=== PATIENT | male | born 1960 | race Caucasian/White ===

== ENCOUNTER 2022-05-01 07:42 | Outpatient (CLI) | payer MEDICARE, BC, SELFPAY ==
[2022-05-01 13:27] LABS: Iron* 74 ug/dL (49-181)
[2022-05-01 13:35] LABS: Albumin* 3.9 g/dL (3.3-5.0); Chloride* 107 mmol/L (96-114); Sodium* 139 mmol/L (135-149)
[2022-05-01 13:37] LABS: Percent Iron Saturation 22 % (20-50); Total Iron Binding Capacity 333 ug/dL (261-462)
[2022-05-01 13:38] LABS: Blood Urea Nitrogen* 42 mg/dL (7-30); Carbon Dioxide* 23 mmol/L (20-32); Cholesterol* 180 mg/dL (90-199); Creatinine* 2.3 mg/dL (0.5-1.5); Estimated Glomerular Filt Rate 32 ml/min; Glucose* 225 mg/dL (60-115); Uric Acid* 8.4 mg/dL (2.2-8.4)
[2022-05-01 13:39] LABS: Calcium* 9.1 mg/dL (8.4-10.6); HDL Cholesterol* 40 mg/dL (>=40); LDL Cholesterol Calculated 95 mg/dL (<100); Potassium* 4.8 mmol/L (3.6-5.1); Triglycerides* 225 mg/dL (40-149)
[2022-05-01 13:52] LABS: Creatinine Urine 86.4 mg/dL
[2022-05-01 15:24] LABS: Microalbumin Creatinine Ratio 4720 mg/g (0-30); Microalbumin Urine 408 mg/dL
[2022-05-01 16:32] LABS: Ferritin* 82.2 ng/mL (17.9-464.0)
== END 2022-05-01 07:43 | disposition home or self-care (01) ==
PROVIDERS: PCP Family Medicine; Visit Provider Internal Medicine Nephrology
DX: N18.9 Chronic kidney disease, unspecified (principal); E11.610 Type 2 diabetes mellitus with diabetic neuropathic arthropathy; I10 Essential (primary) hypertension; D50.9 Iron deficiency anemia, unspecified; E55.9 Vitamin D deficiency, unspecified; R80.9 Proteinuria, unspecified
CPT/HCPCS: 80061; 80069; 82043; 82570; 82728; 83540; 83550; 84550; 87205

== ENCOUNTER 2022-07-31 09:50 | Outpatient (CLI) | payer MEDICARE, BC, SELFPAY ==
--- NOTE | 2022-07-31 10:00 | CRLHL7_ITS ---
For Patients: As a result of the Century Cures Act, medical imaging exams and procedure reports are released immediately into your electronic medical record. You may view this report before your referring provider. If you have questions, please contact your health care provider. Indication: HEMATURIA Technique: Routine noncontrast CT abdomen and pelvis Please note that all CT scans at this facility use dose modulation, iterative reconstruction, and/or weight-based dosing when appropriate to reduce radiation dose to as low as reasonably achievable. Comparison: None Findings: Mild areas of atelectasis noted in both lung bases. No pleural effusion. No free intraperitoneal air. Bilateral gynecomastia. Normal liver. Innumerable layering calcified stones in the gallbladder. No biliary obstruction. Pancreas normal. Incidental calcification adjacent to the pancreatic head. Spleen unremarkable. Tiny hiatal hernia. Adrenal glands normal. No renal stone. No hydronephrosis. Ureters normal. No ureteral stone. Vascular calcifications. No adenopathy. Small right inguinal hernia contains fat. Sigmoid diverticulosis. No diverticulitis. Appendix normal. No bladder stone. Mild bladder wall thickening may be present. Impression: No renal, ureteral or bladder stone. The bladder is distended. Mild bladder wall thickening may be present. Please note that all CT scans at this facility use dose modulation, iterative reconstruction, and/or weight-based dosing when appropriate to reduce radiation dose to as low as reasonably achievable. Dictated by Damien Wise MD @ 07/31/2022 1:03:20 PM (Electronically Signed)
--- OUTSIDE RECORDS SUMMARY | 2022-07-31 10:05 | XMS_ITS | Encounter Summary ---
:1960 Author Organization [facility] Address [address] [place] [address] Care Team Providers Name Role Phone Unavailable Primary Care Provider Unavailable Reason for Referral Specialty Diagnoses / Procedures Referred By Contact Refer red To Contact Ramya Moon M.D. 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 [address] [place] [address] [phone] (Wo rk) Social History Tobacco Use Types Packs/Day Years Used Date Smoking Tobacco: Never Assessed Sex Assigned at Date Recorded Not on file documented as of this encounter Plan of Treatment Scheduled Referrals Name Type Priority Associated Order Schedule Diagnoses Covid immunization Outpatient Referral Routine Ex pected: office visit Booster 021 (Approximate), Expires: 08/06/2022 documented as of this encounter Visit Diagnoses Not on filedocumented in this encounter
--- OUTSIDE RECORDS SUMMARY | 2022-07-31 10:05 | XMS_ITS | Encounter Summary ---
:1960 Author Organization [place] Address [address] [facility] [place] [address] Care Team Providers Name Role Phone Ihsan Dunn MD Primary Care Provider [phone] Reason for Visit (Routine) - Closed Specialty Diagnoses / Procedures Referred By Contact Refer red To Contact Cardiology Diagnoses Per Leyda Desai, f/u at 215PM Echo Rscc Procedures ECH COMPLETE [address] [place], [place] [address] Phone: Fax: Referral ID Status Reason Start Date Expiration Date Visits Requ ested Visits Authorized [id number] Closed 10/29/2017 10/29/2018 1 1 Encounter Details Date Type Department Care Team Description 10/29/2017 Hospital Encounter [facility] Ketroser, 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; [facility] Melanie Keen MD Thoracic aortic aneurysm without rupture (H) [facility] [address] [place] [address] [facility] [address] [place] [address] [phone] Social History Tobacco Use Types Packs/Day Years Used Date Smoking Tobacco: Never Smokeless Tobacco: Never Alcohol Use Standard Drinks/Week Comments No 0 (1 standard drink = 0.6 oz pure alcoho l) Sex Assigned at Date Recorded Not on file documented as of this encounter Medications at Time of Discharge Medication Sig Dispensed Refills Start Date End Date ascorbic acid (VITAMIN C) Take 500 mg by mouth 0 500 MG tablet daily aspirin 81 MG Take 2 tablets (162 60 tablet 0 06/12/2017 tabletIndications: S/P mg) by mouth daily BKA (below knee amputation), left (H) Cholecalciferol (VITAMIN Take 5,000 Units by 0 D3 PO) mouth daily GLIPIZIDE XL PO Take 5 mg by mouth 0 daily (with breakfast) lisinopril Take 30 mg by mouth 0 (PRINIVIL/ZESTRIL) 10 MG daily tablet order for DMEIndications: Equipment being ordered: [employer] Wheels (E0155) and Walker (E0135) 1 each 0 06/07/2017 S/P BKA (below knee Treatment Diagnosis: Impaired gait stability s/p BKA amputation), left (H) order for DMEIndications: [facility] Order Phone 30 days 0 05/20/2017 Charcot ankle, right, Charcot ankle, left, Primary Dressing Hydrofera B lue READY TRANSFER Qty 5 sheets NOT NEEDED Decubitus ulcer of right Secondary Dressing 4 Roll gauze Qty 60 NOT NEEDED ankle, stage 3 (H), Secondary Dressing 2 medipore tape Qty 3 Pressure ulcer of left Length of Need: 1 month ankle, stage 3 (H) Frequency of dressing change: daily order for DMEIndications: [facility] Order Phone 30 days 0 04/22/2017 Charcot ankle, left, Open wound of knee, leg, and Primary Dressing HydroferaBl ue Ready Transfer Qty 4 sheets ankle, left, initial Primary Dressing Endoform Qty 15 sheets encounter, Charcot's Secondary Dressing 4x4 Gauze Loaf Qty 2 joint of right ankle, Secondary Dressing 2 Medipore Tape Qty 2 Wound of right ankle, Length of Need: 1 month initial encounter Frequency of dressing change: daily Please send what his insurance will allow. Thank you polyvinyl Place 1-2 drops into 0 alcohol-povidone both eyes as needed (REFRESH) 1.4-0.6 % for irritation ophthalmic solution Sertraline HCl (ZOLOFT Take 50 mg by mouth 0 PO) daily SIMVASTATIN PO Take 20 mg by mouth 0 daily documented as of this encounter Plan of Treatment Not on filedocumented as of this encounter Procedures Procedure Name Priority Date/Time Associated Diagnosis Comme [facility] ECHO COMPLETE Routine 10/29/2017 11:24 AM Aneurysm of aortic R esults for this [employer] sinus of Valsalva procedure are in the without rupture results section. Thoracic aortic aneurysm without rupture (H) documented in this encounter Results Echocardiogram (10/29/2017 11:24 AM [employer]) Anatomical Region Laterality Modality Echocardiography Specimen (Source) Anatomical Collection Method Collection Time Re ceived Time Location / / Volume Laterality 10/29/2017 11:03 AM [employer] Narrative 10/29/2017 11:46 AM [facility] [id number] [facility] [id number]^LLOYD^MELANIE^[facility] Echocardiography Laboratory [address] [place] [address] Name: GEO DUBOIS : 1960 Study Date: 10/29/2017 11:03 AM Age: 57 yrs Gender: Male Patient Location: [facility] Reason For Study: , Aneurysm of aortic s inus of Valsalva without rupture, Thoracic Ordering Physician: MELANIE DESAI Referring Physician: Warren Dunn MD Performed By: Suzy Jorgensen RDCS BSA: 2.2 m2 Height: 70 in Weight: 224 lb HR: 72 BP: 170/89 mmHg __ Procedure Complete Echo Adult. __ Interpretation Summary The visual ejection fraction is estimate d at 55-60%. Probably normal left ventricular systoli c function. The ascending aorta is Mildly dilated. Compared to prior study, there is no sig nificant change. __ Left Ventricle The left ventricle is normal in size. Th ere is mild concentric left ventricular hypertrophy. The visual ejec tion fraction is estimated at 55-60%. Diastolic Doppler findings (E/E' ratio a nd/or other parameters) suggest left ventricular filling pressures are indete rminate. Grade I or early diastolic dysfunction. Probably normal left ventri cular systolic function. Septal motion is consistent with conduction abnormalit y. The left ventricular apex is not well visualized. Right Ventricle The right ventricle is normal in size an d function. Atria The left atrium is borderline dilated. R ight atrial size is normal. There is no color Doppler evidence of an atrial s nevarez. Mitral Valve There is trace mitral regurgitation. Tricuspid Valve There is trace tricuspid regurgitation. Right ventricular systolic pressure could not be approximated due to inadequ ate tricuspid regurgitation. Aortic Valve The aortic valve is trileaflet. There is trivial trileaflet aortic sclerosis. No aortic regurgitation is present. No h emodynamically significant valvular aortic stenosis. Pulmonic Valve There is trace pulmonic valvular regurgi tation. Vessels Mild aortic root dilatation. The ascendi ng aorta is Mildly dilated. The inferior vena cava is not dilated. Infer ior vena cava not well visualized for estimation of right atrial pressure. Pericardium There is no pericardial effusion. Rhythm Sinus rhythm was noted. __ MMode/2D Measurements & Calculations IVSd: 1.1 cm LVIDd: 5.0 cm LVIDs: 3.9 cm LVPWd: 1.3 cm FS: 21.5 % EDV(Teich): 115.8 ml ESV(Teich): 65.4 ml LV mass(C)d: 236.5 grams LV mass(C)dI: 108.0 grams/m2 Ao root diam: 3.9 cm LA dimension: 4.1 cm asc Aorta Diam: 3.7 cm LA/Ao: 1.1 LA Volume Index (BP): 34.4 ml/m2 RWT: 0.54 Doppler Measurements & Calculations MV E max watson: 64.9 cm/sec MV A max watson: 96.2 cm/sec MV E/A: 0.67 MV dec slope: 273.2 cm/sec2 MV dec time: 0.24 sec Peak E' Watson: 6.4 cm/sec __ Report approved by: Nory Ortiz 10/29/2017 11:46 AM Procedure Note Adalid Seymour MD - [id number]^LLOYD^MELANIE^[facility] Echocardiography Laboratory [address] [place] [address] Name: GEO DUBOIS : 1960 Study Date: 10/29/2017 11:03 AM Age: 57 yrs Gender: Male Patient Location: [facility] Reason For Study: , Aneurysm of aortic s inus of Valsalva without rupture, Thoracic Ordering Physician: MELANIE DESAI Referring Physician: Warren Dunn MD Performed By: Suzy Jorgensen RDCS BSA: 2.2 m2 Height: 70 in Weight: 224 lb HR: 72 BP: 170/89 mmHg __ Procedure Complete Echo Adult. __ Interpretation Summary The visual ejection fraction is estimate d at 55-60%. Probably normal left ventricular systoli c function. The ascending aorta is Mildly dilated. Compared to prior study, there is no sig nificant change. __ Left Ventricle The left ventricle is normal in size. Th ere is mild concentric left ventricular hypertrophy. The visual ejec tion fraction is estimated at 55-60%. Diastolic Doppler findings (E/E' ratio a nd/or other parameters) suggest left ventricular filling pressures are indete rminate. Grade I or early diastolic dysfunction. Probably normal left ventri cular systolic function. Septal motion is consistent with conduction abnormalit y. The left ventricular apex is not well visualized. Right Ventricle The right ventricle is normal in size an d function. Atria The left atrium is borderline dilated. R ight atrial size is normal. There is no color Doppler evidence of an atrial s nevarez. Mitral Valve There is trace mitral regurgitation. Tricuspid Valve There is trace tricuspid regurgitation. Right ventricular systolic pressure could not be approximated due to inadequ ate tricuspid regurgitation. Aortic Valve The aortic valve is trileaflet. There is trivial trileaflet aortic sclerosis. No aortic regurgitation is present. No h emodynamically significant valvular aortic stenosis. Pulmonic Valve There is trace pulmonic valvular regurgi tation. Vessels Mild aortic root dilatation. The ascendi ng aorta is Mildly dilated. The inferior vena cava is not dilated. Infer ior vena cava not well visualized for estimation of right atrial pressure. Pericardium There is no pericardial effusion. Rhythm Sinus rhythm was noted. __ MMode/2D Measurements & Calculations IVSd: 1.1 cm LVIDd: 5.0 cm LVIDs: 3.9 cm LVPWd: 1.3 cm FS: 21.5 % EDV(Teich): 115.8 ml ESV(Teich): 65.4 ml LV mass(C)d: 236.5 grams LV mass(C)dI: 108.0 grams/m2 Ao root diam: 3.9 cm LA dimension: 4.1 cm asc Aorta Diam: 3.7 cm LA/Ao: 1.1 LA Volume Index (BP): 34.4 ml/m2 RWT: 0.54 Doppler Measurements & Calculations MV E max watson: 64.9 cm/sec MV A max watson: 96.2 cm/sec MV E/A: 0.67 MV dec slope: 273.2 cm/sec2 MV dec time: 0.24 sec Peak E' Watson: 6.4 cm/sec __ Report approved by: Nory Ortiz 10/29/2017 11:46 AM Melanie Desai MD CV ECHO ORDERABLES documented in this encounter Visit Diagnoses Diagnosis Aneurysm of aortic sinus of Valsalva wit hout rupture Thoracic aortic aneurysm without rupture Thoracic aneurysm without mention of rup ture documented in this encounter Care Teams Front Desk Team Member Relationship Specialty Start Date End Date Ihsan Dunn MD PCP - General 06/07/17 documented as of this encounter
--- OUTSIDE RECORDS SUMMARY | 2022-07-31 10:05 | XMS_ITS | Encounter Summary ---
:1960 Author Organization [facility] Address [address] [place] [address] Care Team Providers Name Role Phone Unavailable Primary Care Provider Unavailable Reason for Referral Outpatient (Routine) - Closed Specialty Diagnoses / Procedures Referred By Contact Refer red To Contact Prasanna Tavera D.O. [facility] [address] [place] [phone] Referral ID Status Reason Start Date Expiration Date Visits Requ ested Visits Authorized [id number] Closed 03/05/2022 03/05/2023 1 1 Scheduling Instructions Ok on admin time early PM Reason for Visit Outpatient (Routine) - Closed Specialty Diagnoses / Procedures Referred By Contact Yvette aden To Contact Prasanna Tavera D.O. [address] [phone] Referral ID Status Reason Start Date Expiration Date Visits Requ ested Visits Authorized [id number] Closed 01/28/2022 01/28/2023 1 1 Encounter Details Date Type Department Care Team Description 03/05/2022 Virtual Visit Division of Britt[facility]averaonic Kidney Disease (CKD) Stage 3b Glomerular Filtration Rate (GFR) 30 To 44 (Primary Dx); Nephrology and Prasanna Pratt Jr., Chronic Kidn ey Disease (CKD), Stage 3b Glomerular Filtration Rate (GFR) 30 To 44 (HCC); Hypertension in D.O. 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 (HCC); [place], [place] [address] [facility] Hyperparathyroidism Renal Secondary (HCC ) [address] [place] [phone] Social History Tobacco Use Types Packs/Day Years Used Date Smoking Tobacco: Never Assessed Sex Assigned at Date Recorded Not on file documented as of this encounter Progress Notes Prasanna Tavera Jr., D.O. - 03/05/2022 1:30 PM CDT Subjective Nephrology HTN Phone Visit This visit took place over the phone to the patient by Dr. Prasanna Tavera in [place], [place]. Chief Complaint/Reason for Visit Follow-up regards severe resistant hypertension History of Present Illness: Geo Dubois is a 61 y.o. male who presents for evaluation of the following concerns: Follow-up regards his hypertension. At our last visit in [place] we had increased his hydrochlorothiazide to 50 mg per day, his losartan to 100 mg per day, and his carvedilol was at 6.25 mg twice daily. His pulse has been running in the upper 60s by enlarge. Unfortunately his blood pressure remainsabove goal at 170/88, and as high as 190s over 90s. He has had no shortness of breath no chest pain. There has been a bit of confusion he might have only been using 25 mg of the hydrochlorothiazide recently. His legs are not swollen, he has no changes in his vision he has had no hypoglycemic events. Shared the overall frustration with him regards his difficult to manage blood pressure. We discussedthe addition of minoxidil. And close follow-up will be necessary. Current Outpatient Medications: ??? carvediloL (COREG) 3.125 mg tablet, Take 2 tablets (6.25 mg total) by mouth 2 (two) times a day with meals., Disp: 360 tablet, Rfl: 3 ??? losartan (COZAAR) 100 mg tablet, Take 0.5 tablets (50 mg total) by mouth daily., Disp: 45 tablet, Rfl: 3 ??? atorvastatin (LIPITOR) 20 mg tablet, Take 1 tablet (20 mg total) by mouth daily., Disp: 90 tablet, Rfl: 3 ??? hydroCHLOROthiazide (HYDRODIURIL) 50 mg tablet, Take 1 tablet (50 mg total) by mouth daily., Disp: 90 tablet, Rfl: 3 ??? minoxidiL (LONITEN) 2.5 mg tablet, Take 1 tablet (2.5 mg total) by mouth daily., Disp: 90 tablet, Rfl: 3 ??? sertraline (ZOLOFT) 50 mg tablet, Take 1 tablet (50 mg total) by mouth daily., Disp: 90 tablet, Rfl: 3 Review of Systems REVIEW OF SYSTEMS OBJECTIVE There were no vitals filed for this visit. Assessment/Plan: #1 Hypertensive Chronic Kidney Disease (CKD) Stage 3b Glomerular Filtration Rate (GFR) 30 To 44 Frustrating lack of progress on 3 agents for his blood pressure at usual doses. I am going to add minoxidil at a low-dose 2.5 mg orally daily to his regimen. He has previously had side effects to amlodipine, and I cautioned him that the minoxidil could also cause lower extremity swelling, headaches, or lightheadedness. Going to her also recommend he continue to be careful with the sodium, stay well hydrated, and that we will touch base in a month with respect to his blood pressure, and other mattersby phone. #2 Chronic Kidney Disease (CKD), Stage 3b Glomerular Filtration Rate (GFR) 30 To 44 (HCC) His renal functions remain relatively stable we have [id number] visit with labs scheduled in April. #3 Diabetes Mellitus Type 2 With Diabetic Nephropathy (HCC) No hypoglycemic events #4 Hyperparathyroidism Renal Secondary (HCC) No bone pain Total Time: 35 minute Counseling Time: 20 minutes documented in this encounter Plan of Treatment Scheduled Referrals Name Type Priority Associated Diagnoses [facility] NonF2F phone Outpatient Referral Routine Expected : visit 04/04/2022 (Approximate), Expires: 2022 documented as of this encounter Visit Diagnoses Diagnosis Hypertensive Chronic Kidney Disease (CKD ) Stage 3b Glomerular Filtration Rate (GFR) 30 To 44 (HCC) - Primary Chronic Kidney Disease (CKD), Stage 3b G lomerular Filtration Rate (GFR) 30 To 44 (HCC) 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
--- OUTSIDE RECORDS SUMMARY | 2022-07-31 10:05 | XMS_ITS | Clinical Summary ---
:1960 Author Organization [facility] Address [address] [place] [address] Care Team Providers Name Role Phone Ihsan Dunn MD Primary Care Provider [phone] Allergies Active Allergy Reactions Severity Noted Date Comments Amoxicillin Hives 01/31/2016 Medications Medication Sig Dispensed Refills Start Date End Date Status GLIPIZIDE XL PO Take 5 mg by mouth 0 Active daily (with breakfast) Sertraline HCl Take 50 mg by mouth 0 Active (ZOLOFT PO) daily Cholecalciferol Take 5,000 Units by 0 Active (VITAMIN D3 PO) mouth daily SIMVASTATIN PO Take 20 mg by mouth 0 Active daily lisinopril Take 30 mg by mouth 0 Active (PRINIVIL/ZESTRIL) 10 daily MG tablet order for [facility] Order Fax 30 days 0 04/22/2017 Active DMEIndications: Charcot ankle, left, Primary Dressing HydroferaBlue Ready Tr ansfer Qty 4 sheets Open wound of knee, Primary Dressing Endoform Qty 15 sheets leg, and ankle, left, Secondary Dressing 4x4 Gauze Loaf Qty 2 initial encounter, Secondary Dressing 2 Medipore Tape Qty 2 Charcot's joint of Length of Need: 1 month right ankle, Wound of Frequency of dressing change: daily right ankle, initial Please send what his insurance will allow. encounter Thank you order for [facility] Order Fax 30 days 0 05/20/2017 Active DMEIndications: Charcot ankle, right, Primary Dressing Hydrofera B lue READY TRANSFER Qty 5 sheets NOT NEEDED Charcot ankle, left, Secondary Dressing 4 Roll gauze Qty 60 NOT NEED ED Decubitus ulcer of Secondary Dressing 2 medipore tape Qty 3 right ankle, stage 3 Length of Need: 1 month (H), Pressure ulcer Frequency of dressing change: daily of left ankle, stage 3 (H) polyvinyl Place 1-2 drops 0 Acti ve alcohol-povidone into both eyes as (REFRESH) 1.4-0.6 % needed for ophthalmic solution irritation order for Equipment being ordered: Walker Wheels ( [id number]) and Walker ([id number]) 1 each 0 06/07/2017 Active DMEIndications: S/P Treatment Diagnosis: Impaired gait stability s/p B KA BKA (below knee amputation), left (H) aspirin 81 MG Take 2 tablets (162 60 tablet 0 06/12/2017 Active tabletIndications: mg) by mouth daily S/P BKA (below knee amputation), left (H) ascorbic acid Take 500 mg by 0 A ctive (VITAMIN C) 500 MG mouth daily tablet Active Problems Problem Noted Date Below knee amputation status 06/08/2017 Diabetes 06/05/2017 VILLA (obstructive sleep apnea) 04/02/2017 Benign essential hypertension 04/02/2017 Ischemic cardiomyopathy 09/15/2016 Thoracic aortic aneurysm without rupture 09/15/2016 Type 2 diabetes mellitus with diabetic neuropathy 02/27 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 0 01/31/2016 Family history of ischemic heart disease 01/29/2016 Diabetes mellitus Anemia of chronic disorder Family History Medical History Relation Comments Diabetes Brother Hyperlipidemia Father Diabetes Mother Hypertension Mother Relation Status Comments Brother Father Mother Social History Tobacco Use Types Packs/Day Years Used Date Smoking Tobacco: Never Smokeless Tobacco: Never Tobacco Cessation: Counseling Given: No Alcohol Use Standard Drinks/Week Comments No 0 (1 standard drink = 0.6 oz pure alcoho l) Sex Assigned at Date Recorded Not on file Last Filed Vital Signs Vital Sign Reading Time Taken Comments Blood Pressure 118/72 11/05/2018 10:49 AM SPD MANAGER Pulse 78 10/29/2017 2:07 PM SPD MANAGER regular Temperature 37.1 ??C (98.8 ??F) 07/10/2017 5:09 PM CDT Respiratory Rate 12 07/10/2017 6:30 PM CDT Oxygen Saturation 98% 07/10/2017 6:30 PM CDT Inhaled Oxygen Concentration - - Weight 118.4 kg (261 lb) 11/05/2018 10:49 AM SPD MANAGER Height 177.8 cm (5' 10) 11/05/2018 10:49 AM SPD MANAGER Body Mass Index 37.45 11/05/2018 10:49 AM SPD MANAGER Plan of Treatment Health Maintenance Due Date Last Done Comments ADVANCE CARE PLANNING 1960 ANNUAL REVIEW OF HM ORDERS 1960 CT COLONOGRAPHY 1960 DIABETIC FOOT EXAM 1960 EYE EXAM 1960 FIT-DNA (Cologuard) 1960 FIT 1960 FLEX SIG 1960 LIPID 1960 MICROALBUMIN 1960 COVID-19 Vaccine (#1) 1960 Pneumococcal Vaccine: 1968 Pediatrics (0 to 5 Years) and At-Risk Patients (6 to 64 Years) (1 - PCV) COLONOSCOPY 1972 COLORECTAL CANCER SCREENING 1972 HIV SCREENING 1977 HEPATITIS C SCREENING 1980 MEDICARE ANNUAL WELLNESS 1980 VISIT DTAP/TDAP/TD IMMUNIZATION 1987 (1 - Tdap) ZOSTER IMMUNIZATION (1 of 2012 2) A1C 12/07/2017 06/09/2017 BMP 07/10/2018 07/10/2017, 06/09/2017, 06/06/2017, Additional history exists PHQ-2 (once per calendar 09/28/2021 year) INFLUENZA VACCINE (#1) 2022 IPV IMMUNIZATION Aged Out No longer eligi ble based on patient 's age to complete this topic MENINGITIS IMMUNIZATION Aged Out No longe r eligible based on patient 's age to complete this topic Insurance Payer Benefit Plan / Subscriber ID Effective Phone Address T ype Group Dates MEDICARE MEDICARE [id number] 2018-Prese [phone] ATTN JAMARCUS [place] Medicare nt 40 [address] [place] [address] BCBS BCBS OF [place] [id number] 2018-Prese [phone] [address] [address] Indemnity nt [address] [place] [address] Guarantor Name Account Type Relation to Date of Phone Billing Patient Address Geo Dubois Personal/Family Self 1960 [id number] (Home) [place] [phone] (Work) [place] Directives For more information, please contact: [phone] Latest Code Status on File Code Status Date Activated Date Inactivated Comments Full Code 06/12/2017 5:57 PM Code Status History Code Status Date Activated Date Inactivated Comments Full Code 06/08/2017 2:51 PM 06/12/2017 5:57 PM Full Code 06/05/2017 2:18 PM 06/08/2017 2:51 PM Care Teams Ob Gyn Relationship Specialty Start Date End Date Ihsan Dunn MD PCP - General 06/07/17
--- OUTSIDE RECORDS SUMMARY | 2022-07-31 10:05 | XMS_ITS | Encounter Summary ---
:1960 Author Organization [facility] Address [address] [place] [address] Care Team Providers Name Role Phone Unavailable Primary Care Provider Unavailable Reason for Visit Appointment Request (Routine) - Closed Specialty Diagnoses / Procedures Referred By Contact Refer red To Contact Nephrology and Hypertension Referral ID Status Reason Start Date Expiration Date Visits Requ ested Visits Authorized [id number] Closed 05/16/2021 05/16/2022 1 1 Encounter Details Date Type Department Care Team Description 07/24/2021 External Outreach Division of Yolanda, Hypertens ion And Chronic Kidney Disease Stage 1 To 4 (Primary Dx); Nephrology and Gricel Oliveira APRN, Anemia Of C hronic Renal Disease; Hypertension in C.N.P., D.N.P. Diabetes M ellitus Type 2 ([facility]); [place], [place] Chronic Kidney Disease (CKD) , Stage 3b Glomerular Filtration Rate (GFR) 30 To 44 ([facility]); [address] [facility] Diabetes Mellitus Type 2 Wit h Diabetic Nephropathy (HCC) [place] [address] Social History Tobacco Use Types Packs/Day Years Used Date Smoking Tobacco: Never Assessed Sex Assigned at Date Recorded Not on file documented as of this encounter Progress Notes Gricel Guerrero APRN, C.N.P., D.N.P. - 07/24/2021 8:30 AM CDT Subjective: This visit was conducted at out reach [facility] History of Present Illness: Mr. Dubois is a 61 y.o. male who presents for ongoing evaluation of chronic kidney disease. He waslast seen in Nephrology by Dr. Tavera on 03/13/2021. He has chronic kidney disease secondary to diabetes and hypertension. Active medications: Hydrochlorothiazide 50 mg 1 tablet daily Losartan 100 mg daily Atorvastatin 20 mg daily Glipizide 5 mg daily Past medical history includes Charcot foot, aortic dilatation/ascending aortic dilatation mild, irondeficiency anemia EGD and colonoscopy August 2015, diabetic retinopathy with macular edema, obstructive sleep apnea, depression, hyperlipidemia. He has not managed his diabetes or his hypertension well in the past. When he last saw nephrology was reporting frequent hypoglycemic events. It was also noted he was not taking his glipizide nor his antihypertensives regularly. No changes were made at his last appointment just encouraging appropriate medication management for hypertension and diabetes. He returns today reporting he feels well. He denies any s/s of uremia or volume overload and endorses a good appetite. He states he has not taken any of his listed medications in over a month and states before that he was not really consistently taking them as well. His reasoning is that he just forgets. He has been living in his shop to protect his partner who has health problems from potentially elham COVID. They are both immunized. He states he will actually be moving back in soon. Review of Systems The following systems were negative: Constitutional, CV, Respiratory, GI, , Neuro Objective: Constitutional Appearance: He is obese. Cardiovascular Rate and Rhythm: Normal rate and regular rhythm. Heart sounds: Normal heart sounds. Comments: Left leg amputation below the knee, no edema of stump. Right leg no edema. Pulmonary Effort: Pulmonary effort is normal. Breath sounds: Normal breath sounds. Skin General: Skin is warm and dry. Neurological Mental Status: He is alert and oriented to person, place, and time. Psychiatric Mood and Affect: Mood normal. Behavior: Behavior normal. Thought Content: Thought content normal. Judgment: Judgment normal. BP: 230/110 P: 77 Weight 114 Kg Assessment/Plan: #1 Chronic kidney Disease (CKD) stage 3 secondary to diabetes and hypertension GFR is 40 mL/min. BUN is27 mg/dL. He Does not display signs of uremia today. Signs and symptoms of uremia reviewed today. #2 CKD treatment options We did not discuss treatment options. We did have a kalpana discussion about my concerns of his not taking any of his medications and his current risks of sudden from heart attack/CVA and with his proteinuria doubling his potential for kidney failure in the near future. #3 Hypertension Significantly hypertensive with worsening proteinuria. Restart Losartan at 25 mg. Recheck lab in 1 week at [facility]. Follow up in clinic in one month. Likely will need increased dose and more agents for management of blood pressure. #4 Anemia of CKD Hgb although slightly low at 12.2 is satisfactory at this time without ANYA therapy. #5 Secondary hyperparathyroidism Calcium, Phosphorus and PTH are satisfactory for stage 3 CKD. He is not on any vitamin D therapy. #6 Metabolic acidosis screening Bicarbonate:satisfactory at this time without treatment. #7 DM 2 He reports hypoglycemia with glipizide and does not want to restart this. We discussed the CREDENCE trial and the use of SGLT 2 inhibitors and GLP 1 RA. He is currently not a candidate for a SGLT 2 inhibitor given his hx of amputation and charcot foot. He does qualify and would benefit from the addition of a GLP 1 RA. I will check with his PCP and see if they are opposed to getting him started on a GLP 1 RA. GLP-1 receptor agonists (like Victoza, Ozempic, Trulicity, Exenatide-LAR) are injections that increase endogenous insulin secretion and cause significant weight loss by decreasing appetite and increasing satiety. Some of these agents (Victoza, Ozempic, Trulicity) can be used in stage 5 kidney disease also. The use of these agents has been associated with nausea, vomiting and diarrhea, especially if doses are escalated quickly. These agents have been shown to be associated with decrease in progression of kidney disease, especially decrease in urinary albumin excretion. Patient who have had pancreatitis or pancreatic cancer, or have had a medullary thyroid cancer, or have a family history of medullary thyroid cancer or MEN-2 should not use these agents. Follow-up: CKD clinic in one month 09/04/21 documented in this encounter Plan of Treatment Not on filedocumented as of this encounter Visit Diagnoses Diagnosis Hypertension And Chronic Kidney Disease Stage 1 To 4 - Primary Anemia Of Chronic Renal Disease Diabetes Mellitus Type 2 (HCC) Chronic Kidney Disease (CKD), Stage 3b G lomerular Filtration Rate (GFR) 30 To 44 (HCC) 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 (HCC) documented in this encounter
--- OUTSIDE RECORDS SUMMARY | 2022-07-31 10:05 | XMS_ITS | Encounter Summary ---
:1960 Author Organization [facility] Address [address] [place] [address] Care Team Providers Name Role Phone Unavailable Primary Care Provider Unavailable Reason for Visit Appointment Request (Routine) - Closed Specialty Diagnoses / Procedures Referred By Contact Refer red To Contact Nephrology and Hypertension Referral ID Status Reason Start Date Expiration Date Visits Requ ested Visits Authorized [id number] Closed 08/21/2021 08/21/2022 1 1 Encounter Details Date Type Department Care Team Description 09/04/2021 External Outreach Division of Melecio Guerrero ion And Chronic Kidney Disease Stage 1 To 4 (Primary Dx); Nephrology and Gricel Oliveira APRN, Hypertensio n Essential Primary; Hypertension in C.N.P., D.N.P. Diabetes M ellitus Type 2 ([facility]); [place], [place] Chronic Kidney Disease (CKD) , Stage 3b Glomerular Filtration Rate (GFR) 30 To 44 ([facility]) [address] [place] [address] Social History Tobacco Use Types Packs/Day Years Used Date Smoking Tobacco: Never Assessed Sex Assigned at Date Recorded Not on file documented as of this encounter Last Filed Vital Signs Vital Sign Reading Time Taken Comments Blood Pressure 150/84 09/04/2021 8:59 AM WEB ENGINEER Pulse 72 09/04/2021 8:59 AM WEB ENGINEER Temperature - - Respiratory Rate - - Oxygen Saturation - - Inhaled Oxygen Concentration - - Weight - - Height - - Body Mass Index - - documented in this encounter Progress Notes Gricel Guerrero APRN, C.N.P., D.N.P. - 09/04/2021 8:30 AM CST Subjective: History of Present Illness: Mr. Dubois is a 61 y.o. male who presents for ongoing evaluation of chronic kidney disease. He is being seen in the CKD clinic in [place]. He was last seen on July 24, 2021. He has chronic kidney disease secondary to diabetes and hypertension. At his last appointment his kidney function was noted as stable. He was significantly hypertensive in the clinic with a blood pressure of 230/110 with worsening proteinuria and was advised to restart losartan 25 mg 1 tablet daily. We also discussed his diabetes management. At that appointment he told me he stopped taking his glipizide due to hypoglycemic events. We did discuss the possibility of starting on a GLP 1 receptor agonist, and I said his primary care physician message home regarding this. He returns today reporting he has been taking his medications as prescribed. He saw his PCP last month and was restarted on his HCTZ at mg daily and was given a RX for Victoza. The Victoza was too expensive and then was given Ozempic. He states he decided not to fruit or nut picker the medicine as he is living between two homes (his daughters andfriends) and is not sure when or where he will be on any given day and leaves his items in his truck. He states traveling with injections would be too cumbersome and is not willing to pay 200$ and travel with the medicine. Review of Systems Cardiovascular: Positive for swelling in the legs or feet. Negative for chest pain, pressure or tightness. The following systems were negative: Constitutional, Respiratory, GI, , Neuro Objective: Constitutional Appearance: He is well-developed. Cardiovascular Rate and Rhythm: Normal rate and regular rhythm. Heart sounds: Normal heart sounds. No murmur heard. Comments: Left lower leg prosthesis and Right lower leg with boot for charcot foot, some trace edema above boot just below knee. Pulmonary Effort: Pulmonary effort is normal. No respiratory distress. Breath sounds: Normal breath sounds. No wheezing. Skin General: Skin is warm and dry. Neurological Mental Status: He is alert and oriented to person, place, and time. Psychiatric Behavior: Behavior normal. Thought Content: Thought content normal. Judgment: Judgment normal. Vitals: 09/04/21 0859 BP: 150/84 Pulse: 72 Assessment/Plan: Hemoglobin 13.6, potassium 4.5, sodium 136, bicarbonate 27, calcium 9.7, phosphorus 3.7, albumin 3.9, creatinine 2.1, BUN 39, Albumin/creat ratio 6982, #1 Chronic kidney Disease (CKD) stage 3 secondary to diabetes and hypertension GFR is 38 mL/min. BUN is 39 mg/dL. He does not display signs of uremia today. Signs and symptoms ofuremia reviewed today. #2 CKD treatment options Not discussed. Focused on HTN and DM management. #3 Hypertension Blood pressure much improved but still above goal. Increase Losartan to 50 mg daily. Recheck labs inone week in [place]. Proteinuria 6982 #4 Anemia Screening Hemoglobin satisfactory without ANYA therapy. #5 Secondary Hyperparathyroidism Screening Calcium and Phosphorus satisfactory. #6 Metabolic Acidosis Screening Bicarbonate satisfactory, not on sodium bicarbonate at this time. #7 Diabetes Mellitus 2 He is not willing to start a GLP 1 RA. He would like to restart his Glipizide. He will follow up with his PCP for this. Encouraged him to consider a GLP 1 RA in the future. Discussed the benefits of GLP1 RA use with CKD and DM2. Follow-up:Recheck creatinine and potassium in one week and return to clinic in 3 months. Continue tofollow up with PCP. ENGINEER documented in this encounter Plan of Treatment Not on filedocumented as of this encounter Visit Diagnoses Diagnosis Hypertension And Chronic Kidney Disease Stage 1 To 4 - Primary Hypertension Essential Primary Diabetes Mellitus Type 2 (HCC) Chronic Kidney Disease (CKD), Stage 3b G lomerular Filtration Rate (GFR) 30 To 44 (HCC) documented in this encounter
--- OUTSIDE RECORDS SUMMARY | 2022-07-31 10:05 | XMS_ITS | Encounter Summary ---
:1960 Author Organization [facility] Address [address] [place] [address] Care Team Providers Name Role Phone Ihsan Dunn MD Primary Care Provider [phone] Encounter Details Date Type Department Care Team Description 01/26/2018 Hospital Encounter [facility] [place], Sharonda cot's joint of ankle (Primary Dx); [facility] Kristal De León Ankle wound [address] Garrett Sloan PA-C [facility] [address] ORTHOPEDICS [phone] [place] [address] Social History Tobacco Use Types Packs/Day Years [...] encounter Procedures Procedure Name Priority Date/Time Associated Comments Diagnosis CBC WITH PLATELETS & Routine 01/26/2018 12:53 Charcot's joint of Results for this DIFFERENTIAL PM CDT ankle procedure are in Ankle wound the results section. ERYTHROCYTE Routine 01/26/2018 12:53 Charcot's joint of Resul ts for this SEDIMENTATION RATE PM CDT ankle procedure are in AUTO Ankle wound the results section. CRP INFLAMMATION Routine 01/26/2018 12:53 Charcot's joint of R esults for this PM CDT ankle procedure are in Ankle wound the results section. documented in this encounter Results (ABNORMAL) Erythrocyte sedimentation rate auto (01/26/2018 12:53 PM CDT) P athologist Signature Sed Rate 109 (H) 0 - 20 mm/h 01/26/2018 [facility] 1:47 PM CDT [facility] Specimen Anatomical Collection Method Collection Time Receive d Time (Source) Location / / Volume Laterality Blood specimen 01/26/2018 12:53 8 (specimen) PM CDT 12:54 PM CDT Kristal Lozada PA-C LAB - BLOOD ORDERA BLES Performing Organization Address [facility] Phon e Number [facility] [address], [place] [address] [facility] [address] [place], [place] [address], [facility] [phone] (ABNORMAL) CRP inflammation (01/26/2018 12:53 PM CDT) [facility] Method Time Signature CRP Inflammation 56.0 (H) 0.0 - 8.0 01/26/2018 [facility] mg/L 1:11 PM T [facility] Specimen Anatomical Collection Method Collection Time Receive d Time (Source) Location / / Volume Laterality Blood specimen 01/26/2018 12:53 8 (specimen) PM CDT 12:54 PM CDT Kristal Lozada PA-C LAB - BLOOD ORDERA BLES Performing Organization Address City/[facility] Phon e Number [facility] [address] [place], [place] [address] [facility] [address] [place] [address], [facility] [phone] (ABNORMAL) CBC with platelets differential (01/26/2018 12:53 PM CDT) [facility] Method Time Signature WBC 6.8 4.0 - 01/26/2018 [facility] 11.0 12:57 PM [facility] 10e9/L CDT [facility] RBC Count 3.63 (L) 4.4 - 5.9 01/26/2018 [facility] 10e12/L 12:57 PM [facility] Hemoglobin 10.7 (L) 13.3 - 01/26/2018 [facility] 17.7 g/dL 12:57 PM [facility] Hematocrit 31.9 (L) 40.0 - 01/26/2018 [facility] 53.0 % 12:57 PM [facility] MCV 88 78 - 100 01/26/2018 [facility] fl 12:57 PM [facility] MCH 29.5 26.5 - 01/26/2018 [facility] 33.0 pg 12:57 PM [facility] MCHC 33.5 31.5 - 01/26/2018 [facility] 36.5 g/dL 12:57 PM [facility] RDW 13.3 10.0 - 01/26/2018 [facility] 15.0 % 12:57 PM [facility] Platelet Count 185 150 - 450 01/26/2018 [facility] 10e9/L 12:57 PM [facility] Diff Method Automated 01/26/2018 [facility] Method 12:57 PM [facility] % Neutrophils 60.7 % 01/26/2018 [facility] 12:57 PM [facility] % Lymphocytes 25.5 % 01/26/2018 [facility] 12:57 PM [facility] % Monocytes 10.9 % 01/26/2018 [facility] 12:57 PM [facility] % Eosinophils 2.2 % 01/26/2018 [facility] 12:57 [facility] % Basophils 0.4 % 01/26/2018 [facility] 12:57 [facility] % Immature 0.3 % 01/26/2018 [facility] Granulocytes 12:57 [facility] Nucleated RBCs 0 0 /100 01/26/2018 [facility] 12:57 PM [facility] Absolute 4.1 1.6 - 8.3 01/26/2018 [facility] Neutrophil 10e9/L 12:57 PM [facility] Absolute 1.7 0.8 - 5.3 01/26/2018 [facility] Lymphocytes 10e9/L 12:57 [facility] Absolute 0.7 0.0 - 1.3 01/26/2018 [facility] Monocytes 10e9/L 12:57 PM [facility] Absolute 0.2 0.0 - 0.7 01/26/2018 [facility] Eosinophils 10e9/L 12:57 PM [facility] Absolute 0.0 0.0 - 0.2 01/26/2018 [facility] Basophils 10e9/L 12:57 PM [facility] Abs Immature 0.0 0 - 0.4 01/26/2018 [facility] Granulocytes 10e9/L 12:57 PM [facility] Absolute 0.0 01/26/2018 [place] Nucleated RBC 12:57 PM [facility] Specimen Anatomical Collection Method Collection Time Receive d Time (Source) Location / / Volume Laterality Blood specimen 01/26/2018 12:53 8 (specimen) PM CDT 12:54 PM CDT Kristal Lozada PA-C LAB - BLOOD ORDERA BLES Performing Organization Address City/State/ZIP Code Phon e Number [place] [address] [address] [place] [address] [phone] documented in this encounter Visit Diagnoses Diagnosis Charcot's joint of ankle - Primary Tabes dorsalis Ankle wound Open wound of knee, leg (except thigh), and ankle, without mention of complication documented in this encounter Care Teams Bark Press Operator Relationship Specialty Start Date End Date Ihsan Dunn MD PCP - General 06/07/17 documented as of this encounter
--- OUTSIDE RECORDS SUMMARY | 2022-07-31 10:05 | XMS_ITS | Encounter Summary ---
:1960 Author Organization [facility] Address [address] [place] [address] Care Team Providers Name Role Phone Ihsan Dunn MD Primary Care Provider [phone] Reason for Visit Reason Comments Toenail Encounter Details Date Type Department Care Team Description 11/05/2018 Office Visit [facility] Adarsh Paronychia of fifth toe of left foot (Primary Dx); [facility] DEVORAH Diaz DM type 2 with diabetic peripheral neuro nate (H) [id number] [place], [place] [address] [address] [place], [place] [phone] (Wo rk) Social History Tobacco Use Types [...] Comments Blood Pressure 118/72 11/05/2018 10:49 AM INSPECTOR SCREEN PRINTING Pulse - - Temperature - - Respiratory Rate - - Oxygen Saturation - - Inhaled Oxygen Concentration - - Weight 118.4 kg (261 lb) 11/05/2018 10:49 AM INSPECTOR SCREEN PRINTING Height 177.8 cm (5' 10) 11/05/2018 10:49 AM INSPECTOR SCREEN PRINTING Body Mass Index 37.45 11/05/2018 10:49 AM INSPECTOR SCREEN PRINTING documented in this encounter Progress Notes Joe Altamirano DPM - 11/05/2018 11:00 AM CST Foot & Ankle Surgery November 05, 2018 CC: loose toenail that is now off I was asked to see Geo Dubois regarding the chief complaint by: Dr. Minal Dunn HPI: Pt is a 58 year old male who presents with above complaint. Infection/paronychia R great toe, thinks this started after banging his toe in the shower. He was seen by Dr Dunn 10/19/18 and put on a PO abx course. He states a few days ago, he ripped off the remaining portion of the nail. He has been doing antibiotic ointment and a bandaid. DMII, most recent A1c in our chart system from about 2years ago was 5.1, Charcot right lower extremity with HOPLAND walker, previous BK amp left lower extremity ROS: Pos for CC. The patient denies current nausea, vomiting, chills, fevers, belly pain, calf pain,chest pain or SOB. Complete remainder of ROS is otherwise neg. VITALS: Vitals: 11/05/18 1049 BP: 118/72 Weight: 118.4 kg (261 lb) Height: 1.778 m (5' 10) PMH: Past Medical History: Diagnosis Date ??? Anemia of chronic disorder ??? 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 01/31/2016 ??? Below knee amputation status (H) 06/08/2017 left ??? Benign essential hypertension 04/02/2017 ??? Charcot's joint 2015 bilateral feet/ankles ??? Charcot's joint disease due to secondary diabetes (H) ??? Family history of ischemic heart disease 01/29/2016 ??? History of blood transfusion 02/2016 ??? Irregular heart beat 2016 pt states he has a high heart rate ??? Ischemic cardiomyopathy 09/15/2016 ??? Numbness and tingling Numbness in feet ??? VILLA (obstructive sleep apnea) 04/02/2017 ??? S/P biopsy 2016 for lymphoma ??? Sleep apnea CPAP ??? Thoracic aortic aneurysm without rupture (H) 09/15/2016 ??? Type 2 diabetes mellitus with diabetic neuropathy (H) 03/17/2016 SXHX: Past Surgical History: Procedure Laterality Date ??? AMPUTATE LEG BELOW KNEE Left 06/05/2017 Procedure: AMPUTATE LEG BELOW KNEE; Below-knee amputation, left. ; Surgeon: Felix Zapien MD; Location: [facility] OR ??? BONE MARROW BIOPSY, BONE SPECIMEN, NEEDLE/TROCAR Right 04/15/2016 Procedure: BIOPSY BONE MARROW; Surgeon: Rudy Goins MD; Location: [facility] OR ??? DISSECT LYMPH NODE INGUINAL Right 03/14/2016 Procedure: DISSECT LYMPH NODE INGUINAL; Surgeon: Damien Lancaster MD; Location: [facility] OR ??? ORTHOPEDIC SURGERY Right bone shaving MEDS: Current Outpatient Medications Medication ??? ascorbic acid (VITAMIN C) 500 MG tablet ??? aspirin 81 MG tablet ??? Cholecalciferol (VITAMIN D3 PO) ??? lisinopril (PRINIVIL/ZESTRIL) 10 MG tablet ??? order for DME ??? order for DME ??? order for DME ??? polyvinyl alcohol-povidone (REFRESH) 1.4-0.6 % ophthalmic solution ??? Sertraline HCl (ZOLOFT PO) ??? SIMVASTATIN PO ??? GLIPIZIDE XL PO No current facility-administered medications for this visit. ALL: Allergies Allergen Reactions ??? Amoxicillin Hives FMH: Family History Problem Relation Age of Onset ??? Hyperlipidemia Father ??? Hypertension Mother ??? Diabetes Mother ??? Diabetes Brother SocHx: Social History Socioeconomic History ??? Marital status: Spouse name: Not on file ??? Number of children: Not on file ??? Years of education: Not on file ??? Highest education level: Not on file Social Needs ??? Financial resource strain: Not on file ??? Food insecurity - worry: Not on file ??? Food insecurity - inability: Not on file ??? Transportation needs - medical: Not on file ??? Transportation needs - non-medical: Not on file Occupational History ??? Not on file Tobacco Use ??? Smoking status: Never Smoker ??? Smokeless tobacco: Never Used Substance and Sexual Activity ??? Alcohol use: No Alcohol/week: 0.0 oz ??? Drug use: No ??? Sexual activity: Not on file Other Topics Concern ??? Service Not Asked ??? Blood Transfusions Not Asked ??? Caffeine Concern No ??? Occupational Exposure Not Asked ??? Hobby Hazards Not Asked ??? Sleep Concern Not Asked ??? Stress Concern Not Asked ??? Weight Concern Not Asked ??? Special Diet Yes Comment: diabetic diet ??? Back Care Not Asked ??? Exercise No ??? Bike Helmet Not Asked ??? Seat Belt Not Asked ??? Self-Exams Not Asked ??? Parent/sibling w/ CABG, [place] or angioplasty before 65F 55M? Not Asked Social History Narrative ??? Not on file EXAMINATION: Gen: No apparent distress Neuro: A&Ox3, no deficits Psych: Answering questions appropriately for age and situation with normal affect Head: NCAT Eye: Visual scanning without deficit Ear: Response to auditory stimuli wnl Lung: Non-labored breathing on RA noted Abd: NTND per patient report Lymph: Neg for pitting/non-pitting edema BLE Vasc: Pulses weakly palpable, CFT minimally delayed Neuro: Light touch sensation essentially absent distally Derm: R hallux - nail plate is gone, nail bed is epithelialized without paronychia/SOI MSK: right lower extremity- chronic stable deformity of right ankle/foot. BK amp left lower extremity Calf: Neg for redness, swelling or tenderness Assessment: 58 year old male with healed paronychia/infection R hallux in setting of DMII Plan: Discussed etiologies, anatomy and options 1. Healed paronychia/infection R hallux in setting of DMII -nail bed is epithelialized without paronychia or SOI. No further wound care is necessary. -no further antibiotics are necessary -advised close monitoring of his right lower extremity. Follow up: prn or sooner with acute issues Patient's medical history was reviewed today Body mass index is 37.45 kg/m??. Weight management plan: Patient was referred to their PCP to discuss a diet and exercise plan. Joe Altamirano DPM [facility] Podiatric Foot & Ankle Surgeon [facility] [phone] ECTOR SCREEN PRINTING documented in this encounter Plan of Treatment Not on filedocumented as of this encounter Visit Diagnoses Diagnosis Paronychia of fifth toe of left foot - P rimary Onychia and paronychia of toe DM type 2 with diabetic peripheral neuro nate (H) Type II or unspecified type diabetes gilberto litus with neurological manifestations, not stated as uncontrolled documented in this encounter Care Teams Duplicating Machine Mechanic Relationship Specialty Start Date End Date Ihsan Dunn MD PCP - General 06/07/17 documented as of this encounter
--- OUTSIDE RECORDS SUMMARY | 2022-07-31 10:05 | XMS_ITS | Encounter Summary ---
:1960 Author Organization [facility] Address [address] [place] [address] Care Team Providers Name Role Phone Unavailable Primary Care Provider Unavailable Reason for Visit Appointment Request (Routine) - Closed Specialty Diagnoses / Procedures Referred By Contact Refer red To Contact Nephrology and Hypertension Referral ID Status Reason Start Date Expiration Date Visits Requ ested Visits Authorized [id number] Closed 06/14/2020 06/14/2021 1 1 Encounter Details Date Type Department Care Team Description 06/27/2020 External Outreach Division of Benjamín Tavera Disease Stage 3 Glomerular Filtration Rate 30 To 59 (HCC) (Primary Dx); Nephrology and Prasanna Pratt Jr., Hypertension And Chronic Kidney Disease Stage 3 (HCC); Hypertension in D.O. 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 - 06/27/2020 9:30 AM CDT Please see scanned in note under document viewer tab for the [facility] [place] outreach visit from this date. 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
--- OUTSIDE RECORDS SUMMARY | 2022-07-31 10:05 | XMS_ITS | Encounter Summary ---
:1960 Author Organization [facility] Address [address] [place] [address] Care Team Providers Name Role Phone Unavailable Primary Care Provider Unavailable Reason for Visit Appointment Request (Routine) - Closed Specialty Diagnoses / Procedures Referred By Contact Refer red To Contact Nephrology and Hypertension Referral ID Status Reason Start Date Expiration Date Visits Requ ested Visits Authorized [id number] Closed 11/14/2020 11/14/2021 1 1 Encounter Details Date Type Department Care Team Description 11/19/2020 External Outreach Division of Michael Tavera ve Chronic Kidney Disease (CKD) Stage 3b Glomerular Filtration Rate (GFR) 30 To 44 (HCC) (Primary Dx); Nephrology and Prasanna Pratt Jr., Diabetes Stacia litus Type 2 With Diabetic Nephropathy (HCC); Hypertension in D.O. Osteodystrophy Renal; [place], [place] [address] [facility] Hyperlipidemia Mixed [address] [place] [address] [phone] Social History Tobacco Use Types Packs/Day Years Used Date Smoking Tobacco: Never Assessed Sex Assigned at Date Recorded Not on file documented as of this encounter Progress Notes Prasanna Tavera Jr., D.O. 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
--- OUTSIDE RECORDS SUMMARY | 2022-07-31 10:05 | XMS_ITS | Encounter Summary ---
:1960 Author Organization [facility] Address [address] [place] [address] Care Team Providers Name Role Phone Unavailable Primary Care Provider Unavailable Reason for Visit Reason Comments Med Change Request Encounter Details Date Type Department Care Team Description 05/06/2022 Refill Division of Nephrology and Jose Tavera Med Change Request Hypertension in [facility] D[place]O. [address] [facility] [address] [place] [phone] [phone] (Wo rk) Social History Tobacco Use Types Packs/Day Years Used Date Smoking Tobacco: Never Assessed Sex Assigned at Date Recorded Not on file documented as of this encounter Plan of Treatment Not on filedocumented as of this encounter Visit Diagnoses Not on filedocumented in this encounter
--- OUTSIDE RECORDS SUMMARY | 2022-07-31 10:05 | XMS_ITS | Encounter Summary ---
:1960 Author Organization [facility] Address [address] [place] [address] Care Team Providers Name Role Phone Unavailable Primary Care Provider Unavailable Reason for Visit Appointment Request (Routine) - Closed Specialty Diagnoses / Procedures Referred By Contact Refer red To Contact Nephrology and Hypertension Referral ID Status Reason Start Date Expiration Date Visits Requ ested Visits Authorized [id number] Closed 01/11/2021 01/11/2022 1 1 Encounter Details Date Type Department Care Team Description 03/13/2021 External Outreach Division of Liang, Chronic Ki dney Disease (CKD), Stage 3b Glomerular Filtration Rate (GFR) 30 To 44 (HCC) (Primary Dx); Nephrology and Prasanna Pratt Jr., Hypertensive Chronic Kidney Disease (CKD) Stage 3b Glomerular Filtration Rate (GFR) 30 To 44 (HCC); Hypertension in D.O. 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 - 03/13/2021 8:30 AM CDT Please see scanned in note under document viewer tab for the [facility] [place] outreach visit from this date. 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
--- OUTSIDE RECORDS SUMMARY | 2022-07-31 10:05 | XMS_ITS | Encounter Summary ---
:1960 Author Organization [facility] Address [address] [place] [address] Care Team Providers Name Role Phone Unavailable Primary Care Provider Unavailable Encounter Details Date Type Department Care Team Description 08/06/2021 Orders Only RST PCP TH Ramya Mondragon M.D. [address] [place], [place] [phone] (Wo rk) Social History Tobacco Use Types Packs/Day Years Used Date Smoking Tobacco: Never Assessed Sex Assigned at Date Recorded Not on file documented as of this encounter Plan of Treatment Not on filedocumented as of this encounter Visit Diagnoses Not on filedocumented in this encounter
--- OUTSIDE RECORDS SUMMARY | 2022-07-31 10:05 | XMS_ITS | Encounter Summary ---
:1960 Author Organization [facility] Address [address] [place] [address] Care Team Providers Name Role Phone Unavailable Primary Care Provider Unavailable Reason for Visit Appointment Request (Routine) - Closed Specialty Diagnoses / Procedures Referred By Contact Refer red To Contact Nephrology and Hypertension Referral ID Status Reason Start Date Expiration Date Visits Requ ested Visits Authorized [id number] Closed 12/19/2021 12/19/2022 1 Encounter Details Date Type Department Care Team Description 12/31/2021 External Division of Liang, Brittney Lira ronic Kidney Disease (CKD) Stage 3b Glomerular Filtration Rate (GFR) 30 To 44 (HCC) (Primary Dx); Outreach Nephrology and Prasanna Pratt Jr., Diabetes Stacia litus Type 2 With Diabetic Nephropathy (HCC); Hypertension in D.O. Chronic Kidney Disease (CKD), Stage 3b G lomerular Filtration Rate (GFR) 30 To 44 (HCC); [address] Hyperlipidemia Mixed; [place], [place] Diabetes Mellitus Type 2 Maral rcot Joint (HCC); [address] [place] [phone] Hyperparathyroidism Renal Secondary (HCC ) [place], [place] [phone] (Work) [phone] Social History Tobacco Use Types Packs/Day Years Used Date Smoking Tobacco: Never Assessed Sex Assigned at Date Recorded Not on file documented as of this encounter Progress Notes Prasanna Tavera Jr., D.O. - 12/31/2021 8:00 AM CDT Please see scanned in note under document viewer tab for the [facility] [place] outreach visit from this date. Medical Problems Diagnosis List Chronic Kidney Disease (CKD), Stage 3b Glomerular Filtration Rate (GFR) 30 To 44 (HCC) Hypertensive Chronic Kidney Disease (CKD) Stage 3b Glomerular Filtration Rate (GFR) 30 To 44 (HCC) Diabetes Mellitus Type 2 With Diabetic Nephropathy (HCC) Hyperlipidemia Mixed Osteodystrophy Renal Diabetes Mellitus Type 2 Charcot Joint (HCC) Hyperparathyroidism Renal Secondary (HCC) documented in this encounter Plan of Treatment Not on filedocumented as of this encounter Visit Diagnoses Diagnosis Hypertensive Chronic Kidney Disease (CKD ) Stage 3b Glomerular Filtration Rate (GFR) 30 To 44 (HCC) - Primary 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
--- OUTSIDE RECORDS SUMMARY | 2022-07-31 10:05 | XMS_ITS | Encounter Summary ---
:1960 Author Organization [facility] Address [address] [place] [address] Care Team Providers Name Role Phone Unavailable Primary Care Provider Unavailable Encounter Details Date Type Department Care Team Description 01/28/2022 Orders Only Division of Nephrology and Jose Tavera Hypertension in [place], ., D.O. [place] [address] [facility] [address] [place] [phone] (Wo rk) Social History Tobacco Use Types Packs/Day Years Used Date Smoking Tobacco: Never Assessed Sex Assigned at Date Recorded Not on file documented as of this encounter Plan of Treatment Not on filedocumented as of this encounter Visit Diagnoses Not on filedocumented in this encounter
--- OUTSIDE RECORDS SUMMARY | 2022-07-31 10:05 | XMS_ITS | Encounter Summary ---
:1960 Author Organization [facility] Address [address] [place] [address] Care Team Providers Name Role Phone Ihsan Dunn MD Primary Care Provider [phone] Encounter Details Date Type Department Care Team Description 11/05/2018 Travel Social History Tobacco Use Types Packs/Day Years Used Date Smoking Tobacco: Never Smokeless Tobacco: Never Alcohol Use Standard Drinks/Week Comments No 0 (1 standard drink = 0.6 oz pure alcoho l) Sex Assigned at Date Recorded Not on file documented as of this encounter Plan of Treatment Not on filedocumented as of this encounter Visit Diagnoses Not on filedocumented in this encounter 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
--- OUTSIDE RECORDS SUMMARY | 2022-07-31 10:05 | XMS_ITS | Clinical Summary ---
:[address] [facility] Address [address] [place] [address] Care Team Providers Name Role Phone Unavailable Primary Care Provider Unavailable Source Comments Patient records contain information from all sites at [facility]. For routine questions regarding patient records, call [phone] during business hours, M-F 8:00 AM - 5:00 PM Central Time. Record requests for emergency care only can be directed to [phone] at any time.[facility] Allergies Active Allergy Reactions Severity Noted Date Comments Amlodipine Other (see comments), Cough 07/23/2021 Cough and passed out Amoxicillin Rash 07/23/2021 Medications Medication Sig Dispensed Refills Start Date End Date Status hydroCHLOROthiazide Take 1 tablet 90 tablet 3 03/28/2020 Active (HYDRODIURIL) 50 mg (50 mg total) tablet by mouth daily. sertraline (ZOLOFT) 50 mg Take 1 tablet 90 tablet 3 03/28/2020 Active tablet (50 mg total) by mouth daily. atorvastatin (LIPITOR) 20 Take 1 tablet 90 tablet 3 11/19/2020 Active mg tablet (20 mg total) by mouth daily. losartan (COZAAR) 100 mg Take 0.5 45 tablet 3 03/05/2022 06/0 04/2023 Active tablet tablets (50 mg total) by mouth daily. carvediloL (COREG) 25 mg Take 1 tablet 180 tablet 3 05/06/2022 05/06/2023 Active tablet (25 mg total) by mouth 2 (two) times a day with meals. glipiZIDE (GLUCOTROL XL) Take 1 tablet 90 tablet 3 05/06/2022 Active 10 mg 24 hr tablet (10 mg total) by mouth daily with breakfast. hydrALAZINE (APRESOLINE) TAKE 2.5 450 tablet 3 05/07/202206/2023 Active 10 mg tablet TABLETS (25 MG TOTAL) BY MOUTH 2 (TWO) TIMES A DAY. Active Problems Problem Noted Date Hematuria Gross 05/06/2022 Diabetes Mellitus Type 2 Charcot Joint 12/31/2021 Hyperparathyroidism Renal Secondary 12/31/2021 Chronic Kidney Disease (CKD), Stage 3b Glomerular Filt ration Rate (GFR) 30 03/28/2020 To 44 Hypertensive Chronic Kidney Disease (CKD) Stage 3b Clara merular Filtration 03/28/2020 Rate (GFR) 30 To 44 Diabetes Mellitus Type 2 With Diabetic Nephropathy 09/2019 Hyperlipidemia Mixed 03/28/2020 Osteodystrophy Renal 03/28/2020 Encounters Date Type Specialty Care Team Description 05/06/2022 Virtual Visit Nephrology and Liang, Hypertensive Chronic Kidney Disease (CKD) Stage 3b Glomerular Filtration Rate (GFR) 30 To 44 (HCC) (Primary Dx); Hypertension Prasanna Pratt Jr., Diabetes Melli [facility] Type 2 With Diabetic Nephropathy (HCC); D.O. Chronic Kidney Disease (CKD), Stage 3b Glomerular Filtration Rate (GFR) 30 To 44 (HCC); Osteodystrophy Renal; Diabetes Mellit us Type 2 Charcot Joint (HCC); Hyperparathyroi dism Renal Secondary (HCC); Hematuria Gross 05/06/2022 Refill Nephrology and Ever[place], Med Change Re quest Hypertension Prasanna Pratt Jr., D.O. 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 Oxygen Saturation - - Inhaled Oxygen - - Concentration Weight 95.7 kg (210 lb 15.7 09/11/2015 1:30 PM Vital sign result oz) ELECTROTYPER HELPER from Clinical No maegan. Height 178.4 cm (5' 10.24) 09/11/2015 1:30 PM Vital sign result ELECTROTYPER HELPER from Clinical No maegan. 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 HELPER Plan of Treatment Health Maintenance Due Date Last Done Comments CT Colonography 1960 Cologuard 1960 Colonoscopy 1962 Colorectal Cancer Screening 1960 Creatinine Level 1962 Diabetic Office Visit with Foot Exam 1962 Dilated Eye Exam 1962 FIT 1960 HIV Screening 1960 Hemoglobin A1C 1962 Hepatitis C Screening 1962 Lipid (Cholesterol) Screening 1962 Potassium Level 1962 Sodium Level 1962 Urine Albumin 1960 Pneumococcal vaccine (0-64 years) (1 1968 - PCV) Zoster Vaccines (1 of 2) 1981 Depression Screening (Annual PHQ-2) 09/28/2021 COVID-19 Vaccine (4 - Booster for 11/05/2021 09/10/2021, , Pfizer series) 12/15/2020 Office Visit for Blood Pressure Check 12/03/2021 09/04/2021 / Re-check Hepatitis B Vaccines (1 of 3 - Risk 2022 3-dose series) Influenza Vaccine (#1) 2022 08/13/2021 DTaP,Tdap,and Td Vaccines (2 - Td or 12/02/2025 12/03/2015 Tdap) Insurance Payer Benefit Plan Subscriber ID Effective Phone Address Typ e / Group Dates MEDICARE MEDICARE A [id number] 2018-Prese [address] [place] [address] [facility] [id number] 2018-Prese [phone] [address] [place] [address] [address] [place] [address]
--- OUTSIDE RECORDS SUMMARY | 2022-07-31 10:05 | XMS_ITS | Encounter Summary ---
:1960 Author Organization [facility] Address [address] [place] [address] Care Team Providers Name Role Phone Unavailable Primary Care Provider Unavailable Reason for Visit Outpatient (Routine) - Closed Specialty Diagnoses / Procedures Referred By Contact Refer red To Contact Prasanna Tavera D.O. [place] [address] [place] [address] Referral ID Status Reason Start Date Expiration Date Visits Requ ested Visits Authorized [id number] Closed 03/05/2022 03/05/2023 1 1 Encounter Details Date Type Department Care Team Description 05/06/2022 Virtual Visit Division of Brittney Taveraonic Kidney Disease (CKD) Stage 3b Glomerular Filtration Rate (GFR) 30 To 44 ([facility]) (Primary Dx); Nephrology and Prasanna Pratt Jr., Diabetes Stacia litus Type 2 With Diabetic Nephropathy (HCC); Hypertension in D.O. Chronic Kidney Disease (CKD), Stage 3b G lomerular Filtration Rate (GFR) 30 To 44 (HCC); [place], [place] [address] [facility] Osteodystrophy Renal; [address] [place], [place] Diabetes Mellitus Type 2 Maral rcot Joint (HCC); [place] [address] Hyperparathyroidism Renal Secondary (HCC ); [id number] Hematuria Gross Social History Tobacco Use Types Packs/Day Years Used Date Smoking Tobacco: Never Assessed Sex Assigned at Date Recorded Not on file documented as of this encounter Progress Notes Prasanna Tavera Jr., D.O. - 05/06/2022 10:00 AM CDT Subjective Nephrology HTN Phone Visit This visit took place over the phone to the patient by Dr. Prasanna Tavera in [place], [place]. Chief Complaint/Reason for Visit phone visit from out reach CKD [facility] Follow-up for blood pressure, other matters History of Present Illness: Geo Dubois is a 62 y.o. male who presents for evaluation of the following concerns: Newly developed gross hematuria. Approximately 2 weeks ago, he developed flank discomfort, dysuria, and passed blood for 24 hours then with some clots. This had never appeared previously, he has never had fevers nor chills, he has not lost weight, no night sweats. He is not a smoker. The visit today was actually on the auspices of his severe resistant hypertension. I had initiated minoxidil at his last visit, this unfortunately was poorly tolerated. He was lightheaded, nauseated, and this agent was stopped. His local team has started him on hydralazine 10 [address] twice daily in place of the 2.5 mg of minoxidil. His blood pressure continues to be above goals, running in the 160s to 180s systolic as an average. He will occasionally have evening readings in the 130s but this is atypical. He has not had lower extremity swelling, he has devoted himself to his diet. He is eating much moreway of fruits vegetables and salads. His hemoglobin A1c is above target at 8.4%, but improved over the past few months from his previous 11%. He was unable to afford any the SG LT 2 inhibitors with his insurance product. No chest pain no shortness of breath his appetite has been reasonable. We discussed a CT scan of the abdomen pelvis, cystoscopic evaluation, and follow-up in 2-3 months with respect to his other complex matters. Current Outpatient Medications: carvediloL (COREG) 25 mg tablet, Take 1 tablet (25 mg total) by mouth 2 (two) times a day with meals., Disp: 180 tablet, Rfl: 3 atorvastatin (LIPITOR) 20 mg tablet, Take 1 tablet (20 mg total) by mouth daily., Disp: 90 tablet, Rfl: 3 glipiZIDE (GLUCOTROL XL) 10 mg 24 hr tablet, Take 1 tablet (10 mg total) by mouth daily with breakfast., Disp: 90 tablet, Rfl: 3 hydrALAZINE (APRESOLINE) 10 mg tablet, Take 2.5 tablets (25 mg total) by mouth 2 (two) times a day., Disp: 450 tablet, Rfl: 3 hydroCHLOROthiazide (HYDRODIURIL) 50 mg tablet, Take 1 tablet (50 mg total) by mouth daily., Disp: 90 tablet, Rfl: 3 losartan (COZAAR) 100 mg tablet, Take 0.5 tablets (50 mg total) by mouth daily., Disp: 45 tablet, Rfl: 3 sertraline (ZOLOFT) 50 mg tablet, Take 1 tablet (50 mg total) by mouth daily., Disp: 90 tablet, Rfl: 3 Review of Systems REVIEW OF SYSTEMS OBJECTIVE There were no vitals filed for this visit. Assessment/Plan: #1 Hypertensive Chronic Kidney Disease (CKD) Stage 3b Glomerular Filtration Rate (GFR) 30 To 44 ([facility]) His blood pressure still above goal. We will increase his carvedilol to 25 mg twice daily. We will continue on hydralazine 10 mg twice daily, his losartan, his hydrochlorothiazide 25 mg daily, and I will see him back in 3 months. He will also avoid sodium, NSAIDs, stay well hydrated. #2 Diabetes Mellitus Type 2 With Diabetic Nephropathy (HCC) Hemoglobin A1c still above target, we will increase his glipizide to 10 mg per day. #3 Chronic Kidney Disease (CKD), Stage 3b Glomerular Filtration Rate (GFR) 30 To 44 (HCC) His renal functions deteriorated subtly, his creatinine ramsey from 2.1-2.3 mg/dL, this is likely on the background of blood pressure and effective circulating volume shifts. Will confirm his trajectory at her next visit. He does have proteinuria. #4 Osteodystrophy Renal Calcium and phosphorus are acceptable #5 Diabetes Mellitus Type 2 Charcot Joint (HCC) His previous wounds have improved #6 Hyperparathyroidism Renal Secondary (HCC) Satisfied with calcium phosphorus #7 Hematuria Gross Uncertain etiology, I am going to have him undergo CT scan without contrast given his CKD, as well as a cystoscopic evaluation. I am suspicious regards urolithiasis. 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
--- OUTSIDE RECORDS SUMMARY | 2022-07-31 10:05 | XMS_ITS | Encounter Summary ---
:1960 Author Organization [facility] Address [address] [place] [address] Care Team Providers Name Role Phone Unavailable Primary Care Provider Unavailable Reason for Visit Appointment Request (Routine) - Closed Specialty Diagnoses / Procedures Referred By Contact Refer red To Contact Nephrology and Hypertension Referral ID Status Reason Start Date Expiration Date Visits Requ ested Visits Authorized [id number] Closed 11/08/2021 11/08/2022 1 Encounter Details Date Type Department Care Team Description 11/26/2021 External Outreach Division of Liang, Benjamín Ki dney Disease (CKD), Stage 3b Glomerular Filtration Rate (GFR) 30 To 44 (HCC) (Primary Dx); Nephrology and Prasanna Pratt Jr., Diabetes Stacia litus Type 2 With Diabetic Nephropathy (HCC); Hypertension in D.O. Osteodystrophy Renal; [place], [place] [address] [facility] Hyperlipidemia Mixed [address] [place] [phone] [phone] Social History Tobacco Use Types Packs/Day Years Used Date Smoking Tobacco: Never Assessed Sex Assigned at Date Recorded Not on file documented as of this encounter Progress Notes Prasanna Tavera Jr., D.O. 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
--- OUTSIDE RECORDS SUMMARY | 2022-07-31 10:05 | XMS_ITS | Encounter Summary ---
:1960 Author Organization [facility] Address [address] [place] [address] Care Team Providers Name Role Phone Unavailable Primary Care Provider Unavailable Encounter Details Date Type Department Care Team Description 11/19/2020 Orders Only Division of Nephrology and Jose Tavera Hypertension in [place], ., D.O. [place] [address] [facility] [address] [place] [address] [phone] (Wo rk) Social History Tobacco Use Types Packs/Day Years Used Date Smoking Tobacco: Never Assessed Sex Assigned at Date Recorded Not on file documented as of this encounter Plan of Treatment Not on filedocumented as of this encounter Visit Diagnoses Not on filedocumented in this encounter
--- OUTSIDE RECORDS SUMMARY | 2022-07-31 10:05 | XMS_ITS | Encounter Summary ---
:1960 Author Organization [facility] Address [address] [place] [address] Care Team Providers Name Role Phone Unavailable Primary Care Provider Unavailable Encounter Details Date Type Department Care Team Description 08/09/2021 Orders Only RST PCP TH Ramya Mondragon M.D. [address] [place], [place] [phone] (Wo rk) Social History Tobacco Use Types Packs/Day Years Used Date Smoking Tobacco: Never Assessed Sex Assigned at Date Recorded Not on file documented as of this encounter Plan of Treatment Not on filedocumented as of this encounter Visit Diagnoses Not on filedocumented in this encounter
--- OUTSIDE RECORDS SUMMARY | 2022-07-31 10:05 | XMS_ITS | Encounter Summary ---
:1960 Author Organization [facility] Address [address] [place] [address] Care Team Providers Name Role Phone Unavailable Primary Care Provider Unavailable Reason for Visit Appointment Request (Routine) - Closed Specialty Diagnoses / Procedures Referred By Contact Refer red To Contact Nephrology and Hypertension Referral ID Status Reason Start Date Expiration Date Visits Requ ested Visits Authorized [id number] Closed 01/16/2022 01/16/2023 1 Encounter Details Date Type Department Care Team Description 01/28/2022 External Division of Brittney Tavera Ch Kidney Disease (CKD) Stage 3b Glomerular Filtration Rate (GFR) 30 To 44 (Primary Dx); Outreach Nephrology and Prasanna Pratt Jr., Osteodystrop hy Renal; Hypertension in D.O. 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 ([facility]); [address] Chronic Kidney Disease (CKD), Stage 3b G lomerular Filtration Rate (GFR) 30 To 44 ([facility]); [place], [place] Hyperparathyroidism Renal Se condary ([facility]); [address] [place] [phone] Diabetes Mellitus Type 2 Charcot Joint ( [facility]) [place], [place] [phone] (Work) [phone] Social History Tobacco Use Types Packs/Day Years Used Date Smoking Tobacco: Never Assessed Sex Assigned at Date Recorded Not on file documented as of this encounter Progress Notes Prasanna Tavera Jr., D.O. - 01/28/2022 8:00 AM CDT Please see scanned in note under document viewer tab for the [facility] [place] outreach visit from this date. Medical Problems Diagnosis List Chronic Kidney Disease (CKD), Stage 3b Glomerular Filtration Rate (GFR) 30 To 44 (HCC) Hypertensive Chronic Kidney Disease (CKD) Stage 3b Glomerular Filtration Rate (GFR) 30 To 44 Diabetes Mellitus Type 2 With Diabetic Nephropathy (HCC) Hyperlipidemia Mixed Osteodystrophy Renal Diabetes Mellitus Type 2 Charcot Joint (HCC) Hyperparathyroidism Renal Secondary (HCC) documented in this encounter Plan of Treatment Not on filedocumented as of this encounter Visit Diagnoses Diagnosis Hypertensive Chronic Kidney Disease (CKD ) Stage 3b Glomerular Filtration Rate (GFR) 30 To 44 (HCC) - 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
--- OUTSIDE RECORDS SUMMARY | 2022-07-31 10:05 | XMS_ITS | Clinical Summary ---
:1960 Author Organization [facility] [place] [address] Care Team Providers Name Role Phone Unavailable Primary Care Provider Unavailable Allergies Active Allergy Reactions Severity Noted Date Comments Amoxicillin Hives 01/31/2016 Medications Medication Sig Dispensed Refills Start Date End Date Status ascorbic acid, vitamin C, Take 500 mg by 0 Active (VITAMIN C) 500 mg tablet mouth. losartan (COZAAR) 25 mg 0 07/24/2021 Active tablet glipiZIDE 0 09/10/2021 Active extended-release (GLUCOTROL XL) 2.5 mg Extended-Release tablet hydroCHLOROthiazide 0 09/10/2021 Active (HCTZ) 25 mg tablet atorvastatin (LIPITOR) 20 0 08/17/2021 Active mg tablet ipratropium (ATROVENT Inhale 2 Sprays 15 mL 0 09/14/2021 Active NASAL) 42 mcg (0.06 %) to both nostrils nasal sprayIndications: 3 times daily. Viral URI As needed for congestion Active Problems Not on file Social History Tobacco Use Types Packs/Day Years Used Date Never Smoker Smokeless Tobacco: Never Used Sex Assigned at Date Recorded Not on file Obstetrics History Last Filed Vital Signs Vital Sign Reading Time Taken Comments Blood Pressure 185/115 09/14/2021 10:45 AM SUPERVISOR WHIPPED TOPPING Pulse 88 09/14/2021 10:45 AM SUPERVISOR [employer]IP[employer] TOPPING Temperature 36.8 ??C (98.2 ??F) 09/14/2021 10:45 AM SUPERVISOR WHIPPED TOPPING Respiratory Rate 18 09/14/2021 10:45 AM SUPERVISOR WHIPPED TOPPING Oxygen Saturation 98% 09/14/2021 10:45 AM SUPERVISOR WHIPPED TOPPING Inhaled Oxygen Concentration - - Weight 108.9 kg (240 lb) 09/14/2021 10:45 AM SUPERVISOR [employer] TOPPING Height 177.8 cm (5' 10) 09/14/2021 10:45 AM SUPERVISOR WHIPPED TOPPING Body Mass Index 34.44 09/14/2021 10:45 AM SUPERVISOR WHIPPED TOPPING Plan of Treatment Health Maintenance Due Date Last Done Comments Tdap 1973 Depression screening for age 12+ 1974 Hepatitis C screening for age 18-79 1980 Tetanus booster 1982 Colonoscopy through age 75 2007 Lipids for age 45-75 2007 Zoster (shingles) series for age 50+ 2012 (1 of 2) COVID-19 vaccine series (4 - Booster 11/05/2021 09/10/2021, 01/05/2021, for Pfizer series) 12/15/2020 Influenza for age 50-64 05/29/2022 BMI (ht and wt on same day) for age 1209/14/2022 09/14/2021 18+ Results Not on filefrom Last 3 Months Insurance Payer Benefit Plan / Subscriber ID Effective Dates Phone Addre ss Type Group MEDICARE - PB MEDICARE PB [id number] 2018-Presen ATTN : CLAIMS USE ONLY ONLY t [address] [place] [address] BLUE [employer]OSS BLUE CROSS OF [id number] 2018-Parker [address] [facility] [place] [address] [employer] Occ Other 09/28/2000 ANNABELLA [address] 4 EM[employer] (Home) [phone] [place] ([place]) [place] [address]
--- OUTSIDE RECORDS SUMMARY | 2022-07-31 10:05 | XMS_ITS | Encounter Summary ---
:1960 Author Organization [facility] Address [address] [place] [address] Care Team Providers Name Role Phone Unavailable Primary Care Provider Unavailable Reason for Visit Appointment Request (Routine) - Closed Specialty Diagnoses / Procedures Referred By Contact Refer red To Contact Nephrology and Ihsan Dunn M.D. [address] [place] [address] Referral ID Status Reason Start Date Expiration Date Visits Requ ested Visits Authorized [id number] Closed 03/16/2020 03/16/2021 1 1 Encounter Details Date Type Department Care Team Description 03/28/2020 External Outreach Division of Michael Tavera on And Chronic Kidney Disease Stage 3 (HCC) (Primary Dx); Nephrology and Prasanna Pratt Jr., Chronic Kidn ey Disease Stage 3 Glomerular Filtration Rate 30 To 59 (HCC); Hypertension in D.O. 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 - 03/28/2020 2:30 PM CDT Please see scanned in note under document viewer tab for the [facility] [place] outreach visit from this date. 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
--- OUTSIDE RECORDS SUMMARY | 2022-07-31 10:05 | XMS_ITS | Encounter Summary ---
:1960 Author Organization [facility] Address [address] [place] [address] Care Team Providers Name Role Phone Unavailable Primary Care Provider Unavailable Reason for Referral Outpatient (Routine) - Closed Specialty Diagnoses / Procedures Referred By Contact Refer red To Contact Prasanna Tavera D.O. [facility] [address] [place] [address] Referral ID Status Reason Start Date Expiration Date Visits Requ ested Visits Authorized [id number] Closed 01/28/2022 01/28/2023 1 1 Scheduling Instructions Ok at 1:30 pm on [facility] Encounter Details Date Type Department Care Team Description 01/28/2022 Orders Only Division of Nephrology Prasanna Tavera ypgurinderensive Chronic Kidney Disease (CKD) Stage 3b Glomerular Filtration Rate (GFR) 30 To 44 (Primary Dx); and Hypertension in [place] D.O. Diabetes Mellitus Type 2 Charcot Joint ( HCC); [place], [place] [address] [facility] Osteodystrophy Renal [address] [place] [address] [phone] Social History Tobacco Use Types Packs/Day Years Used Date Smoking Tobacco: Never Assessed Sex Assigned at Date Recorded Not on file documented as of this encounter Plan of Treatment Scheduled Referrals Name Type Priority Associated Diagnoses Order S chedule NonF2F phone Outpatient Referral Routine Expected : visit 03/05/2022, Expires: 2022 documented as of this encounter Visit Diagnoses Diagnosis Hypertensive Chronic Kidney Disease (CKD ) Stage 3b Glomerular Filtration Rate (GFR) 30 To 44 (HCC) - Primary Diabetes Mellitus Type 2 Charcot Joint ( HCC) Osteodystrophy Renal documented in this encounter
--- OUTSIDE RECORDS SUMMARY | 2022-07-31 10:05 | XMS_ITS | Encounter Summary ---
:1960 Author Organization [facility] Address [address] [place] [address]. [place] [address] Care Team Providers Name Role Phone Ihsan Dunn MD Primary Care Provider [phone] Encounter Details Date Type Department Care Team Description 10/19/2018 Medical Correspondence [facility] Hospital Scan, PODIATRY REFERRAL Health Info [facility] Non-Provider [facility] [address] [place] [phone] Social History Tobacco Use Types Packs/Day Years [...] on filedocumented in this encounter Care Teams Repair Specialist Relationship Specialty Start Date End Date Ihsan Dunn MD PCP - General 06/07/17 documented as of this encounter
--- OUTSIDE RECORDS SUMMARY | 2022-07-31 10:06 | XMS_ITS | Encounter Summary ---
:1960 Author Organization [place] Address [address] [place] [address] Care Team Providers Name Role Phone Ihsan Dunn MD Primary Care Provider [phone] Reason for Visit Reason Comments Abnormal Labs Encounter Details Date Type Department Care Team Description 07/10/2017 Emergency [facility] Aracelis, Tiffani Abnorm al laboratory [facility] Emergency Dep eveline Ding MD test result [address] [facility] [place], [place] [address] [address] [phone] [place], [place] [address] (Wo rk) Social History Tobacco Use Types Packs/Day Years Used Date Smoking Tobacco: Never Smokeless Tobacco: Never Alcohol Use Standard Drinks/Week Comments No 0 (1 standard drink = 0.6 oz pure alcoho l) Sex Assigned at Date Recorded Not on file documented as of this encounter Last Filed Vital Signs Vital Sign Reading Time Taken Comments Blood Pressure 161/98 07/10/2017 6:30 PM CDT Pulse 93 07/10/2017 5:09 PM CDT Temperature 37.1 ??C (98.8 ??F) 07/10/2017 5:09 PM CDT Respiratory Rate 12 07/10/2017 6:30 PM CDT Oxygen Saturation 98% 07/10/2017 6:30 PM CDT Inhaled Oxygen Concentration - - Weight - - Height - - Body Mass Index - - documented in this encounter Discharge Instructions AttachmentsThe following attachments cannot be sent through Care Everywhere. HYPERKALEMIA, DISCHARGE INSTRUCTIONS (FRISIAN)documented in this encounter Medications at Time of Discharge Medication Sig Dispensed Refills Start Date End Date aspirin 81 MG Take 2 tablets (162 60 tablet 0 06/12/2017 tabletIndications: S/P mg) by mouth daily BKA (below knee amputation), left (H) Cholecalciferol Take 5,000 Units by 0 (VITAMIN D3 PO) mouth daily GLIPIZIDE XL PO Take 5 mg by mouth 0 daily (with breakfast) lisinopril Take 30 mg by mouth 0 (PRINIVIL/ZESTRIL) 10 daily MG tablet order for Equipment being ordered: Walker Wheels ( [id number]) and Walker ([id number]) 1 each 0 06/07/2017 DMEIndications: S/P BKA Treatment Diagnosis: Impaired gait stability s/p BKA (below knee amputation), left (H) order for [employer] Order Fax 30 days 0 05/20/2017 DMEIndications: Charcot ankle, right, Charcot Primary Dressing Hydrofera B lue READY TRANSFER Qty 5 sheets NOT NEEDED ankle, left, Decubitus Secondary Dressing 4 Roll gauze Qty 60 NOT N EEDED ulcer of right ankle, Secondary Dressing 2 medipore tape Qty 3 stage 3 (H), Pressure Length of Need: 1 month ulcer of left ankle, Frequency of dressing change: daily stage 3 (H) order for [employer] Order Fax 30 days 0 04/22/2017 DMEIndications: Charcot ankle, left, Open wound Primary Dressing HydroferaBl ue Ready Transfer Qty 4 sheets of knee, leg, and Primary Dressing Endoform Qty 15 sheets ankle, left, initial Secondary Dressing 4x4 Gauze Loaf Qty 2 encounter, Charcot's Secondary Dressing 2 Medipore Tape Qty 2 joint of right ankle, Length of Need: 1 month Wound of right ankle, Frequency of dressing change: daily initial encounter Please send what his insurance will allow. Thank you polyvinyl Place 1-2 drops into 0 alcohol-povidone both eyes as needed (REFRESH) 1.4-0.6 % for irritation ophthalmic solution Sertraline HCl (ZOLOFT Take 50 mg by mouth 0 PO) daily SIMVASTATIN PO Take 20 mg by mouth 0 daily acetaminophen (TYLENOL) Take 2 tablets (650 40 tablet 1 07/201710/29/2017 325 MG mg) by mouth every 4 tabletIndications: S/P hours as needed for BKA (below knee other (surgical pain) amputation), left (H) gabapentin (NEURONTIN) Take 1 capsule (300 90 capsule 0 05/2910/29/2017 300 MG mg) by mouth 3 times capsuleIndications: S/P daily BKA (below knee amputation), left (H) oxyCODONE (ROXICODONE) Take 1-2 tablets 10 tablet 0 017 10/29/2017 5 MG IR (5-10 mg) by mouth tabletIndications: S/P every 6 hours as BKA (below knee needed for moderate amputation), left (H) to severe pain documented as of this encounter ED Notes Desi Brantley, LIBORIO - 07/10/2017 6:[address] Hsu at bedside. Armando Huston RN - 07/10/2017 5:10 PM CDT ABC's intact. Alert and oriented x4. Pt states routine blood check showed K 6.0. Denies symptoms. BKA 1 month. Tiffani Hsu MD - 07/10/2017 4:59 PM CDT History Chief Complaint: Abnormal Labs HPI Geo Dubois is a 57 year old male who presents to the ED today with abnormal labs. The patienthas a history of diabetes and DKA. He has been getting regular blood draws to follow kidneys and hemoglobin. He states that he got his blood drawn yesterday, but the results only came back today and showed a potassium of 6.0. His brought him in to the ED with concerns for the abnormal lab resultsas well as because the patient was shaking. The patient denies any muscle cramping, dizziness, chestpain, palpitations, or trouble urinating. No recent medication changes or vomiting or decreased urination. Allergies: Amoxicillin Medications: Roxicodone Neurontin lisinopril Simvastatin Zoloft glipzide Past Medical History: Anemia Aneurysm Charcot's joint Diabetes mellitus Hypertension Irregular heart beat DKA Past Surgical History: Amputation below the knee (left) 06/05/2017 Orthopedic surgery Family History: Hyperlipidemia - father Hypertension - mother Diabetes - mother, brother Social History: Marital Status: Presents to the ED with Tobacco Use: never smoker Alcohol Use: no PCP: Boyd Dunn Review of Systems Cardiovascular: Negative for chest pain and palpitations. Genitourinary: Negative for difficulty urinating. Neurological: Negative for dizziness. All other systems reviewed and are negative. Physical Exam First Vitals: BP: 151/115 mmHg Heart Rate: 93 Resp: 16 SpO2: 96% RA Temp: 98.8 ??F (oral) Physical Exam Eyes: Sclera white; Pupils are equal and round ENT: External ears and nares normal CV: Rate as above with regular rhythm Resp: Breath sounds clear and equal bilaterally Non-labored, no retractions or accessory muscle use GI: Abdomen is soft, non-tender, non-distended No rebound tenderness or peritoneal features MS: Moves all extremities. Boot on R. Amputation on L. Skin: Warm and dry Neuro: Speech is normal and fluent. No apparent deficit. Emergency Department Course ECG: @ 1716 Indication: Abnormal labs Vent. Rate 93 bpm. SC interval 154 ms. QRS duration 94 ms. QT/QTc 350/435 ms. P-R-T axis 22 -18 44. Sinus rhythm with occasional premature ventricular complexes, moderate voltage criteria for LVH, maybe normal variant. Borderline ECG. No significant change when compared to previous ECG from 05/28/17 Read @ [address] Hsu. Laboratory: CBC: WBC 7.1, HGB 14.6, PLT 105 (L) BMP: chloride 110 (H), glucose 111 (H), BUN 38 (H), otherwise WNL (Creatinine 1.19) Magnesium: 2.0 Phosphorous: 4.3 Interventions: (1810) Normal Saline, 1 liter, IV bolus Emergency Department Course: Nursing notes and vitals reviewed. (1708) I performed an exam of the patient as documented above. EKG was done, interpretation as above. A peripheral IV was established. Blood was drawn from the patient. This was sent for laboratory testing, findings above. Findings and plan explained to the patient. Patient discharged home with instructions regarding supportive care, medications, and reasons to return. The importance of close follow-up was reviewed. I personally reviewed the laboratory results with the patient and answered all related questions prior to discharge. Impression & Plan Medical Decision Making: Geo Dubois is a 57 year old male who presents for evaluation after being told that his potassium was high. Hyperkalemia has the potential to affect the heart, causing dysrhythmias, ischemias, and potentially fatal events and can be due to a multitude of conditions including renal failure. EKG was obtained with no dysrhythmia or changes noted. Labs were rechecked here and potassium is in the normal range as is his creatinine. BUN and creatinine ratio is elevated and therefore IV fluids were given in case he is experiencing some pre-renal pathologies. He is on lisinopril and now with the patient having a potassium in the normal range, I do not think any adjustments in his medication are indicated and I think very close follow up in clinic is warranted for a recheck of these labs and discussions of current medications and doses. The patient indicates understanding. Diagnosis: ICD-10-CM 1. Abnormal laboratory test result R89.9 Disposition: discharged to home IPaige, am serving as a scribe on 07/10/2017 at 5:08 PM to personally document servicesperformed by Dr. Hsu based on my observations and the provider's statements to me. 07/10/2017 [facility] EM[facility]Y [facility] Tiffani Hsu MD 07/11/17 0045 documented in this encounter Plan of Treatment Not on filedocumented as of this encounter Procedures Procedure Name Priority Date/Time Associated Comments Diagnosis CBC WITH PLATELETS & STAT 07/10/2017 5:34 PM R esults for this DIFFERENTIAL CDT procedure are i n the results section. PHOSPHORUS STAT 07/10/2017 5:34 PM Results f or this CDT procedure are i n the results section. MAGNESIUM STAT 07/10/2017 5:34 PM Results f or this CDT procedure are i n the results section. BASIC METABOLIC PANEL STAT 07/10/2017 5:34 PM Results for this CDT procedure are i n the results section. EKG 12-LEAD, TRACING STAT 07/10/2017 5:16 PM R esults for this ONLY CDT procedure are i n the results section. documented in this encounter Results Phosphorus (07/10/2017 5:34 PM CDT) athologist Signature Phosphorus 4.3 2.5 - 4.5 07/10/2017 [facility] mg/dL 6:08 PM CDT HOSPITAL Specimen Anatomical Collection Method Collection Time Receive d Time (Source) Location / / Volume Laterality Blood specimen 07/10/2017 5:34 PM 017 5:46 (specimen) CDT PM CDT Tiffani Hsu MD LAB - BLOOD ORDERABLES Performing Organization Address [facility] [address] [phone] [place] [address] [address], [facility] [phone] Magnesium (07/10/2017 5:34 PM CDT) athologist Signature Magnesium 2.0 1.6 - 2.3 07/10/2017 [facility] mg/dL 6:08 PM CDT HOSPITAL Specimen Anatomical Collection Method Collection Time Receive d Time (Source) Location / / Volume Laterality Blood specimen 07/10/2017 5:34 PM 017 5:46 (specimen) CDT PM CDT Tiffani Hsu MD LAB - BLOOD ORDERABLES Performing Organization Address City/[facility] [address] [place], [place] [address] [place] [address] [address] [address], [facility] [phone] (ABNORMAL) Basic metabolic panel (07/10/2017 5:34 PM CDT) athologist Signature Sodium 140 133 - 144 07/10/2017 [place] mmol/L 6:08 PM CDT [facility] Potassium 5.2 3.4 - 5.3 07/10/2017 [facility] mmol/L 6:08 PM [facility] Chloride 110 (H) 94 - 109 07/10/2017 [facility] mmol/L 6:08 PM [facility] Carbon Dioxide 24 20 - 32 07/10/2017 [facility] mmol/L 6:08 PM [facility] Anion Gap 6 3 - 14 07/10/2017 [facility] mmol/L 6:08 PM [facility] Glucose 111 (H) 70 - 99 07/10/2017 [facility] mg/dL 6:08 PM [facility] Urea Nitrogen 38 (H) 7 - 30 07/10/2017 [facility] mg/dL 6:08 PM [facility] Creatinine 1.19 0.66 - 07/10/2017 [facility] 1.25 mg/dL 6:08 PM [facility] GFR Estimate 63 >60 07/10/2017 [place] mL/min/1.7 6:[address] Comment: Non GFR Calc GFR Estimate If 77 >60 mL/min/1.7m2 07/10/2017 6:08 [facility] Comment: GFR Calc Calcium 9.5 8.5 - 10.1 mg/dL 07/10/2017 6:08 PM [facility] Specimen Anatomical Collection Method Collection Time Receive d Time (Source) Location / / Volume Laterality Blood specimen 07/10/2017 5:34 PM 017 5:46 (specimen) CDT PM CDT Tiffani Hsu MD LAB - BLOOD ORDERABLES Performing Organization Address City/State/ZIP Code Phon e Number M [facility] [address] [address] [facility] [address] [phone] (ABNORMAL) CBC with platelets differential (07/10/2017 5:34 PM CDT) [facility] Method Time Signature WBC 7.1 4.0 - 07/10/2017 [facility] 11.0 5:51 PM [facility] 10e9/L [facility] RBC Count 5.71 4.4 - 5.9 07/10/2017 [facility] 10e12/L 5:51 PM [facility] Hemoglobin 14.6 13.3 - 07/10/2017 [facility] 17.7 g/dL 5:51 PM [facility] Hematocrit 48.0 40.0 - 07/10/2017 [facility] 53.0 % 5:51 PM [facility] MCV 84 78 - 100 07/10/2017 [facility] fl 5:51 PM [facility] MCH 25.6 (L) 26.5 - 07/10/2017 [facility] 33.0 pg 5:51 PM [facility] MCHC 30.4 (L) 31.5 - 07/10/2017 [facility] 36.5 g/dL 5:51 PM [facility] RDW 20.1 (H) 10.0 - 07/10/2017 [facility] 15.0 % 5:51 PM [facility] Platelet Count 105 (L) 150 - 450 07/10/2017 [facility] 10e9/L 5:51 PM [facility] Diff Method Automated 07/10/2017 [facility] Method 5:51 PM [facility] % Neutrophils 61.6 % 07/10/2017 [facility] 5:51 PM [facility] % Lymphocytes 24.9 % 07/10/2017 [facility] 5:51 PM [facility] % Monocytes 10.4 % 07/10/2017 [facility] 5:51 PM [facility] % Eosinophils 2.4 % 07/10/2017 [facility] 5:51 PM [facility] % Basophils 0.6 % 07/10/2017 [facility] 5:51 PM [facility] % Immature 0.1 % 07/10/2017 [facility] Granulocytes 5:51 PM [facility] Nucleated RBCs 0 0 /100 07/10/2017 [facility] 5:51 PM [facility] Absolute 4.4 1.6 - 8.3 07/10/2017 [facility] Neutrophil 10e9/L 5:51 PM [facility] Absolute 1.8 0.8 - 5.3 07/10/2017 [facility] Lymphocytes 10e9/L 5:51 PM [facility] Absolute 0.7 0.0 - 1.3 07/10/2017 [facility] Monocytes 10e9/L 5:51 PM [facility] Absolute 0.2 0.0 - 0.7 07/10/2017 [place] Eosinophils 10e9/L 5:51 PM [facility] Absolute 0.0 0.0 - 0.2 07/10/2017 [place] Basophils 10e9/L 5:51 PM [facility] Abs Immature 0.0 0 - 0.4 07/10/2017 [place] Granulocytes 10e9/L 5:51 PM [facility] Absolute 0.0 07/10/2017 [place] Nucleated RBC 5:51 PM [facility] Specimen Anatomical Collection Method Collection Time Receive d Time (Source) Location / / Volume Laterality Blood specimen 07/10/2017 5:34 PM 017 5:46 (specimen) CDT PM CDT Tiffani Hsu MD LAB - BLOOD ORDERABLES Performing Organization Address City/State/ZIP Code Phon e Number [place] [address] [address] [address] [facility] [address] [phone] EKG 12 lead (07/10/2017 5:16 PM CDT) [facility] gist Method Time Signature Interpretation ECG Click View RADIOLOGY Image link RESULTS to view waveform and result Specimen (Source) Anatomical Collection Method Collection Time Re ceived Time Location / / Volume Laterality 07/10/2017 5:16 PM CDT Tiffani Hsu MD ECG ORDERABLES Performing Organization Address City/State/ZIP [facility] Phon e Number RADIOLOGY RESULTS documented in this encounter Visit Diagnoses Diagnosis Abnormal laboratory test result Other abnormal clinical finding documented in this encounter Administered Medications Inactive Administered Medications - up to 3 most recent administrations Medication Order MAR Action Action Date Dose Rate Site 0.9% sodium chloride BOLUS New Bag 07/10/2017 6:11 PM CDT 1,000 mLs 1000 mL/hr Intravenous, 1,000 mL, ONCE, at 1,000 mL/hr, Administer over 1 Hours, On Thu07/10/17 at 1716, For 1 dose documented in this encounter Active and Recently Administered Medications Times are shown in CDT. Scheduled Medication Order 07/08/2017 07/09/2017 07/10/2017 0.9% sodium chloride BOLUS (COMPLETED) 1811 (New Bag - Provider: Desi Brantley, RN)182 (Stopped - Provider: Desi Brantley, RN) Intravenous, 1,000 mL, ONCE, at 1,000 mL /hr, Administer over 1 Hours, Thu07/10/17 at 1716, For 1 dose documented in this encounter Care Teams Graduate Student Relationship Specialty Start Date End Date Ihsan Dunn MD PCP - General 06/07/17 documented as of this encounter
--- OUTSIDE RECORDS SUMMARY | 2022-07-31 10:06 | XMS_ITS | Encounter Summary ---
:1960 Author Organization [facility] Address [address] [place] [id number] Care Team Providers Name Role Phone Ihsan Dunn MD Primary Care Provider [phone] Reason for Visit Auth/Cert Specialty Diagnoses / Procedures Referred By Contact Refer red To Contact Surgery Diagnoses chronic non healing ulcer Rh Periop Services Procedures AMPUTATE LEG BELOW KNEE [address] [place], [place] [phone] Phone: Fax: Referral ID Status Reason Start Date Expiration Date Visits Requ ested Visits Authorized [id number] 1 1 Encounter Details Date Type Department Care Team Description 06/05/2017 - Hospital Encounter [facility] Felix Zapien S/P FUNMIA (below knee 06/08/2017 [facility] Ortho Spine MD Sylvester amputation), left [address] [facility] ([facility]) (Primary Dx) [place], [place] ORTH[facility]ED[facility] [id number] [phone] [address] [place] [address] Social History Tobacco Use Types Packs/Day Years Used Date Smoking Tobacco: Never Smokeless Tobacco: Never Alcohol Use Standard Drinks/Week Comments No 0 (1 standard drink = 0.6 oz pure alcoho l) Sex Assigned at Date Recorded Not on file documented as of this encounter Last Filed Vital Signs Vital Sign Reading Time Taken Comments Blood Pressure 165/89 06/08/2017 8:08 AM CDT Pulse 73 06/08/2017 8:08 AM CDT Temperature 36.5 ??C (97.7 ??F) 06/08/2017 8:08 AM CDT Respiratory Rate 16 06/08/2017 8:08 AM CDT Oxygen Saturation 96% 06/08/2017 8:08 AM CDT Inhaled Oxygen Concentration - - Weight 100.1 kg (220 lb 9.6 oz) 06/05/2017 8:20 AM CDT Height 177.8 cm (5' 10) 06/05/2017 8:20 AM CDT Body Mass Index 31.65 06/05/2017 8:20 AM CDT documented in this encounter Discharge Summaries Felix Zapien MD - 06/08/2017 11:30 AM CDT DATE OF ADMISSION: 06/05/2017. DATE OF DISCHARGE: 06/08/2017. ADMISSION DIAGNOSES: 1. Charcot neuroarthropathy with midfoot destruction, left. 2. Chronic nonhealing ulcer, left foot. 3. Chronic deformity, left foot and ankle. PROCEDURE PERFORMED THIS ADMISSION: Left below-knee amputation. INDICATIONS FOR ADMISSION: Tish Fuller is a 57-year-old man with known bilateral Charcot neuroarthropathy. A nonoperative treatment for this had been attempted, but he developed a chronic infected wound on his left foot. He was treated with wound cares, but failed to heal this. There was evidence for osteomyelitis. He had significant bone destruction and a reconstructive procedure was not feltto be possible. Therefore, he elected to undergo below- knee amputation. HOSPITAL COURSE: The patient underwent a below-knee amputation on the day of admission. This was performed without difficulty. He was admitted for pain control, physical and occupational therapy, and discharge disposition. After evaluation and treatment, it was determined he was an appropriate candidate for acute rehab facility. On 06/08/2017 he was discharged to the [facility]. Please see the chart for further details and discharge instructions. FELIX ZAPIEN MD MT: [id number] Name: TISH FULLER Account: [id number] : 1960 Admit Date: Discharge Date: 06/08/2017 Document: [id number] documented in this encounter Medications at Time of [...] knee other (surgical pain) amputation), left (H) aspirin 81 MG Take 2 tablets (162 84 tablet 0 06/08/2017 tabletIndications: S/P mg) by mouth daily BKA (below knee amputation), left (H) gabapentin (NEURONTIN) Take 1 capsule (300 90 capsule 0 05/2910/29/2017 300 MG mg) by mouth 3 times capsuleIndications: S/P daily BKA (below knee amputation), left (H) gabapentin (NEURONTIN) Take 1 capsule (300 90 capsule 1 05/2906/12/2017 300 MG mg) by mouth 3 times capsuleIndications: S/P daily BKA (below knee amputation), left (H) oxyCODONE (ROXICODONE) Take 1-2 tablets 10 tablet 0 017 10/29/2017 5 MG IR (5-10 mg) by mouth tabletIndications: S/P every 6 hours as BKA (below knee needed for moderate amputation), left (H) to severe pain oxyCODONE (ROXICODONE) Take 1-2 tablets 24 tablet 0 017 06/12/2017 5 MG IR (5-10 mg) by mouth tabletIndications: S/P every 3 hours as BKA (below knee needed for moderate amputation), left (H) to severe pain senna-docusate Take 1-2 tablets by 40 tablet 0 06/08/2017 0 06/12/2017 (SENOKOT-S;PERICOLACE) mouth 2 times daily 8.6-50 MG per tabletIndications: S/P BKA (below knee amputation), left (H) documented as of this encounter Progress Notes Jovita Gonzalez LSW - 06/08/2017 12:21 PM CDT SWS D: Discharge planning continuing... per chart review, and discussion with pt is ready for transfer today to rehab facility. [facility] has assessed and will be able to accept pt today. Ithas been noted to by RN that arrangements cannot be made for stump protector through ortho clinictoday, nor available for application at [facility] therefore arrangements are to be made when pt is at acute rehab. I: Met with pt, parents and other family members in room. Discussed with pt the availability of medical transport for the transfer however he decided to have his parents provide the transport as then they will know location of the facility for their visits to him. Arrangements made for transport @ 1315.. SW has provided directions for them, additional questions were addressed. A/P: Anticipate no problem with arrangements made for transfer today, wit discharge no further SWS. Analilia Viera RN - 06/08/2017 11:30 AM CDT Reviewed discharge instructions and medications with patient. Questions answered. Patient dischargedto TCU with discharge instructions, medications, and belongings at this time. Kristal Lozada PA-C - 06/08/2017 7:30 AM CDT S: POD #3 s/p left BKA. Patient reports he is doing well overall. He reports his pain as 1-2, he doesn't know what a 10 would feel like. He feels his pain is controlled with oral medication. He has been working with PT/OT, he reports falling yesterday, but does not feel like this was damaging to his stump. He reports no difficulty with the splint. He is planning to go to acute rehab, when arrangements can be made. O: T: 97.7, P: 73, HR: 78, R: 16, BP: 165/89, SpO2: 96 Hgb: 11.2 (up from 10.8) Patient is sitting up in bed, his leg is not currently elevated at heart level. His splint is clean,dry and intact. He is able to lift the leg without difficulty. A/P: POD #3 s/p left BKA, doing well Oral medication as needed for pain, decrease oxycodone to 5 mg/dose Aspirin for DVT prophylaxis PT/OT for gait, transfers and ADL's Elevate left leg at heart level for edema control Patient may d/c to acute rehab facility when bed placement is found, he plans to take private transportation. He will stop by [facility] on his way to acute rehab to be fitted with a stump protector. Franky Lozada PA-C Pat Walters LSW - 06/07/2017 2:23 PM CDT RAMIRO met with patient and his family. Patient is interested in going to [facility] Discussed the requirements. SW called Codi at [facility] and made initial referal. She said they would call for approval with his insurance company in the morning. If [facility] does not work out then patient would like to go to [facility]. MODESTA Siddiqi [phone] ÍOT Miko Aldrich DO - 06/07/2017 2:03 PM CDT [facility] Hospitalist Progress Note Miko Aldrich DO 06/07/2017 Reason for Stay (Diagnosis): Left below knee amputation. Assessment and Plan: 57-year-old man with history of diabetes mellitus and retinopathy neuropathy and Charcot mid foot distraction and deformity admitted for below knee amputation done this morning without complication. ??Patient has diabetes and sleep apnea as well as anemia of chronic disease. ??He has had workup in thepast for his anemia including bone marrow biopsy and was told that his anemia is due to chronic disease. ??He did have an ulcer on his right foot that has healed now, followed by podiatry. Problem List: 1. Left below knee amputation. Ortho following. Use incentive spirometry. Pain meds PRN. Therapy. Stop IV fluids. 2. Diabetes Mellitus. Continue Glipizide, Novolog SSI. 3. HTN. Continue Lisinopril. 4. Sleep apnea. CPAP while sleeping. 5. Hyperlipidemia. Zocor. 6. Depression. Zoloft. 7. Anemia. Chronic. Hgb stable today at 11.3. DVT Prophylaxis: Defer to primary service Code Status: Full Code Discharge Dispo: Per Ortho Estimated Disch Date / # of Days until Disch: Per Ortho. Interval History (Subjective): Having some left leg pain. No CP, SOB, F/C, N/V, or diarrhea. Physical Exam: Last Vital Signs: BP 117/51 (BP Location: Right arm) Pulse 80 Temp 99.1 ??F (37.3 ??C) (Oral) Resp 16 Ht 1.778m (5' 10) Wt 100.1 kg (220 lb 9.6 oz) SpO2 96% BMI 31.65 kg/m2 Gen: NAD, A&Ox3. Eyes: PERRL, sclera anicteric. OP: MMM, no lesions. Neck: Supple. CV: Regular, no murmurs. Lung: CTA b/l, normal effort. Ab: +BS, soft. Skin: Warm, dry to touch. No rash. Dressing on left leg stump not removed. Ext: No pitting edema Right LE. Dressing not removed from left leg stump. Medications: All current medications were reviewed with changes reflected in problem list. Data: All new lab and imaging data was reviewed. Labs: Recent Labs Lab 06/06/17 0734 NA 136 POTASSIUM 4.3 CHLORIDE 105 CO2 24 ANIONGAP 7 GLC 93 BUN 27 CR 1.08 GFRESTIMATED 71 GFRESTBLACK 86 HERI 8.2* Recent Labs Lab 06/07/17 0730 06/06/17 0734 WBC -- 7.3 HGB 11.3* 10.8* HCT -- 36.1* MCV -- 83 PLT -- 158 Imaging: No results found for this or any previous visit (from the past 24 hour(s)). Josh Bullock MD - 06/07/2017 7:32 AM CDT POD #2 left BKA. Mild pain at anterior distal stump. No acute events. Splint c/d/i. BP 148/84 (BP Location: Left arm) Pulse 80 Temp 98.9 ??F (37.2 ??C) (Oral) Resp 18 Ht 1.778 m (5' 10) Wt 100.1 kg (220 lb 9.6 oz) SpO2 96% BMI 31.65 kg/m2, Hgb= 10.8 Plan: 1. Pain management 2. Aspirin for DVT prophylaxis 3. To be fit for stump protector on Thursday 4. Possibly home Thursday Josh Bullock MD [phone] Vicky Martinez, OT - 06/06/2017 2:11 PM CDT 06/06/17 1330 Quick Adds Type of Visit Initial Occupational Therapy Evaluation Living Environment Lives With significant other Living Arrangements condominium Home Accessibility stairs to enter home;stairs within home Number of Stairs to Enter Home 1 (threshold step) Number of Stairs Within Home 14 Stair Railings at Home inside, present on right side Transportation Available family or friend will provide Living Environment Comment Pt lives with significant other in condo, 1 step to enter, full flight to2nd level bedroom, walk in shower, standard toilet. Pt may be able to stay on main level, considering staying with brother in w/c accessible house (ramp). Self-Care Dominant Hand right Usual Activity Tolerance moderate Current Activity Tolerance fair Regular Exercise no Equipment Currently Used at Home other (see comments) (B[place]REEK boots cassandra) Activity/Exercise/Self-Care Comment Pt owns crutches, but does not use them. Functions indep at baseline, roommate assists with wound dressings. Functional Level Prior Ambulation 0-->independent Transferring 0-->independent Toileting 0-->independent Bathing 0-->independent Dressing 0-->independent Eating 0-->independent Communication 0-->understands/communicates without difficulty Swallowing 0-->swallows foods/liquids without difficulty Cognition 0 - no cognition issues reported Fall history within last six months yes Number of times patient has fallen within last six months 1 (fell into pile of rocks 3 wks ago) Which of the above functional risks had a recent onset or change? transferring;toileting;bathing;dressing Prior Functional Level Comment Is able to ambulate short/moderate distances at baseline, limited by B foot pain/deformities and wounds, wears B[place]REEK (charcot restraint orthotics) at baseline B. Uses power scooters at stores when shopping. Pt reports mod I in all ADLs, IADLs and mobility tasks with no AD. Assists nephew with [employer] occasionally. General Information Onset of Illness/Injury or Date of Surgery - Date 06/05/17 Referring Physician Felix Zapien MD Patient/Family Goals Statement Pt open to rehab options if needed Additional Occupational Profile Info/Pertinent History of Current Problem Per chart: Pt is a 57 yearold male POD #1 s/p L BKA, hx of DM and chronic foot wounds/ charcot demformity. Wears B[place] boots cassandra at baseline (charcot restraint orthosis), functions independently. Precautions/Limitations fall precautions Weight-Bearing Status - LLE nonweight-bearing Cognitive Status Examination Orientation orientation to person, place and time Level of Consciousness alert Able to Follow Commands WNL/WFL Personal Safety (Cognitive) WNL/WFL Memory intact Visual Perception Visual Perception Wears glasses (reading) Sensory Examination Sensory Comments Pt reports baseline numbness in B digits, reports having appointment with siding stapler for further investigation. Pain Assessment Patient Currently in Pain No Range of Motion (ROM) ROM Comment WFL Strength Strength Comments WFL Hand Strength Hand Strength Comments WFL Coordination Upper Extremity Coordination No deficits were identified Bed Mobility Skill: Sit to Supine Level of [place]: Sit/Supine stand-by assist Physical Assist/Nonphysical Assist: Sit/Supine 1 person assist Bed Mobility Skill: Supine to Sit Level of [place]: Supine/Sit stand-by assist Physical Assist/Nonphysical Assist: Supine/Sit 1 person assist Transfer Skill: Bed to Chair/Chair to Bed Level of [place]: Bed to Chair contact guard Physical Assist/Nonphysical Assist: Bed to Chair 1 person assist Weight-Bearing Restrictions nonweight-bearing Assistive Device - Transfer Skill Bed to Chair Chair to Bed Rehab Eval standard walker Transfer Skill: Sit to Stand Level of [place]: Sit/Stand contact guard Physical Assist/Nonphysical Assist: Sit/Stand 1 person assist Transfer Skill: Sit to Stand nonweight-bearing Assistive Device for Transfer: Sit/Stand standard walker Upper Body Dressing Level of [place]: Dress Upper Body stand-by assist Physical Assist/Nonphysical Assist: Dress Upper Body 1 person assist Lower Body Dressing Level of [place]: Dress Lower Body minimum assist (75% patients effort) Physical Assist/Nonphysical Assist: Dress Lower Body 1 person assist Toileting Level of [place]: Toilet minimum assist (75% patients effort) Physical Assist/Nonphysical Assist: Toilet 1 person assist Grooming Level of [place]: Grooming contact guard Physical Assist/Nonphysical Assist: Grooming 1 person assist Instrumental Activities of Daily Living (IADL) Previous Responsibilities meal prep;housekeeping;medication management;finances IADL Comments Pt has support of family/SO for IADLs as needed Activities of Daily Living Analysis Impairments Contributing to Impaired Activities of Daily Living balance impaired;pain;post surgical precautions;strength decreased ADL Comments Pt presents to OT below baseline level of functioning in all areas of self cares including bathing, dressing, grooming and toileting General Therapy Interventions Planned Therapy Interventions ADL retraining;IADL retraining;transfer training;strengthening Clinical Impression Criteria for Skilled Therapeutic Interventions Met yes, treatment indicated OT Diagnosis Impaired ADLs, IADLs and mobility tasks Influenced by the following impairments Decreased functional activity tolerance, pain, impaired balance, post-surgical precautions Assessment of Occupational Performance 5 or more Performance Deficits Identified Performance Deficits Bathing, dressing, grooming, toileting, homemaking, transfers Clinical Decision Making (Complexity) Moderate complexity Therapy Frequency daily Predicted Duration of Therapy Intervention (days/wks) 3 days Anticipated Discharge Disposition Acute Rehabilitation Facility Risks and Benefits of Treatment have been explained. Yes Patient, Family & other staff in agreement with plan of care Yes Clinical Impression Comments Pt would benefit from skilled OT to maximize safety and indep in all ADLs, IADLS and mobility tasks due to current deficits impacting function [facility] AM-PAC??? 6 Clicks Daily Activity Inpatient Short Form 1. Putting on and taking off regular lower body clothing? 3 - A Little 2. Bathing (including washing, rinsing, drying)? 3 - A Little 3. Toileting, which includes using toilet, bedpan or urinal? 3 - A Little 4. Putting on and taking off regular upper body clothing? 3 - A Little 5. Taking care of personal grooming such as brushing teeth? 3 - A Little 6. Eating meals? 4 - None Daily Activity Raw Score (Score out of 24.Lower scores equate to lower levels of function) 19 Total Evaluation Time Total Evaluation Time (Minutes) 10 Josh Arizmendi PA-C - 06/06/2017 11:55 AM CDT POD #1 left BKA. Resting comfortably. Voices no complaints. Dressing c/d/i. BP 142/85 Pulse 78 Temp 97.5 ??F (36.4 ??C) (Axillary) Resp 18 Ht 1.778 m (5' 10) Wt 100.1 kg (220 lb 9.6 oz) SpO2 97% BMI 31.65 kg/m2, Hgb= 10.8 Plan: 1. Pain management 2. Aspirin for DVT prophylaxis 3. To be fit for stump protector on Thursday 4. DC- home vs. TCU pending progress. Likely Thursday Wero Craven MD - 06/06/2017 11:38 AM CDT [facility] Hospitalist Progress Note Assessment and Plan: 57-year-old man with history of diabetes mellitus and retinopathy neuropathy and Charcot mid foot distraction and deformity admitted for below knee amputation done this morning without complication. Patient has diabetes and sleep apnea as well as anemia of chronic disease. He has had workup in the past for his anemia including bone marrow biopsy and was told that his anemia is due to chronic disease.He did have an ulcer on his right foot that has healed now, followed by podiatry. ? 1. Left below knee amputation 2. Diabetes mellitus 3. Obstructive sleep apnea 4. Anemia of chronic disease ?? DVT prophylaxis and physical therapy per orthopedics Continue insulin sliding scale to his glipizide and continue diabetic diet Try to avoid prolonged use of Toradol due to diabetes and possibility of nephropathy Use home CPAP CODE STATUS full code DVT prophylaxis discharge planning per orthopedics Thank you for the consultation and will follow up with you while the patient is hospitalized Interval History: Doing well Denies complaints Pain is reasonably controlled No CP or SOB Physical Exam: Blood pressure 142/85, pulse 78, temperature 97.5 ??F (36.4 ??C), temperature source Axillary, resp.rate 18, height 1.778 m (5' 10), weight 100.1 kg (220 lb 9.6 oz), SpO2 97 %. Exam: GENERAL: Comfortable. PSYCH: pleasant, oriented, No acute distress. EYES: PERRLA, Normal conjunctiva. HEART: Normal S1, S2 with no edema. LUNGS: Clear to auscultation, normal Respiratory effort. ABDOMEN: Soft, no hepatosplenomegaly, normal bowel sounds. SKIN: Dry to touch, No rash. Data: Lab Results Component Value Date NA 136 06/06/2017 Lab Results Component Value Date CHLORIDE 105 06/06/2017 Lab Results Component Value Date BUN 27 06/06/2017 Lab Results Component Value Date POTASSIUM 4.3 06/06/2017 Lab Results Component Value Date CO2 24 06/06/2017 Lab Results Component Value Date CR 1.08 06/06/2017 Lab Results Component Value Date WBC 7.3 06/06/2017 HGB 10.8 (L) 06/06/2017 HCT 36.1 (L) 06/06/2017 MCV 83 06/06/2017 PLT 158 06/06/2017 This document was produced using voice recognition software Rene Hernandez, PT - 06/06/2017 10:20 AM CDT 06/06/17 1010 Quick Adds Type of Visit Initial PT Evaluation Living Environment Lives With significant other Living Arrangements condominium Home Accessibility stairs to enter home;stairs within home Number of Stairs to Enter Home 1 (threshold step) Number of Stairs Within Home 14 Stair Railings at Home inside, present on right side Transportation Available family or friend will provide Living Environment Comment Bedroom up on 2nd level of home, states he could stay/sleep on couch on main level of home if needed Self-Care Dominant Hand right Usual Activity Tolerance moderate Current Activity Tolerance fair Regular Exercise no Equipment Currently Used at Home other (see comments) ([place] boots cassandra) Activity/Exercise/Self-Care Comment Pt owns crutches, but does not use them. Functions indep at baseline, roommate assists with wound dressings. Functional Level Prior Ambulation 0-->independent Transferring 0-->independent Toileting 0-->independent Bathing 0-->independent Dressing 0-->independent Eating 0-->independent Communication 0-->understands/communicates without difficulty Swallowing 0-->swallows foods/liquids without difficulty Cognition 0 - no cognition issues reported Fall history within last six months yes Number of times patient has fallen within last six months 1 (fell into pile of rocks 3 wks ago) Which of the above functional risks had a recent onset or change? ambulation;transferring;fall history Prior Functional Level Comment Is able to ambulate short/moderate distances at baseline, limited by B foot pain/deformities and wounds, wears B[place] (charcot restraint orthotics) at baseline B. Uses power scooters at stores when shopping. General Information Onset of Illness/Injury or Date of Surgery - Date 06/05/17 Referring Physician Felix Zapien MD Patient/Family Goals Statement Pt states I'll probably need to go to some rehab center before goinghome, but does plan to have prosthetic fitting at some point Pertinent History of Current Problem (include personal factors and/or comorbidities that impact the POC) Pt seen POD #1 s/p L BKA, hx of DM and chronic foot wounds/ charcot demformity. Wears [place] bootsbil at baseline (charcot restraint orthosis), functions independently. Precautions/Limitations fall precautions Weight-Bearing Status - LLE nonweight-bearing General Observations pt awake and alert, soft splinting on L BKA stump Cognitive Status Examination Orientation orientation to person, place and time Pain Assessment Patient Currently in Pain (very minimal, almost 0/10) Integumentary/Edema Integumentary/Edema Comments semi rigid splint on L BKA, no bleeding noted through dressing Posture Posture Not impaired Range of Motion (ROM) ROM Comment WNL R knee and hip, R foot charcot deformity noted. WNL cassandra UEs. L hip to neutral hip extension, appears to demo near full TKE. Strength Strength Comments WNL R hip and knee 4+ to 5/5, able to demo SLR on L. Bed Mobility Bed Mobility Comments SBA supine <> sit EOB, able to roll to prone with SBA Transfer Skills Transfer Comments Sit <> stand transfers iwth FWW and CGA, tolerating well, NWB L stump. Gait Gait Comments Amb at bedside x 5ft with FWW and CGA, able to hop well on R foot with B[place] boot donned, taking WB well through arms using FWW. Minimal pain reported. Balance Balance Comments Impaired standing balance and gait stability due to L BKA/NWB status. Compensating well with FWW currently, CGA for safety. Sensory Examination Sensory Perception Comments baseline neuropathy, intact to gross touch R foot, but significantly decreased sensation reported. Coordination Coordination no deficits were identified Muscle Tone Muscle Tone no deficits were identified Modality Interventions Planned Modality Interventions Cryotherapy Planned Modality Interventions Comments prn General Therapy Interventions Planned Therapy Interventions balance training;bed mobility training;gait training;neuromuscular re-education;manual therapy;orthotic fitting/training;ROM;strengthening;stretching;transfer training;risk factor education;home program guidelines;progressive activity/exercise Clinical Impression Criteria for Skilled Therapeutic Intervention yes, treatment indicated PT Diagnosis Impaired functional mobility s/p BKA Influenced by the following impairments Pain, weakness, decreased ROM, NWB status Functional limitations due to impairments Impaired bed mobility, transfers, gait skills, potential for contractures post op and need to address for future prosthetic fitting Clinical Presentation Stable/Uncomplicated Clinical Presentation Rationale stable medical status post op, indep PLOF, PMH Clinical Decision Making (Complexity) Low complexity Therapy Frequency` 2 times/day Predicted Duration of Therapy Intervention (days/wks) 3-4 days Anticipated Equipment Needs at Discharge front wheeled walker (consider FWW if plan to d/c home, order placed in chart) Anticipated Discharge Disposition Transitional Care Facility;Acute Rehabilitation Facility;Home withAssist;Home with Outpatient Therapy (pending progress) Risk & Benefits of therapy have been explained Yes Patient, Family & other staff in agreement with plan of care Yes [facility] AM-PAC TM 6 Clicks ?? 2016, Trustees of [facility], under license to [employer]. All rights reserved. 6 Clicks Short Forms Basic Mobility Inpatient Short Form [facility] AM-PAC??? 6 Clicks V.2 Basic Mobility Inpatient Short Form 1. Turning from your back to your side while in a flat bed without using bedrails? 4 - None 2. Moving from lying on your back to sitting on the side of a flat bed without using bedrails? 3 - ALittle 3. Moving to and from a bed to a chair (including a wheelchair)? 3 - A Little 4. Standing up from a chair using your arms (e.g., wheelchair, or bedside chair)? 3 - A Little 5. To walk in hospital room? 3 - A Little 6. Climbing 3-5 steps with a railing? 2 - A Lot Basic Mobility Raw Score (Score out of 24.Lower scores equate to lower levels of function) 18 Total Evaluation Time Total Evaluation Time (Minutes) 20 documented in this encounter Consult Notes Gail Palmer RN - 06/07/2017 10:25 AM CDTAssociated Order(s): CONCRETING SUPERVISOR IP CONSULT Emergency Communications Operator Discharge Plans in progress: CTS following for DC needs. OT/PT is recommending ARU vs brother's homewhich is handicap accessible. Met with pt to discuss DC recommendations. Patient stated he would like to speak to family first before making any decisions. I gave pt planning guide for SNF and ARU brochure to look over. Will check back with patient later today. Barriers to discharge plan: placement vs home Follow up plan: per md Entered by: Gail Palmer 06/07/2017 10:23 AM Wero Craven MD - 06/05/2017 3:36 PM CDTAssociated Order(s): INTERNAL MEDICINE IP CONSULT Images from the original note were not included. Hospitalist Consultation Tish Fuller Date of : 1960 Age: [age] year old Date of Admission: 06/05/2017 Requesting Physician: Dr. Felix Damon Reason for consult: Medical Management Assessment and Plan: 57-year-old man with history of diabetes mellitus and retinopathy neuropathy and Charcot mid foot distraction and deformity admitted for below knee amputation done this morning without complication. Patient has diabetes and sleep apnea as well as anemia of chronic disease. He has had workup in the past for his anemia including bone marrow biopsy and was told that his anemia is due to chronic disease.He did have an ulcer on his right foot that has healed now, followed by podiatry. 1. Left below knee amputation 2. Diabetes mellitus 3. Obstructive sleep apnea 4. Anemia of chronic disease DVT prophylaxis and physical therapy per orthopedics Add insulin sliding scale to his glipizide and continue diabetic diet Monitor kidney function and try to avoid prolonged use of Toradol due to diabetes and possibility ofnephropathy Use home CPAP Check CBC and basic metabolic panel in the morning CODE STATUS full code DVT prophylaxis discharge planning per orthopedics Thank you for the consultation and will follow up with you while the patient is hospitalized History of Present Illness: This patient is a 57 year old male who presents with chronic non healing ulcer, left Charcot neuroarthropaty with midfoot destruction, left Chronic deformity, left foot and ankle he was admitted after an elective left below-knee amputation done by Dr. Abdalla this morning without any illicit complication. Estimated blood loss was 30 cc. Postop patient is doing well denies complaints, denies any chest pain shortness of breath any focal weakness change in vision or speech. He does not have any history of heart disease that he knows off or prior history of DE. His blood sugar is reasonably controlled and his A1c is 5.6. Review of system otherwise is negative. Past Medical History: Past Medical History: Diagnosis Date ??? Anemia of chronic disorder ??? Charcot's joint 2014 ??? Diabetes mellitus (H) ??? History of blood transfusion 02/2016 ??? Hypertension ??? Irregular heart beat 2016 pt states he has a high heart rate ??? Numbness and tingling diabetic neuropathy Numbness in feet ??? Sleep apnea CPAP Past Surgical History: Past Surgical History: Procedure Laterality Date ??? BONE MARROW BIOPSY, BONE SPECIMEN, NEEDLE/TROCAR Right 04/15/2016 Procedure: BIOPSY BONE MARROW; Surgeon: Rudy Goins MD; Location: [facility] OR ??? DISSECT LYMPH NODE INGUINAL Right 03/14/2016 Procedure: DISSECT LYMPH NODE INGUINAL; Surgeon: Damien Lancaster MD; Location: [facility] OR ??? ORTHOPEDIC SURGERY Right bone shaving Social History: Social History Substance Use Topics ??? Smoking status: Never Smoker ??? Smokeless tobacco: Never Used ??? Alcohol use No No Illicit drug use and has kids and grandchildren Family History: Family History Problem Relation Age of Onset ??? Hyperlipidemia Father ??? Hypertension Mother ??? DIABETES Mother ??? DIABETES Brother Allergies: Allergies Allergen Reactions ??? Amoxicillin Hives Medications: Prescriptions Prior to Admission Medication Sig Dispense Refill Last Dose ??? polyvinyl alcohol-povidone (REFRESH) 1.4-0.6 % ophthalmic solution Place 1-2 drops into both eyes as needed for irritation 06/04/2017 at Unknown time ??? lisinopril (PRINIVIL/ZESTRIL) 10 MG tablet Take 30 mg by mouth daily 06/04/2017 at Unknown time ??? SIMVASTATIN PO Take 20 mg by mouth daily 06/04/2017 at Unknown time ??? Sertraline HCl (ZOLOFT PO) Take 50 mg by mouth daily 06/04/2017 at Unknown time ??? Cholecalciferol (VITAMIN D3 PO) Take 4,000 Units by mouth daily 06/04/2017 at Unknown time ??? aspirin 81 MG tablet Take 81 mg by mouth daily 05/22/2017 ??? GLIPIZIDE XL PO Take 5 mg by mouth daily (with breakfast) 06/04/2017 at Unknown time ??? order for DME [employer] Order Primary Dressing Hydrofera Blue READY TRANSFER Qty 5 sheets NOT NEEDED Secondary Dressing 4 Roll gauze Qty 60 NOT NEEDED Secondary Dressing 2 medipore tape Qty 3 Length of Need: 1 month Frequency of dressing change: daily 30 days 0 05/29/2017 ??? order for DME Handi Medical Order Primary Dressing HydroferaBlue Ready Transfer Qty 4 sheets Primary Dressing Endoform Qty 15 sheets Secondary Dressing 4x4 Gauze Loaf Qty 2 Secondary Dressing 2 Medipore Tape Qty 2 Length of Need: 1 month Frequency of dressing change: daily Please send what his insurance will allow. Thank you 30 days 0 05/29/2017 Review of Systems: A comprehensive greater than 10 system review of systems was carried out. Pertinent positives and negatives are noted above. Otherwise negative for contributory info. Physical Exam: Vitals were reviewed Blood pressure 131/80, pulse 88, temperature 96.7 ??F (35.9 ??C), temperature source Axillary, resp.rate 16, height 1.778 m (5' 10), weight 100.1 kg (220 lb 9.6 oz), SpO2 96 %. Exam: GENERAL: Comfortable. PSYCH: pleasant, oriented, No acute distress. EYES: PERRLA, Normal conjunctiva. HEART: Normal S1, S2 with no edema. LUNGS: Clear to auscultation, normal Respiratory effort. ABDOMEN: Soft, no hepatosplenomegaly, normal bowel sounds. SKIN: Dry to touch, No rash. Neuro: Non focal with normal motor power, sensation, CN's and Reflexes. L BKA Data: Past 24 hours labs, studies, and imaging were reviewed. Lab Results Component Value Date NA 139 09/15/2016 Lab Results Component Value Date CHLORIDE 105 09/15/2016 Lab Results Component Value Date BUN 29 09/15/2016 Lab Results Component Value Date POTASSIUM 4.7 06/05/2017 POTASSIUM 4.1 09/15/2016 Lab Results Component Value Date CO2 30 09/15/2016 Lab Results Component Value Date CR 1.05 06/05/2017 CR 0.85 09/15/2016 Lab Results Component Value Date WBC 7.1 04/15/2016 HGB 12.1 (L) 06/05/2017 HGB 12.4 (L) 09/15/2016 HGB 8.1 (L) 04/15/2016 HCT 28.4 (L) 04/15/2016 MCV 81 04/15/2016 PLT 217 04/15/2016 documented in this encounter Miscellaneous Notes Plan of Care - Ramya Ames OT - 06/08/2017 11:30 AM CDT Problem: Goal Outcome Summary Goal: Goal Outcome Summary Emergency Communications Operator OT Patient plan for discharge: ARU Current status: Discussed lower body dressing tasks including type of clothing with L LE stump wrapped as well as considering that pt will be shortly fitted with stump protector, pt receptive to education and recommendations; pt able to complete total body dressing tasks, SBA remaining in bed; discussed option of managing clothing while standing, which he will need to do during toilet transfers, pt declined to trial at this time Barriers to return to prior living situation: Pt has stairs at his home however his brother's home is one level, handicap accessible as his brother is in a wheelchair himself Recommendations for discharge: ARU Rationale for recommendations: Pt would benefit from continued skilled OT to improve safety and independence with self cares. Pt very eager to improve ADL/IADL and mobility skills. Entered by: Ramya Ames 06/08/2017 11:47 AM Occupational Therapy Discharge Summary Reason for therapy discharge: Discharged to acute rehabilitation facility. Progress towards therapy goal(s). See goals on Care Plan in Epic electronic health record for goal details. Goals partially met. Barriers to achieving goals: discharge from facility. Therapy recommendation(s): Continued therapy is recommended. Rationale/Recommendations: ARU recommended to further improve safety, strength, and independence. Plan of Care - Chana Alexander PTA - 06/08/2017 10:16 AM CDT Problem: Goal Outcome Summary Goal: Goal Outcome Summary Emergency Communications Operator PT Patient plan for discharge: Pt and sig other in agreement ARU is best d/c option at this time Current status: Pt is indep with sit to./from supine. goal met Supervision with sit to./from stand. Not met Pt amb 85' with ww with boot on R foot and CGA with pt reporting that he knows to slow down. Not met Barriers to return to prior living situation: mobility status, has stairs at sig other's home to bedroom and shower level, was planning to d/c to brother's w/c accessible home but return to his home in1 wk, will still have safety concerns with stairs at that point Recommendations for discharge: ARU Rationale for recommendations: progressing well, but will need continued intensive rehab to regain functional strength and mobility/stair training for home. Will benefit from daily medical team management as well as input from orthopedics and orthotics during ARU stay. PT - Pt discharged to ARU with goals partially met. Please refer to discharge summary. Unable to perform stairs. Entered by: Chana Alexander 06/08/2017 10:16 AM Associated attestation - Tammy House PT - 06/08/2017 1:53 PM CDT Physical Therapy Discharge Summary Reason for therapy discharge: Discharged to acute rehabilitation facility. Progress towards therapy goal(s). See goals on Care Plan in Epic electronic health record for goal details. Goals partially met. Barriers to achieving goals: discharge from facility. Therapy recommendation(s): Continued therapy is recommended. Rationale/Recommendations: Progress indep with mobility at ARU. . Note: Pt not seen by documenting PT on this date. Information obtained from chart review and discussion with PLASTER PATTERNMAKER. Plan of Care - Kacie Borja RN - 06/08/2017 1:59 AM CDT Problem: Goal Outcome Summary Goal: Goal Outcome Summary Outcome: Improving Pt alert and oriented. Pleasant mood. Vs 98.2, 16, 78, 137/83, 96%RA. Pt rated pain 2-3. 0200 bs 103. Pt using urinal per noc at bed side. Stump meet wrap no drainage noted. Pt noted pain is incisional and phantom ankle pain. roxicodone and tyl given for pain. Appears to rest between cares, will continue to monitor. Plan of Care - Brielle Garcia RN - 06/07/2017 6:50 PM CDT Problem: Goal Outcome Summary Goal: Goal Outcome Summary Outcome: Improving AOx4, assist x1 with transfers, gait belt and walker. PRN oxycodone administered for left limb pain x1 and effective, dressing is CDI, positive CMS, VSS. Op Note - Felix Zapien MD - 06/07/2017 6:22 PM CDT DATE OF PROCEDURE: 06/05/2017 PREOPERATIVE DIAGNOSES: 1. Charcot neuroarthropathy with mid foot destruction, left. 2. Chronic nonhealing ulcer, left foot. 3. Chronic deformity, left foot and ankle. POSTOPERATIVE DIAGNOSES: 1. Charcot neuroarthropathy with mid foot destruction, left. 2. Chronic nonhealing ulcer, left foot. 3. Chronic deformity, left foot and ankle. PROCEDURE: Below-knee amputation, left. SURGEON: Felix Zapien MD DIRECTOR OUTCOMES: Kristal Lozada PA-C ANESTHESIA: Regional plus general. ESTIMATED BLOOD LOSS: 30 mL. DRAINS: None. SPECIMENS: None. COMPLICATIONS: None. INDICATIONS FOR PROCEDURE: Tish Fuller is a 57-year-old man whom I have treated for quite some time with bilateral mid foot destruction from Charcot neuroarthropathy. Unfortunately, despite use of custom [place] boot, he has developed a chronic nonhealing ulcer on his left foot and ankle related to his deformity. The presence of the ulcer, the clinical evidence for infection, and the extensive mid foot destruction, precluded an attempt at salvage. In addition, he has a severe mid foot destruction on the opposite, right side and this side may well be amenable to reconstruction. Therefore, after discussion of risks, benefits and alternatives, he elected to proceed with below-knee amputation on the left. Given his history of diabetes, chronic ulcer, and peripheral arterial disease, I elected to pursue an skew flapped orientation rather than a traditional Barrios long posterior flap. DESCRIPTION OF PROCEDURE: The patient was identified in the preoperative area and appropriately marked. He underwent a regional anesthetic by the anesthesia team. He was brought to the operating room where a general anesthetic was administered and airway secured without difficulty. Preoperative antibiotic prophylaxis was provided within an hour of the incision. His prophylaxis was continued for 24 hours post surgery. A tourniquet was placed on the left thigh. The left leg and foot were prepped and draped in sterile fashion. The limb was elevated for exsanguination and tourniquet inflated. A pause for the cause was performed. I shelby out the skew flap and then proceeded with making the skin incisions. I elevated the flaps. I then moved to the anterior compartment and identified the neurovascular bundle between the 2 major anterior compartment muscles. The vessel was dissected out, clamped, cut and tied. The nerve was cut with slow cautery proximally. The anterior compartment muscles were then cut down to the level of the interosseous membrane. I moved to the lateral musculature. The neurovascular bundle was identified, tagged, cut and tied. The muscles were cut. I then cut the tibia and the fibula slightly proximal to this. An amputation knife was used to release the posterior musculature. I then identified the posterior neurovascular bundle and that was clamped, cut and tied. The specimen was then sent off. The posterior musculature was shaped. A myodesis was performed to the anterior portion of the tibia, which had been beveled. The flap was then closed in layers after irrigation with sterile saline. Adaptic and sterile dressings were applied. A posterior splint was made to prevent flexion contracture. All sponge and needle counts were correct. The patient tolerated the procedure well. There were no complications. PLAN: He will be nonweightbearing. He will be admitted to the hospital for management of his other medical issues. It is likely that on Thursday he will be to discharged either home or to a transitional care unit, depending on the recommendations from physical therapy and analysis by social work of his a vailable benefits. We will then see him at [facility] for fitting of a removable clamshell postoperative splint. He will then return at 2 weeks for wound check and sutures out. At that point he will begin workwith [facility] to advance into protocols for a prosthetic limb. FELIX ZAPIEN MD MT: [id number] Name: TISH FULLER Account: [id number] : 1960 Procedure Date: 06/05/2017 Document: [id number] Plan of Care - Rene Hernandez, PT - 06/07/2017 2:19 PM CDT Problem: Goal Outcome Summary Goal: Goal Outcome Summary Emergency Communications Operator PT Patient plan for discharge: Pt and sig other in agreement ARU is best d/c option at this time Current status: Continuing to progress well with PT, but did not R knee buckling x 1 during gait andneeded max A to prevent fall during stair training trial. Complicated by baseline neuropathy in R foot and use of B[place] C[place] boot. SBA with transfers. Amb x 25ft and 45ft with FWW and CGA. Barriers to return to prior living situation: mobility status, has stairs at sig other's home to bedroom and shower level, was planning to d/c to brother's w/c accessible home but return to his home in1 wk, will still have safety concerns with stairs at that point Recommendations for discharge: ARU Rationale for recommendations: progressing well, but will need continued intensive rehab to regain functional strength and mobility/stair training for home. Will benefit from daily medical team management as well as input from orthopedics and orthotics during ARU stay. Entered by: Rene Hernandez 06/07/2017 2:19 PM Plan of Care - Sarah Burciaga RN - 06/07/2017 1:25 PM CDT Problem: Goal Outcome Summary Goal: Goal Outcome Summary A/Ox4, A1 w/walker and boot to right leg, VSS, LS clear, BS+, voiding, tolerating Mod CHO diet, BG 152 after eating breakfast and 91 after eating lunch, no SSI this shift. Dressing and meet wrap to leftleg, C/D/I, IVSL, PT, OT and acute care registered nurse following. 10mg oxy given X1. Plan is possible D/C to TCU tomorrow after stump protector fitting. POC reviewed with patient, questions answered. Plan of Care - Ramya Ames OT - 06/07/2017 9:23 AM CDT Problem: Goal Outcome Summary Goal: Goal Outcome Summary Emergency Communications Operator OT Patient plan for discharge: Open to rehab options; pt now states he is considering d/c to his brother's home, which is handicapped accessible (brother uses a w/c for mobility), has daughter that lives nearby for check-in support Current status: Discussed pt's brother's home set-up and practiced bathroom tasks including toilet transfer, pt able to complete with FWW, CGA and use of grab bar which is present at brother's home; ptable to complete 2 standing self cares at sink with FWW, CGA including hand hygiene, pt safely maintaining balance through R LE and leaning into sink as needed; pt completed sit<>stand from wheelchair, FWW, close SBA, pt able to follow verbal instructions in order to safely manage wheelchair in room including leg rests positioning; pt transferred to bed from wheelchair, SBA; pt independently managing B[place] boot for R LE Barriers to return to prior living situation: Pt has stairs at his home however his brother's home is one level, handicap accessible as his brother is in a wheelchair himself Recommendations for discharge: ARU vs brother's home Rationale for recommendations: Pt would benefit from continued skilled OT to improve safety and independence with self cares. Pt very eager to improve ADL/IADL and mobility skills. Entered by: Ramya Ames 06/07/2017 9:23 AM Plan of Care - Rene Hernandez, PT - 06/07/2017 8:28 AM CDT Problem: Goal Outcome Summary Goal: Goal Outcome Summary Emergency Communications Operator PT Patient plan for discharge: pt now states he is considering d/c to his brother's home, which is handicapped accessible (brother uses a w/c for mobility), has daughter that lives nearby for check-in support Current status: Tolerating therapy very well, making good progress. Amb 2x40ft with FWW and CGA, mild LOB x 2 due to B[place] boot catching on floor. Tolerating BKA exercises well, good functional hip ROM and terminal knee extension. Independent with repositioning/rolling in bed, CGA/SBA with transfers using FWW. FWW order in chart if needed at d/c. Barriers to return to prior living situation: mobility status, has stairs at home to bedroom level but now states may plan to d/c to brother's single level home, has a w/c from [facility] but will need elevating leg rests (provided contact info) Recommendations for discharge: ARU vs d/c to brother's home with OP PT Rationale for recommendations: progressing well, needing only CGA/SBA at this point with mobility skills Entered by: Rene Hernandez 06/07/2017 8:26 AM Plan of Care - Caren Moncada RN - 06/07/2017 5:01 AM CDT Problem: Goal Outcome Summary Goal: Goal Outcome Summary Outcome: No Change Pt A&Ox4. VSS Initially reported no pain but started having 5/10 pain to left leg. Left BKA wrapped in meet wrap, no drainage noted. CMS intact. Has numbness and tingling at baseline. Receiving 5mg OxyIR overnight, see NOV. Blood sugars 104 and 116. Tolerating Mod carb diet. Voiding quantity sufficient clear yellow urine in urinal in bed. PIV is SL. Non-wt bearing on left. Not OOB overnight. Was told up with 1 assist and walker. Plan is to have an appointment on Thursday to have left leg brace fitting. Home vs Rehab. Will work with PT/OT/SW. Will continue to monitor. Plan of Care - Luz Meng RN - 06/06/2017 3:44 PM CDT Problem: Goal Outcome Summary Goal: Goal Outcome Summary Outcome: Improving Day RN VS monitored, up w/A1 and ww, boot on R foot when OOB, drsg C/D/I, voiding, BG checks QID, minimal pain, Oxycodone/Tylenol, cpap at hs, home vs ARU Thursday, will cont to monitor. Plan of Care - Vicky Martinez OT - 06/06/2017 2:18 PM CDT Problem: Goal Outcome Summary Goal: Goal Outcome Summary OT: Order received, eval completed and treatment initiated. Pt is a 57 year old male POD #1 s/p L BKA. Pt lives with SO in [place], 1 step to enter, full flight to bedroom, is able to stay on main level if needed, walk in shower, standard height toilet. Pt reports indep/mod I in all ADLs, IADLs and mobility tasks with no AD (other than B[place] C[place] boots) at baseline. Pt has support of family/SO for ADL/IADL tasks as needed. Could potentially stay with brother in w/c accessible house. Emergency Communications Operator OT Patient plan for discharge: Open to rehab options Current status: Pt completed bed mobility supine <> sit EOB with SBA. Pt completed room mobility FWW level with CGA for safety, B[place] boot donned on RLE. Pt educated on compensatory technique for ease of LE dressing, able to complete with min A, grooming with CGA seated. Education provided regarding ARU recommendation, verbalized understanding. Barriers to return to prior living situation: Stairs Recommendations for discharge: ARU Rationale for recommendations: Pt would benefit from continued skilled OT in ARU setting based on pt's age, motivation to return to independent PLOF and support at home. Pt very eager to improve ADL/IADL and mobility skills. Entered by: Vicky Martinez 06/06/2017 2:16 PM Plan of Care - Rene Hernandez, PT - 06/06/2017 10:09 AM CDT Problem: Goal Outcome Summary Goal: Goal Outcome Summary PT: Renataal complete, treatment initiated. Pt seen POD #1 s/p L BKA, hx of DM and chronic foot wounds/ charcot demformity. Wears B[place] boots cassandra at baseline (charcot restraint orthosis), functions independently. Lives with roommate in a 2-level condo, small threshold to enter and full flight of stairs up to bedroom level, has couch on main level he states he could sleep on. Pt owns crutches, able to walkshort distances at baseline, typically uses power scooter when shopping. Emergency Communications Operator PT Patient plan for discharge: rehab center Current status: Initiated mobility training and BKA exercises, tolerating well today, minimal pain. Some sensations of phantom limb, but tolerable. SBA with bed mobilities, CGA with sit <> stand transfers and amb x 30ft with FWW, B[place] boot R foot at baseline. Up to chair, tolerating well, issuedBKA exercise/ROM handout in prep for future prosthetic. Barriers to return to prior living situation: stairs to access bedroom level of home Recommendations for discharge: ARU vs home with continued PT pending progress and LOS Rationale for recommendations: currently tolerating mobility very well, pending progress with pain control and LOS. Consider ARU given indep PLOF and s/p BKA with DM and charcot foot deformities bilaterally Entered by: Rene Hernandez 06/06/2017 10:05 AM Plan of Care - Carleen Awan RN - 06/06/2017 6:12 AM CDT Problem: Goal Outcome Summary Goal: Goal Outcome Summary Outcome: Improving A&O. Vitals monitored. Lungs clear. Denies numbness or tingling. Meet dressing CDI. Surgical siteelevated, ice placed. Taking oral medications. Using urinal to void. Plan of Care - Brielle Garcia RN - 06/05/2017 11:57 PM CDT Problem: Goal Outcome Summary Goal: Goal Outcome Summary Outcome: Improving Pt is AOx4, able to make needs known, using urinal at bedside. Pt dangled at side of bed, is voidingwithout difficulty, and has a good appetite. Pt continues IV Ancef. Left leg dressing is CDI, +CMS. VSS. Plan of Care - Sarah Burciaga RN - 06/05/2017 3:46 PM CDT Problem: Goal Outcome Summary Goal: Goal Outcome Summary Transfer from PACU @1400: A/Ox4, lift for transfers, HTN, scheduled meds given, other VSS, no c/o pain, CMS intact, dressing to LLE C/D/I. BG 124. LR @50mL/hr. Report given to PM shift RN. POC reviewedwith patient and family at bedside, questions answered. Brief Op Note - Felix Zapien MD - 06/05/2017 12:39 PM CDT [facility] Brief Operative Note Pre-operative diagnosis: chronic non healing ulcer, left Charcot neuroarthropaty with midfoot destruction, left Chronic deformity, left foot and ankle Post-operative diagnosis Same Procedure: Procedure(s): AMPUTATE LEG BELOW KNEE - Wound Class: III-Contaminated Surgeon(s): Surgeon(s) and Role: * Felix Zapien MD - Primary * Kristal Lozada PA-C - Assisting Estimated blood loss: 30 mL Specimens: Leg & foot Findings: ANES: reg + gen Provider Notification - Tess Casey RN - 06/05/2017 10:[address] Jiang aware of elevated DBP pre op. No new orders received. Pharmacy-Admission Medication History - Nehemias Hand [facility] - 06/02/2017 8:06 PM CDT Admission medication history interview status for this patient is complete. See [facility] admission navigator for allergy information, prior to admission medications and immunization status. [employer] meds completed by pre-admitting nurse Lo Julien and reviewed by pharmacy Prior to Admission medications Medication Sig Last Dose Taking? Auth Provider polyvinyl alcohol-povidone (REFRESH) 1.4-0.6 % ophthalmic solution Place 1-2 drops into both eyes asneeded for irritation Yes Unknown, Entered By History lisinopril (PRINIVIL/ZESTRIL) 10 MG tablet Take 30 mg by mouth daily Yes Reported, Patient SIMVASTATIN PO Take 20 mg by mouth daily Yes Reported, Patient Sertraline HCl (ZOLOFT PO) Take 50 mg by mouth daily Yes Reported, Patient Cholecalciferol (VITAMIN D3 PO) Take 4,000 Units by mouth daily Yes Reported, Patient aspirin 81 MG tablet Take 81 mg by mouth daily Yes Reported, Patient GLIPIZIDE XL PO Take 5 mg by mouth daily (with breakfast) Yes Reported, Patient order for DME [facility] [employer] Order Primary Dressing Hydrofera Blue READY TRANSFER Qty 5 sheets NOT NEEDED Secondary Dressing 4 Roll gauze Qty 60 NOT NEEDED Secondary Dressing 2 medipore tape Qty 3 Length of Need: 1 month Frequency of dressing change: daily Masha Dean PA-C order for DME [employer] Order Primary Dressing HydroferaBlue Ready Transfer Qty 4 sheets Primary Dressing Endoform Qty 15 sheets Secondary Dressing 4x4 Gauze Loaf Qty 2 Secondary Dressing 2 Medipore Tape Qty 2 Length of Need: 1 month Frequency of dressing change: daily Please send what his insurance will allow. Thank you Masha Dean PA-C documented in this encounter Plan of Treatment Not on filedocumented as of this encounter Procedures Procedure Name Priority Date/Time Associated Comments Diagnosis GLUCOSE BY METER Routine 06/08/2017 7:16 AM S/P BKA (below kne e Results for this CDT amputation), left procedure are in (H) the results section. GLUCOSE BY METER Routine 06/08/2017 1:49 AM S/P BKA (below kne e Results for this CDT amputation), left procedure are in (H) the results section. GLUCOSE BY METER Routine 06/07/2017 8:27 PM S/P BKA (below kne e Results for this CDT amputation), left procedure are in (H) the results section. GLUCOSE BY METER Routine 06/07/2017 4:40 PM S/P BKA (below kne e Results for this CDT amputation), left procedure are in (H) the results section. GLUCOSE BY METER Routine 06/07/2017 12:29 S/P BKA (below knee Results for this PM CDT amputation), left procedure are in (H) the results section. GLUCOSE BY METER Routine 06/07/2017 7:45 AM Resul ts for this CDT procedure are i n the results section. HEMOGLOBIN Routine 06/07/2017 7:30 AM Results f or this CDT procedure are i n the results section. GLUCOSE BY METER Routine 06/07/2017 3:18 AM Resul ts for this CDT procedure are i n the results section. GLUCOSE BY METER Routine 06/06/2017 9:50 PM Resul ts for this CDT procedure are i n the results section. GLUCOSE BY METER Routine 06/06/2017 6:12 PM Resul ts for this CDT procedure are i n the results section. GLUCOSE BY METER Routine 06/06/2017 11:35 Results for this AM CDT procedure are i n the results section. GLUCOSE BY METER Routine 06/06/2017 7:48 AM Resul ts for this CDT procedure are i n the results section. CBC WITH PLATELETS & Routine 06/06/2017 7:34 AM R esults for this DIFFERENTIAL CDT procedure are i n the results section. BASIC METABOLIC PANEL Routine 06/06/2017 7:34 AM Results for this CDT procedure are i n the results section. GLUCOSE BY METER Routine 06/06/2017 2:51 AM Resul ts for this CDT procedure are i n the results section. GLUCOSE BY METER Routine 06/05/2017 9:02 PM Resul ts for this CDT procedure are i n the results section. GLUCOSE BY METER Routine 06/05/2017 5:01 PM Resul ts for this CDT procedure are i n the results section. GLUCOSE BY METER Routine 06/05/2017 2:13 PM Resul ts for this CDT procedure are i n the results section. GLUCOSE BY METER Routine 06/05/2017 1:24 PM Resul ts for this CDT procedure are i n the results section. SURGICAL PATHOLOGY Routine 06/05/2017 12:08 Resul ts for this EXAM PM CDT procedure are i n the results section. AMPUTATION, BELOW 06/05/2017 10:26 chronic non healing KNEE AM CDT ulcer Special Needs Ht- 5'10 Wt- 219# per H&PPt wears special crowboot to be able to walk on charcot feetWill bring CPAP GLUCOSE BY METER Routine 06/05/2017 9:19 AM CDT R esults for this procedure are in the resu lts section. POTASSIUM STAT 06/05/2017 8:52 AM CDT Resul ts for this procedure are in the resu lts section. HEMOGLOBIN STAT 06/05/2017 8:52 AM CDT Resul ts for this procedure are in the resu lts section. CREATININE STAT 06/05/2017 8:52 AM CDT Resul ts for this procedure are in the resu lts section. EKG CARDIAC - HIM SCAN 05/28/2017 12:00 AM CDT documented in this encounter Results (ABNORMAL) Glucose by meter (06/08/2017 7:16 AM CDT) P athologist Signature Glucose 102 (H) 70 - 99 06/08/2017 POINT OF CARE mg/dL 2:32 PM CDT TEST, GLUCOSE Specimen Anatomical Collection Method Collection Time Receive d Time (Source) Location / / Volume Laterality 06/08/2017 7:16 AM 7 2:30 CDT PM CDT Felix Zapien MD LAB - JASPREET POCT Performing Organization Address [facility] Code Phon e Number FV POINT OF CARE TEST, GLUCOSE POINT OF CARE TEST, GLUCOSE (ABNORMAL) Glucose by meter (06/08/2017 1:49 AM CDT) P athologist Signature Glucose 103 (H) 70 - 99 06/08/2017 POINT OF CARE mg/dL 2:32 PM CDT TEST, GLUCOSE Specimen Anatomical Collection Method Collection Time Receive d Time (Source) Location / / Volume Laterality 06/08/2017 1:49 AM 7 2:30 CDT PM CDT Felix WAGNER - JASPREET POCT Performing Organization Address City/[facility]/ZIP Code Phon e Number FV POINT OF CARE TEST, GLUCOSE POINT OF CARE TEST, GLUCOSE (ABNORMAL) Glucose by meter (06/07/2017 8:27 PM CDT) P athologist Signature Glucose 124 (H) 70 - 99 06/07/2017 POINT OF CARE mg/dL 8:31 PM CDT TEST, GLUCOSE Specimen Anatomical Collection Method Collection Time Receive d Time (Source) Location / / Volume Laterality 06/07/2017 8:27 PM 7 8:30 CDT PM CDT Felix WAGNER - JASPREET POCT Performing Organization Address City/[facility]/ZIP Code Phon e Number FV POINT OF CARE TEST, GLUCOSE POINT OF CARE TEST, GLUCOSE (ABNORMAL) Glucose by meter (06/07/2017 4:40 PM CDT) athologist Signature Glucose 136 (H) 70 - 99 06/07/2017 POINT OF CARE mg/dL 4:45 PM CDT TEST, GLUCOSE Specimen Anatomical Collection Method Collection Time Receive d Time (Source) Location / / Volume Laterality 06/07/2017 4:40 PM 7 4:45 CDT PM CDT Felix Zapien MD LAB - BENAIF POCT Performing Organization Address City/State/ZIP Code Phon e Number FV POINT OF CARE TEST, GLUCOSE POINT OF CARE TEST, GLUCOSE Glucose by meter (06/07/2017 12:29 PM CDT) athologist Signature Glucose 91 70 - 99 06/07/2017 POINT OF CARE mg/dL 12:50 PM CDT TEST, GLUCOSE Specimen Anatomical Collection Method Collection Time Receive d Time (Source) Location / / Volume Laterality 06/07/2017 12:29 06/07/2017 PM CDT 12:50 PM CDT Felix WAGNER - JASPREET POCT Performing Organization Address City/State/ZIP Code Phon e Number FV POINT OF CARE TEST, GLUCOSE POINT OF CARE TEST, GLUCOSE (ABNORMAL) Glucose by meter (06/07/2017 7:45 AM CDT) athologist Signature Glucose 152 (H) 70 - 99 06/07/2017 POINT OF CARE mg/dL 7:50 AM CDT TEST, GLUCOSE Specimen Anatomical Collection Method Collection Time Receive d Time (Source) Location / / Volume Laterality 06/07/2017 7:45 AM 7 7:50 CDT AM CDT Felix Zapien MD LAB - JASPREET POCT Performing Organization Address City/State/ZIP Code Phon e Number FV POINT OF CARE TEST, GLUCOSE POINT OF CARE TEST, GLUCOSE (ABNORMAL) Hemoglobin (06/07/2017 7:30 AM CDT) athologist Signature Hemoglobin 11.3 (L) 13.3 - 17.7 06/07/2017 [facility] g/dL 7:51 AM CDT [facility] Specimen Anatomical Collection Method Collection Time Receive d Time (Source) Location / / Volume Laterality Blood specimen 06/07/2017 7:30 AM 017 7:46 (specimen) CDT AM CDT Felix Zapien MD LAB - BLOOD ORDERABLES Performing Organization Address City/[facility]/ZIP Code Phon e Number M [facility] [address], [place] [address] [facility] [address] [place], [place] [address] [address] [phone] (ABNORMAL) Glucose by meter (06/07/2017 3:18 AM CDT) P athologist Signature Glucose 116 (H) 70 - 99 06/07/2017 POINT OF CARE mg/dL 7:10 AM CDT TEST, GLUCOSE Specimen Anatomical Collection Method Collection Time Receive d Time (Source) Location / / Volume Laterality 06/07/2017 3:18 AM 7 7:10 CDT AM CDT Felix WAGNER - MARIIAKER POCT Performing Organization Address City/[facility]/ZIP Code Phon e Number FV POINT OF CARE TEST, GLUCOSE POINT OF CARE TEST, GLUCOSE (ABNORMAL) Glucose by meter (06/06/2017 9:50 PM CDT) P athologist Signature Glucose 104 (H) 70 - 99 06/06/2017 POINT OF CARE mg/dL 9:55 PM CDT TEST, GLUCOSE Specimen Anatomical Collection Method Collection Time Receive d Time (Source) Location / / Volume Laterality 06/06/2017 9:50 PM 7 9:55 CDT PM CDT Felix WAGNER - JASPREET POCT Performing Organization Address City/[facility]/ZIP Code Phon e Number FV POINT OF CARE TEST, GLUCOSE POINT OF CARE TEST, GLUCOSE (ABNORMAL) Glucose by meter (06/06/2017 6:12 PM CDT) P athologist Signature Glucose 131 (H) 70 - 99 06/06/2017 POINT OF CARE mg/dL 6:15 PM CDT TEST, GLUCOSE Specimen Anatomical Collection Method Collection Time Receive d Time (Source) Location / / Volume Laterality 06/06/2017 6:12 PM 7 6:15 CDT PM CDT Felix Zapien MD LAB - JASPREET POCT Performing Organization Address City/State/ZIP Code Phon e Number FV POINT OF CARE TEST, GLUCOSE POINT OF CARE TEST, GLUCOSE Glucose by meter (06/06/2017 11:35 AM CDT) P athologist Signature Glucose 87 70 - 99 06/06/2017 POINT OF CARE mg/dL 11:40 AM CDT TEST, GLUCOSE Specimen Anatomical Collection Method Collection Time Receive d Time (Source) Location / / Volume Laterality 06/06/2017 11:35 06/06/2017 AM CDT 11:40 AM CDT Felix Zapien MD LAB - JASPREET POCT Performing Organization Address City/[facility]/ZIP Code Phon e Number FV POINT OF CARE TEST, GLUCOSE POINT OF CARE TEST, GLUCOSE (ABNORMAL) Glucose by meter (06/06/2017 7:48 AM CDT) athologist Signature Glucose 101 (H) 70 - 99 06/06/2017 POINT OF CARE mg/dL 8:06 AM CDT TEST, GLUCOSE Specimen Anatomical Collection Method Collection Time Receive d Time (Source) Location / / Volume Laterality 06/06/2017 7:48 AM 7 8:06 CDT AM CDT Felix WAGNER - JASPREET POCT Performing Organization Address City/[facility]/ZIP Code Phon e Number FV POINT OF CARE TEST, GLUCOSE POINT OF CARE TEST, GLUCOSE (ABNORMAL) CBC with platelets differential (06/06/2017 7:34 AM CDT) [facility] Method Time Signature WBC 7.3 4.0 - 06/06/2017 [facility] 11.0 8:06 AM [facility] 10e9/L [facility] RBC Count 4.34 (L) 4.4 - 5.9 06/06/2017 [facility] 10e12/L 8:[address] [facility] Hemoglobin 10.8 (L) 13.3 - 06/06/2017 [facility] 17.7 g/dL 8:[address] [facility] Hematocrit 36.1 (L) 40.0 - 06/06/2017 [facility] 53.0 % 8:[address] [facility] MCV 83 78 - 100 06/06/2017 [facility] fl 8:[address] [facility] MCH 24.9 (L) 26.5 - 06/06/2017 [facility] 33.0 pg 8:[address] [facility] MCHC 29.9 (L) 31.5 - 06/06/2017 [facility] 36.5 g/dL 8:[address] [facility] RDW 20.0 (H) 10.0 - 06/06/2017 [facility] 15.0 % 8:[address] [facility] Platelet Count 158 150 - 450 06/06/2017 [facility] 10e9/L 8:[address] [facility] Diff Method Automated 06/06/2017 [facility] Method 8:[address] [facility] % Neutrophils 61.1 % 06/06/2017 [facility] 8:[address] [facility] % Lymphocytes 26.2 % 06/06/2017 [facility] 8:[address] [facility] % Monocytes 11.1 % 06/06/2017 [facility] 8:[address] [facility] % Eosinophils 1.0 % 06/06/2017 [facility] 8:[address] [facility] % Basophils 0.3 % 06/06/2017 [facility] 8:[address] [facility] % Immature 0.3 % 06/06/2017 [facility] Granulocytes 8:[address] [facility] Nucleated RBCs 0 0 /100 06/06/2017 [facility] 8:[address] [facility] Absolute 4.5 1.6 - 8.3 06/06/2017 [facility] Neutrophil 10e9/L 8:[address] [facility] Absolute 1.9 0.8 - 5.3 06/06/2017 [facility] Lymphocytes 10e9/L 8:[address] [facility] Absolute 0.8 0.0 - 1.3 06/06/2017 [facility] Monocytes 10e9/L 8:[address] [facility] Absolute 0.1 0.0 - 0.7 06/06/2017 [facility] Eosinophils 10e9/L 8:[address] [facility] Absolute 0.0 0.0 - 0.2 06/06/2017 [facility] Basophils 10e9/L 8:[address] [facility] Abs Immature 0.0 0 - 0.4 06/06/2017 [facility] Granulocytes 10e9/L 8:[address] [facility] Absolute 0.0 06/06/2017 [facility] Nucleated RBC 8:[address] [facility] Specimen Anatomical Collection Method Collection Time Receive d Time (Source) Location / / Volume Laterality Blood specimen 06/06/2017 7:34 AM 017 8:03 (specimen) CDT AM CDT Wero Craven MD LAB - BLOOD ORDERABLES Performing Organization Address City/State/ZIP Code Phon e Number M [place] [address] [place] [address] [facility] [address] [phone] (ABNORMAL) Basic metabolic panel (06/06/2017 7:34 AM CDT) athologist Signature Sodium 136 133 - 144 06/06/2017 [facility] mmol/L 8:[address] [facility] Potassium 4.3 3.4 - 5.3 06/06/2017 [facility] mmol/L 8:[address] [facility] Chloride 105 94 - 109 06/06/2017 [facility] mmol/L 8:[address] [facility] Carbon Dioxide 24 20 - 32 06/06/2017 [facility] mmol/L 8:[address] [facility] Anion Gap 7 3 - 14 06/06/2017 [facility] mmol/L 8:[address] [facility] Glucose 93 70 - 99 06/06/2017 [facility] mg/dL 8:[address] [facility] Urea Nitrogen 27 7 - 30 06/06/2017 [facility] mg/dL 8:[address] [facility] Creatinine 1.08 0.66 - 06/06/2017 [facility] 1.25 mg/dL 8:[address] [facility] GFR Estimate 71 >60 06/06/2017 [facility] mL/min/1.7 8:[address] Comment: Non GFR Calc GFR Estimate If 86 >60 mL/min/1.7m2 06/06/2017 8:21 A M [facility] Comment: GFR Calc Calcium 8.2 (L) 8.5 - 10.1 mg/dL 06/06/2017 8:21 AM CDT [facility] Specimen Anatomical Collection Method Collection Time Receive d Time (Source) Location / / Volume Laterality Blood specimen 06/06/2017 7:34 AM 017 8:03 (specimen) CDT AM CDT Wero Craven MD LAB - BLOOD ORDERABLES Performing Organization Address City/[facility]/ZIP Code Phon e Number M [facility] [address], [place] [address] [facility] [address], [place] [address] [phone] (ABNORMAL) Glucose by meter (06/06/2017 2:51 AM CDT) P athologist Signature Glucose 124 (H) 70 - 99 06/06/2017 POINT OF CARE mg/dL 2:55 AM CDT TEST, GLUCOSE Specimen Anatomical Collection Method Collection Time Receive d Time (Source) Location / / Volume Laterality 06/06/2017 2:51 AM 7 2:55 CDT AM CDT Felix WAGNER - JASPREET POCT Performing Organization Address City/[facility]/ZIP Code Phon e Number FV POINT OF CARE TEST, GLUCOSE POINT OF CARE TEST, GLUCOSE (ABNORMAL) Glucose by meter (06/05/2017 9:02 PM CDT) P athologist Signature Glucose 182 (H) 70 - 99 06/05/2017 POINT OF CARE mg/dL 9:05 PM CDT TEST, GLUCOSE Specimen Anatomical Collection Method Collection Time Receive d Time (Source) Location / / Volume Laterality 06/05/2017 9:02 PM 7 9:05 CDT PM CDT Felix WAGNER - JASPREET POCT Performing Organization Address City/State/ZIP Code Phon e Number FV POINT OF CARE TEST, GLUCOSE POINT OF CARE TEST, GLUCOSE (ABNORMAL) Glucose by meter (06/05/2017 5:01 PM CDT) P athologist Signature Glucose 166 (H) 70 - 99 06/05/2017 POINT OF CARE mg/dL 5:06 PM CDT TEST, GLUCOSE Specimen Anatomical Collection Method Collection Time Receive d Time (Source) Location / / Volume Laterality 06/05/2017 5:01 PM 7 5:06 CDT PM CDT Felix Zapien MD LAB - JASPREET POCT Performing Organization Address City/State/ZIP Code Phon e Number FV POINT OF CARE TEST, GLUCOSE POINT OF CARE TEST, GLUCOSE (ABNORMAL) Glucose by meter (06/05/2017 2:13 PM CDT) P athologist Signature Glucose 124 (H) 70 - 99 06/05/2017 POINT OF CARE mg/dL 2:25 PM CDT TEST, GLUCOSE Specimen Anatomical Collection Method Collection Time Receive d Time (Source) Location / / Volume Laterality 06/05/2017 2:13 PM 7 2:25 CDT PM CDT Felix Zapien MD LAB - JASPREET POCT Performing Organization Address City/[facility]/ZIP Code Phon e Number FV POINT OF CARE TEST, GLUCOSE POINT OF CARE TEST, GLUCOSE (ABNORMAL) Glucose by meter (06/05/2017 1:24 PM CDT) P athologist Signature Glucose 109 (H) 70 - 99 06/05/2017 POINT OF CARE mg/dL 1:30 PM CDT TEST, GLUCOSE Specimen Anatomical Collection Method Collection Time Receive d Time (Source) Location / / Volume Laterality 06/05/2017 1:24 PM 7 1:30 CDT PM CDT Felix Zapien MD LAB - JASPREET POCT Performing Organization Address City/[facility]/ZIP Code Phon e Number FV POINT OF CARE TEST, GLUCOSE POINT OF CARE TEST, GLUCOSE Surgical pathology exam (06/05/2017 12:08 PM CDT) Component Value Ref Test Analysis Performed Pathologis t Range Method Time At Signature Copath Patient Name: TISH FULLER Report MR#: [id number] Specimen #: [id number] Collected: 06/05/2017 Received: 06/05/2017 Reported: 06/08/2017 14:30 Ordering Phy(s): FELIX ZAPIEN For improved result formatting, select 'View Enhanced Report Format' under Linked Documents section. SPECIMEN(S): Amputation, left leg FINAL DIAGNOSIS: Leg, left, below the knee amputation. - Ankle/foot deformity consistent with Charcot joint with ar ea of ulceration and surrounding pseudoepitheliomatous this hyperp lasia of skin. ??Arteriosclerotic vascular changes with areas of medi al calcification and atrophic skeletal muscle changes. ??Bony r emodeling with areas of inflammation consistent with chronic osteomyel itis. Electronically signed out by: Marko Mims M.D. CLINICAL HISTORY: Chronic nonhealing ulcer. GROSS: The specimen is received fresh labeled with the patient's na me, identifying information and left below the knee amputation . ??It consists of a below the knee amputation specimen, measuring 25 cm soft tissue resection margin to medial malleolus, 26 cm from heel to great toe. ??There is an ulcer over the lateral ankle. ??All five digits are present. ??The first digit demonstrate a yellow thickened na il. ??The other nails are unremarkable. ??The foot is deformed with an exposed bone at the ulcer bed, consistent with a Charcot joint. Summary of Sections: 1 - skin and soft tissue resection margin, en face. 2 - anterior and posterior tibial arteries. 3 - ulcer. 4 - soft exposed bone under ulcer, following decalcification . (Dictated by: Crys Joshi 06/05/2017 03:41 PM) MICROSCOPIC: Microscopic performed CPT Codes: A: 21509-KH7, 99696-GDG TESTING LAB LOCATION: [address] ??[address] COLLECTION SITE: Client: [facility] Location: [facility] (R) Specimen (Source) Anatomical Collection Method Collection Time Re ceived Time Location / / Volume Laterality Tissue specimen STRUCTURE OF LEFT 06/05/2017 12:08 (specimen) LOWER LIMB / PM CDT Unknown Felix WAGNER - JASPREET [facility]LL[facility] Organization Address City/State/ZIP Code Phon e Number [place] Glucose by meter (06/05/2017 9:19 AM CDT) P athologist Signature Glucose 93 70 - 99 06/05/2017 POINT OF CARE mg/dL 9:26 AM CDT TEST, GLUCOSE Specimen Anatomical Collection Method Collection Time Receive d Time (Source) Location / / Volume Laterality 06/05/2017 9:19 AM 7 9:26 CDT AM CDT Felix Zapien MD LAB - BEAKER POCT Performing Organization Address City/[facility]/ZIP Code Phon e Number FV POINT OF CARE TEST, GLUCOSE POINT OF CARE TEST, GLUCOSE Potassium (06/05/2017 8:52 AM CDT) P athologist Signature Potassium 4.7 3.4 - 5.3 06/05/2017 [facility] mmol/L 9:37 AM [facility] Specimen Anatomical Collection Method Collection Time Receive d Time (Source) Location / / Volume Laterality Blood specimen 06/05/2017 8:52 AM 017 9:12 (specimen) CDT AM CDT Sylvester Glover MD LAB - BLOOD ORDERABLES Performing Organization Address [facility] Phon e Number M [facility] [address], [place] [address] [facility] [address] [place], [place] [address] [place] [address] Creatinine (06/05/2017 8:52 AM CDT) athologist Signature Creatinine 1.05 0.66 - 1.25 06/05/2017 [facility] mg/dL 9:[address] [facility] GFR Estimate 73 >60 06/05/2017 [facility] mL/min/1.7m 9:[address] Comment: Non GFR Calc GFR Estimate If 89 >60 mL/min/1.7m2 06/05/2017 9:37 A M [facility] Comment: GFR Calc Specimen Anatomical Collection Method Collection Time Receive d Time (Source) Location / / Volume Laterality Blood specimen 06/05/2017 8:52 AM 017 9:12 (specimen) CDT AM CDT Sylvester Glover MD LAB - BLOOD ORDERABLES Performing Organization Address [facility] Phon e Number M [facility] [address], [place] [address] [facility] [address], [place] [address] 7, [facility] [phone] (ABNORMAL) Hemoglobin (06/05/2017 8:52 AM CDT) P athologist Signature Hemoglobin 12.1 (L) 13.3 - 17.7 06/05/2017 [facility] g/dL 9:17 AM CDT [facility] Specimen Anatomical Collection Method Collection Time Receive d Time (Source) Location / / Volume Laterality Blood specimen 06/05/2017 8:52 AM 017 9:12 (specimen) CDT AM CDT Sylvester Glover MD LAB - BLOOD ORDERABLES Performing Organization Address City/State/ZIP Code Phon e Number [place] [id number], [place] [address] [facility] [place] [id number] [place], [place] [address] [facility] [phone] EKG CARDIAC - HIM SCAN (05/28/2017 12:00 AM CDT) Specimen (Source) Anatomical Location Collection Method / Collectio n Time Received Time / Laterality Volume 05/28/2017 Narrative This result has an attachment that is no t available. Provider Outside ECG ORDERABLES documented in this encounter Visit Diagnoses Diagnosis S/P BKA (below knee amputation), left (H ) - Primary Diabetes (H) documented in this encounter Administered Medications Inactive Administered Medications - up to 3 most recent administrations Medication Order MAR Action Action Date Dose Rate Site acetaminophen (TYLENOL) tablet 975 Given 06/08/2017 5:50 AM CDT 975 mg mg 975 mg, Oral, EVERY 8 HOURS, First dose on Thu06/05/17 at 1430, For 3 days, Do not use if patient has an active opioid/acetaminophen analgesic order for pain Maximum acetaminophen dose from all sources = 75 mg/kg/day not to exceed 4 grams/day., Post-procedure Given 06/07/2017 10:09 PM CDT 975 mg Given 06/07/2017 2:38 PM CDT 975 mg aspirin EC EC tablet 81 mg Given 06/07/2017 10:11 PM CDT 81 mg 81 mg, Oral, DAILY, First dose on Thu06/06/17 at 2000, Post-procedure Given 06/06/2017 7:50 PM CDT 81 mg ceFAZolin sodium-dextrose (ANCEF) infusi on 2 g Given 06/06/2017 5:18 AM CDT 2 g Routine, 2 g, Intravenous, EVERY 8 HOURS, First dose on Thu06/05/17 at 2100, For 2 doses, First post-op dose due 8 hours after intra-op dose, see eMAR. , Indications: Perioperative Pharmacoprophylaxis, Post-procedure Given 06/05/2017 8:55 PM CDT 2 g cholecalciferol (vitamin D) tablet 4,000 Given 017 8:09 AM CDT 4,000 Units Units 4,000 Units, Oral, DAILY, First dose on Thu06/06/17 at 0800, Post-procedure Given 06/07/2017 8:19 AM CDT 4,000 Units Given 06/06/2017 7:58 AM CDT 4,000 Units dextrose 50 % injection 25-50 mL 25-50 mL, Intravenous, EVERY 15 MIN PRN, low blood sugar, Starting on Thu06/05/17 at 1446, Use if have IV access, BG less elvi n 70 mg/dL and meet dose criteria below: Dose if conscious and alert (or disorien tated) and NPO = 25 mL Dose if unconscious / not alert = 50 mL Vesicant. dextrose 50 % injection 25-50 mL 25-50 mL, Intravenous, EVERY 15 MIN PRN, low blood sugar, Starting on Thu06/05/17 at 1537, Use if have IV access, BG less elvi n 70 mg/dL and meet dose criteria below: Dose if conscious and alert (or disorien tated) and NPO = 25 mL Dose if unconscious / not alert = 50 mL Vesicant. gabapentin (NEURONTIN) capsule 300 mg Given 06/08/2017 8:10 AM CDT 300 mg 300 mg, Oral, 3 TIMES DAILY, First dose on Thu06/05/17 at 2000, For 3 days, Post-procedure Given 06/07/2017 10:09 PM CDT 300 mg Given 06/07/2017 2:38 PM CDT 300 mg glipiZIDE (GLUCOTROL XL) 24 hr tablet 5 mg Given 06/08/2017 8:09 AM CDT 5 mg 5 mg, Oral, DAILY WITH BREAKFAST, First dose on Thu06/06/17 at 0800, Post-procedure Given 06/07/2017 8:19 AM CDT 5 mg Given 06/06/2017 7:59 AM CDT 5 mg glucagon injection 1 mg 1 mg, Subcutaneous, EVERY 15 MIN PRN, low blood sugar, May repeat x 1 only, Starting on Thu06/05/17 at 1446, May give SQ or IM. ONLY use glucagon IF patient has NO IV access AND is UNABLE to swallow AN D blood glucose is LESS than or EQUAL to 50 mg/dL. glucagon injection 1 mg 1 mg, Subcutaneous, EVERY 15 MIN PRN, low blood sugar, May repeat x 1 only, Starting on Thu06/05/17 at 1537, May give SQ or IM. ONLY use glucagon IF patient has NO IV access AND is UNABLE to swallow AN D blood glucose is LESS than or EQUAL to 50 mg/dL. glucose 40 % gel 15-30 g 15-30 g, Oral, EVERY 15 MIN PRN, low blo od sugar, Starting on Thu06/05/17 at 1446, Give 15 g for BG 51 to 69 mg/dL IF patie nt is conscious and able to swallow. Give 30 g for BG less than or equal to 50 mg/dL IF patient is conscious and able to swallow. Do NOT give glucose gel via enteral tube. IF patient has enteral tube: give apple juice 120 mL (4 oz or 15 g of CHO) via ente ral tube for BG 51 to 69 mg/dL. Give apple juice 240 mL (8 oz or 30 g of CHO) via enteral tube for BG less than or equal to 50 mg/dL. ~Oral gel is preferable for conscious and able to swallow patient. ~IF gel unavailable or patient refuses may provide apple juice 120 mL (4 oz or 15 g of CHO). Document juice on I and O fl oweet. glucose 40 % gel 15-30 g 15-30 g, Oral, EVERY 15 MIN PRN, low blo od sugar, Starting on Thu06/05/17 at 1537, Give 15 g for BG 51 to 69 mg/dL IF patie nt is conscious and able to swallow. Give 30 g for BG less than or equal to 50 mg/dL IF patient is conscious and able to swallow. Do NOT give glucose gel via enteral tube. IF patient has enteral tube: give apple juice 120 mL (4 oz or 15 g of CHO) via ente ral tube for BG 51 to 69 mg/dL. Give apple juice 240 mL (8 oz or 30 g of CHO) via enteral tube for BG less than or equal to 50 mg/dL. ~Oral gel is preferable for conscious and able to swallow patient. ~IF gel unavailable or patient refuses may provide apple juice 120 mL (4 oz or 15 g of CHO). Document juice on I and O fl owsheet. hydrALAZINE (APRESOLINE) injection 10 mg Given 06/05/2017 1:45 PM CDT 10 mg 10 mg, Intravenous, EVERY 10 MIN PRN, high blood pressure, Starting on Thu06/05/17 at 1338, PACU insulin aspart (NovoLOG) inj (RAPID ACTI NG) Given 06/05/2017 7:24 PM CDT 1 Units 1-7 Units, Subcutaneous, 3 TIMES DAILY BEFORE MEALS, First dose on Thu06/05/17 at 1700, Correction Scale - MEDIUM INSULIN RESISTANCE DOSING Do Not give Correction Insulin if Pre-Meal BG less than 140. For Pre-Meal BG 140 - 189 give 1 unit. For Pre-Meal BG 190 - 239 give 2 units. For Pre-Meal BG 240 - 289 give 3 units. For Pre-Meal BG 290 - 339 give 4 units. For Pre-Meal BG 340- 399 give 5 units. For Pre-Meal BG 400-449 give 6 units For Pre-Meal BG greater than or equal to 450 give 7 units. To be given with prandial insulin, and based on pre-meal blood glucose. Notify provider if glucose greater than or equal to 350 mg/dL after administration of correction dose. If given at mealtime, must be administered 5 min before meal or immediately after. insulin aspart (NovoLOG) inj (RAPID ACTI NG) 1-5 Units, Subcutaneous, AT BEDTIME, First dose on Thu06/05/17 at 2200, MEDIUM INSULIN RESISTANCE DOSING Do Not give Be dtime Correction Insulin if BG less than 200. For BG 200 - 249 give 1 units. For BG 250 - 299 give 2 units. For BG 300 - 349 give 3 units. For BG 350 -399 give 4 units. For BG gre ater than or equal to 400 give 5 units. Notify provider if glucose greater than or equal to 350 mg/dL after administration of correction dose. If gi abhishek at mealtime, must be administered 5 min before meal or immediately after. ketorolac (TORADOL) injection 15 mg Given 06/06/2017 1:10 PM CDT 15 mg 15 mg, Intravenous, EVERY 6 HOURS, First dose on Thu06/05/17 at 1430, For 4 doses, Age less than 65 years and CrCl greater than 50 mL/minute. May continue use for up to 5 days MAX if order renewed. IF celecoxib (CELEBREX) was given pre-operatively, start ketorolac(TORADOL) 12 hours after celecoxib (CELEBREX) given., Post-procedure Given 06/06/2017 6:34 AM CDT 15 mg Given 06/06/2017 12:12 AM CDT 15 mg lactated ringers infusion New Bag 06/05/2017 7:29 PM CDT 50 mL/hr at 50 mL/hr, Intravenous, CONTINUOUS, Change to saline lock when PO well tolerated., Post-procedure, Starting on Thu06/05/17 at 1430, Until 06/07/17 at 1405 New Bag 06/05/2017 3:16 PM CDT 50 mL/hr lisinopril (PRINIVIL/ZESTRIL) tablet 30 mg Given 06/08/2017 8:09 AM CDT 30 mg 30 mg, Oral, DAILY, First dose on Thu06/05/17 at 1430, Post-procedure Given 06/07/2017 8:19 AM CDT 30 mg Given 06/06/2017 7:58 AM CDT 30 mg ondansetron (ZOFRAN) injection 4 mg 4 mg, Intravenous, EVERY 6 HOURS PRN, nausea, vomiting , Administer over 2-5 Minutes, Starting on Thu06/05/17 at 1418, This is Step 1 of nausea and vomiting management. If nausea not resolved in 15 minutes, go t o Step 2 prochlorperazine (COMPAZINE). Irritant., Post-procedure ondansetron (ZOFRAN-ODT) ODT tab 4 mg 4 mg, Oral, EVERY 6 HOURS PRN, nausea, v omiting, Starting on Thu06/05/17 at 1418, This is Step 1 of nausea and vomiting management. If n ausea not resolved in 15 minutes, go to Step 2 prochlorperazine (COMPAZINE). Do not push through foil backing. Peel back foil and gently remove. Place on to ngue immediately. Administration with liquid unnecessary, Post-procedure oxyCODONE (ROXICODONE) IR tablet 5-10 mg Given 06/08/2017 12:48 PM CDT 5 mg 5-10 mg, Oral, EVERY 3 HOURS PRN, moderate to severe pain, Starting on Thu06/05/17 at 1418, IF CrCl is UNKNOWN start at lowest end of dosing range. Hold while on OUTREACH AND EDUCATION SOCIAL WORKER or with regular IV opioid dosing., Post-procedure Given 06/08/2017 9:25 AM CDT 5 mg Given 06/08/2017 5:52 AM CDT 10 mg prochlorperazine (COMPAZINE) injection 5 -10 mg 5-10 mg, Intravenous, EVERY 6 HOURS PRN, nausea, vomiting, Starting on Thu06/05/17 at 1418, This is Step 2 of nausea and vo miting management. If nausea not resolved in 15 minutes, give metoclopramide (REGLAN), if ordere d (step 3 of nausea and vomiting management), Post-procedure prochlorperazine (COMPAZINE) tablet 5-10 mg 5-10 mg, Oral, EVERY 6 HOURS PRN, nausea , vomiting, Starting on Thu06/05/17 at 1418, This is Step 2 of nausea and vomiting management. If n ausea not resolved in 15 minutes, give metoclopramide (REGLAN), i f ordered (step 3 of nausea and vomiting management), Post-procedure senna-docusate (SENOKOT-S;PERICOLACE) Given 06/08/2017 8:10 AM C DT 2 tablets 8.6-50 MG per tablet 1-2 tablet 1-2 tablet, Oral, 2 TIMES DAILY, First dose on Thu06/05/17 at 2000, Start with 1 tablet PO BID, If no bowel movement in 24 hours, increase to 2 tablets PO BID. Hold for loose stools., Post-procedure Given 06/07/2017 10:09 PM CDT 2 tablets Given 06/07/2017 8:19 AM CDT 2 tablets sertraline (ZOLOFT) tablet 50 mg Given 06/08/2017 8:09 AM CDT 50 mg 50 mg, Oral, DAILY, First dose on Thu06/05/17 at 1430, Post-procedure Given 06/07/2017 8:19 AM CDT 50 mg Given 06/06/2017 7:58 AM CDT 50 mg simvastatin (ZOCOR) tablet 20 mg Given 06/07/2017 10:10 PM CDT 20 mg 20 mg, Oral, EVERY EVENING, First dose on Thu06/05/17 at 2000, Post-procedure Given 06/06/2017 7:50 PM CDT 20 mg Given 06/05/2017 8:55 PM CDT 20 mg sodium chloride (PF) 0.9% PF flush 3 mL Given 06/06/2017 1:11 PM CDT 3 mLs 3 mL, Intracatheter, EVERY 1 HOUR PRN, line flush, for peripheral IV flush post IV meds, Starting on Thu06/05/17 at 1418, Post-procedure sodium chloride (PF) 0.9% PF flush 3 mL Given 06/08/2017 8:10 AM CDT 3 mLs 3 mL, Intracatheter, EVERY 8 HOURS, First dose on Thu06/05/17 at 1430, And Q1H PRN, to lock peripheral IV dormant line., Post-procedure Given 06/08/2017 12:30 AM CDT 3 mLs Given 06/07/2017 7:11 PM CDT 3 mLs documented in this encounter Active and Recently Administered Medications Times are shown in CDT. Scheduled Medication Order 06/06/2017 06/07/2017 06/08/2017 acetaminophen (TYLENOL) tablet 975 mg (COMPLETED) 0635 (Given - Provider: Carleen Awan RN)1432 (Given - Provider: Tish Miguel LPN)2158 (Given - Provider: Caren Moncada RN) 0547 (Given - Provider: Caren Devine i, RN)1438 (Given - Provider: Tish Miguel LPN)2209 (Given - Provider: Brielle Garcia RN) 0550 (Given - Provider: Kacie Borja RN ) 975 mg, Oral, EVERY 8 HOURS, First dose on Thu06/05/17 at 1430, For 3 days, Do not use if patient has an active opioid/acetaminophen analgesic order for pain Maximum acetaminophen dose from all sources = 75 mg/kg/day not to exceed 4 grams/day., Post-procedure aspirin EC EC tablet 81 mg 1950 (Given - Provider: Caren viera RN) 2211 (Given - Provider: Brielle Garcia RN) 81 mg, Oral, DAILY, First dose on 06/06/17 at 2000, Post-proce dure ceFAZolin sodium-dextrose (ANCEF) infusion 2 g (COMPLE JENNIFER) 0518 (Given - Provider: Kisha Smith LPN) 2 g, Intravenous, EVERY 8 HOURS, First d ose on Thu06/05/17 at 2100, For 2 doses, First post-op dose due 8 hours after intra-op dose, see eMAR. , Indications: Surgical Prophylaxis, Post-procedure cholecalciferol (vitamin D) tablet 4,000 Units 0758 (G iven - Provider: Tish Miguel LPN) 0819 (Given - Provider: Tish Miguel LPN) 0809 (G iven - Provider: Melinda Ngo LPN) 4,000 Units, Oral, DAILY, First dose on 06/06/17 at 0800, Post -procedure gabapentin (NEURONTIN) capsule 300 mg 0759 (Given - Pr ovider: Tish Miguel LPN)1432 (Given - Provider: Tish Miguel LPN)195 (Given - Provider: Caren Moncada RN) 0819 (Given - Provider: Tish Miguel LPN)1438 (Given - Provider: Tish Miguel LPN)220 (Given - Provider: Brielle Garcia RN) 0810 (Given - Provider: Melinda Ngo LPN) 300 mg, Oral, 3 TIMES DAILY, First dose on Thu06/05/17 at 2000, For 3 days, Post-procedure glipiZIDE (GLUCOTROL XL) 24 hr tablet 5 mg 0759 (Given - Provider: Tish Miguel LPN) 0819 (Given - Provider: Tish Miguel LPN) 0809 (Cherry iven - Provider: Melinda Ngo LPN) 5 mg, Oral, DAILY WITH BREAKFAST, First dose on 06/06/17 at 0800, Post-procedure insulin aspart (NovoLOG) inj (RAPID ACTING) 0750 (Not Given - Provider: Tish Miguel LPN - Reason: Order parameters not met)1142 (Not Given - Provider: Tish Miguel LPN - Reason: Order parameters not met) 0822 (Not Given - Provider: Tish Miguel LPN - Reason: Patient/family refused - Comment: bs post meal)1245 (Not Given - Provider: Tihs Miguel LPN - Reason: Order parameters not met) 0717 (Not Given - Provider: Melinda Ngo LPN - Reason: Order parameters not met)1249 (Not Given - Provider: Analilia Viera RN - Reason: Other - Comment: patient already ate) 1-7 Units, Subcutaneous, 3 TIMES DAILY B EFORE MEALS, First dose on Thu06/05/17 at 1700, Correction Scale - MEDIUM INSULIN RESISTANCE DOSING Do Not give Correction Insulin if Pre-Meal BG less than 140. Fo 1839 (Not Given - Provider: Tram Cruz RN - Reason: Order parameters not met - Comment: BS 131) 1711 (Not Given - Provider: Brielle Garcia RN - Reason: Order parameters not met) r Pre-Meal BG 140 - 189 give 1 unit. For Pre-Meal BG 190 - 239 give 2 units. For Pre-Meal BG 240 - 289 give 3 units. For Pre-Meal BG 290 - 339 give 4 units. For Pre-Meal BG 340- 399 give 5 units. For Pr e-Meal BG 400-449 give 6 units For Pre-M eal BG greater than or equal to 450 give 7 units. To be given with prandial insulin, and based on pre-meal blood glucose. Notify provider if glucose greater than or equal to 350 mg/dL after administrati on of correction dose. If given at mealtime, must be administered 5 min before meal or immediately after. insulin aspart (NovoLOG) inj (RAPID ACTING) 2200 (Not Given - Provider: Caren Moncada RN - Reason: Order parameters not met - Comment: BS 104) 215 (Not Given - Provider: Brielle Garcia RN - Reason: Order parameters not met - Comment: BG 124) 1-5 Units, Subcutaneous, AT BEDTIME, Fir st dose on Thu06/05/17 at 2200, MEDIUM INSULIN RESISTANCE DOSING Do Not give Bedtime Correction Insulin if BG less than 200. For BG 200 - 249 give 1 units. For BG 250 - 299 give 2 units. For BG 300 - 349 give 3 units. For BG 350 -399 give 4 units. For BG greater than or equal to 400 give 5 units. Notify provider if glucose greater than or equal to 350 mg/dL after administration of correction dose. If g iven at mealtime, must be administered 5 min before meal or immediately after. ketorolac (TORADOL) injection 15 mg (COMPLETED) 0012 ( Given - Provider: Carleen Awan RN)0634 (Given - Provider: Carleen Awan RN)1310 (Given - Provider: Luz Meng RN) 15 mg, Intravenous, EVERY 6 HOURS, First dose on Thu06/05/17 at 1430, For 4 doses, Age less than 65 years and CrCl greater than 50 mL/minute. May continue use for up to 5 days MAX if order renewed. IF ce lecoxib (CELEBREX) was given pre-operati vely, start ketorolac(TORADOL) 12 hours after celecoxib (CELEBREX) given., Post-procedure lisinopril (PRINIVIL/ZESTRIL) tablet 30 mg 0758 (Given - Provider: Tish Miguel LPN) 0819 (Given - Provider: Tish Miguel LPN) 0809 (G iven - Provider: Melinda Ngo LPN) 30 mg, Oral, DAILY, First dose on Thu06/05/17 at 1430, Post-proce dure pneumococcal vaccine (PNEUMOVAX 23-ross) injection 0.5 mL 0920 (Vaccine Refused - Provider: Analilia Viera RN) 0.5 mL, Intramuscular, PRIOR TO DISCHARG E, 06/06/17 at 1000, For 1 dose, Administer when afebrile (LESs than 100.4??) x 24 hr OR prior to discharge. Give Fact Sheet to Patient. If patient is febrile, reassess in 8 hrs or every shift. Minor illnesses with or without fever does NOT contraindicate the vaccination. Inject into the anterolateral aspect of the thigh (infants) or deltoid muscle (toddlers/c hildren); do not inject in the gluteal a el, or in areas of major nerve trunks and/or blood vessels. IM administration for children 6 months to 2 years should be vaccinated in the anterolateral aspect o f thigh. If not administering when sched uled , change the due time by following the instructions in the reference link below. If patient refuses vaccine, chart as Vaccine Refused. senna-docusate (SENOKOT-S;PERICOLACE) 8.6-50 MG per ta blet 1-2 tablet 0759 (Given - Provider: Tish Miguel LPN)1949 (Given - Provider: Caren Moncada RN) 08 (Given - Provider: Tish Miguel LPN)220 (Given - Provider: Brielle Garcia RN) 0810 (Given - Provider: LULI Smith) 1-2 tablet, Oral, 2 TIMES DAILY, First d ose on Thu06/05/17 at 2000, Start with 1 tablet PO BID, If no bowel movement in 24 hours, increase to 2 tablets PO BID. Hold for loose stools., Post-procedure sertraline (ZOLOFT) tablet 50 mg 0758 (Given - Provider: John Miguel LPN) 08 (Given - Provider: Tish Miguel LPN) 0809 (Given - Provider: Melinda Ngo LPN) 50 mg, Oral, DAILY, First dose on Thu06/05/17 at 1430, Post-proce dure simvastatin (ZOCOR) tablet 20 mg 1949 (Given - Provider: Karen Moncada RN) 2209 (Given - Provider: Brielle Garcia RN) 20 mg, Oral, EVERY EVENING, First dose on Thu06/05/17 at 2000, Po st-procedure sodium chloride (PF) 0.9% PF flush 3 mL 0018 (Not Give n - Provider: Kisha Smith LPN - Reason: IV Infusing)0549 (Not Given - Provider: Kisha Smith LPN - Reason: IV Infusing)1429 (Canceled Entry - Provider: Tish Miguel LPN - Comment: flushed 1315) 0841 (Canceled Entry - Provider: Sarah Burciaga RN)1439 (Given - Provider: Tish Miguel LPN)1911 (Given - Provider: Brielle Garcia RN) 0030 (Given - Provider: Kacie Borja RN )0810 (Given - Provider: Melinda Minion, EXECUTIVE CHAIRMAN) 3 mL, Intracatheter, EVERY 8 HOURS, Firs t dose on Thu06/05/17 at 1430, And Q1H PRN, to lock peripheral IV dormant line., Post-procedure 2201 (Given - Provider: Caren Moncada RN) PRN Medication Order 06/06/2017 06/07/2017 06/08/2017 acetaminophen (TYLENOL) tablet 650 mg 650 mg, Oral, EVERY 4 HOURS PRN, other, surgical pain, Starting 06/08/17 at 0000, May give first dose 4 hours after last scheduled dose of acetaminophen Maximum acetaminophen dose from all sources = 75 mg/kg/day not to exceed 4 grams/day., Post-procedure benzocaine-menthol (CHLORASEPTIC) 6-10 MG lozenge 1-2 lozenge 1-2 lozenge, Buccal, EVERY 1 HOUR PRN, s ore throat, Starting Thu06/05/17 at 1418, For sore throat without fever., Post-procedure carboxymethylcellulose (REFRESH PLUS) 0.5 % ophthalmic solution 1-2 drop 1-2 drop, Both Eyes, EVERY 1 HOUR PRN, i rritation, Starting Thu06/05/17 at 1418, Formulary alternate for hypotears, Post-procedure dextrose 50 % injection 25-50 mL(Linked Group 1) 25-50 mL, Intravenous, EVERY 15 MIN PRN, low blood sugar, Starting Thu06/05/17 at 1446, Use if have IV access, BG less than 70 mg/dL and meet dose criteria below: Dose if conscious and alert (or disorien tated) and NPO = 25 mL Dose if unconscious / not alert = 50 mL V esicant. dextrose 50 % injection 25-50 mL(Linked Group 2) 25-50 mL, Intravenous, EVERY 15 MIN PRN, low blood sugar, Starting Thu06/05/17 at 1537, Use if have IV access, BG less than 70 mg/dL and meet dose criteria below: Dose if conscious and alert (or disorien tated) and NPO = 25 mL Dose if unconscious / not alert = 50 mL V esicant. glucagon injection 1 mg(Linked Group 1) 1 mg, Subcutaneous, EVERY 15 MIN PRN, lo w blood sugar, May repeat x 1 only, Starting Thu06/05/17 at 1446, May give SQ or IM. ONLY use glucagon IF patient has NO IV access AND is UNABLE to swallow AND blood glucose is LESS than or EQUAL to 50 mg/dL. glucagon injection 1 mg(Linked Group 2) 1 mg, Subcutaneous, EVERY 15 MIN PRN, lo w blood sugar, May repeat x 1 only, Starting Thu06/05/17 at 1537, May give SQ or IM. ONLY use glucagon IF patient has NO IV access AND is UNABLE to swallow AND blood glucose is LESS than or EQUAL to 50 mg/dL. glucose 40 % gel 15-30 g(Linked Group 1) 15-30 g, Oral, EVERY 15 MIN PRN, low blo od sugar, Starting Thu06/05/17 at 1446, Give 15 g for BG 51 to 69 mg/dL IF patient is conscious and able to swallow. Give 30 g for BG less than or equal to 50 mg/d L IF patient is conscious and able to sw allow. Do NOT give glucose gel via enteral tube. IF patient has enteral tube: give apple juice 120 mL (4 oz or 15 g of CHO) via enteral tube for BG 51 to 69 mg/dL . Give apple juice 240 mL (8 oz or 30 g of CHO) via enteral tube for BG less than or equal to 50 mg/dL. ~Oral gel is preferable for conscious and able to swallow patient. ~IF gel unavailable or patient refuses may provide apple juice 120 mL ( 4 oz or 15 g of CHO). Document juice on I and O flowsheet. glucose 40 % gel 15-30 g(Linked Group 2) 15-30 g, Oral, EVERY 15 MIN PRN, low blo od sugar, Starting Thu06/05/17 at 1537, Give 15 g for BG 51 to 69 mg/dL IF patient is conscious and able to swallow. Give 30 g for BG less than or equal to 50 mg/d L IF patient is conscious and able to sw allow. Do NOT give glucose gel via enteral tube. IF patient has enteral tube: give apple juice 120 mL (4 oz or 15 g of CHO) via enteral tube for BG 51 to 69 mg/dL . Give apple juice 240 mL (8 oz or 30 g of CHO) via enteral tube for BG less than or equal to 50 mg/dL. ~Oral gel is preferable for conscious and able to swallow patient. ~IF gel unavailable or patient refuses may provide apple juice 120 mL ( 4 oz or 15 g of CHO). Document juice on I and O flowsheet. HYDROmorphone (DILAUDID) injection 0.2-0.3 mg 0.2-0.3 mg, Intravenous, EVERY 2 HOURS P RN, Starting Thu06/05/17 at 1418, Until 06/08/17 at 1431, severe pain, or patient unable to take PO, Post-procedure, Hold while on OUTREACH AND EDUCATION SOCIAL WORKER.. hydrOXYzine (ATARAX) tablet 25 mg 25 mg, Oral, EVERY 6 HOURS PRN, itching, Starting Thu06/05/17 at 1418, Caution to be used when administering multiple Central Nervous System (ASSISTANT PRODUCT MANAGER) depressing meds within a short time frame., Post-procedure lidocaine (LMX4) kit Topical, EVERY 1 HOUR PRN, pain, with VA D insertion or accessing implanted port., Starting Thu06/05/17 at 1418, Do NOT give if patient has a history of allergy to any local anesthetic or any matthieu prod uct. Apply 30 minutes prior to VAD inser tion or port access. MAX Dose: 2.5 g (?? of 5 g tube), Post-procedure lidocaine 1 % 1 mL 1 mL, Other, EVERY 1 HOUR PRN, mild pain with VAD insertion or accessing implanted port, Starting Thu06/05/17 at 1418, Do NOT give if patient has a history of allergy to any local anesthetic or any brown e product. MAX dose 1 mL subcutaneous O R intradermal in divided doses., Post-procedure melatonin tablet 1 mg 1 mg, Oral, AT BEDTIME PRN, sleep, Start ing 06/06/17 at 2000, POD 1. Do not give unless at least 6 hours of uninterrupted sleep is expected., Post-procedure naloxone (NARCAN) injection 0.1-0.4 mg 0.1-0.4 mg, Intravenous, EVERY 2 MIN PRN , opioid reversal, Starting Thu06/05/17 at 1418, For respiratory rate LESS than or EQUAL to 8. Partial reversal dose: 0.1 mg titrated q 2 minutes for Analgesia Beto e Effects Monitoring Sedation Level of 3 (frequently drowsy, arousable, drifts to sleep during conversation).Full reversal dose: 0.4 mg bolus for Analgesia Side Effects Monitoring Sedation Level of 4 (s omnolent, minimal or no response to stimulation)., Post-procedur e ondansetron (ZOFRAN) injection 4 mg(Linked Group 3) 4 mg, Intravenous, EVERY 6 HOURS PRN, na usea, vomiting, Administer over 2-5 Minutes, Starting Thu06/05/17 at 1418, This is Step 1 of nausea and vomiting management. If nausea not resolved in 15 minutes, go to Step 2 prochlorperazine (COMPAZINE). Irritant., Post-proce dure ondansetron (ZOFRAN-ODT) ODT tab 4 mg(Linked Group 3) 4 mg, Oral, EVERY 6 HOURS PRN, nausea, v omiting, Starting Thu06/05/17 at 1418, This is Step 1 of nausea and vomiting management. If nausea not resolved in 15 minutes, go to Step 2 prochlorperazine (GEORGE ZINE). Do not push through foil backing. Peel back foil and gently remove. Place on tongue immediately. Administration with liquid unnecessary, Post-procedure oxyCODONE (ROXICODONE) IR tablet 5-10 mg 0017 (Given - Provider: Kisha Smith LPN)0517 (Given - Provider: Kisha Smith LPN)0814 (Given - Provider: Tish Miguel LPN)1118 (Given - Provider: Luz Meng RN)1532 (Given - Provider: Tram Cruz RN) 0226 (Given - Provider: Caren Devine i, RN)0546 (Given - Provider: Caren Moncada RN)0925 (Given - Provider: Tish Miguel LPN)1443 (Given - Provider: Tish Miguel LPN)1827 (Given - Pr ovider: Brielle Garcia RN) 0151 (Given - Provider: Kacie Borja RN )0550 (Not Given - Provider: Kacie Borja RN - Reason: Other - Comment: error)0552 (Given - Provider: Kacie Borja RN)0925 (Given - Provider: Analilia Viera, LIBORIO)1248 (Given - Provider: Analilia Viera, LIBORIO) 5-10 mg, Oral, EVERY 3 HOURS PRN, modera te to severe pain, Starting Thu06/05/17 at 1418, IF CrCl is UNKNOWN start at lowest end of dosing range. Hold while on OUTREACH AND EDUCATION SOCIAL WORKER or with regular IV opioid dosing., Post-procedure 1950 (Given - Provider: Caren Moncada, LIBORIO)2248 (Given - Provider: Caren Moncada, LIBORIO) 2210 (Given - Provider: Brielle Garcia RN) prochlorperazine (COMPAZINE) injection 5-10 mg(Linked Group 4) 5-10 mg, Intravenous, EVERY 6 HOURS PRN, nausea, vomiting, Starting Thu06/05/17 at 1418, This is Step 2 of nausea and vomiting management. If nausea not resolved in 15 minutes, give metoclopramide (FEDERICO N), if ordered (step 3 of nausea and vomiting management), Post- procedure prochlorperazine (COMPAZINE) tablet 5-10 mg(Linked Group 4) 5-10 mg, Oral, EVERY 6 HOURS PRN, nausea , vomiting, Starting Thu06/05/17 at 1418, This is Step 2 of nausea and vomiting management. If nausea not resolved in 15 minutes, give metoclopramide (REGLAN), if ordered (step 3 of nausea and vomiting management), Post-procedu re sodium chloride (PF) 0.9% PF flush 3 mL 1311 (Given - Provider: Luz Meng RN) 3 mL, Intracatheter, EVERY 1 HOUR PRN, l ine flush, for peripheral IV flush post IV meds, Starting Thu06/05/17 at 1418, Post-procedure Linked Groups Order Group 1: glucose 40 % gel 15-30 gJump to med 15-30 g, Oral, EVERY 15 MIN PRN, low blo od sugar, Starting Thu06/05/17 at 1446
Give 15 g for BG 51 to 69 mg/dL IF patient is conscious and able to swallow. Give 30 g for BG less than or equal to 50 mg/dL IF patient is conscious and ab le to swallow. Do NOT give glucose gel via enteral tube. IF patient has enteral tube: give apple juice 120 mL (4 oz or 15 g of CHO) via enteral tube for BG 51 to 69 mg/dL. Give apple juice 240 mL (8 oz or 30 g of CHO) via enteral tube for BG less than or equal to 50 mg/dL. ~Oral gel is preferable for consc ious and able to swallow patient. ~IF gel unavailable or patient refuses may provide apple juice 120 mL (4 oz or 15 g of CHO). Document juice on I and O flowsheet.
Or dextrose 50 % injection 25-50 mLJump to med 25-50 mL, Intravenous, EVERY 15 MIN PRN, low blood sugar, Starting Thu06/05/17 at 1446
Use if have IV access, BG less than 70 mg/dL and meet dose criteria below: Dose if conscious and a lert (or disorientated) and NPO = 25 mL& nbsp;Dose if unconscious / not alert = 50 mL Vesicant.
Or glucagon injection 1 mgJump to med 1 mg, Subcutaneous, EVERY 15 MIN PRN, lo w blood sugar, May repeat x 1 only, Starting Thu06/05/17 at 1446
May give SQ or IM. ONLY use glucagon IF patient has NO IV access AND is UNABLE to swallow AND blood glucose is LESS than or EQUAL to 50 mg/dL.
Group 2: glucose 40 % gel 15-30 gJump to med 15-30 g, Oral, EVERY 15 MIN PRN, low blo od sugar, Starting Thu06/05/17 at 1537
Give 15 g for BG 51 to 69 mg/dL IF patient is conscious and able to swallow. Give 30 g for BG less than or equal to 50 mg/dL IF patient is conscious and ab le to swallow. Do NOT give glucose gel via enteral tube. IF patient has enteral tube: give apple juice 120 mL (4 oz or 15 g of CHO) via enteral tube for BG 51 to 69 mg/dL. Give apple juice 240 mL (8 oz or 30 g of CHO) via enteral tube for BG less than or equal to 50 mg/dL. ~Oral gel is preferable for consc ious and able to swallow patient. ~IF gel unavailable or patient refuses may provide apple juice 120 mL (4 oz or 15 g of CHO). Document juice on I and O flowsheet.
Or dextrose 50 % injection 25-50 mLJump to med 25-50 mL, Intravenous, EVERY 15 MIN PRN, low blood sugar, Starting Thu06/05/17 at 1537
Use if have IV access, BG less than 70 mg/dL and meet dose criteria below: Dose if conscious and a lert (or disorientated) and NPO = 25 mL& nbsp;Dose if unconscious / not alert = 50 mL Vesicant.
Or glucagon injection 1 mgJump to med 1 mg, Subcutaneous, EVERY 15 MIN PRN, lo w blood sugar, May repeat x 1 only, Starting Thu06/05/17 at 1537
May give SQ or IM. ONLY use glucagon IF patient has NO IV access AND is UNABLE to swallow AND blood glucose is LESS than or EQUAL to 50 mg/dL.
Group 3: ondansetron (ZOFRAN-ODT) ODT tab 4 mgJump to med 4 mg, Oral, EVERY 6 HOURS PRN, nausea, v omiting, Starting Thu06/05/17 at 1418
This is Step 1 of nausea and vomiting management. If nausea not resolved in 15 minutes, go to Sean p 2 prochlorperazine (COMPAZINE). Do not push through foil backing. Peel back foil and gently remove. Place on tongue immediately. Administration with liquid unnecessary
Post-procedure Or ondansetron (ZOFRAN) injection 4 mgJump to med 4 mg, Intravenous, EVERY 6 HOURS PRN, na usea, vomiting, Administer over 2-5 Minutes, Starting Thu06/05/17 at 1418
This is Step 1 of nausea and vomiting management. If nausea n ot resolved in 15 minutes, go to Step 2 prochlorperazine (COMPAZINE). Irritant.
Post-procedure Group 4: prochlorperazine (COMPAZINE) injection 5-10 mgJump to med 5-10 mg, Intravenous, EVERY 6 HOURS PRN, nausea, vomiting, Starting Thu06/05/17 at 1418
This is Step 2 of nausea and vomiting management. If nausea not resolved in 15 minutes, give met oclopramide (REGLAN), if ordered (step 3 of nausea and vomiting management)
Post-procedure Or prochlorperazine (COMPAZINE) tablet 5-10 mgJump to med 5-10 mg, Oral, EVERY 6 HOURS PRN, nausea , vomiting, Starting 06/05/17 at 1418
This is Step 2 of nausea and vomiting management. If nausea not resolved in 15 minutes, give metoclopra mide (REGLAN), if ordered (step 3 of siva sea and vomiting management)
Post-procedure documented in this encounter Care Teams Head Of English Relationship Specialty Start Date End Date Ihsan Dunn MD PCP - General 06/07/17 documented as of this encounter
--- OUTSIDE RECORDS SUMMARY | 2022-07-31 10:06 | XMS_ITS | Encounter Summary ---
:1960 Author Organization [place] Address [address] [place] [id number] Care Team Providers Name Role Phone Ihsan Dunn MD Primary Care Provider [phone] Encounter Details Date Type Department Care Team Description 08/18/2017 [facility], Aftercare following Encounter [facility] Kristal De León surgery of the [facility] E Miguel Sloan PA-C musculoskeletal system [facility] (Primary Dx) [place], [place] [facility] [id number] [address] [phone] [place] [address] Social History Tobacco Use Types [...] severe pain documented as of this encounter Plan of Treatment Not on filedocumented as of this encounter Procedures Procedure Name Priority Date/Time Associated Diagnosis Comme nts CBC WITH PLATELETS & Routine 08/18/2017 11:44 Aftercare follow ing Results for this DIFFERENTIAL AM TALENT ACQUISITION PROJECT MANAGER surgery of the procedure are in musculoskeletal system the r esults section. ERYTHROCYTE Routine 08/18/2017 11:44 Aftercare following Resu lts for this SEDIMENTATION RATE AM TALENT ACQUISITION PROJECT MANAGER surgery of the procedu re are in AUTO musculoskeletal system the r esults section. CRP INFLAMMATION Routine 08/18/2017 11:44 Aftercare following Results for this AM TALENT ACQUISITION PROJECT MANAGER surgery of the procedure are in musculoskeletal system the r esults section. documented in this encounter Results (ABNORMAL) Erythrocyte sedimentation rate auto (08/18/2017 11:44 AM TALENT ACQUISITION PROJECT MANAGER) athologist Signature Sed Rate 21 (H) 0 - 20 mm/h 08/18/2017 [facility] 12:28 PM [facility] Specimen Anatomical Collection Method Collection Time Receive d Time (Source) Location / / Volume Laterality Blood specimen 08/18/2017 11:44 7 (specimen) AM TALENT ACQUISITION PROJECT MANAGER 11:48 AM TALENT ACQUISITION PROJECT MANAGER Kristal Lozada PA-C LAB - BLOOD ORDERA BLES Performing Organization Address City/[facility]/ZIP Code Phon e Number [facility] [address] [place] [address] [phone] CRP inflammation (08/18/2017 11:44 AM TALENT ACQUISITION PROJECT MANAGER) athologist Signature CRP Inflammation <2.9 0.0 - 8.0 08/18/2017 [place] mg/L 12:07 PM [facility] Specimen Anatomical Collection Method Collection Time Receive d Time (Source) Location / / Volume Laterality Blood specimen 08/18/2017 11:44 7 (specimen) AM TALENT ACQUISITION PROJECT MANAGER 11:48 AM TALENT ACQUISITION PROJECT MANAGER Kristal Lozada PA-C LAB - BLOOD ORDERA BLES Performing Organization Address City/State/ZIP Code Phon e Number [facility] [address] [place], [place] [facility] [address] [address] [facility] [phone] (ABNORMAL) CBC with platelets differential (08/18/2017 11:44 AM [facility]) [facility] gist Method Time Signature WBC 7.7 4.0 - 08/18/2017 [facility] 11.0 11:52 AM [facility] 10e9/L [facility] RBC Count 5.15 4.4 - 5.9 08/18/2017 [facility] 10e12/L 11:52 AM [facility] Hemoglobin 13.7 13.3 - 08/18/2017 [facility] 17.7 g/dL 11:52 AM [facility] Hematocrit 42.6 40.0 - 08/18/2017 [facility] 53.0 % 11:52 AM [facility] MCV 83 78 - 100 08/18/2017 [facility] fl 11:52 AM [facility] MCH 26.6 26.5 - 08/18/2017 [facility] 33.0 pg 11:52 AM [facility] MCHC 32.2 31.5 - 08/18/2017 [facility] 36.5 g/dL 11:52 AM [facility] RDW 16.7 (H) 10.0 - 08/18/2017 [facility] 15.0 % 11:52 AM [facility] Platelet Count 149 (L) 150 - 450 08/18/2017 [facility] 10e9/L 11:52 AM [facility] Diff Method Automated 08/18/2017 [facility] Method 11:52 AM [facility] % Neutrophils 56.7 % 08/18/2017 [facility] 11:52 AM [facility] % Lymphocytes 31.9 % 08/18/2017 [facility] 11:52 AM [facility] % Monocytes 9.1 % 08/18/2017 [facility] 11:52 AM [facility] % Eosinophils 1.8 % 08/18/2017 [facility] 11:52 AM [facility] % Basophils 0.4 % 08/18/2017 [facility] 11:52 AM [facility] % Immature 0.1 % 08/18/2017 [facility] Granulocytes 11:52 AM [facility] Nucleated RBCs 0 0 /100 08/18/2017 [facility] 11:52 AM [facility] Absolute 4.4 1.6 - 8.3 08/18/2017 [facility] Neutrophil 10e9/L 11:52 AM [facility] Absolute 2.5 0.8 - 5.3 08/18/2017 [facility] Lymphocytes 10e9/L 11:52 AM [facility] Absolute 0.7 0.0 - 1.3 08/18/2017 [facility] Monocytes 10e9/L 11:52 AM [facility] Absolute 0.1 0.0 - 0.7 08/18/2017 [facility] Eosinophils 10e9/L 11:52 AM [facility] Absolute 0.0 0.0 - 0.2 08/18/2017 [facility] Basophils 10e9/L 11:52 AM [facility] Abs Immature 0.0 0 - 0.4 08/18/2017 [facility] Granulocytes 10e9/L 11:52 AM [facility] Absolute 0.0 08/18/2017 [facility] Nucleated RBC 11:52 AM [facility] Specimen Anatomical Collection Method Collection Time Receive d Time (Source) Location / / Volume Laterality Blood specimen 08/18/2017 11:44 7 (specimen) AM TALENT ACQUISITION PROJECT MANAGER 11:48 AM TALENT ACQUISITION PROJECT MANAGER Kristal Lozada PA-C LAB - BLOOD ORDERA BLES Performing Organization Address City/State/ZIP Code Phon e Number [place] [address] [address] [place] [address] [place] [address] [phone] documented in this encounter Visit Diagnoses Diagnosis Aftercare following surgery of the [facility] - Primary Aftercare following [place] [facility] [place], NEC documented in this encounter Care Teams Database Modeler Relationship Specialty Start Date End Date Ihsan Dunn MD PCP - General 06/07/17 documented as of this encounter
--- OUTSIDE RECORDS SUMMARY | 2022-07-31 10:06 | XMS_ITS | Encounter Summary ---
:1960 Author Organization [facility] Address [address] [place] [address]. [place] [address] Care Team Providers Name Role Phone Ihsan Dunn MD Primary Care Provider [phone] Reason for Referral Home Health Therapies & Aides Specialty Diagnoses / Procedures Referred By Contact Refer red To Contact [facility] [address] [phone] Referral ID Status Reason Start Date Expiration Date Visits Requ ested Visits Authorized [facility] Health Therapies & Aides Specialty Diagnoses / Procedures Referred By Contact Refer red To Contact [facility] [address] [place] [phone] Referral ID Status Reason Start Date Expiration Date Visits Requ ested Visits Authorized Reason for Visit Auth/Cert Specialty Diagnoses / Procedures Referred By Contact Refer markie To Contact [facility] [address] [phone] Phone: Referral ID Status Reason Start Date Expiration Date Visits Requ ested Visits Authorized [id number] 1 1 Encounter Details Date Type Department Care Team Description 06/08/2017 - Hospital [facility] Katie, S/P FUNMIA (b elow knee 06/13/2017 Encounter Acute Rehabilitation MD Janice amputation), [place] [phone] [facility] () [address] [facility], [address] [place] [id number] Social History Tobacco Use Types Packs/Day Years Used Date Smoking Tobacco: Never Smokeless Tobacco: Never Alcohol Use Standard Drinks/Week Comments No 0 (1 standard drink = 0.6 oz pure alcoho l) Sex Assigned at Date Recorded Not on file documented as of this encounter Last Filed Vital Signs Vital Sign Reading Time Taken Comments Blood Pressure 146/83 06/13/2017 9:16 AM CDT Pulse 75 06/13/2017 9:16 AM CDT Temperature 35.5 ??C (95.9 ??F) 06/13/2017 7:55 AM CDT Respiratory Rate 16 06/12/2017 5:30 PM CDT Oxygen Saturation 96% 06/13/2017 9:16 AM CDT Inhaled Oxygen Concentration - - Weight 102 kg (224 lb 14.4 06/08/2017 2:30 PM with R matthew ot on oz) CDT Height 177.8 cm (5' 10) 06/08/2017 2:30 PM CDT Body Mass Index 32.27 06/08/2017 2:30 PM CDT documented in this encounter Discharge Summaries Cynthia Julien MD - 06/12/2017 5:00 PM CDT Images from the original note were not included. [facility] Acute Rehabilitation Unit Discharge summary Date of Admission: 06/08/2017 Date of Discharge: 06/13/17 Disposition: home Primary Care Physician: Ihsan Dunn Attending physician: Janice Wilson MD discharge diagnosis ?? L BKA ?? Post-op pain (residual limb and phantom pain) ?? Acute on chronic anemia ?? HTN ?? HLD ?? DM with complications including retinopathy, polyneuropathy, PAD and charcot feet brief summary Geo Dubois is a 57 y/o male with PMH of HTN, HLD, DMII with several complications, anemia, VILLA and depression??who is s/p left transtibial amputation which was done on 06/05/2017 by [facility] at [facility] ([place], [place]). Admission to acute inpatient rehab 06/08/2017. ?? rehabilitaiton course ADLs/IADLs: Patient is making progress towards all OT goals. Patient is IND with w/c <> bed transfer, IND with w/c mobility for household distance. Patient is able to complete FB dressing, toileting and bathing. Patient able to demonstrate toilet transfer and shower transfer with use of FWW. 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 Patient has no furtherOT needs at this time. ?? Mobility: Pt progressing well with mobility. Main barrier to return home is stairs and pt able to navigate 12x6 steps bumping up bwd on stairs at mod I after setup assist. [facility] after setup assist at mod I. Is already renting w/c from [employer] and has a second w/c at home, will have one on each floor for use. Will need FWW for use at home from [facility]. Also have amputee leg rest ordered to add to w/c from [employer]. Recommend HH PT at d/c. ?? Cognition/Language: WFL with all cognition mEDICAL COURSE S/p L BKA:??BKA was due to a non-healing left foot ulcer with h/o charcot neuroarthropathy and foot deformity. Patient in stump protector with underlying sock. Pain well controlled, Patient has been continuing to decrease frequency of oxycodone, only needed one time 5 mg dose yesterday 06/11. Patient appears to be at K2 level with potential K3 pending his progress. Also has limitation due to a charcotfoot on the right side, will continue to use [employer] boot on the right for transfers. ? Post-Operative Pain Control: - Continue gabapentin 300 mg TID for phantom limb pain - Continue acetaminophen 650 mg Q4 Hrs prn - Continue oxycodone tab 5-10 mg Q4 Hrs prn for moderate to severe pain; Patient has been tapering the dose himself to Q8-12 hrs. Was discharged home on 10 tablets of oxycodone as needed. ? Wound cares: - Cast on LLE was removed 06/09, and dressing was placed on incision. Patient was placed by Orthotistin stump protector (Rose-TECH stump protector) . Incision looks good with no signs of infection. ?? - Patient education 06/08 on proper positioning of his residual limb with no pillows under his LLE orL knee when cast off. ? Anemia: acute on chronic. Has had some work-up as outpatient with ACD being the most likely cause. Hgb remained stable. Will continue to monitor. ? HTN: BP stable on current regimen. - Patient to continue on lisinopril 30 mg daily ? DMII with retinopathy, polyneuropathy, PAD and charcot feet: - Patient to continue with glipizide 5 mg daily with breakfast - Continue insulin sliding scale per protocol as IP; stopped at discharge ?? HLD: - Continue zocor 20 daily ? VILLA:??on CPAP prior to admission which was continued. ? Depression:??on zoloft 50mg daily prior to admission which was continued. Mood is stable. ? FEN: Regular diet, Continue Vit D supplements-??Vitamin D level 37 06/11; Will continue the same dose ?? Bowel: Continue senna-docusate 1-2 tablets BID per current bowel regimen ?? Bladder:??Patient voiding spontaneously. Post-void residuals were elevated initially after admission requiring SIC. PVRs evening of 06/11 was 60 and 190 respectively. Encouraged patient to continue with double voiding to empty bladder) ??Will continue to monitor. ?? DVT Prophylaxis: mechanical ?? GI Prophylaxis: none ?? Code: full dISCHARGE MEDICATIONS Current Discharge Medication List CONTINUE these medications which have CHANGED Details oxyCODONE (ROXICODONE) 5 MG IR tablet Take 1-2 tablets (5-10 mg) by mouth every 6 hours as needed for moderate to severe pain Qty: 10 tablet, Refills: 0 Associated Diagnoses: S/P BKA (below knee amputation), left (H) aspirin 81 MG tablet Take 2 tablets (162 mg) by mouth daily Qty: 60 tablet, Refills: 0 Associated Diagnoses: S/P BKA (below knee amputation), left (H) gabapentin (NEURONTIN) 300 MG capsule Take 1 capsule (300 mg) by mouth 3 times daily Qty: 90 capsule, Refills: 0 Associated Diagnoses: S/P BKA (below knee amputation), left (H) CONTINUE these medications which have NOT CHANGED Details acetaminophen (TYLENOL) 325 MG tablet Take 2 tablets (650 mg) by mouth every 4 hours as needed for other (surgical pain) Qty: 40 tablet, Refills: 1 Associated Diagnoses: S/P BKA (below knee amputation), left (H) lisinopril (PRINIVIL/ZESTRIL) 10 MG tablet Take 30 mg by mouth daily Sertraline HCl (ZOLOFT PO) Take 50 mg by mouth daily Cholecalciferol (VITAMIN D3 PO) Take 4,000 Units by mouth daily GLIPIZIDE XL PO Take 5 mg by mouth daily (with breakfast) !! order for DME Equipment being ordered: Walker Wheels (E0155) and Walker (E0135) Treatment Diagnosis: Impaired gait stability s/p BKA Qty: 1 each, Refills: 0 Associated Diagnoses: S/P BKA (below knee amputation), left (H) polyvinyl alcohol-povidone (REFRESH) 1.4-0.6 % ophthalmic solution Place 1-2 drops into both eyes asneeded for irritation !! order for DME [employer] Order Primary Dressing Hydrofera Blue READY TRANSFER Qty 5 sheets NOT NEEDED Secondary Dressing 4 Roll gauze Qty 60 NOT NEEDED Secondary Dressing 2 medipore tape Qty 3 Length of Need: 1 month Frequency of dressing change: daily Qty: 30 days, Refills: 0 Associated Diagnoses: Charcot ankle, right; Charcot ankle, left; Decubitus ulcer of right ankle, stage 3 (H); Pressure ulcer of left ankle, stage 3 (H) !! order for DME [employer]i Medical Order Primary Dressing HydroferaBlue Ready Transfer Qty 4 sheets Primary Dressing Endoform Qty 15 sheets Secondary Dressing 4x4 Gauze Loaf Qty 2 Secondary Dressing 2 Medipore Tape Qty 2 Length of Need: 1 month Frequency of dressing change: daily Please send what his insurance will allow. Thank you Qty: 30 days, Refills: 0 Associated Diagnoses: Charcot ankle, left; Open wound of knee, leg, and ankle, left, initial encounter; Charcot's joint of right ankle; Wound of right ankle, initial encounter SIMVASTATIN PO Take 20 mg by mouth daily !! - Potential duplicate medications found. Please discuss with provider. STOP taking these medications senna-docusate (SENOKOT-S;PERICOLACE) 8.6-50 MG per tablet Comments: Reason for Stopping: DISCHARGE INSTRUCTIONS AND FOLLOW UP Discharge Procedure Orders Home care nursing referral Referral Type: Home Health Therapies & Aides Home Care PT Referral for Hospital Discharge Referral Type: Home Health Therapies & Aides Reason for your hospital stay Order Comments: You were in the hospital undergoing rehab after a left below knee amputation. Activity Order Comments: Your activity upon discharge: Use your wheelchair at all times. Your leg rest will be shipped to your home. You can use a walker going to the bathroom. Keep stump protector on at all times when out of bed. Order Specific Question Answer Comments Is discharge order? Yes Wound care and dressings Order Comments: Please change the dressing every other day or daily if saturated as was instructed. Can use gauze, Kurlex and Meet wrap. face to face encounter Order Comments: Documentation of Face to Face and Certification for Home Health Services I certify that patient: Geo Dubois is under my care and that I, or a nurse practitioner or physician's cable splicer assistant working with me, had a [id number] encounter that meets the physician qpeh-gx-lqet encounter requirements with this patient on: 06/12/2017. This encounter with the patient was in whole, or in part, for the following medical condition, whichis the primary reason for home health care: Left BKA. I certify that, based on my findings, the following services are medically necessary home health services: Nursing and Physical Therapy. My clinical findings support the need for the above services because: Nurse is needed: For complex aftercare of surgical procedures because the patient needs instruction and cannot perform care on their own due to recent amputation. and To provide caregiver training to assist with: dressing changes. and Physical Therapy Services are needed to assess and treat the following functional impairments due to recent amputation. Further, I certify that my clinical findings support that this patient is homebound (i.e. absences from home require considerable and taxing effort and are for medical reasons or gnosticism services or infrequently or of short duration when for other reasons) because: Requires assistance of another person or specialized equipment to access medical services because patient: Is unable to exit home safely on own due to: amputation., Is unable to walk. , Range of motion limitations prevents ability to exit home safely. and Requires supervision of another for safe transfer... Based on the above findings. I certify that this patient is confined to the home and needs intermittent longterm care, physical therapy and/or speech therapy. The patient is under my care, and Franco initiated the establishment of the plan of care. This patient will be followed by a physician who will periodically review the plan of care. Physician/Provider to provide follow up care: Ihsan Dunn Attending hospital physician (the Medicare certified [facility] provider): Janice Wilson MD Physician Signature: See electronic signature associated with these discharge orders. Date: 06/12/2017 Adult [facility] Follow-up and recommended labs and tests Order Comments: --Dr Zapien at [facility] as scheduled for wound check and suture removal --Primary care physician in 7-10 weeks regarding hospitalization --PM&R in 10 weeks regarding rehab needs Appointments on [place] and/or [facility] (with [facility] or [facility] provider or service). Call [phone] if you haven't heard regarding these appointments within 7 days of discharge. Full Code Diet Order Comments: Follow this diet upon discharge: Regular Diet Adult; Thin Liquids (water, ice chips, juice, milk, gelatin, ice cream, etc) Order Specific Question Answer Comments Is discharge order? Yes physical examination Most recent Vital Signs: Vitals: 06/11/17 0639 06/11/17 0823 06/12/17 0829 06/12/17 1730 BP: 149/89 128/81 151/84 103/64 BP Location: Right arm Left arm Left arm Right arm Pulse: 78 80 80 77 Resp: 18 18 16 Temp: 96.9 ??F (36.1 ??C) 96 ??F (35.6 ??C) 96.5 ??F (35.8 ??C) TempSrc: Oral Oral Oral SpO2: 98% 96% 96% Weight: Height: Patient sitting in chair comfortable in no acute distress Alert and oriented Engaged in the conversation. Heart S1S2 Lungs clear abdomen benign non tender LEFT BKA At the time, of discharge, his SENIOR SPEECH PATHOLOGIST was at bedside, and wanted to change the HOME PT/RN orders from [facility] to another organization, through whom she is certified. I gave her a paper prescription in the event of non availability of the RN/PT through the org of her choice. I asserted that duing the care conference, when the SENIOR SPEECH PATHOLOGIST was not there, the plan had been put in place. Discharge summary was forwarded to Ihsan Dunn (PCP) at the time of discharge, so as to bridge from hospital to outpatient care. It was our pleasure to care for Geo Dubois during this hospitalization. Please do not hesitate to contact me should there be questions regarding the hospital course or discharge plan. Cynthia Julien MD Physical Medicine & Rehabilitation I, Cynthia Julien saw and evaluated this patient prior to discharge. 35 minutes spent in discharge, including >50% in counseling and coordination of care, medication review and plan of care recommended on follow up. Kristal Braun PA-C - 06/09/2017 5:11 PM CDT DATE OF ADMISSION: 06/05/17 DATE OF DISCHARGE: 06/08/17 ADMISSION DIAGNOSIS: Charcot neuroarthropathy with midfoot destruction left Chronic nonhealing ulcer left foot Chronic deformity left foot and ankle PROCEDURE PERFORMED THIS ADMISSION: Left below knee amputation INDICATION FOR HOSPITAL ADMISSION: Geo Dubois is a 57 year old male well known to [facility] and Dr Zapien for bilateral Charcot neuroarthropathy. He has attempted to treat this withCROW walking boots. Unfortunately he went on to develop a chronic wound on his foot as a result of his deformity. He has been treated by a wound care clinic and was advised that his wounds were not likely to heal and would present opportunity for infection. He elected to proceed with a below knee amputation on the left. HOSPITAL COURSE: Patient underwent a left BKA on 06/05/17, this was performed without difficulty. He was admitted for pain control and to work with PT/OT for gait, transfers and ADL's. His post op coursewas noneventful, but it was felt he would need further therapy prior to being able to go home safely. Plans were made for the patient to transfer to an acute rehab unit for further therapy. Franky Lozada PA-C Associated attestation - Felix Zapien MD - 06/12/2017 8:10 AM CDT Physician Attestation I, Felix Zapien MD, have reviewed and discussed with the advanced practice provider their discharge plan for Geo Dubois. I did not participate in a shared visit by interviewing or examining the patient and this should be billed as an advanced practice provider only discharge. Felix Zapien MD Date of Service (when I saw the patient): I did not personally see this patient today. documented in this encounter Discharge Instructions Discharge InstructionsHilda Moya - 06/13/2017 11:42 AM CDT Follow Up Appointments: --Dr Zapien at [facility] as scheduled for wound check and suture removal Address- [facility] [address] [place] [address] --Primary care physician-Dr. Warren Dunn in 7-10 weeks regarding hospitalization [address] Dr[address] Warren Dunn [facility] [address] [place] [address] [place] [address] FAX [phone] --PM&R in 10 weeks regarding rehab needs Address Dr. Janice Wilson of [facility] Physical Medicine and Rehabilitation Clinic [address]rd Floor [address] [place] [address] Phone Neli [phone] HOME CARE [facility] [phone] will provide RN, PT. They will call you after you discharge to schedule the first visit. documented in this encounter Medications at Time [...] severe pain documented as of this encounter Progress Notes Lisbeth Martinez RN - 06/13/2017 2:03 PM CDT IRF-[facility] CLARIFICATION NOTE FOR DISCHARGE Lowest score for each FIM item supported by available charting Discharge FIM Scores taken from charting on 06/12/17. Grooming: FIM 7. Verbal clarification indicates patient was able to perform hand washing and grooming activities independently. Toileting: FIM 6. Verbal clarification indicates patient performed toileting activities with grab bar. Toilet transfer: FIM 6. Verbal clarification indicates patient is modified independent with grab bar. Janice Wilson MD - 06/12/2017 11:40 AM CDT Images from the original note were not included. [facility] Acute Rehabilitation Unit Daily progress note interval history Geo Dubois was seen and examined at bedside. He slept well last night and the pain in his left residual limb continues to improve. He continues to void spontaneously with PVRs of 60 and 190 yesterday evening 06/11. Functionally, patient has been making good progress and continues to be modified independent in his room. Care conference is planned for today and anticipate that he will be discharged home by the weekend. Patient continues with bladder program, and with encouragement to double void in attempt to empty his bladder. He has been compliant with hip ROM exercises. medications Scheduled meds ??? cholecalciferol (vitamin D) tablet 4,000 Units 4,000 Units Oral Daily ??? gabapentin 300 mg Oral TID ??? glipiZIDE (GLUCOTROL XL) 24 hr tablet 5 mg 5 mg Oral Daily with breakfast ??? lisinopril 30 mg Oral Daily ??? senna-docusate 1-2 tablet Oral BID ??? sertraline (ZOLOFT) tablet 50 mg 50 mg Oral Daily ??? simvastatin (ZOCOR) tablet 20 mg 20 mg Oral At Bedtime ??? aspirin 162 mg Oral Daily PRN meds: oxyCODONE, polyvinyl alcohol-povidone, acetaminophen, glucose OR dextrose OR glucagon, naloxone physical exam Temp: 96 ??F (35.6 ??C) Temp src: Oral BP: 151/84 Pulse: 80 Resp: 18 SpO2: 96 % O2 Device: None (Room air) General:??NAD, lying in bed. Pleasant, conversational. Heart: RRR Pulmonary:??clear breath sounds b/l Abdominal:??soft, non-tender, non-distended Extremities:?? Rose-TECH on the left - incision not examined today Neuro/MSK: Alert, oriented X 3, bilateral upper extremities with intact ROM and strength, Hip Flexion is 4+/5 bilaterally labs Last Basic Metabolic Panel: Lab Results Component Value Date NA 140 06/09/2017 Lab Results Component Value Date POTASSIUM 4.8 06/09/2017 Lab Results Component Value Date CHLORIDE 108 06/09/2017 Lab Results Component Value Date HERI 8.7 06/09/2017 Lab Results Component Value Date CO2 25 06/09/2017 Lab Results Component Value Date BUN 32 06/09/2017 Lab Results Component Value Date CR 1.09 06/09/2017 Lab Results Component Value Date GLC 107 06/09/2017 Lab Results Component Value Date WBC 5.3 06/11/2017 Lab Results Component Value Date RBC 4.12 06/11/2017 Lab Results Component Value Date HGB 10.2 06/11/2017 Lab Results Component Value Date HCT 34.0 06/11/2017 Lab Results Component Value Date MCV 83 06/11/2017 Lab Results Component Value Date MCH 24.8 06/11/2017 Lab Results Component Value Date MCHC 30.0 06/11/2017 Lab Results Component Value Date RDW 18.9 06/11/2017 Lab Results Component Value Date PLT 165 06/11/2017 assessment and plan Geo Dubois is a 57 y/o male with PMH of HTN, HLD, DMII with several complications, anemia, VILLA and depression??who is s/p left transtibial amputation which was done on 06/05/2017 by [facility] at [facility] ([place], [place]). Admission to acute inpatient rehab 06/08/2017. ?? 1. Rehabilitation - continue comprehensive acute inpatient rehabilitation program with multidisciplinary approach including therapies, rehab nursing, and physiatry following. See interval history for updates. 2. Medical Conditions: S/p L BKA:??BKA was due to a non-healing left foot ulcer with h/o charcot neuroarthropathy and foot deformity. Patient in stump protector with underlying sock. Pain well controlled, Patient has been continuing to decrease frequency of oxycodone, only needed one time 5 mg dose yesterday 06/11. Patient appears to be at K2 level with potential K3 pending his progress. Also has limitation due to a charcotfoot on the right side, will continue to use [employer] boot on the right for transfers. ? Post-Operative Pain Control: - Continue gabapentin 300 mg TID for phantom limb pain - Continue acetaminophen 650 mg Q4 Hrs prn - Continue oxycodone tab 5-10 mg Q4 Hrs prn for moderate to severe pain; consider to decrease the frequency as tolerated. Patient has been tapering the dose himself to Q8-12 hrs. ? Wound cares: - Cast on LLE was removed 06/09, and dressing was placed on incision. Patient was placed by Orthotistin stump protector ([employer] stump protector) . Incision looks good with no signs of infection. - Patient education 06/08 on proper positioning of his residual limb with no pillows under his LLE orL knee when cast off. ? Anemia: acute on chronic. Has had some work-up as outpatient with ACD being the most likely cause. Hgb decreased this morning 06/11 from 10.6 yesterday to 10.2 today. Will continue to monitor. ? HTN: BP stable on current regimen. - Patient to continue on lisinopril 30 mg daily ? DMII with retinopathy, polyneuropathy, PAD and charcot feet: - Patient to continue with glipizide 5 mg daily with breakfast - Continue insulin sliding scale per protocol (aspart insulin 1-7 U TID before meals as needed, aspart insulin 1-5 U??as needed); FS Glucose levels have ranged between 120- 150 since yesterday evening 06/11. HLD: - Continue zocor 20 daily ? VILLA:??on CPAP prior to admission which was continued. ? Depression:??on zoloft 50mg daily prior to admission which was continued. Mood is stable. ?? FEN: Regular diet, Continue Vit D supplements- Vitamin D level 37 06/11; Will continue the same dose ?? Bowel: Continue senna-docusate 1-2 tablets BID per current bowel regimen ?? Bladder:??Patient voiding spontaneously. Post-void residuals were elevated initially after admission requiring SIC. PVRs evening of 06/11 was 60 and 190 respectively. Encouraged patient to continue with double voiding to empty bladder) Will continue to monitor. ?? DVT Prophylaxis: mechanical ?? GI Prophylaxis: none ?? Code: full ?? Disposition:? ELOS: ??Estimated 1 week LOS, Care conference today 06/12, Likely discharge tamar 06/13. ?? Rehab prognosis:?Gianni Cobian MD Resident Physician Physical Medicine & Rehabilitation Patient was discussed with staff PM&R physician, Dr. Janice Wilson. I, Janice Wilson, saw this patient with my resident Dr. Cobian and agree with her findings and plan ofcare as documented in her note. I personally reviewed the chart (vitals signs, medications, and BGs). My lewis findings and lewis manege ment decisions made by me: Formal care conference held today; please see separate document in Plan of Care tab for full details. Discussed discharge planning with Gian andhis daughter during care conference for 35 minutes. Also called his SENIOR SPEECH PATHOLOGIST/friend Aminah after the care conference and reviewed the plan over the phone. He is on track for dc home tomorrow. Has been mod I with mobility and all ADLs. Equipment needs discussed as mentioned in therapists notes. His daughter practice wound care/wrapping today and Aminah will practice tomorrow before discharge. Medically stable with no concerns. Discharge meds reviewed; will send home few oxycodone only as he has not been requiring and gabapentin for phantom pain. Bladder management was discussed at length; encouraged double voiding and adequate hydration. Will have home care with RN and PT, then transition to outpatient. I spent a total of 60 minutes [id number] and managing the care of Geo Dubois. Over 50% of my time on the unit was spent counseling the patient and coordinating care. See note for details. Janice Wilson MD - 06/11/2017 3:22 PM CDT Gian is progressing well with stairs and ADLs- able to transfer top of stairs -> w/c without 8 block for assist at SBA after some cueing for setup prior to transferring. Performing bathing routine with shower chair at mod I. He will require 2 new pieces of DME to safely return home: 1) Left leg 9x10 AlterG amputee leg rest - for positioning his LLE residual limb in preparation for using a LLE prosthetic leg. This will help reduce the risk of hamstring contractures and maintain hamstring length for optimal posture in the prosthetic limb. 2) Shower chair with removable backrest- to be able to safely complete his bathing routine without assistance. The removable backrest helps give him more space to be able to sit on the shower chair before swinging his legs into the tub, and the backrest also gives him the necessary support to maintainhis balance sitting on the chair during his shower routine. Janice Wilson MD Physical Medicine & Rehabilitation NPI #[id number] Janice Wilson MD - 06/11/2017 10:28 AM CDT Images from the original note were not included. [facility] Acute Rehabilitation Unit Daily progress note interval history Geo Dubois was seen and examined at bedside. He slept well last night and the pain in his left residual limb is improving. He continues to void spontaneously with variable PVRs (103 and 445 yesterday 06/10); Has not had 2 consecutive PVRs less than 100 yet. Functionally, patient has been making good progress and continues to be modified independent in his room. Care conference is planned for Thursday and anticipate that he will be discharged home by the weekend. Pending medical conditions of thrombocytopenia and urinary retention are ongoing. Thrombocytopenia appears to be resolving (Platelet count today of 165). Patient continues with bladder program, and with encouragement to double void in attempt to empty his bladder. PVRs have been variable since yesterday evening 06/10 (103 earlier in the day and 445 at night before being encouraged to void again) He has been compliant with hip ROM exercises and was doing these exercises on arrival in his room today. medications Scheduled meds ??? cholecalciferol (vitamin D) tablet 4,000 Units 4,000 Units Oral Daily ??? gabapentin 300 mg Oral TID ??? glipiZIDE (GLUCOTROL XL) 24 hr tablet 5 mg 5 mg Oral Daily with breakfast ??? lisinopril 30 mg Oral Daily ??? senna-docusate 1-2 tablet Oral BID ??? sertraline (ZOLOFT) tablet 50 mg 50 mg Oral Daily ??? simvastatin (ZOCOR) tablet 20 mg 20 mg Oral At Bedtime ??? aspirin 162 mg Oral Daily PRN meds: oxyCODONE, polyvinyl alcohol-povidone, acetaminophen, glucose OR dextrose OR glucagon, naloxone physical exam BP 128/81 (BP Location: Left arm) Pulse 80 Temp 96.9 ??F (36.1 ??C) (Oral) Resp 18 Ht 1.778 m (5' 10) Wt 102 kg (224 lb 14.4 oz) SpO2 98% BMI 32.27 kg/m2 General:??NAD, lying in bed. Pleasant, conversational. Heart: RRR Pulmonary:??clear breath sounds b/l Abdominal:??soft, non-tender, non-distended Extremities:?? Rose-TECH on the left - incision not examined today Neuro/MSK: Alert, oriented X 3, bilateral upper extremities with intact ROM and strength, Hip Flexion is 4+/5 bilaterally labs Last Basic Metabolic Panel: Lab Results Component Value Date NA 140 06/09/2017 Lab Results Component Value Date POTASSIUM 4.8 06/09/2017 Lab Results Component Value Date CHLORIDE 108 06/09/2017 Lab Results Component Value Date HERI 8.7 06/09/2017 Lab Results Component Value Date CO2 25 06/09/2017 Lab Results Component Value Date BUN 32 06/09/2017 Lab Results Component Value Date CR 1.09 06/09/2017 Lab Results Component Value Date GLC 107 06/09/2017 Lab Results Component Value Date WBC 5.3 06/11/2017 Lab Results Component Value Date RBC 4.12 06/11/2017 Lab Results Component Value Date HGB 10.2 06/11/2017 Lab Results Component Value Date HCT 34.0 06/11/2017 Lab Results Component Value Date MCV 83 06/11/2017 Lab Results Component Value Date MCH 24.8 06/11/2017 Lab Results Component Value Date MCHC 30.0 06/11/2017 Lab Results Component Value Date RDW 18.9 06/11/2017 Lab Results Component Value Date PLT 165 06/11/2017 assessment and plan Geo Dubois is a 57 y/o male with PMH of HTN, HLD, DMII with several complications, anemia, VILLA and depression??who is s/p left transtibial amputation which was done on 06/05/2017 by [facility] at [facility] ([place], [place]). Admission to acute inpatient rehab 06/08/2017. ?? 1. Rehabilitation - continue comprehensive acute inpatient rehabilitation program with multidisciplinary approach including therapies, rehab nursing, and physiatry following. See interval history for updates. 2. Medical Conditions: S/p L BKA:??BKA was due to a non-healing left foot ulcer with h/o charcot neuroarthropathy and foot deformity. Patient in stump protector with underlying sock. Pain well controlled, Patient has been decreasing frequency of pain meds (oxycodone) to Q8-12 hrs and tolerating this change well. Patient appears to be at K2 level with potential K3 pending his progress. Also has limitation due to a charcot foot on the right side, will continue to use S[employer]NE[employer] boot on the right for transfers. ? Post-Operative Pain Control: - Continue gabapentin 300 mg TID for phantom limb pain - Continue acetaminophen 650 mg Q4 Hrs prn - Continue oxycodone tab 5-10 mg Q4 Hrs prn for moderate to severe pain; consider to decrease the frequency as tolerated. Patient has been tapering the dose himself to Q8-12 hrs. ? Wound cares: - Cast on LLE was removed 06/09, and dressing was placed on incision. Patient was placed by Orthotistin stump protector (Framebridge stump protector) . Incision looks good with no signs of infection. - Patient education 06/08 on proper positioning of his residual limb with no pillows under his LLE orL knee when cast off ? Anemia: acute on chronic. Has had some work-up as outpatient with ACD being the most likely cause. Hgb decreased this morning 06/11 from 10.6 yesterday to 10.2 today. Will continue to monitor. ? HTN: BP stable on current regimen. - Patient to continue on lisinopril 30 mg daily ? DMII with retinopathy, polyneuropathy, PAD and charcot feet: - Patient to continue with glipizide 5 mg daily with breakfast - Continue insulin sliding scale per protocol (aspart insulin 1-7 U TID before meals as needed, aspart insulin 1-5 U??as needed); FS Glucose levels have been 97, 112 (913/ and 135 this morning 06/11? HLD: - Continue zocor 20 daily ? VILLA:??on CPAP prior to admission which was continued. ? Depression:??on zoloft 50mg daily prior to admission which was continued. Mood is stable. ?? FEN: Regular diet, Continue Vit D supplements- Vitamin D level 37 06/11; Will continue the same dose ?? Bowel: Continue senna-docusate 1-2 tablets BID per current bowel regimen ?? Bladder:??Patient voiding spontaneously. Post-void residuals were elevated initially after admission requiring SIC; had improved since 06/09, though has not had 2 consistent PVRs less than 100 (yesteday 06/10 had PVR of 103 and then 445 last night after double voiding. Encouraged patient to continue with double voiding to empty bladder) Will continue to monitor. ?? DVT Prophylaxis: mechanical ?? GI Prophylaxis: none ?? Code: full ?? Disposition:? ELOS: ??Estimated 1 week rehab length of stay. ?? Rehab prognosis:?Gianni Cobian MD Resident Physician Physical Medicine & Rehabilitation Patient was discussed with staff PM&R physician, Dr. Janice Wilson. ?? I, Janice Wilson, personally examined and evaluated this patient today. I discussed the patient withmy resident Dr. Cobian and care team, and agree with the assessment and plan of care as documented in her note. I personally reviewed the chart (vitals signs, medications, and labs). My lewis findings and lewis manegement decisions made by me: doing well being mod I in his room. Pain iswell controlled. Sleeps well and reports good appetite. Urinary retention intermittently continues. Plt wnl today. Discussed the plan for care conference tomorrow and dc home this weekend, pending equipments being ready and urinary retention. I spent a total of 25 minutes [id number] and managing the care of Geo Dubois. Over 50% of my time on the unit was spent counseling the patient and coordinating care. See note for details. Janice Wilson MD - 06/10/2017 10:59 AM CDT Images from the original note were not included. [facility] Acute Rehabilitation Unit Daily progress note interval history Geo Dubois was seen and examined at bedside. Slept well last night; pain is left residual limb improving. Phantom pain presented intermittently but not interfering with his sleep/rest or function. He has been voiding spontaneously with low PVRs; asked nursing staff to document 2 more PVRs before we stop checking. He is making good progress; now mod I in his room. Care conference Thursday and dc home by weekend. Hewas agreeable with the plan. Pending medical conditions are thrombocytopenia and urinary retention. Discussed again our recommendations for no pillows under his LLE when in bed; reviewed possible complications. He has been complaint with hip ROM exercises even before his amputation with lying prone x2-3/day. medications Scheduled meds ??? cholecalciferol (vitamin D) tablet 4,000 Units 4,000 Units Oral Daily ??? gabapentin 300 mg Oral TID ??? glipiZIDE (GLUCOTROL XL) 24 hr tablet 5 mg 5 mg Oral Daily with breakfast ??? lisinopril 30 mg Oral Daily ??? senna-docusate 1-2 tablet Oral BID ??? sertraline (ZOLOFT) tablet 50 mg 50 mg Oral Daily ??? simvastatin (ZOCOR) tablet 20 mg 20 mg Oral At Bedtime ??? aspirin 162 mg Oral Daily PRN meds: polyvinyl alcohol-povidone, acetaminophen, oxyCODONE, glucose OR dextrose OR glucagon, naloxone physical exam BP 112/68 Pulse 79 Temp 96.4 ??F (35.8 ??C) (Oral) Resp 18 Ht 1.778 m (5' 10) Wt 102 kg (224 lb 14.4 oz) SpO2 97% BMI 32.27 kg/m2 General: NAD, sitting in chair Heart: RRR Pulmonary: clear breath sounds b/l Abdominal: soft, non-tender, non-distended Extremities: S[employer]NEZ boot on R side and Rose-TECH on the left - incision not examined today Neuro/MSK: Alert, oriented X 3, bilateral upper extremities with intact ROM and strength, HF 4+/5 b/l labs Reviewed assessment and plan Geo Dubois is a 57 y/o male with PMH of HTN, HLD, DMII with several complications, anemia, VILLA and depression who is s/p left transtibial amputation which was done on 06/05/2017 by [facility] at [facility] ([place], [place]). Admission to acute inpatient rehab 06/08/2017. Rehabilitation - continue comprehensive acute inpatient rehabilitation program with multidisciplinary approach including therapies, rehab nursing, and physiatry following. See interval history for updates. ?? Medical Conditions: ?? S/p L BKA: due to non-healing left foot ulcer with h/o charcot neuroarthropathy and foot deformity. Seems to be at K2 level with potential K3 pending his progress. Definitely limited by charcot foot onthe right side; will continue to use SANT[employer] YNEZ boot on the right for transfers. ? Post-operative Pain Control: - Continue gabapentin 300 mg TID for phantom limb pain - Continue acetaminophen 650 mg Q4 Hrs prn - Continue oxycodone tab 5-10 mg Q3 Hrs prn for moderate to severe pain; consider to decrease the frequency as tolerated. 06/10/17 patient is tapering the dose himself, taking 20mg daily. Changed the order to q4h prn. ?? Wound cares: - Cast on LLE was removed 06/09, and dressing was placed on incision. Patient was placed by Orthotistin stump protector (Rose-TECH stump protector) . Incision looks good with no signs of infection. - Patient education 06/08 on proper positioning of his residual limb with no pillows under his LLE orL knee when cast off ?? Anemia: acute on chronic. Has had some work-up as outpatient with ACD being the most likely cause. Hgb has been stable since surgery. ?? HTN: BP stable on current regimen. - Patient to continue on lisinopril 30 mg daily ?? DMII with retinopathy, polyneuropathy, PAD and charcot feet: - Patient to continue with glipizide 5 mg daily with breakfast - Continue insulin sliding scale per protocol (aspart insulin 1-7 U TID before meals as needed, aspart insulin 1-5 U as needed); will stop if not requiring in 2 days. 06/09 stopped SSI. ?? HLD: - Continue zocor 20 daily ?? VILLA: on CPAP prior to admission which was continued. ?? Depression: on zoloft 50mg daily prior to admission which was continued. Mood is stable. ? FEN: Regular diet, Continue Vit D supplements- will check level tomorrow and adjust accordingly. Vitamin D level 37 on 06/09; resume the same dose. ?? Bowel: Continue senna-docusate 1-2 tablets BID per current bowel regimen ?? Bladder: Patient voiding spontaneously. Post-void residuals were elevated initially after admission requiring SIC; improved since 06/09 and remain in acceptable range. ?? DVT Prophylaxis: mechanical ?? GI Prophylaxis: none ?? Code: full ?? Disposition: ?? ELOS: Estimated 1 week rehab length of stay. ?? Rehab prognosis: Good ?? Janice Wilson MD Physical Medicine & Rehabilitation I spent a total of 25 minutes [id number] and managing the care of Geo Dubois. Over 50% of my time on the unit was spent counseling the patient and coordinating care. See note for details. Sylvester Kelley - 06/09/2017 2:27 PM CDT Patient was fit with a 1618 rose tech. Patient was provided with a waist belt and a 2 socks. Fit and function appear adequate at this time. Patient educated on wear and care of the brace. Goal; prevention of knee contracture. Daily Hygiene, Range of Motion and Transfer Recommendations: *Remove the [id number]??? socket 2 times per day. *Remove the outer fitting sock (or stockinet) and the polyurethane distal end pad. Examine (do not remove) the innermost post-op fitting sock (or sterile stockinet) for signs of excessive bleeding or drainage If excessive blood or drainage is found, contact the physician Immediately. If only mild spotting is noted make a record and proceed. Record the size and location of the spotting. If the spotting becomes excessive at some later point contact the physician. Wash the reticulated distal end pad with an anti-bacterial soap; rinse well, dry the pad by gently compressing it in a towel (DO NOT WRING), reapply the pad and a clean dry outer sock over the pad. Re-apply the [id number]??? socket. The strap at the mid patella tendon (just below the knee) should be loose enough to slide a finger under it. When standing the strap and the Velcro?? compatible Neoprene?? bands should be tightened. When in bed or reclined in a chair the mid patella tendon strap should be loose enough to slide a finger under it. *THE COMPLETE HYGIENE PROCESS SHOULD TAKE NO LONGER THAN 20 MINUTES EACH TIME. Oneida Hernandez - 06/09/2017 2:24 PM CDT 06/09/17 1045 Quick Adds Type of Visit Initial PT Evaluation Living Environment Lives With other (see comments) (SENIOR SPEECH PATHOLOGIST/roommate) Living Arrangements condominium Home Accessibility bed and bath are not on the first floor;grab bars present (bathtub);grab bars present (toilet);house is not wheelchair accessible;stairs (1 railing present);stairs within home;tub/shower is not walk in Number of Stairs to Enter Home 0 Number of Stairs Within Home 13 Stair Railings at Home other (see comments) (BL handrail inside for ~first 5 steps, unstable L handrail ) Transportation Available car ([employer] truck, no lift kit) Living Environment Comment PT: bedroom - full size bed, low to the ground. bathroom - tub/shower combo, second floor, grab bars at toilet and shower, shower chair. living area - recliner couch that is not difficult to get up from Self-Care Dominant Hand right Usual Activity Tolerance good Current Activity Tolerance moderate Regular Exercise other (see comments) (ramana lopez) Equipment Currently Used at Home bath bench;crutches, axillary;grab bar;wheelchair Activity/Exercise/Self-Care Comment ramana lopez, SENIOR SPEECH PATHOLOGIST to assist with self-care Functional Level Prior Ambulation 1-->assistive equipment (crawling upstairs, no long distance amb d/t BL charcot feet) Transferring 1-->assistive equipment Toileting 1-->assistive equipment Bathing 1-->assistive equipment Dressing 0-->independent Eating 0-->independent Communication 0-->understands/communicates without difficulty Swallowing 0-->swallows foods/liquids without difficulty Cognition 0 - no cognition issues reported Fall history within last six months no Which of the above functional risks had a recent onset or change? ambulation;transferring;toileting;bathing;dressing Prior Functional Level Comment could not amb long distances d/t complications with BL charcot feet. Primarily used w/c for mobility in/out of home. SENIOR SPEECH PATHOLOGIST is multimedia engineer roommate and assists with ADLs General Information Onset of Illness/Injury or Date of Surgery - Date 06/05/17 Referring Physician Janice iWlson MD Patient/Family Goals Statement to return home as quickly and as safely as possible, be fit for prosthesis when appropriate Pertinent History of Current Problem (include personal factors and/or comorbidities that impact the POC) 57 year old male with PMH of HTN, HLD, DMII with several complications, anemia, VILLA and depression who is admitted today 06/08/17 for acute rehabilitation following a left transtibial amputation which was done on 06/05/2017 by [facility] per [facility] Precautions/Limitations fall precautions Weight-Bearing Status - LLE nonweight-bearing General Observations patient was greeted sitting up in bed with recent appropriate application of newly acquired FlowTec clamshell brace for LLE Cognitive Status Examination Orientation orientation to person, place and time Level of Consciousness alert Follows Commands and Answers Questions 100% of the time Personal Safety and Judgment intact Memory intact Pain Assessment Patient Currently in Pain Yes, see Vital Sign flowsheet (reporting prior phantom sensations, however are improving) Integumentary/Edema Integumentary/Edema other (describe) (small, healing wound on R lateral malleolus. ) Posture Posture Forward head position Range of Motion (ROM) ROM Quick Adds Knee, Left;Ankle, Right ROM Comment ~75 degrees of L knee flexion, R ankle fixed in neutral Strength Manual Muscle Testing Quick Adds MMT: Shoulder;MMT: Elbow/Forearm;MMT: Hand (General);MMT: Hip;MMT: Knee MMT: Shoulder Shoulder Flexion - Left Side (5/5) normal,left Shoulder ABduction - Left Side (5/5) normal,left Shoulder Flexion - Right Side (5/5) normal,right Shoulder ABduction - Right Side (5/5) normal,right MMT: Elbow/Forearm, Rehab Eval Elbow Flexion - Left Side (5/5) normal,left Elbow Flexion - Right Side (5/5) normal,right MMT: Hand Hand Muscle Testing Results adult daycare coordinator strength symmetrical, normal (5/5) MMT: Hip, Rehab Eval Hip Flexion - Left Side (5/5) normal,left Hip ABduction - Left Side (5/5) normal,left Hip ADduction - Left Side (5/5) normal,left Hip Flexion - Right Side (5/5) normal,right Hip ABduction - Right Side (5/5) normal,right Hip ADduction - Right Side (5/5) normal,right MMT: Knee, Rehab Eval Knee Flexion - Left Side (4/5) good, left Knee Extension - Left Side (4/5) good, left Knee Flexion - Right Side (5/5) normal,right Knee Extension - Right Side (5/5) normal,right ARC Assessment Only Acute Rehab FIM See FIM scores for Mobility/ADL Assessment Balance Balance other (describe) Sitting Balance: Static good balance (no sway when seated EOB) Sitting Balance: Dynamic good balance (was able to scoot and maintain COM over JSOE MANUEL) Qcm-sa-[id number] Balance fair balance (relies on BUE to stand) Standing Balance: Static fair balance (requires AD (FWW) to stand) Standing Balance: Dynamic fair balance (unable to ambulate d/t charcot foot/boot and poor balance) Systems Impairment Contributing to Balance Disturbance somatosensory;musculoskeletal (DMII, L BKA) Identified Impairments Contributing to Balance Disturbance pain;impaired postural control;decreased ROM;decreased sensation;impaired sensory feedback Sensory Examination Sensory Perception other (describe) Sensory Perception Quick Adds Light touch;Proprioception Sensation Light Touch LUE w/i normal limits LLE moderate impairment RUE w/i normal limits RLE severe impairment (significantly less distal to R mid tibia) Head/Neck w/i normal limits Trunk w/i normal limits Proprioception LUE w/i normal limits LLE not tested RUE w/i normal limits RLE moderate impairment (3/7 great toe) Head/Neck not tested Trunk not tested General Therapy Interventions Planned Therapy Interventions balance training;gait training;groups;neuromuscular re-education;orthotic fitting/training;ROM;strengthening;stretching;transfer training;wheelchair management/propulsion training;risk factor education;home program guidelines;progressive activity/exercise Clinical Impression Criteria for Skilled Therapeutic Intervention yes, treatment indicated PT Diagnosis deficits with balance, sensation, strength, endurance secondary to L BKA Functional limitations due to impairments transfers, gait, stairs, functional endurance Clinical Presentation Unstable/Unpredictable Clinical Presentation Rationale primary limitations d/t L BKA comorbidities complicating treatment include diabetes with charcot foot, poor wound healing, depression Clinical Decision Making (Complexity) High complexity Therapy Frequency` daily (90 minutes/day) Predicted Duration of Therapy Intervention (days/wks) 4-5 days Anticipated Equipment Needs at Discharge other (see comments) (may need FWW) Anticipated Discharge Disposition Home with Home Therapy;Home with Outpatient Therapy Risk & Benefits of therapy have been explained Yes Patient, Family & other staff in agreement with plan of care Yes Clinical Impression Comments See care plan note Total Evaluation Time Total Evaluation Time (Minutes) 30 Associated attestation - Lawrence Sheridan PT - 06/09/2017 9:19 PM CDT I have reviewed and agree with Oneida's assessment and POC. Janice Wilson MD - 06/09/2017 9:37 AM CDT Images from the original note were not included. [facility] Acute Rehabilitation Unit Daily progress note interval history Geo Dubois was seen and examined at bedside. Patient slept well overnight, and states that his pain is well controlled. He had urinary retention both last night and again this morning. Per nursing notes at about 6:40 pm on 06/08 PVR was 875 and garry BELL was paged and nursing was instructed that it was ok to try double voiding and straight cath if PVR was greater than 350. After double voiding, PVR was still 796 so patient was straight cathed around 10 pm on 06/08 for 700 ml.. After voiding again this morning at 2:30 am, PVR was greater than 999 cc, then patient voided 250 cc and was straight cathed for 850 cc of clear, yellow urine. This was discussed with patient this morning, and he states that he did not have any issues with voiding/retention prior to his hospitalization/procedure. Still waiting for call back from PA ([facility]) regarding recommendations for incisional care of stump. Colloid Mill Operator stopped by this morning 06/09. Patient's cast/dressing was removed and incision looks good with sutures in place and no signs of infection. Dressing was placed over the incision to control drainage and kerlex wrap was also placed. Colloid Mill Operator placed stump protector over limb with sock underneath. Functionally, patient has been in bed (no weight bearing) though has scheduled therapies (PT and OT)today 06/09. medications Scheduled meds ??? cholecalciferol (vitamin D) tablet 4,000 Units 4,000 Units Oral Daily ??? gabapentin 300 mg Oral TID ??? glipiZIDE (GLUCOTROL XL) 24 hr tablet 5 mg 5 mg Oral Daily with breakfast ??? lisinopril 30 mg Oral Daily ??? senna-docusate 1-2 tablet Oral BID ??? sertraline (ZOLOFT) tablet 50 mg 50 mg Oral Daily ??? simvastatin (ZOCOR) tablet 20 mg 20 mg Oral At Bedtime ??? insulin aspart 1-7 Units Subcutaneous TID AC ??? insulin aspart 1-5 Units Subcutaneous At Bedtime ??? aspirin 162 mg Oral Daily PRN meds: polyvinyl alcohol-povidone, acetaminophen, oxyCODONE, glucose OR dextrose OR glucagon, naloxone physical exam BP 139/81 (BP Location: Right arm) Pulse 70 Temp 97.2 ??F (36.2 ??C) (Oral) Resp 16 Ht 1.778m (5' 10) Wt 102 kg (224 lb 14.4 oz) SpO2 100% BMI 32.27 kg/m2 General: NAD, pleasant and cooperative. Lying in bed with amputated LLE (cast removed) HEENT: ATNC, oropharynx clear with MMM, EOMI, PERRL Pulmonary: clear breath sounds b/l, no rales/wheezing Cardiovascular: RRR, S1, S2, no murmur or added sounds. Abdominal: soft, non-tender, non-distended BS heard in all 4 quadrants Extremities: warm, well perfused, no edema in bilateral lower extremities, no tenderness in right calf. LLE sutures/incision look good with no signs of infection. Still slight post-operative swelling/erythema. Dressing and stump protector placed over incision. RLE- charcot deformity present with 1+ pitting edema to level of ankle. Small scab over lateral malleolus from previous open wound which has healed. Well healed incision on mid plantar surface of foot from prior procedure. Neuro: Alert, oriented X 3, no focal deficits noted. labs Reviewed assessment and plan Geo Dubois is a 57 y/o male with PMH of HTN, HLD, DMII with several complications, anemia, VILLA and depression who is admitted today 06/08/17 for acute rehabilitation following a left transtibial amputation which was done on 06/05/2017 by [facility] at [facility] ([place], [place]). Patient has been doingwell post-operatively with good pain control. Cast removed today 06/09 from LLE and incision was dressed/stump protector placed. Discussion with surgical team still pending return call regarding furthercare of amputated limb. ?? Admission to acute inpatient rehab 06/08/2017. Impairment group code: 05.4 ? 1. PT and OT: Total of 90 minutes of each on a daily basis, in addition to rehab nursing and close management of coal trammer. ?? 2. Impairment of ADL's: OT for 90 minutes daily to work on ADLs as grooming, self cares and bathing. ?? 3. Impairment of mobility: PT for 90 minutes daily to work on strength, balance, and endurance. ?? 4. product mgr: to administer medication, patient education on medication taking, VS monitoring, bowel regimen, glucose monitoring and wound care/surgical wound dressing changes and monitoring. ?? 5. Medical Conditions: ?? S/p L BKA: due to non-healing left foot ulcer with h/o charcot neuroarthropathy and foot deformity. Seems to be at K2 level with potential K3 pending his progress. Definitely limited by charcot foot onthe right side; will continue to use [place] boot on the right for transfers. ? Post-operative Pain Control: - Continue gabapentin 300 mg TID for phantom limb pain - Continue acetaminophen 650 mg Q4 Hrs prn - Continue oxycodone tab 5-10 mg Q3 Hrs prn for moderate to severe pain; consider to decrease the frequency as tolerated ?? Wound cares: - Cast on LLE was removed this morning, and dressing was placed on incision. Patient was placed by Colloid Mill Operator in stump protector (Framebridge stump protector) . Incision looks good with no signs of infection. Primary surgical team recommendations regarding timeline for removal of cast and use of stump prot gilmer still pending, calls made to surgical team- still waiting to hear back from them. Will make recommendations once plan is discussed with surgical team. - Patient education yesterday 06/08 on proper positioning of his residual limb with no pillows under his LLE or L knee when cast off ?? Anemia: acute on chronic. Has had some work-up as outpatient with ACD being the most likely cause. Hgb has been stable since surgery. ?? HTN: - Patient to continue on lisinopril 30 mg daily ?? DMII with retinopathy, polyneuropathy, PAD and charcot feet: - Patient to continue with glipizide 5 mg daily with breakfast - Continue insulin sliding scale per protocol (aspart insulin 1-7 U TID before meals as needed, aspart insulin 1-5 U as needed); will stop if not requiring in 2 days ?? HLD: - Continue zocor 20 daily ?? VILLA: on CPAP prior to admission which was continued. ?? Depression: on zoloft 50mg daily prior to admission which was continued. ? Adjustment to disability: Clinical psychology to eval and treat; will discuss with him. ?? FEN: Regular diet, Continue Vit D supplements- will check level tomorrow and adjust accordingly. ?? Bowel: Continue senna-docusate 1-2 tablets BID per current bowel regimen ?? Bladder: Patient voiding spontaneously. Post-void residuals have been high last night 06/08 and again this morning 06/09. For now, encouragement of double voiding, PVRs and straight cath if residual is more than 350. Will continue current plan and continue to re-assess. ?? DVT Prophylaxis: mechanical ?? GI Prophylaxis: none ?? Code: full ?? Disposition: ?? ELOS: Estimated 1 week rehab length of stay. Still pending PT/OT evaluations. ?? Rehab prognosis: Good ?? Steffany Cobian MD Resident Physician Physical Medicine & Rehabilitation I, Janice Wilson, saw this patient with my resident Dr. Cobian and agree with her findings and plan ofcare as documented in her note. I personally reviewed the chart (vitals signs, medications, and labs). My lewis findings and lewis manege ment decisions made by me: --BMP wnl, vitamin D level 37 - continue the same dose of supplementation. CBC with stable anemia but plt slightly trending down. Discussed with pharmacist about possible side effect from the medications (glipizide, simvastatin, and lisinopril are possible meds); will recheck on and interveneif continues. Team rounds held today; please see separate document in Plan of Care tab for full details. Briefly, Geo was admitted yesterday and started his rehab course today. Doing very well and will have a short stay. From medical stand point shoulder learn wound care and wrapping, bladder management if urinary retention continues and likely f/u for thrombocytopenia. Has most of the needed equipments at home; should be I with donning/doffing the Rose/TECH. Will plan for a care conference on Tuesday 06/12 and home possibly this . I spent a total of 35 minutes vlps-[id number] and managing the care of Geo Dubois. Over 50% of my time on the unit was spent counseling the patient and coordinating care. See note for details. Carol Curiel OT - 06/09/2017 8:54 AM CDT 06/09/17 0710 Quick Adds Type of Visit Initial Occupational Therapy Evaluation Living Environment Lives With other (see comments) (friends) Living Arrangements condominium Number of Stairs Within Home 13 Stair Railings at Home inside, present on left side Transportation Available family or friend will provide;car Living Environment Comment OT: pt is staying with a friend that he staying with and his brother who is w/c bound and has a ramp adn everything else is on the main level. at his friends house there is awalk in shower with threshold and at his brother thereis a tub. Self-Care Dominant Hand right Usual Activity Tolerance good Current Activity Tolerance fair Regular Exercise no Activity/Exercise/Self-Care Comment OT: Pt was independent with adls and roommate would do the laundry. Pt likes to fish and used to nevarez. Functional Level Prior Ambulation 0-->independent Transferring 0-->independent Toileting 0-->independent Bathing 0-->independent Dressing 0-->independent Eating 0-->independent Communication 0-->understands/communicates without difficulty Swallowing 0-->swallows foods/liquids without difficulty Cognition 0 - no cognition issues reported Fall history within last six months no Which of the above functional risks had a recent onset or change? ambulation;transferring;toileting;bathing;dressing Prior Functional Level Comment OT: Pt was independent with adls and roommate would do the laundry. Pt likes to fish and used to nevarez. Wedding Florist Wedding Florist Present no General Information Onset of Illness/Injury or Date of Surgery - Date 06/05/[address] Wilson Patient/Family Goals Statement OT: per pt, i want to get to the point where i can get the [facility] faith manuever around that. strengthen and not being bed bound. Additional Occupational Profile Info/Pertinent History of Current Problem OT: per MD chart Geo Dubois is a 57 y/o male with PMH of HTN, HLD, DMII with several complications, anemia, VILLA and depression who is admitted today 06/08/17 for acute rehabilitation following a left transtibial amputation which was done on 06/05/2017 by [facility] at [facility] ([place], [place]). Weight-Bearing Status - LLE nonweight-bearing (BKA) Weight-Bearing Status - RLE full weight-bearing;other (see comments) (charcot boot) General Observations OT: pt is cooperative and able to answer all the questions. Cognitive Status Examination Orientation orientation to person, place and time Level of Consciousness alert Visual Perception Visual Perception Wears glasses (reading, macular degeneration) Sensory Examination Sensory Comments OT: per pt, B hand numbness and tingling. Pain Assessment Patient Currently in Pain No Range of Motion (ROM) ROM Comment OT: BUE WFL Strength Strength Comments OT: BUE 5/5 for shoulder flexion, abduction, elbow flexion/extension Coordination Upper Extremity Coordination No deficits were identified Gross Motor Coordination OT: not impaired Fine Motor Coordination OT: not impaired ARC Assessment Only Acute Rehab FIM See FIM scores for Mobility/ADL Assessment Instrumental Activities of Daily Living (IADL) Previous Responsibilities meal prep;medication management;finances Activities of Daily Living Analysis Impairments Contributing to Impaired Activities of Daily Living balance impaired;post surgical precautions;postural control impaired General Therapy Interventions Planned Therapy Interventions ADL retraining;IADL retraining;balance training;orthotic fitting/training;prosthetic fitting/training Clinical Impression Criteria for Skilled Therapeutic Interventions Met yes, treatment indicated OT Diagnosis OT; generalized weakness, impaired adls/iadls Influenced by the following impairments OT: Pt currently demonstrates decreased ability to complete adls/iadls, impaired mobility, endurance, balance, transfers. Skilled OT needed to address above mentioned deficits in order for a safe return home. Assessment of Occupational Performance 3-5 Performance Deficits Identified Performance Deficits OT: impaired social skills, clothing management, bathing, Clinical Decision Making (Complexity) Moderate complexity Therapy Frequency daily Predicted Duration of Therapy Intervention (days/wks) 2-3 Anticipated Equipment Needs at Discharge tub bench Anticipated Discharge Disposition Home;Home with Outpatient Therapy;Home with Assist Risks and Benefits of Treatment have been explained. Yes Patient, Family & other staff in agreement with plan of care Yes Clinical Impression Comments OT: Pt currently demonstrates decreased ability to complete adls/iadls,impaired mobility, endurance, balance, transfers. Skilled OT needed to address above mentioned deficits in order for a safe return home. Total Evaluation Time Total Evaluation Time (Minutes) 30 Sylvester Kelley - 06/08/2017 4:30 PM CDT Patient measured for Recorded Future. I have ordered brace And will fit 06-09-17. documented in this encounter H&P Notes Janice Wilson MD - 06/08/2017 3:30 PM CDT Post Admission Physician Evaluation: I have compared Geo Dubois's condition on admission to acute rehabilitation to that outlined inthe preadmission screen. History and physical exam performed by me. No significant differences are identified and the patient remains appropriate for an inpatient rehabilitation facility level of care to manage medical issues and address functional impairments due to (rehabilitation diagnosis) s/p left BKA due to non-healing wound with h/o charcot neuroarthropathy and foot deformity. Comorbid medical conditions being managed: post-op pain (residual limb and phantom pain), acute on chronic anemia, wounds, HTN, HLD, DM with complications including retinopathy, polyneuropathy, PAD andcharcot feet Prior functional level: was ambulating with bilateral S[place] boots but limited; was using a WC as well. Mod I with his ADLs. Present function: SBA to min A for transfers; started ambulating short distances with PT Anticipated rehabilitation course: improvement to mod I level WC based; will require A for wound care but should be able to don/doff his stump protector Will benefit from intensive rehabilitation includin minutes each of PT and OT Rehabilitation nursing Close management by physiatry Prognosis: medical prognosis is good although he is at risk of ulcers and other complications at hisright foot due to severe neuroarthropathy. Ambulation and functional outcome pending 1- healing of left residual limb given his h/o PAD and neuropathy and 2- his right foot and associated risks given severe neuroarthropathy; likely K2 with potentials of K3 level. Estimated length of stay: 7 days Janice Wilson MD Physical Medicine & Rehabilitation Janice Wilson MD - 06/08/2017 2:56 PM CDT Images from the original note were not included. [facility] Acute Rehabilitation Unit Admission History and Physical chief complaint S/p Left BKA on 06/05/2017 History of Present illness Geo Dubois is a 57 year old male with PMH of HTN, HLD, DMII with several complications, anemia, VILLA and depression who is admitted today 06/08/17 for acute rehabilitation following a left transtibial amputation which was done on 06/05/2017 by [facility]. Patient was transferred from [facility] this afternoon. Per patient history, he has had issues with bilateral lower extremity open wounds for several months, and states that ulcers first appeared in January 2017 and had not healed for several months after this. Patient had a wound on his left foot at the level of his lateral malleolus and on his right foot at the level of his lateral malleolus. He also describes a wound on the plantar surface of his right foot for which he underwent a surgical procedure in Sep 2015 which consisted of debridement and shaving of one of his foot bones. His right lower extremity ulcer over the lateral malleolus has healed. He states that since left lower extremity ulcer was non-healing and he developed a subsequent progressive LLE infection, in discussion with his team at [facility] he decided to proceed with a left BKA. He was admitted to [facility] on 06/05/2017 and underwent a planned left BKA on the same day. Patient states that since his procedure, his pain has been well controlled with scheduled tylenol and prn oxycodone. He does complain of phantom limb pain/de creased sensation in his LLE. His LLE is still immobilized with a cast and also wrapped with an MEET bandage. Patient also does endorse decreased sensation over his RLE from the level of the ankle to the rest of his foot that has been present for several months. Per history, his blood sugars have been well controlled with glipizide. He regularly checks his levels at home and states that his last HbA1c done a few months ago was at 5.6. During his acute hospitalization, patient was seen and evaluated by PT, and OT. All specialties collectively recommended that patient would benefit from ongoing therapies in the acute inpatient rehabilitation setting. Functionally, the patient states that he was ambulating with sleetmute boots over both lower extremities prior to his hospitalization and procedure. He could walk short distances within his home with the boots, but states that he could not tolerate them for too long a period so used a wheelchair at other times. Currently, the patient is medically appropriate and is assessed to have needs and will benefit from an inpatient acute rehabilitation comprehensive program working with PT, and OT and will also benefitfrom supervision and management of Rehab Nursing and Rehab MD. PAST Medical History Past Medical History: Diagnosis Date ??? Anemia of chronic disorder ??? Aneurysm (H) 2016 ??? Charcot's joint 2014 ??? Diabetes mellitus (H) ??? History of blood transfusion 02/2016 ??? Hypertension ??? Irregular heart beat 2015 pt states he has a high heart rate ??? Numbness and tingling Numbness in feet ??? S/P biopsy 2016 for lymphoma ??? Sinus of Valsalva aneurysm 2015 ??? Sleep apnea CPAP Surgical History Past Surgical History: Procedure Laterality Date ??? AMPUTATE LEG BELOW KNEE Left 06/05/2017 Procedure: AMPUTATE LEG BELOW KNEE; AMPUTATE LEG BELOW KNEE ; Surgeon: Felix Zapien MD; Location: [facility] OR ??? BONE MARROW BIOPSY, BONE SPECIMEN, NEEDLE/TROCAR Right 04/15/2016 Procedure: BIOPSY BONE MARROW; Surgeon: Rudy Goins MD; Location: [facility] OR ??? DISSECT LYMPH NODE INGUINAL Right 03/14/2016 Procedure: DISSECT LYMPH NODE INGUINAL; Surgeon: Damien Lancaster MD; Location: [facility] OR ??? ORTHOPEDIC SURGERY Right bone shaving SOCIAL HISTORY Marital Status: Living situation: Lives in [place], [place] [facility]. Patient has a roommate who is also his SENIOR SPEECH PATHOLOGIST. Hehas 1 small step to enter his building. Once in the home, the kitchen, a 1/2 bath and dining area are all on the main level. There are approximately 13 steps to get to the 2nd level where all the bedrooms and full bathroom/shower is. He does have a shower chair, and states that his roommate helps withother tasks at home. Family support: Patient's parents are with him during the visit today. They live [place] of [place], [place]. Patient also has many family members in the [facility] area. His daughter, brother and nieces all live in the [facility]. He also states that he has other options for housing upon discharge with family members including his brother who has an accessible home. Tobacco use: denies Alcohol use: denies Illicit drug use: denies FAMILY HISTORY Family History Problem Relation Age of Onset ??? Hyperlipidemia Father ??? Hypertension Mother ??? DIABETES Mother ??? DIABETES Brother Prior Functional history Pt was independent with all ADLs/IADLs, transfers, mobility and gait. He ambulated with sleetmute boots on both lower extremities prior to hospitalization, though could not tolerate boots for long periods of time. He also used a wheelchair while inside the home during certain times of the day for ambulation when he need a break from the sleetmute boots. Medications Prescriptions Prior to Admission Medication Sig Dispense Refill Last Dose ??? oxyCODONE (ROXICODONE) 5 MG IR tablet Take 1-2 tablets (5-10 mg) by mouth every 3 hours as needed for moderate to severe pain 24 tablet 0 ??? acetaminophen (TYLENOL) 325 MG tablet Take 2 tablets (650 mg) by mouth every 4 hours as needed for other (surgical pain) 40 tablet 1 ??? aspirin 81 MG tablet Take 2 tablets (162 mg) by mouth daily 84 tablet 0 ??? gabapentin (NEURONTIN) 300 MG capsule Take 1 capsule (300 mg) by mouth 3 times daily 90 capsule 1 ??? senna-docusate (SENOKOT-S;PERICOLACE) 8.6-50 MG per tablet Take 1-2 tablets by mouth 2 times daily 40 tablet ??? order for DME Equipment being ordered: Walker Wheels ([id number]) and Walker ([id number]) Treatment Diagnosis: Impaired gait stability s/p BKA 1 each 0 ??? polyvinyl alcohol-povidone (REFRESH) 1.4-0.6 % ophthalmic solution Place 1-2 drops into both eyes as needed for irritation 06/04/2017 at Unknown time ??? order for [...] allow. Thank you 30 days 0 05/29/2017 ??? lisinopril (PRINIVIL/ZESTRIL) 10 MG tablet Take 30 mg by mouth daily 06/04/2017 at Unknown time ??? SIMVASTATIN PO Take 20 mg by mouth daily 06/04/2017 at Unknown time ??? Sertraline HCl (ZOLOFT PO) Take 50 mg by mouth daily 06/04/2017 at Unknown time ??? Cholecalciferol (VITAMIN D3 PO) Take 4,000 Units by mouth daily 06/04/2017 at Unknown time ??? GLIPIZIDE XL PO Take 5 mg by mouth daily (with breakfast) 06/04/2017 at Unknown time ALLERGIES Allergies Allergen Reactions ??? Amoxicillin Hives Review of Systems A 10 point ROS was performed and negative unless otherwise noted in HPI. Constitutional: denies any fevers, chills. Eyes: denies changes in visual acuity Ears, Nose, Throat: denies any difficulty swallowing Cardiovascular: denies any exertional chest pain or palpitations Respiratory: denies dyspnea Gastrointestinal: denies any nausea, vomiting, abdominal pain, diarrhea or constipation Genitourinary: denies any dysuria, hematuria, frequency or urgency Musculoskeletal: denies any muscle pain, neck pain or back pain. Patient complains of post-operativepain in his left lower limb but states that this is well controlled with current pain regimen. He also complains of phantom limb sensation/pain in his LLE after the procedure. Neurologic: denies any headache. Patient complains of progressive long-term sensory loss in both lower extremities up to level of his ankles. Psychiatric: denies mood changes; sleeps OK Physical Exam VITAL SIGNS: There were no vitals taken for this visit. BMI: Estimated body mass index is 31.65 kg/(m^2) as calculated from the following: Height as of 06/05/17: 1.778 m (5' 10). Weight as of 06/05/17: 100.1 kg (220 lb 9.6 oz). General: NAD, pleasant and cooperative. Lying in bed with amputated LLE elevated resting on pillow. HEENT: ATNC, oropharynx clear with MMM, EOMI, PERRL Pulmonary: clear breath sounds b/l, no rales/wheezing Cardiovascular: RRR, S1, S2, no murmur or added sounds. Abdominal: soft, non-tender, non-distended BS heard in all 4 quadrants Extremities: warm, well perfused, no edema in bilateral lower extremities, no tenderness in right calf. LLE with BKA and cast up to level of upper thigh, meet wrap over cast. Due to this reason, sutures/incision not assessed. RLE- charcot deformity present with 1+ pitting edema to level of ankle. Small scab over lateral malleolus from previous open wound which has healed. Well healed incision on mid plantar surface of foot from prior procedure. MSK/neuro: Mental Status: alert and oriented x3 Cranial Nerves: grossly normal, no focal deficits Sensory: Normal to light touch in bilateral upper extremities. RLE exhibits decreased sensation to light touch and decreased vibratory sensation below level of ankle. Proprioception in great toe of R foot impaired. Sensation not assessed in LLE due to cast that is to level of upper thigh. Strength: SF EF EE WE G HF KE DF EHL PF R 5/5 5/5 5/5 5/5 5/5 5/5 5/5 4/5 3/5 4/5 L 5/5 5/5 5/5 5/5 5/5 5/5 Reflexes: Present and symmetrical 2+ in bilateral upper extremities Mayfield's test: negative bilaterally Abnormal movements: None Coordination: No dysmetria on finger to nose b/l Speech: Normal, no dysarthria or aphasia Cognition: intact Gait: not assessed Skin: No visible open skin lesions or rashes on bilateral upper extremities, trunk or abdomen. LLE not assessed due to cast up to level of upper thigh. RLE demonstrates no open lesions or rashes. Petechiae on RLE mid arteaga, small scab over RLE lateral malleolus from healing wound. Labs Lab Results Component Value Date WBC 7.3 06/06/2017 HGB 11.3 (L) 06/07/2017 HCT 36.1 (L) 06/06/2017 MCV 83 06/06/2017 PLT 158 06/06/2017 Lab Results Component Value Date NA 136 06/06/2017 POTASSIUM 4.3 06/06/2017 CHLORIDE 105 06/06/2017 CO2 24 06/06/2017 GLC 93 06/06/2017 Lab Results Component Value Date GFRESTIMATED 71 06/06/2017 GFRESTBLACK 86 06/06/2017 No results found for: AST, ALT, GGT, ALKPHOS, BILITOTAL, BILICONJ, BILIDIRECT, ORA No results found for: INR Lab Results Component Value Date BUN 27 06/06/2017 CR 1.08 06/06/2017 ASSESSMENT/PLAN: Geo Dubois is a 57 y/o male with PMH of HTN, HLD, DMII with several complications, anemia, VILLA and depression who is admitted today 06/08/17 for acute rehabilitation following a left transtibial amputation which was done on 06/05/2017 by [facility] at [facility] ([place], [place]). Patient has been doingwell post-operatively with good pain control. He still has cast on LLE up to the level of upper thigh with meet wrap. Admission to acute inpatient rehab 06/08/2017. Impairment group code: 05.4 1. PT and OT: Total of 90 minutes of each on a daily basis, in addition to rehab nursing and close management of coal trammer. 2. Impairment of ADL's: OT for 90 minutes daily to work on ADLs as grooming, self cares and bathing. 3. Impairment of mobility: PT for 90 minutes daily to work on strength, balance, and endurance. 4. product mgr: to administer medication, patient education on medication taking, VS monitoring, bowel regimen, glucose monitoring and wound care/surgical wound dressing changes and monitoring. 5. 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 Seems to be at K2 level with potential K3 pending his progress. Definitely limited by charcot foot onthe right side; will continue to use [employer] [employer] boot on the right for transfers. Post-operative Pain Control: - Continue gabapentin 300 mg TID for phantom limb pain - Continue acetaminophen 650 mg Q4 Hrs prn - Continue oxycodone tab 5-10 mg Q3 Hrs prn for moderate to severe pain; consider to decrease the frequency as tolerated Wound cares: - Patient still with cast on LLE following BKA. Cast extends up to level of upper thigh with meet wrap over it. Sutures/Incision/Stump have not been assessed yet due to this. Primary surgical team recommendations regarding timeline for removal of cast and use of stump protector still pending. Will make recommendations once plan is discussed with surgical team. - Ordered [employer] stump protector; will keep the cast for now for safety - Patient education on proper positioning of his residual limb with no pillows under his LLE or L knee when cast off Anemia: acute on chronic. Has had some work-up as outpatient with ACD being the most likely cause. Hgb has been stable since surgery. HTN: - Patient to continue on lisinopril 30 mg daily DMII with retinopathy, polyneuropathy, PAD and charcot feet: - Patient to continue with glipizide 5 mg daily with breakfast - Continue insulin sliding scale per protocol (aspart insulin 1-7 U TID before meals as needed, aspart insulin 1-5 U as needed); will stop if not requiring in 2 days HLD: - Continue zocor 20 daily VILLA: on CPAP prior to admission which was continued. Depression: on zoloft 50mg daily prior to admission which was continued. ?? Adjustment to disability: Clinical psychology to eval and treat; will discuss with him. ?? FEN: Regular diet, Continue Vit D supplements- will check level tomorrow and adjust accordingly. ?? Bowel: Continue senna-docusate 1-2 tablets BID per current bowel regimen ?? Bladder: Patient voiding spontaneously. Post-void residual pending. ?? DVT Prophylaxis: mechanical ?? GI Prophylaxis: none ?? Code: full ?? Disposition: ?? ELOS: Estimated 1 week rehab length of stay. Still pending PT/OT evaluations. ?? Rehab prognosis: Good Steffany Cobian MD Resident Physician Physical Medicine & Rehabilitation Physician Attestation I, Janice Wilson, saw this patient with the resident and agree with the resident???s findings and plan of care as documented in the resident???s note. I personally reviewed vital signs, medications and labs. Lewis findings: s/p L BKA due to non-healing left foot ulcer with h/o charcot neuroarthropathy and foot deformity. He was ambulating prior to admission with bilateral [place] [employer] boots but limited; was using a WC as well. Anticipate improvement to mod I level WC based; will require A for wound care but should be able to don/doff his stump protector. Medical prognosis is good although he is at risk of ulcers and other complications at his right foot due to severe neuroarthropathy. Ambulation and functional outcome pending 1- healing of left residual limb given his h/o PAD and neuropathy and 2- his right footand associated risks given severe neuroarthropathy; likely K2 with potentials of K3 level. Janice Wilson Date of Service (when I saw the patient): 06/08/17 I spent a total of 90 minutes [id number] and managing the care of Geo Dubois. Over 50% of my time on the unit was spent counseling the patient and coordinating care. See note for details. documented in this encounter Miscellaneous Notes Plan of Care - Delmis Parr PT - 06/13/2017 2:03 PM CDT Problem: Goal/Outcome Goal: Goal Outcome Summary Physical Therapy Discharge Summary Reason for therapy discharge: Discharged to home with home therapy. Progress towards therapy goal(s). See goals on Care Plan in Epic electronic health record for goal details. Goals met Therapy recommendation(s): Continued therapy is recommended. Rationale/Recommendations: Has met goals to allow for safe d/c to home. Recommend home care f/u to monitor transition from hospital and to progress HEP. Will transition to OP for prosthetic training. . Plan of Care - Chula Ayala RN - 06/13/2017 2:03 PM CDT Problem: Goal/Outcome Goal: Goal Outcome Summary Outcome: Adequate for Discharge Date Met: 06/13/17 FOCUS/GOAL Bowel management, Bladder management, Wound care management and Medical management ASSESSMENT, INTERVENTIONS AND CONTINUING PLAN FOR GOAL: Pt continent of bladder and using double voiding for urinary retention. LBM 06/13 per pt report. Educated pt and SENIOR SPEECH PATHOLOGIST, Aminah, on incision cares, dressing change, and s/sx of infection. Aminah demonstrated dressing change with nurse oversight. Both verbalized understanding. Reviewed discharge paperwork including instructions, medications, and follow-up appts with pt and Aminah. Both asked appropriate questions and verbalized understanding. Discharge medications signed for and given to pt. ARU contact info given, and they were instructed to call with any further questions. Pt helped to car with allbelongings via w/c by SENIOR SPEECH PATHOLOGIST and writer technical publications. Discharged from unit around 1400. Plan of Care - Marielena Perez, OTR - 06/13/2017 10:20 AM CDT Problem: Goal/Outcome Goal: Goal Outcome Summary Outcome: Therapy, progress toward functional goals as expected D/C home with roommate. No recommendations for continued OT services Plan of Care - Kelsea Wright RN - 06/13/2017 5:45 AM CDT Problem: Goal/Outcome Goal: Goal Outcome Summary Outcome: Improving FOCUS/GOAL Bladder management and Mobility ASSESSMENT, INTERVENTIONS AND CONTINUING PLAN FOR GOAL: Pt sleeps well at night, and is independent with bed mobility. He uses bedside urinal for voiding, and staff empties for him. Pt is planning on discharging to home today. His friend Aminah will be coming to provide transportation for pt, and she should be taught his stump dressing change before he discharges. Plan of Care - Loyd Yang RN - 06/12/2017 10:54 PM CDT Problem: Goal/Outcome Goal: Goal Outcome Summary FOCUS/GOAL Wound care management ASSESSMENT, INTERVENTIONS AND CONTINUING PLAN FOR GOAL: Pt alert and oriented. Nurse demonstrated wound care while patient and daughter observed. They verbalized understanding and that they would feel comfortable doing it at home or teaching SENIOR SPEECH PATHOLOGIST steps. Sutures intact with scant serosanguinous drainage. Denied pain all shift. Wound care supplies given to patient and in room but he is requesting more. Ordered from [facility]. BG 153 and 221. Plan of Care - Lawrence Sheridan PT - 06/12/2017 5:34 PM CDT Problem: Goal/Outcome Goal: Goal Outcome Summary Pt will need to have FWW issued tomorrow prior to d/c home. Planning on having shower chair and amp leg rest delivered to house. Will likely arrive next Thu or . Pt should be safe to be withoutamputee leg rest before then as his [employer] brace will provide some knee extension support in w/c. Pt dtr asking about using bed wedge at night for edema in LLE - recommended pt use wedge to elevate at noc. Care Conference - Janice Wilson MD - 06/12/2017 5:00 PM CDT Acute Rehab Care Conference/Team Rounds Type: Patient Conference Present: Dr Janice Wilson, Georgette EUBANKSSW, Geo Dubois patient, Lawrence Sheridan PT, Mallika Shankar OT, Susan Javed RN. Discharge Barriers/Treatment/Education Rehab Diagnosis: L BKA ?? Active Medical Co-morbidities/Prognosis: post-op pain (residual limb and phantom pain), acute on chronic anemia, wounds, HTN, HLD, DM with complications including retinopathy, polyneuropathy, PAD and charcot feet Safety: fall risk but he has good safety awareness Pain: well controlled on current regimen Medications, Skin, Tubes/Lines: no skin issues. Swallowing/Nutrition: no issues with swallowing or diet Bowel/Bladder: regular and continent; PVRs variable but improving Psychosocial: Pt resides with his friend/SENIOR SPEECH PATHOLOGIST provider. Goal to return home with continued family support. Team working towards a safe d/c plan. ADLs/IADLs: Patient is making progress towards all OT goals. Patient is IND with w/c <> bed transfer, IND with w/c mobility for household distance. Patient is able to complete FB dressing, toileting and bathing. Patient able to demonstrate toilet transfer and shower transfer with use of FWW. 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 Patient has no furtherOT needs at this time. Mobility: Pt progressing well with mobility. Main barrier to return home is stairs and pt able to navigate 12x6 steps bumping up bwd on stairs at mod I after setup assist. [facility] setup assist at mod I. Is already renting w/c from [employer] and has a second w/c at home, will have one on each floor for use. Will need FWW for use at home from [facility]. Also have amputee leg rest ordered to add to w/c from [employer]. Recommend HH PT at d/c. Cognition/Language: WFL with all cognition Community Re-Entry: able to navigate limited community distances from w/c at mod I Transportation: Would recommend assistance with driving, car transfer not a barrier Decision maker: self Plan of Care and goals reviewed and updated. Discharge Plan/Recommendations Fall Precautions: modify Overall plan for the patient: discussed discharge planning with Gian and his daughter. Also called his SENIOR SPEECH PATHOLOGIST/friend after the care conference and reviewed the plan over the phone. He is on track for dc home tomorrow. Has been mod I with mobility and all ADLs. Equipment needs discussed as mentioned in therapists notes. His daughter practice wound care/wrapping today and Aminah will practice tomorrow before discharge. Medically stable with no concerns. Discharge meds reviewed; will send home few oxycodone only as he has not been requiring and gabapentin for phantom pain. Bladder management was discussed at length; encouraged double voiding and adequate hydration. Will have home care with RN and PT, then transition to outpatient. Utilization Review and Continued Stay Justification Medical Necessity Criteria: For any criteria that is not met, please document reason and plan for discharge, transfer, or modification of plan of care to address. Requires intensive rehabilitation program to treat functional deficits?: Yes Requires 3x per week or greater involvement of rehabilitation physician to oversee rehabilitation program?: Yes Requires rehabilitation nursing interventions?: Yes Patient is making functional progress?: Yes There is a potential for additional functional progress? Yes Patient is participating in therapy 3 hours per day a minimum of 5 days per week or 15 hours per week in 7 day period?:Yes Has discharge needs that require coordinated discharge planning approach?:Yes Final Physician Sign off Statement of Approval: I agree with all the recommendations detailed in this document. Patient Goals OT target date for goal attainment: 06/12/17 OT Frequency: daily for 75-105 minutes OT goal: hygiene/grooming: modified independent OT goal: upper body dressing: Modified independent OT goal: lower body dressing: Modified independent OT goal: upper body bathing: Modified independent OT goal: lower body bathing: Modified independent OT goal: toilet transfer/toileting: Modified independent OT goal: meal preparation: Modified independent OT goal: home management: Modified independent OT goal: perform aerobic activity with stable cardiovascular response: intermittent activity Edema Management (OT): Independently OT goal 1: Pt will complete simulated tub transfer using TTB with independence PT target date for goal attainment: 06/14/17 PT Frequency: 90 min daily PT goal: transfers: (met) PT goal: gait: Modified independent, Rolling walker, 10 feet PT goal: stairs: (met) Edema Management (PT): Gradient compression bandaging, Independently (donning stump med surg nurse) PT goal 1: (met) PT Goal 2: Floor transfer, furniture assist, mod I PT Goal 3: HEP - independent with handout for sup and seated LE stretching and strengthening PT Goal 4: 1:1 Falls prevention education PT Goal 5: (met) Nursing goals Patient Goal: Pain Management: Patient will demonstrate ability to adequately request for pain medications and other pain relief techniques to stay ahead of pain during time of stay and prior to d/c. Goal: Wound Management: Patient and/or SENIOR SPEECH PATHOLOGIST will verbalize understanding of wound management/prevention of infection and demonstrate proper management technique prior to time of d/c. Patient/Family Goal: Bladder: Patient will have adequate management of bladder with verbalizing understanding of retention and double voiding as needed prior to time of d/c as indicated. Patient/Family Goal: Medication Management: Patient will demonstrate ability to manage medication regimen and verbalize understanding of medications and complete MAP as indicated prior to time of d/c. Goal: Reinforcement of self care/ADL: Patient will demonstrate during stay ability to direct cares that indicate thorough understanding of prevention techniques r/t diabetic management as well as skin care/prevention with baseline neuropathy. Plan of Care - Georgette Gates MSW - 06/12/2017 3:11 PM CDT Problem: Goal/Outcome Goal: Goal Outcome Summary Pt is planning to d/c home on Thursday, 06/13 with continued support from his friend. [facility] and therapy. No significant barriers noted at this time. Plan of Care - Susan Javed RN - 06/12/2017 2:58 PM CDT Problem: Goal/Outcome Goal: Goal Outcome Summary FOCUS/GOAL Bladder management, Medication management and Wound care management ASSESSMENT, INTERVENTIONS AND CONTINUING PLAN FOR GOAL: Patient is alert/oriented x4, has been safe with Mod I in room w/c based. Formal care conference held today for patient, will be discharging from unit to home tomorrow with roommate Aminah as ride. Patient's daughter was present for the care conference and will stay for dressing change education. Patient denies any pain on this shift, has not needed PRN medications at all. Patient is spontaneously voiding, still noting some residual post void, educated on double voiding again and patient is receptive, also states I feel like it has improved, I don't feel like I have to strain anymore. BG has been 150 and 75 on this shift. No additional care concerns at this time, continue with POC. ADDENDUM: If Aminah could also get education on wound care tomorrow per nursing prior to d/c please, will be coming around 1pm. Plan of Care - Kary Hernandez, OT - 06/12/2017 2:08 PM CDT Problem: Goal/Outcome Goal: Goal Outcome Summary Pt completed full shower and TBD Mod I. Reviewed HEP for UE. Pt to d/c to community tomorrow. No recommendation for continued OT. Plan of Care - Lawrence Sheridan, PT - 06/12/2017 12:31 PM CDT Problem: Goal/Outcome Goal: Goal Outcome Summary Patient actively participated in Amputation Education Group with 2 total participants. Group focusedon education regarding the timeline needed to acquire a permanent prosthetic limb including the stages of healing, limb formation, and trial/permanent prostheses and the anatomy of a typical prostheticlimb. Handouts were issued regarding the timeline to acquire a prosthesis and all questions by the patient were answered. Plan of Care - Inge Gonzalez RN - 06/12/2017 12:08 AM CDT Problem: Goal/Outcome Goal: Goal Outcome Summary FOCUS/GOAL Bowel management, Bladder management, Nutrition/Feeding/Swallowing precautions, Pain management, Wound care management and Discharge planning ASSESSMENT, INTERVENTIONS AND CONTINUING PLAN FOR GOAL: Patient A&Ox4, continent of bowel/bladder, uses urinal and toilet in bathroom, staff empties urinal, no BM this shift. BKA cleaned and dressing changed. Denied pain. B, 126. Care conference 06/12, DC planned for 06/13. Plan of Care - Lawrence Sheridan, PT - 06/11/2017 7:45 PM CDT Problem: Goal/Outcome Goal: Goal Outcome Summary Initiated education for wrapping LLE residual limb today, will complete tomorrow during amputee ed class. Working on having amp leg rest and shower chair delivered to ARU prior to pt d/c home this . Will fax order over immediately in AM in hopes of receiving DME Thursday or Thursday. If unable, will have DME shipped to home address. Plan of Care - Zoraida Simmons RN - 06/11/2017 3:24 PM CDT Problem: Goal/Outcome Goal: Goal Outcome Summary FOCUS/GOAL Pain management and Mobility ASSESSMENT, INTERVENTIONS AND CONTINUING PLAN FOR GOAL: Alert and oriented, VSS. Denies c/o pain, shortness of breath, or nausea/vomitting. Mod I in room without difficulty, w/c based for mobility. Continent of B/B on this shift, PVR 60. Immobilizer on to LLE. No PRN Oxycodone given on this shift, pt says he's trying not to use it anymore. Will continue to monitor. Plan of Care - Kelsea Wright RN - 06/11/2017 4:56 AM CDT Problem: Goal/Outcome Goal: Goal Outcome Summary Outcome: No Change FOCUS/GOAL Bladder management and Mobility ASSESSMENT, INTERVENTIONS AND CONTINUING PLAN FOR GOAL: Pt has appeared to be sleeping on rounds, and is independent with bed mobility. Pt requested to not be disturbed until morning, and requested for pain medication to be given at 6:00 AM. Plan of Care - Susan Javed RN - 06/11/2017 12:27 AM CDT Problem: Goal/Outcome Goal: Goal Outcome Summary FOCUS/GOAL Bladder management, Wound care management and Reinforcement of self-care/ADL ASSESSMENT, INTERVENTIONS AND CONTINUING PLAN FOR GOAL: Patient is alert/oriented x4, has been safely Mod-I in room on this shift w/c based. Patient is staying on top of pain management and has been working to wean down off of the narcotics, gave Oxy only one time on this shift at bedtime per patient request, patient did request to be woken up at six to assess pain- next shift is aware. Patient's wound was dressed per charge nurse but no concerns per report. Patient continues to have some retention, have not had two consecutive PVR's below 100 yet. Continuing to educate patient regarding bladder emptying and double voiding techniques, last PVR was 445 and then patient voided 150more but still needs encouragement to void again to try to fully empty, verbalized understanding but continue to monitor. BG was 97 and 112 on this shift. No additional care concerns at this time, continue with POC. Plan of Care - Kathrine Brown RN - 06/10/2017 4:24 PM CDT Problem: Goal/Outcome Goal: Goal Outcome Summary FOCUS/GOAL Bladder management and Pain management ASSESSMENT, INTERVENTIONS AND CONTINUING PLAN FOR GOAL: Pt reported minor L leg pain, oxy x1, pt advocating for pain medication, planning on times to take to continue taper of oxycodone; currently taking 5 mg. Pt did not call for bg checks; AM bg 70 - pt set-up to eat breakfast along with drank orange juice post check. Bg prior to lunch 109. Pt used call light to assist with bladder scanning post void, 103 cc, 20 cc. Mod I w/c based. Continue with POC. Plan of Care - Carmen Quesaad RN - 06/10/2017 6:53 AM CDT Problem: Goal/Outcome Goal: Goal Outcome Summary FOCUS/GOAL Bowel management, Bladder management, Pain management, Mobility and Safety management ASSESSMENT, INTERVENTIONS AND CONTINUING PLAN FOR GOAL: Pt is alert and oriented. Continent of bladder, voiding spontaneously. No BM. Left leg pain managed with Oxycodone PRN. Up with 1 to pivot into wheelchair. Slept throughout the night. Uses call light appropriately, able to make needs known. Will continue with POC. Plan of Care - Reinier Torrez RN - 06/09/2017 10:54 PM CDT Problem: Goal/Outcome Goal: Goal Outcome Summary FOCUS/GOAL Bowel management, Bladder management, Pain management and Wound care management ASSESSMENT, INTERVENTIONS AND CONTINUING PLAN FOR GOAL: AOX4, uses call light and able to make needs known. Min A of 1 with stand-pivot transfer. Continent of B&B; uses urinal. PVR of 69 cc at 2119. Had a BM this shift; given on senokot. CO of pain in stump; PRN oxycodone administered with some relief. BGs 106 and 156 this shift.Uses CPAP. Denies nausea, denies SOB, pleasant anc cooperative with cares. Continue to monitor incision and incision pain. Plan of Care - Lawrence Sheridan, PT - 06/09/2017 6:21 PM CDT Problem: Goal/Outcome Goal: Goal Outcome Summary Pt tolerated stairs well today evidenced by subjective report of no fatigue or increased pain. Both sessions consisted of mimicking home environment in order to accomplish 13 stairs with subsequent floor transfer to successfully be seated in wc upon completed ascending/descending stairs. Pt safe with all pivot transfers and w/c mobility w/ SBA. Barriers - stairs and floor transfer from top stair up to chair to use w/c. Disposition - planning on d/c back to pt's condo/apt. Also could potentially stay with his brother who has a wheelchair accessible house. Plan of Care - Kathrine Brown RN - 06/09/2017 4:04 PM CDT Problem: Goal/Outcome Goal: Goal Outcome Summary FOCUS/GOAL Bowel management, Bladder management, Medical management and Discharge planning ASSESSMENT, INTERVENTIONS AND CONTINUING PLAN FOR GOAL: Pt reported L BKA pain, pressure - expressed taper in pain medications, oxy 5 mg given x1, advocating for pain medications. Bladder scan 516 cc mid shift, pt felt that need to use restroom - PVR 94 cc.Continue to assess urine retention and if need to address for discharge. Plan to have Care Conference on Thursday. MD discontinued insulin management. Bowel movement today. Uses call light appropriately to express needs. [facility] came in AM to fit stump protector, assessed incision, stump protector on and intact. Continue with education to pt on wound care and wrapping. Continue with POC. Plan of Care - Janice Wilson MD - 06/09/2017 2:29 PM CDT Acute Rehab Care Conference/Team Rounds Type: Team Rounds Present: Dr Janice Wilson, Carol Curiel OT, Armando Gayle VACATION PLANNER, Domenic Sheridan PT, Georgette Gates Social Work, Heather Ramsay Welding Pantograph Machine Operator, Marie Colvin, Gemma Wallace Outpatient Case Manager, Evelina Brown RN, Dr Steffany Cobian Resident Discharge Barriers/Treatment/Education Rehab Diagnosis: Manuel BKLeonila Active Medical Co-morbidities/Prognosis: post-op pain (residual limb and phantom pain), acute on chronic anemia, wounds, HTN, HLD, DM with complications including retinopathy, polyneuropathy, PAD and charcot feet Safety: Uses call light appropriately. Pain: Oxycodone for pain management effective, weaning himself off. Medications, Skin, Tubes/Lines: Takes whole pills. Right leg swollen. Left leg casted. No tubes or lines. Swallowing/Nutrition: on regular diet Bowel/Bladder: Unable to void spontaneously during the night at first, voided 250 cc after bladder scan of >999, straight catheterized for 850 cc at 0340. LBM 06/06 Psychosocial: Pending assessment. ADLs/IADLs: Pt was evaluated today and was able to complete adls with set-up, tub transfer using tubtransfer bench with set-up/superivsion for safety. Anticipated length of stay 2-3 days after eval for equipment recommendations/progressing to mod I. Mobility: Eval initiated. Pt moving well using BUE primarily to assist with functional transfers. Demo bed mob independently, squat pivot at SBA after setup assist. Bumping up/down 8 steps with BUE and RLE at SBA after setup. Propelling manual w/c with BUE 155' at SBA. Completed car transfer with setup assist. Need to figure out if pt will be able to navigate stairs at home. If unable, could potentially d/c to his brother's home. Based on his performance during session, I think he will be able to return home and retro bump up stairs to access upper level and crawl around the upstairs. Cognition/Language: wnl Community Re-Entry: supervision from w/c level Transportation: will require assist from family/friends at d/c. Decision maker: self Plan of Care and goals reviewed and updated. Discharge Plan/Recommendations Fall Precautions: continue Overall plan for the patient: admitted yesterday and started his rehab course today. Doing very welland will have a short stay. From medical stand point shoulder learn wound care and wrapping, bladdermanagement if urinary retention continues and likely f/u for thrombocytopenia. Has most of the needed equipments at home; should be I with donning/doffing the Rose/TECH. Will plan for a care conference on Tuesday 06/12 and home possibly this weekend. Utilization Review and Continued Stay Justification Medical Necessity Criteria: For any criteria that is not met, please document reason and plan for discharge, transfer, or modification of plan of care to address. Requires intensive rehabilitation program to treat functional deficits?: Yes Requires 3x per week or greater involvement of rehabilitation physician to oversee rehabilitation program?: Yes Requires rehabilitation nursing interventions?: Yes Patient is making functional progress?: Yes There is a potential for additional functional progress? Yes Patient is participating in therapy 3 hours per day a minimum of 5 days per week or 15 hours per week in 7 day period?:Yes Has discharge needs that require coordinated discharge planning approach?:Yes Final Physician Sign off Statement of Approval: I agree with all the recommendations detailed in this document. Patient Goals 1. Pt will d/c home/community setting upon completion of therapy/Rn goals. 2. Pt and family will be involved in d/c planning and will be made aware of services available to meet pts needs. OT target date for goal attainment: 06/12/17 OT Frequency: daily for 75-105 minutes OT goal: hygiene/grooming: modified independent OT goal: upper body dressing: Modified independent OT goal: lower body dressing: Modified independent OT goal: upper body bathing: Modified independent OT goal: lower body bathing: Modified independent OT goal: toilet transfer/toileting: Modified independent OT goal: meal preparation: Modified independent OT goal: home management: Modified independent OT goal: perform aerobic activity with stable cardiovascular response: intermittent activity Edema Management (OT): Independently OT goal 1: Pt will complete simulated tub transfer using TTB with independence PT goals pending completion of assessment. Nursing: Patient Goal: Pain Management: Patient will demonstrate ability to adequately request for pain medications and other pain relief techniques to stay ahead of pain during time of stay and prior to d/c. Goal: Wound Management: Patient and/or SENIOR SPEECH PATHOLOGIST will verbalize understanding of wound management/prevention of infection and demonstrate proper management technique prior to time of d/c. Patient/Family Goal: Bladder: Patient will have adequate management of bladder with verbalizing understanding of retention and double voiding as needed prior to time of d/c as indicated. Patient/Family Goal: Medication Management: Patient will demonstrate ability to manage medication regimen and verbalize understanding of medications and complete MAP as indicated prior to time of d/c. Goal: Reinforcement of self care/ADL: Patient will demonstrate during stay ability to direct cares that indicate thorough understanding of prevention techniques r/t diabetic management as well as skin care/prevention with baseline neuropathy. Provider Notification - Georgette Gates MSW - 06/09/2017 11:16 AM CDT Social Work: Initial Assessment with Discharge Plan Patient Name: Geo Dubois : 1960 Age: [age] year old Completed assessment with: patient Admitted to ARU: 06/08/17 Presenting Information Date of SW assessment: June 09, 2017 Health Care Directive: Patient considering completing Primary Health Care Agent: default to next of kin Secondary Health Care Agent: NA Living Situation: resides with a roommate Previous Functional Status: previously receiving some additional support from his SENIOR SPEECH PATHOLOGIST DME available: see therapy notes Patient and family understanding of hospitalization: Yes Cultural/Language/Spiritual Considerations: Eritrean speaking Physical Health Reason for admission: Left BKA Provider Information Primary Care Physician:Ihsan Dunn MD Outpatient Case Manager: none Mental Health/Chemical Dependency: Diagnosis: history of Depression Alcohol/Tobacco/Narcotis: denied Support/Services in Place: denied Services Needed/Recommended: none Sexuality/Intimacy: denied concerns Support System Marital Status: Family support: Pt reported support from several family members in the [facility] area as well as his PCAsupport. 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 Provided Education on discharge plan: Yes Patient agreeable to discharge plan: Yes Provided education and attained signature for Medicare IM and IRF Patient Rights and Privacy Information provided to patient : No Provided patient with [place] [facility] [place] Resources: No Barriers to discharge: Medically stable and progress with therapies Discharge Recommendations Disposition: Goal to return home with continued family support. Transportation Needs: family will provide Name of Transportation Company and Phone: NA Additional comments Pt is a 57 yr old male admitted for an acute rehab stay following a Left BKA. Pt resides with a roommate, who also functions as his SENIOR SPEECH PATHOLOGIST. Pt also reported several family members that reside in the [facility] that can be of additional support as needed. Goal to return home with their continued support. Please invite to Care Conference: Aminah (friend) - [phone] Ewa (daughter) - [phone] MEREDITH Reyes, [facility] Physical Chemist Pager: [phone] 06/09/17 1111 Living Arrangements Lives With other (see comments) Living Arrangements condominium Able to Return to Prior Living Arrangements yes Home Safety Patient Feels Safe Living in Home? yes Discharge Planning Anticipated Discharge Disposition home with assist Discharge Needs Assessment Medical Team notified of plan? yes Readmission Within The Last 30 Days no previous admission in last 30 days Transportation Available family or friend will provide;car Plan of Care - Carol Curiel OT - 06/09/2017 9:15 AM CDT Problem: Goal/Outcome Goal: Goal Outcome Summary OT: initial eval completed and tx initiated. Pt has w/c cushion. once stairs is figured out, pt willneed estiamted length of 2-3 days for equipment set-up. Pt will need tub transfer bench. Plan of Care - Lorna Pepper RN - 06/09/2017 5:26 AM CDT Problem: Goal/Outcome Goal: Goal Outcome Summary Outcome: No Change FOCUS/GOAL Bladder management, Pain management and Medical management ASSESSMENT, INTERVENTIONS AND CONTINUING PLAN FOR GOAL: Alert & oriented x4, speech clear, able to make needs known, uses call light appropriately. Continent of bladder with use of urinal, encouraged to void at 0230 with no results, bladder scan showed >999 cc, then voided 250 cc, straight catheterized for 850 cc of clear, yellow urine. Pt c/o left leg pain, Oxycodone PRN given with effective results. Has been wearing BIPAP all night, O2 sat 95%, denies respiratory distress. Pt is resting comfortable at present time. Pleasant & cooperative. Plan of Care - Susan Javed RN - 06/08/2017 11:52 PM CDT Problem: Goal/Outcome Goal: Goal Outcome Summary FOCUS/GOAL Bowel management, Bladder management, Medication management, Wound care management and Medical management ASSESSMENT, INTERVENTIONS AND CONTINUING PLAN FOR GOAL: Patient arrived to unit right before change of shift, report received from am nurse. Patient is alert/oriented and has demonstrated ability to use the call light appropriately, has demonstrated some need for education on advocating for own self care needs and will benefit from encouragement. Patient denied any issues previously with bladder status, PVR at 6:40pm was 875, per patient has not had h/o retention. call centre supervisor MD was paged at this time and called back shortly after- stated okay to try double voiding for now and straight cath if still>350 residual. Patient was able to void again another 150ml and PVR was still 796, voided again but only about 75ml so discussed with patient at this time the importance of emptying fully and then retraining the bladder going forward to empty fully each timewith the double voiding technique and patient verbalized understanding and was cooperative, straightcathed at around 10pm for 700ml. Patient came to unit w/o incision care orders, had thigh high cast on left residual leg, per MD wait for ortho to consult, MEET wrap is applied over the cast per patientrequest. Patient has pain that is controlled with PRN pain meds, patient is trying to back off of pain meds as possible and requested the 5mg oxy and waited four hours instead of three for each, requested to be woken up and given 5mg oxy x2 during the night by mini shifter at 2:30am and again at 6:45, o ncoming nurse is aware. BG on this shift was 92 before supper and 120 at bedtime, no correction insulin given. No additional care concerns at this time, continue with POC. documented in this encounter Plan of Treatment Scheduled Referrals Name Type Priority Associated Diagnoses Order S chedule Home care nursing Referral Routine S/P BKA (below knee Ord ered: 06/12/2017 referral amputation), left (H) Home Care PT Referral Referral Routine S/P BKA (below knee Ordered: 06/12/2017 for Hospital Discharge amputation), left (H) documented as of this encounter Procedures Procedure Name Priority Date/Time Associated Comments Diagnosis GLUCOSE BY METER Routine 06/13/2017 8:01 AM S/P BKA (below kne e Results for this CDT amputation), left procedure are in (H) the results section. GLUCOSE BY METER Routine 06/12/2017 9:10 PM S/P BKA (below kne e Results for this CDT amputation), left procedure are in (H) the results section. GLUCOSE BY METER Routine 06/12/2017 5:28 PM S/P BKA (below kne e Results for this CDT amputation), left procedure are in (H) the results section. GLUCOSE BY METER Routine 06/12/2017 1:35 PM Resul ts for this CDT procedure are i n the results section. GLUCOSE BY METER Routine 06/12/2017 12:22 Results for this PM CDT procedure are i n the results section. GLUCOSE BY METER Routine 06/12/2017 8:37 AM Resul ts for this CDT procedure are i n the results section. GLUCOSE BY METER Routine 06/11/2017 10:31 Results for this PM CDT procedure are i n the results section. GLUCOSE BY METER Routine 06/11/2017 5:30 PM Resul ts for this CDT procedure are i n the results section. GLUCOSE BY METER Routine 06/11/2017 11:35 Results for this AM CDT procedure are i n the results section. GLUCOSE BY METER Routine 06/11/2017 7:57 AM Resul ts for this CDT procedure are i n the results section. GLUCOSE BY METER Routine 06/11/2017 6:34 AM Resul ts for this CDT procedure are i n the results section. CBC WITH PLATELETS Routine 06/11/2017 6:24 AM Res ults for this CDT procedure are i n the results section. GLUCOSE BY METER Routine 06/10/2017 9:02 PM Resul ts for this CDT procedure are i n the results section. GLUCOSE BY METER Routine 06/10/2017 5:27 PM Resul ts for this CDT procedure are i n the results section. GLUCOSE BY METER Routine 06/10/2017 12:34 Results for this PM CDT procedure are i n the results section. GLUCOSE BY METER Routine 06/10/2017 8:18 AM Resul ts for this CDT procedure are i n the results section. GLUCOSE BY METER Routine 06/09/2017 9:20 PM Resul ts for this CDT procedure are i n the results section. GLUCOSE BY METER Routine 06/09/2017 5:00 PM Resul ts for this CDT procedure are i n the results section. GLUCOSE BY METER Routine 06/09/2017 12:48 Results for this PM CDT procedure are i n the results section. GLUCOSE BY METER Routine 06/09/2017 8:39 AM Resul ts for this CDT procedure are i n the results section. VITAMIN D DEFICIENCY Routine 06/09/2017 5:54 AM R esults for this SCREENING CDT procedure are i n the results section. HEMOGLOBIN A1C Routine 06/09/2017 5:54 AM Results for this CDT procedure are i n the results section. COMPREHENSIVE Routine 06/09/2017 5:54 AM Results for this METABOLIC PANEL CDT procedure ar e in the results section. CBC WITH PLATELETS Routine 06/09/2017 5:54 AM Res ults for this CDT procedure are i n the results section. GLUCOSE BY METER Routine 06/08/2017 9:16 PM Resul ts for this CDT procedure are i n the results section. GLUCOSE BY METER Routine 06/08/2017 5:12 PM Resul ts for this CDT procedure are i n the results section. documented in this encounter Results (ABNORMAL) Glucose by meter (06/13/2017 8:01 AM CDT) P athologist Signature Glucose 116 (H) 70 - 99 06/13/2017 POINT OF CARE mg/dL 8:35 AM CDT TEST, GLUCOSE Specimen Anatomical Collection Method Collection Time Receive d Time (Source) Location / / Volume Laterality 06/13/2017 8:01 AM 7 8:35 CDT AM CDT Janice Katie MD LAB - BEAKER POCT Performing Organization Address City/State/ZIP Code Phon e Number FV POINT OF CARE TEST, GLUCOSE POINT OF CARE TEST, GLUCOSE (ABNORMAL) Glucose by meter (06/12/2017 9:10 PM CDT) P athologist Signature Glucose 221 (H) 70 - 99 06/12/2017 POINT OF CARE mg/dL 9:25 PM CDT TEST, GLUCOSE Specimen Anatomical Collection Method Collection Time Receive d Time (Source) Location / / Volume Laterality 06/12/2017 9:10 PM 7 9:25 CDT PM CDT Janice Wilson MD LAB - BENAIF POCT Performing Organization Address City/State/ZIP Code Phon e Number FV POINT OF CARE TEST, GLUCOSE POINT OF CARE TEST, GLUCOSE (ABNORMAL) Glucose by meter (06/12/2017 5:28 PM CDT) P athologist Signature Glucose 153 (H) 70 - 99 06/12/2017 POINT OF CARE mg/dL 9:25 PM CDT TEST, GLUCOSE Specimen Anatomical Collection Method Collection Time Receive d Time (Source) Location / / Volume Laterality 06/12/2017 5:28 PM 7 9:25 CDT PM CDT Janice Wilson MD LAB - BENAIF POCT Performing Organization Address City/State/ZIP Code Phon e Number FV POINT OF CARE TEST, GLUCOSE POINT OF CARE TEST, GLUCOSE Glucose by meter (06/12/2017 1:35 PM CDT) P athologist Signature Glucose 97 70 - 99 06/12/2017 POINT OF CARE mg/dL 1:40 PM CDT TEST, GLUCOSE Specimen Anatomical Collection Method Collection Time Receive d Time (Source) Location / / Volume Laterality 06/12/2017 1:35 PM 7 1:40 CDT PM CDT Janice Wilson MD LAB - BENAIF POCT Performing Organization Address City/State/ZIP Code Phon e Number FV POINT OF CARE TEST, GLUCOSE POINT OF CARE TEST, GLUCOSE Glucose by meter (06/12/2017 12:22 PM CDT) P athologist Signature Glucose 75 70 - 99 06/12/2017 POINT OF CARE mg/dL 12:25 PM CDT TEST, GLUCOSE Specimen Anatomical Collection Method Collection Time Receive d Time (Source) Location / / Volume Laterality 06/12/2017 12:22 06/12/2017 PM CDT 12:25 PM CDT Janice Wilson MD LAB - BENAIF POCT Performing Organization Address City/State/ZIP Code Phon e Number FV POINT OF CARE TEST, GLUCOSE POINT OF CARE TEST, GLUCOSE (ABNORMAL) Glucose by meter (06/12/2017 8:37 AM CDT) P athologist Signature Glucose 150 (H) 70 - 99 06/12/2017 POINT OF CARE mg/dL 8:40 AM CDT TEST, GLUCOSE Specimen Anatomical Collection Method Collection Time Receive d Time (Source) Location / / Volume Laterality 06/12/2017 8:37 AM 7 8:40 CDT AM CDT Janice WAGNER - BENAIF POCT Performing Organization Address [facility]/ZIP Code Phon e Number FV POINT OF CARE TEST, GLUCOSE POINT OF CARE TEST, GLUCOSE (ABNORMAL) Glucose by meter (06/11/2017 10:31 PM CDT) P athologist Signature Glucose 126 (H) 70 - 99 06/12/2017 POINT OF CARE mg/dL 8:20 AM CDT TEST, GLUCOSE Specimen Anatomical Collection Method Collection Time Receive d Time (Source) Location / / Volume Laterality 06/11/2017 10:31 06/12/2017 8:20 PM CDT AM CDT Janice WAGNER - JASPREET POCT Performing Organization Address City/[facility]/ZIP Code Phon e Number FV POINT OF CARE TEST, GLUCOSE POINT OF CARE TEST, GLUCOSE (ABNORMAL) Glucose by meter (06/11/2017 5:30 PM CDT) P athologist Signature Glucose 147 (H) 70 - 99 06/11/2017 POINT OF CARE mg/dL 5:41 PM CDT TEST, GLUCOSE Specimen Anatomical Collection Method Collection Time Receive d Time (Source) Location / / Volume Laterality 06/11/2017 5:30 PM 7 5:41 CDT PM CDT Janice WAGNER - BENAIF POCT Performing Organization Address City/State/ZIP Code Phon e Number FV POINT OF CARE TEST, GLUCOSE POINT OF CARE TEST, GLUCOSE (ABNORMAL) Glucose by meter (06/11/2017 11:35 AM CDT) P athologist Signature Glucose 120 (H) 70 - 99 06/11/2017 POINT OF CARE mg/dL 11:40 AM CDT TEST, GLUCOSE Specimen Anatomical Collection Method Collection Time Receive d Time (Source) Location / / Volume Laterality 06/11/2017 11:35 06/11/2017 AM CDT 11:40 AM CDT Janice Wilson MD LAB - BENAIF POCT Performing Organization Address City/State/ZIP Code Phon e Number FV POINT OF CARE TEST, GLUCOSE POINT OF CARE TEST, GLUCOSE (ABNORMAL) Glucose by meter (06/11/2017 7:57 AM CDT) P athologist Signature Glucose 135 (H) 70 - 99 06/11/2017 POINT OF CARE mg/dL 8:05 AM CDT TEST, GLUCOSE Specimen Anatomical Collection Method Collection Time Receive d Time (Source) Location / / Volume Laterality 06/11/2017 7:57 AM 7 8:05 CDT AM CDT Janice WAGNER - JASPREET POCT Performing Organization Address City/State/ZIP Code Phon e Number FV POINT OF CARE TEST, GLUCOSE POINT OF CARE TEST, GLUCOSE (ABNORMAL) Glucose by meter (06/11/2017 6:34 AM CDT) athologist Signature Glucose 107 (H) 70 - 99 06/11/2017 POINT OF CARE mg/dL 5:40 PM CDT TEST, GLUCOSE Specimen Anatomical Collection Method Collection Time Receive d Time (Source) Location / / Volume Laterality 06/11/2017 6:34 AM 7 5:40 CDT PM CDT Janice Wilson MD LAB - JASPREET POCT Performing Organization Address City/State/ZIP Code Phon e Number FV POINT OF CARE TEST, GLUCOSE POINT OF CARE TEST, GLUCOSE (ABNORMAL) CBC with platelets (06/11/2017 6:24 AM CDT) [facility] gist Method Time Signature WBC 5.3 4.0 - 11.0 06/11/2017 [facility] 10e9/L 6:42 AM CDT [facility] RBC Count 4.12 (L) 4.4 - 5.9 06/11/2017 [facility] 10e12/L 6:42 AM CDT [facility] Hemoglobin 10.2 (L) 13.3 - 06/11/2017 [facility] 17.7 g/dL 6:42 AM T [facility] Hematocrit 34.0 (L) 40.0 - 06/11/2017 [facility] 53.0 % 6:42 AM CDT [facility] MCV 83 78 - 100 06/11/2017 [facility] fl 6:42 AM CDT [facility] MCH 24.8 (L) 26.5 - 06/11/2017 [facility] 33.0 pg 6:42 AM T [facility] MCHC 30.0 (L) 31.5 - 06/11/2017 [facility] 36.5 g/dL 6:42 AM T [facility] RDW 18.9 (H) 10.0 - 06/11/2017 [place] OF 15.0 % 6:42 AM T [facility] Platelet Count 165 150 - 450 06/11/2017 [facility] 10e9/L 6:42 AM CDT [facility] Specimen Anatomical Collection Method Collection Time Receive d Time (Source) Location / / Volume Laterality Blood specimen 06/11/2017 6:24 AM 017 6:26 (specimen) CDT AM CDT Janice Wilson MD LAB - BLOOD ORDERABLES Performing Organization Address City/State/ZIP Code Phon e Number [facility] [address] [place] [address] [facility] (ABNORMAL) Glucose by meter (06/10/2017 9:02 PM CDT) P athologist Signature Glucose 112 (H) 70 - 99 06/10/2017 POINT OF CARE mg/dL 9:05 PM CDT TEST, GLUCOSE Specimen Anatomical Collection Method Collection Time Receive d Time (Source) Location / / Volume Laterality 06/10/2017 9:02 PM 7 9:05 CDT PM CDT Janice Wilson MD LAB - BEAKER POCT Performing Organization Address City/State/ZIP Code Phon e Number F[facility] POINT OF CARE TEST, GLUCOSE POINT OF CARE TEST, GLUCOSE Glucose by meter (06/10/2017 5:27 PM CDT) P athologist Signature Glucose 97 70 - 99 06/10/2017 POINT OF CARE mg/dL 5:30 PM CDT TEST, GLUCOSE Specimen Anatomical Collection Method Collection Time Receive d Time (Source) Location / / Volume Laterality 06/10/2017 5:27 PM 7 5:30 CDT PM CDT Janice Wilson MD LAB - BENAIF POCT Performing Organization Address City/State/ZIP Code Phon e Number [facility] POINT OF CARE TEST, GLUCOSE POINT OF CARE TEST, GLUCOSE (ABNORMAL) Glucose by meter (06/10/2017 12:34 PM CDT) P athologist Signature Glucose 109 (H) 70 - 99 06/10/2017 POINT OF CARE mg/dL 12:40 PM CDT TEST, GLUCOSE Specimen Anatomical Collection Method Collection Time Receive d Time (Source) Location / / Volume Laterality 06/10/2017 12:34 06/10/2017 PM CDT 12:40 PM CDT Janice Wilson MD LAB - BENAIF POCT Performing Organization Address City/State/ZIP Code Phon e Number [facility] POINT OF CARE TEST, GLUCOSE POINT OF CARE TEST, GLUCOSE Glucose by meter (06/10/2017 8:18 AM CDT) P athologist Signature Glucose 70 70 - 99 06/10/2017 POINT OF CARE mg/dL 12:10 PM CDT TEST, GLUCOSE Specimen Anatomical Collection Method Collection Time Receive d Time (Source) Location / / Volume Laterality 06/10/2017 8:18 AM 7 CDT 12:10 PM CDT Janice Wilson MD LAB - BENAIF POCT Performing Organization Address City/State/ZIP Code Phon e Number [facility] POINT OF CARE TEST, GLUCOSE POINT OF CARE TEST, GLUCOSE (ABNORMAL) Glucose by meter (06/09/2017 9:20 PM CDT) P athologist Signature Glucose 156 (H) 70 - 99 06/09/2017 POINT OF CARE mg/dL 11:55 PM CDT TEST, GLUCOSE Specimen Anatomical Collection Method Collection Time Receive d Time (Source) Location / / Volume Laterality 06/09/2017 9:20 PM 7 CDT 11:55 PM CDT Janice Wilson MD LAB - BENAIF POCT Performing Organization Address City/State/ZIP Code Phon e Number [facility] POINT OF CARE TEST, GLUCOSE POINT OF CARE TEST, GLUCOSE (ABNORMAL) Glucose by meter (06/09/2017 5:00 PM CDT) P athologist Signature Glucose 106 (H) 70 - 99 06/09/2017 POINT OF CARE mg/dL 6:30 PM CDT TEST, GLUCOSE Specimen Anatomical Collection Method Collection Time Receive d Time (Source) Location / / Volume Laterality 06/09/2017 5:00 PM 7 6:30 CDT PM CDT Janice Wilson MD LAB - JASPREET POCT Performing Organization Address City/State/ZIP Code Phon e Number [facility] POINT OF CARE TEST, GLUCOSE POINT OF CARE TEST, GLUCOSE Glucose by meter (06/09/2017 12:48 PM CDT) athologist Signature Glucose 95 70 - 99 06/09/2017 POINT OF CARE mg/dL 12:50 PM CDT TEST, GLUCOSE Specimen Anatomical Collection Method Collection Time Receive d Time (Source) Location / / Volume Laterality 06/09/2017 12:48 06/09/2017 PM CDT 12:50 PM CDT Janice Wilson MD LAB - [place] POCT Performing Organization Address City/State/ZIP Code Phon e Number [facility] POINT OF CARE TEST, GLUCOSE POINT OF CARE TEST, GLUCOSE Glucose by meter (06/09/2017 8:39 AM CDT) athologist Signature Glucose 94 70 - 99 06/10/2017 POINT OF CARE mg/dL 2:25 AM CDT TEST, GLUCOSE Specimen Anatomical Collection Method Collection Time Receive d Time (Source) Location / / Volume Laterality 06/09/2017 8:39 AM 7 2:25 CDT AM CDT Janice Wilson MD LAB - [place] POCT Performing Organization Address City/State/ZIP Code Phon e Number [facility] POINT OF CARE TEST, GLUCOSE POINT OF CARE TEST, GLUCOSE Hemoglobin A1c (06/09/2017 5:54 AM CDT) athologist Signature Hemoglobin A1C 5.1 4.3 - 6.0 06/09/2017 [facility] % 6:27 AM CDT [facility] Specimen Anatomical Collection Method Collection Time Receive d Time (Source) Location / / Volume Laterality Blood specimen 06/09/2017 5:54 AM 017 5:58 (specimen) CDT AM CDT Janice Wilson MD LAB - BLOOD ORDERABLES Performing Organization Address City/State/ZIP Code Phon e Number [facility] [address] [place] [address] [facility] Vitamin D (06/09/2017 5:54 AM CDT) P athologist Signature Vitamin D 37 20 - 75 06/09/2017 [facility] Deficiency ug/L 1:46 PM CDT [facility] Comment: Season, race, dietary intake, and treatm ent affect the concentration of 70-tebqaxu-Eppjmlo D. Values may decreas e during winter months and increase during summer months. Values 20-29 ug/L may indicate Vitamin D insufficiency and values <20 ug/L may indicate Vitamin D deficiency. Vitamin D determination is routinely per formed by an immunoassay specific for 25 hydroxyvitamin D3. ??If an individual is on vitamin D2 (ergocalciferol) supplementation, please specify 25 OH vi tamin D2 and D3 level determination by LCMSMS test [id number]. Specimen Anatomical Collection Method Collection Time Receive d Time (Source) Location / / Volume Laterality Blood specimen 06/09/2017 5:54 AM 017 5:58 (specimen) CDT AM CDT Janice Wilson MD LAB - BLOOD ORDERABLES Performing Organization Address City/State/ZIP Code Phon e Number [facility] [address] [place] [address] [facility] (ABNORMAL) Comprehensive metabolic panel (06/09/2017 5:54 AM CDT) Analysis Performed At Patho logist Time Signature Sodium 140 133 - 144 06/09/2017 [facility] mmol/L 6:30 AM CDT [facility] Potassium 4.8 3.4 - 5.3 06/09/2017 [facility] mmol/L 6:30 AM CDT [facility] Chloride 108 94 - 109 06/09/2017 [facility] mmol/L 6:30 AM CDT [facility] Carbon Dioxide 25 20 - 32 06/09/2017 [facility] mmol/L 6:30 AM [facility] Anion Gap 7 3 - 14 06/09/2017 [facility] mmol/L 6:30 AM [facility] Glucose 107 (H) 70 - 99 06/09/2017 [facility] mg/dL 6:30 AM [facility] Urea Nitrogen 32 (H) 7 - 30 06/09/2017 [facility] mg/dL 6:30 AM [facility] Creatinine 1.09 0.66 - 06/09/2017 [facility] 1.25 mg/dL 6:30 AM [facility] GFR Estimate 70 >60 06/09/2017 [place] mL/min/1.7 6:[address] Comment: Non GFR Calc GFR Estimate If 85 >60 mL/min/1.7m2 06/09/2017 6:30 A M [facility] Black [facility] Comment: GFR Calc Calcium 8.7 8.5 - 10.1 06/09/2017 6:30 AM [facility] mg/dL [facility] Bilirubin Total 0.2 0.2 - 1.3 06/09/2017 6:30 AM [facility] mg/dL [facility] Albumin 2.1 (L) 3.4 - 5.0 g/dL 06/09/2017 6:30 AM [facility] Protein Total 7.7 6.8 - 8.8 g/dL 06/09/2017 6:30 AM [facility] Alkaline Phosphatase 70 40 - 150 U/L 06/09/2017 6:30 AM [facility] ALT 15 0 - 70 U/L 06/09/2017 6:30 AM [facility] AST 26 0 - 45 U/L 06/09/2017 6:30 AM [facility] Specimen Anatomical Collection Method Collection Time Receive d Time (Source) Location / / Volume Laterality Blood specimen 06/09/2017 5:54 AM 017 5:58 (specimen) CDT AM T Janice Wilson MD LAB - BLOOD ORDERABLES Performing Organization Address City/State/[facility] Code Phon e Number [address] [address] [facility] (ABNORMAL) CBC with platelets (06/09/2017 5:54 AM CDT) Patholo gist Method Time Signature WBC 6.5 4.0 - 11.0 06/09/2017 [facility] 10e9/L 6:08 AM CDT [facility] RBC Count 4.26 (L) 4.4 - 5.9 06/09/2017 [facility] 10e12/L 6:08 AM CDT [facility] Hemoglobin 10.6 (L) 13.3 - 06/09/2017 [facility] 17.7 g/dL 6:08 AM CDT [facility] Hematocrit 35.1 (L) 40.0 - 06/09/2017 [place] [facility] 53.0 % 6:08 AM CDT [facility] MCV 82 78 - 100 06/09/2017 [facility] fl 6:08 AM CDT [facility] MCH 24.9 (L) 26.5 - 06/09/2017 [facility] 33.0 pg 6:08 AM CDT [facility] MCHC 30.2 (L) 31.5 - 06/09/2017 [facility] 36.5 g/dL 6:08 AM CDT [facility] RDW 19.3 (H) 10.0 - 06/09/2017 [facility] 15.0 % 6:08 AM CDT [facility] Platelet Count 141 (L) 150 - 450 06/09/2017 [facility] 10e9/L 6:08 AM CDT [facility] Specimen Anatomical Collection Method Collection Time Receive d Time (Source) Location / / Volume Laterality Blood specimen 06/09/2017 5:54 AM 017 5:58 (specimen) CDT AM CDT Janice Wilson MD LAB - BLOOD ORDERABLES Performing Organization Address City/State/ZIP Code Phon e Number [address] [address] [facility] (ABNORMAL) Glucose by meter (06/08/2017 9:16 PM CDT) P athologist Signature Glucose 120 (H) 70 - 99 06/08/2017 POINT OF CARE mg/dL 11:40 PM CDT TEST, GLUCOSE Specimen Anatomical Collection Method Collection Time Receive d Time (Source) Location / / Volume Laterality 06/08/2017 9:16 PM 7 CDT 11:40 PM CDT Janice Wilson MD LAB - [place] POCT Performing Organization Address City/State/ZIP Code Phon e Number [facility] POINT OF CARE TEST, GLUCOSE POINT OF CARE TEST, GLUCOSE Glucose by meter (06/08/2017 5:12 PM CDT) P athologist Signature Glucose 92 70 - 99 06/08/2017 POINT OF CARE mg/dL 5:15 PM CDT TEST, GLUCOSE Specimen Anatomical Collection Method Collection Time Receive d Time (Source) Location / / Volume Laterality 06/08/2017 5:12 PM 7 5:15 CDT PM CDT Janice Wilson MD LAB - [place] POCT Performing Organization Address City/State/ZIP Code Phon e Number [facility] POINT OF CARE TEST, GLUCOSE POINT OF CARE TEST, GLUCOSE documented in this encounter Visit Diagnoses Diagnosis S/P BKA (below knee amputation), left (H ) Below knee amputation status Lower limb amputation, below knee documented in this encounter Administered Medications Inactive Administered Medications - up to 3 most recent administrations Medication Order MAR Action Action Date Dose Rate Site aspirin chewable tablet 162 mg Given 06/12/2017 9:58 PM CDT 162 mg 162 mg, Oral, DAILY, First dose on Thu06/09/17 at 0800 Given 06/11/2017 8:44 PM CDT 162 mg Given 06/10/2017 10:05 PM CDT 162 mg cholecalciferol (vitamin D) tablet 4,000 Given 017 9:21 AM CDT 4,000 Units Units 4,000 Units, Oral, DAILY, First dose on Thu06/09/17 at 0800 Given 06/12/2017 8:26 AM CDT 4,000 Units Given 06/11/2017 8:25 AM CDT 4,000 Units dextrose 50 % injection 25-50 mL 25-50 mL, Intravenous, EVERY 15 MIN PRN, low blood sugar, Starting on Thu06/08/17 at 1450, Use if have IV access, BG less than 70 mg/dL and meet dose criteria below: Dose if conscious and alert (or disorien tated) and NPO = 25 mL Dose if unconscious / not alert = 50 mL Vesicant. gabapentin (NEURONTIN) capsule 300 mg Given 06/13/2017 1:36 PM CDT 300 mg 300 mg, Oral, 3 TIMES DAILY, First dose on Thu06/08/17 at 1500 Given 06/13/2017 9:21 AM CDT 300 mg Given 06/12/2017 9:58 PM CDT 300 mg glipiZIDE (GLUCOTROL XL) 24 hr tablet 5 mg Given 06/13/2017 9:21 AM CDT 5 mg 5 mg, Oral, DAILY WITH BREAKFAST, First dose on Thu06/09/17 at 0800 Given 06/12/2017 6:57 AM CDT 5 mg Given 06/11/2017 8:25 AM CDT 5 mg glucagon injection 1 mg 1 mg, Subcutaneous, EVERY 15 MIN PRN, low blood sugar, May repeat x 1 only, Starting on Thu06/08/17 at 1450, May giv e SQ or IM. ONLY use glucagon IF patient has NO IV access AND is UNABLE to swallo w AND blood glucose is LESS than or EQUAL to 50 mg/dL. glucose 40 % gel 15-30 g 15-30 g, Oral, EVERY 15 MIN PRN, low blo od sugar, Starting on Thu06/08/17 at 1450, Give 15 g for BG 51 to [...] juice on I and O fl owsheet. lisinopril (PRINIVIL/ZESTRIL) tablet 30 mg Given 06/13/2017 9:20 AM CDT 30 mg 30 mg, Oral, DAILY, First dose on Thu06/09/17 at 0800, Please hold for SBP < 110 Given 06/12/2017 8:26 AM CDT 30 mg Given 06/11/2017 8:24 AM CDT 30 mg naloxone (NARCAN) injection 0.1-0.4 mg 0.1-0.4 mg, Intravenous, EVERY 2 MIN PRN , opioid reversal, Starting on Thu06/08/17 at 1511, For respiratory rate LESS than or EQUAL to 8. Partial reversal dose: 0.1 mg titrated q 2 minutes for Analgesia Si de Effects Monitoring Sedation Level of 3 (frequently drowsy, arousable, drifts to sleep during conversation).Full reversal dose: 0.4 mg bolus for Analgesia Side Effects Monitori ng Sedation Level of 4 (somnolent, minimal or no response to stimulation). oxyCODONE (ROXICODONE) IR tablet 5-10 mg Given 06/10/2017 6:39 AM CDT 5 mg 5-10 mg, Oral, EVERY 3 HOURS PRN, moderate to severe pain, Starting on Thu06/08/17 at 1443 Given 06/09/2017 9:44 PM CDT 5 mg Given 06/09/2017 4:30 PM CDT 5 mg oxyCODONE (ROXICODONE) IR tablet 5-10 mg Given 06/11/2017 6:37 AM CDT 5 mg 5-10 mg, Oral, EVERY 4 HOURS PRN, moderate to severe pain, Starting on Thu06/10/17 at 1130 Given 06/10/2017 10:06 PM CDT 5 mg Given 06/10/2017 2:17 PM CDT 5 mg senna-docusate (SENOKOT-S;PERICOLACE) Given 06/12/2017 8:27 AM C DT 2 tablets 8.6-50 MG per tablet 1-2 tablet 1-2 tablet, Oral, 2 TIMES DAILY, First dose on Thu06/08/17 at 2100 Given 06/11/2017 8:44 PM CDT 1 tablet Given 06/11/2017 8:25 AM CDT 1 tablet sertraline (ZOLOFT) tablet 50 mg Given 06/13/2017 9:21 AM CDT 50 mg 50 mg, Oral, DAILY, First dose on Thu06/09/17 at 0800 Given 06/12/2017 8:26 AM CDT 50 mg Given 06/11/2017 8:25 AM CDT 50 mg simvastatin (ZOCOR) tablet 20 mg Given 06/12/2017 9:58 PM CDT 20 mg 20 mg, Oral, AT BEDTIME, First dose on Thu06/08/17 at 2200 Given 06/11/2017 8:45 PM CDT 20 mg Given 06/10/2017 10:07 PM CDT 20 mg documented in this encounter Active and Recently Administered Medications Times are shown in CDT. Scheduled Medication Order 06/11/2017 06/12/2017 06/13/2017 aspirin chewable tablet 162 mg 2043 (Given - Provider: Inge Gonzalez RN) 215 (Given - Provider: Loyd Yang, LIBORIO) 162 mg, Oral, DAILY, First dose on Thu06/09/17 at 0800 cholecalciferol (vitamin D) tablet 4,000 Units 0825 (G iven - Provider: Zoraida Simmons RN) 0826 (Given - Provider: Susan Javed RN) 0921 (G iven - Provider: Chula Ayala RN) 4,000 Units, Oral, DAILY, First dose on Thu06/09/17 at 0800 gabapentin (NEURONTIN) capsule 300 mg 0825 (Given - Pr ovider: Zoraida Simmons RN)1432 (Given - Provider: Zoraida Simmons RN)2044 (Given - Provider: Inge Gonzalez RN) 0827 (Given - Provider: Susan flores RN)1505 (Given - Provider: Susan Javed RN)2158 (Given - Provider: Loyd Yang RN) 0921 (Given - Provider: Chula Ayala RN)1336 (Given - Provider: Chula Ayala RN) 300 mg, Oral, 3 TIMES DAILY, First dose on Thu06/08/17 at 1500 glipiZIDE (GLUCOTROL XL) 24 hr tablet 5 mg 0825 (Given - Provider: Zoraida Simmons RN) 0657 (Given - Provider: Kelsea garcia RN)0800 (Canceled Entry - Provider: Kelsea Wright RN) 0921 (Given - Provider: Chula Ayala RN) 5 mg, Oral, DAILY WITH BREAKFAST, First dose on Thu06/09/17 at 0 800 lisinopril (PRINIVIL/ZESTRIL) tablet 30 mg 0824 (Given - Provider: Zoraida Simmons RN) 0826 (Given - Provider: Susan Javed, LIBORIO) 0920 (G iven - Provider: Chula Ayala, LIBORIO) 30 mg, Oral, DAILY, First dose on 09/13 at 0800, Please hold for SBP < 110 senna-docusate (SENOKOT-S;PERICOLACE) 8.6-50 MG per ta blet 1-2 tablet 0825 (Given - Provider: Zoraida Simmons, RN)2043 (Given - Provider: Inge Gonzalez, LIBORIO) 08 (Given - Provider: Susan flores RN)215 (Not Given - Provider: Loyd Yang, LIBORIO - Reason: Patient/family refused) 0920 (Not Given - Provider: Chula Ayala, LIBORIO - Reason: Patient/family refused) 1-2 tablet, Oral, 2 TIMES DAILY, First dose on Thu06/08/17 at 21 00 sertraline (ZOLOFT) tablet 50 mg 0825 (Given - Provider: Merry Simmons, LIBORIO) 0826 (Given - Provider: Susan Javed, LIBORIO) 0921 (Given - Provider: Chula Ayala, LIBORIO) 50 mg, Oral, DAILY, First dose on Thu06/09/17 at 0800 simvastatin (ZOCOR) tablet 20 mg 2044 (Given - Provider: Caty Gonzalez RN) 2157 (Given - Provider: Loyd Yang, LIBORIO) 20 mg, Oral, AT BEDTIME, First dose on Thu06/08/17 at 2200 PRN Medication Order 06/11/2017 06/12/2017 06/13/2017 acetaminophen (TYLENOL) tablet 650 mg 650 mg, Oral, EVERY 4 HOURS PRN, other, surgical pain, Starting Thu06/08/17 at 1443, Maximum acetaminophen dose from all sources = 75 mg/kg/day not to exceed 4 grams/day. dextrose 50 % injection 25-50 mL(Linked Group 1) 25-50 mL, Intravenous, EVERY 15 MIN PRN, low blood sugar, Starting Thu06/08/17 at 1450, Use if have IV access, BG less than 70 mg/dL and meet dose criteria below: Dose if conscious and alert (or disorie ntated) and NPO = 25 mL Dose if unconscious / not alert = 50 mL Vesicant. glucagon injection 1 mg(Linked Group 1) 1 mg, Subcutaneous, EVERY 15 MIN PRN, lo w blood sugar, May repeat x 1 only, Starting 06/08/17 at 1450, May give SQ or IM. ONLY use glucagon IF patient has NO IV access AND is UNABLE to swallow AND blood glucose is LESS than or EQUAL to 50 mg/dL. glucose 40 % gel 15-30 g(Linked Group 1) 15-30 g, Oral, EVERY 15 MIN PRN, low blo od sugar, Starting Thu06/08/17 at 1450, Give 15 g for BG 51 to 69 mg/dL IF patient is conscious and able to swallow. Give 30 g for BG less than or equal to 50 mg/ dL IF patient is conscious and able to s wallow. Do NOT give glucose gel via enteral tube. IF patient has enteral tube: give apple juice 120 mL (4 oz or 15 g of CHO) via enteral tube for BG 51 to 69 mg/d L. Give apple juice 240 mL (8 oz or 30 g of CHO) via enteral tube for BG less than or equal to 50 mg/dL. ~Oral gel is preferable for conscious and able to swallow patient. ~IF gel unavailable or patient refuses may provide apple juice 120 mL (4 oz or 15 g of CHO). Document juice on I and O flowsheet. naloxone (NARCAN) injection 0.1-0.4 mg 0.1-0.4 mg, Intravenous, EVERY 2 MIN PRN , opioid reversal, Starting Thu06/08/17 at 1511, For respiratory rate LESS than or EQUAL to 8. Partial reversal dose: 0.1 mg titrated q 2 minutes for Analgesia Si de Effects Monitoring Sedation Level of 3 (frequently drowsy, arousable, drifts to sleep during conversation).Full reversal dose: 0.4 mg bolus for Analgesia Side Effects Monitoring Sedation Level of 4 ( somnolent, minimal or no response to stimulation). oxyCODONE (ROXICODONE) IR tablet 5-10 mg 0637 (Given - Provider: Kelsea Wright RN) 5-10 mg, Oral, EVERY 4 HOURS PRN, modera te to severe pain, Starting 06/10/17 at 1130 polyvinyl alcohol-povidone (HYPOTEARS) ophthalmic solution 1-2 d rop 1-2 drop, Both Eyes, EVERY 1 HOUR PRN, irritation, Sta rting 06/09/17 at 0853 Linked Groups Order Group 1: glucose 40 % gel 15-30 gJump to med 15-30 g, Oral, EVERY 15 MIN PRN, low blo od sugar, Starting 06/08/17 at 1450
Give 15 g for BG 51 to 69 mg/dL IF patient is conscious and able to swallow. Give 30 g for BG less than or equal t o 50 mg/dL IF patient is conscious and a ble to swallow. Do NOT give glucose gel via enteral tube. IF patient has enteral tube: give apple juice 120 mL (4 oz or 15 g of CHO) via entera l tube for BG 51 to 69 mg/dL. &nbsp ;Give apple juice 240 mL (8 oz or 30 g of CHO) via enteral tube for BG less than or equal to 50 mg/dL. ~Oral gel is preferable for cons cious and able to swallow patient. &nbsp ;~IF gel unavailable or patient refuses may provide apple juice 120 mL (4 oz or 15 g of CHO). Document juice on I and O flowsheet.
Or dextrose 50 % injection 25-50 mLJump to med 25-50 mL, Intravenous, EVERY 15 MIN PRN, low blood sugar, Starting 06/08/17 at 1450
Use if have IV access, BG less than 70 mg/dL and meet dose criteria below: Dose if conscious and alert (or disorientated) and NPO = 25 mL Dose if unconscious / not alert = 50 mL Vesicant.
Or glucagon injection 1 mgJump to med 1 mg, Subcutaneous, EVERY 15 MIN PRN, lo w blood sugar, May repeat x 1 only, Starting 06/08/17 at 1450
May give SQ or IM. ONLY use glucagon IF patient has NO IV access AND is UNABLE to swallo w AND blood glucose is LESS than or EQUA L to 50 mg/dL.
documented in this encounter Care Teams [employer] Relationship Specialty Start Date End Date Ihsan Dunn MD PCP - General 06/07/17 documented as of this encounter
--- OUTSIDE RECORDS SUMMARY | 2022-07-31 10:06 | XMS_ITS | Encounter Summary ---
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 Thoracic aortic aneurysm without rupture Melanie Desai MD [address] [place] [address] Referral ID Status Reason Start Date Expiration Date Visits Requ ested Visits Authorized [id number] Closed 10/29/2019 10/28/2020 1 1 ORIAN LITERATURE PROFESSOR Reason for Visit Reason Comments Results f/u HTN, sinus of Valsalva a neurysm-review echo results - Closed Specialty Diagnoses / Procedures Referred By Contact Refer red To Contact Diagnoses 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 Thoracic aortic aneurysm without rupture Melanie Desai MD [address] [place] [address] Referral ID Status Reason Start Date Expiration Date Visits Requ ested Visits Authorized [id number] Closed 09/29/2017 09/29/2018 1 1 Encounter Details Date Type Department Care Team Description 10/29/2017 Office Visit [facility] Melanie Desai sm of aortic sinus of Valsalva without rupture (Primary Dx); Heart Clinic MD Leonila Thoracic aortic aneurysm without rupture (H); [place] [id number] [place] (obstructive sleep apnea ); [address] Type 2 diabetes mellitus with diabetic n europathy, without long-term current use of insulin (H); [address] [place], [place] [phone] Social History Tobacco Use Types Packs/Day Years Used Date Smoking Tobacco: Never Smokeless Tobacco: Never Tobacco Cessation: Counseling Given: No Alcohol Use Standard Drinks/Week Comments No 0 (1 standard drink = 0.6 oz pure alcoho l) Sex Assigned at Date Recorded Not on file documented as of this encounter Last Filed Vital Signs Vital Sign Reading Time Taken Comments Blood Pressure 128/78 10/29/2017 2:07 PM VICTORIAN LITERATURE PROFESSOR Pulse 78 10/29/2017 2:07 PM VICTORIAN LITERATURE PROFESSOR regular Temperature - - Respiratory Rate - - Oxygen Saturation - - Inhaled Oxygen Concentration - - Weight 107.9 kg (237 lb 14.4 oz) 10/29/2017 2:07 PM VICTORIAN LITERATURE PROFESSOR Height 177.8 cm (5' 10) 10/29/2017 2:07 PM VICTORIAN LITERATURE PROFESSOR Body Mass Index 34.14 10/29/2017 2:07 PM VICTORIAN LITERATURE PROFESSOR documented in this encounter Progress Notes Melanie Desai MD - 10/29/2017 3:06 PM CST Service Date: 10/29/2017 PRIMARY CARE PHYSICIAN: Dr. Boyd Dunn. HISTORY OF PRESENT ILLNESS: I again had the pleasure of seeing your patient, Geo Dubois, at [facility] [place] [facility] for evaluation of sinus of Valsalva aneurysm. The patient has a history of adult onset diabetes mellitus documented in 06/2015. 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 He does not have significant nephropathy to date. Previous echocardiogram performed at the [facility] on 09/03/2015 showed normalleft ventricular chamber size, mild left ventricular hypertrophy, ejection fraction of 57% and regional wall motion abnormalities with hypokinesis of both the anterior and inferolateral lara. There was moderate sinus of Valsalva dilatation at 4.[address] coronary angiogram performed 09/25/2017 showed a total Agatston score of 0.82 in the LAD and no significant coronary artery disease. The reader mentioned that the proximal ascending aorta was normal size. He has never had a known myocardial infarction. He has been diagnosed with obstructive sleep apnea and started using CPAP in 2003 but discontinued this until December of last year. His weight continues to climb. He notes he eats more during holidays. He remains on lisinopril for hypertension. An echocardiogram performed today demonstrates normal left ventricular size and function with mild concentric left ventricular hypertrophy. The ascending aorta is mildly dilated at 3.7 cm with the aortic root 3.9 cm. This is certainly not larger than the previous echo in 08/2016. There is no significant valvular insufficiency or stenosis. PHYSICAL EXAMINATION: As noted below. 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 ASSESSMENT: 1. Patient with mild aortic root and ascending aortic aneurysm. We will recheck an echocardiogram in2 years. 2. Blood pressure control will be coordinated by his PMD. His blood pressure was quite elevated at 170/90 during his echo and is more normal at 128/78 at my appointment. 3. No current treatment for coronary artery disease is necessary. We continue with aspirin and his statin. It is my pleasure to assist in the care of Geo Dubois. We did spend 50% of the 30-minute visit today talking about diet, weight loss and his blood pressure. All his questions were answered to his satisfaction. I will see him again in 2 years with an echocardiogram at that time. Melanie Desai MD cc: [place] [address] MELANIE DESAI MD, [facility] MT: RAÚL Name: GEO DUBOIS Account: [id number] : 1960 Service Date: 10/29/2017 Document: [id number] ORIAN LITERATURE PROFESSOR Melanie Desai MD - 10/29/2017 2:15 PM CST HPI and Plan: See dictation:[id number] Orders Placed This Encounter Procedures ??? Follow-Up with Operations Vice President Orders Placed This Encounter Medications ??? ascorbic acid (VITAMIN C) 500 MG tablet Sig: Take 500 mg by mouth daily Medications Discontinued During This Encounter Medication Reason ??? acetaminophen (TYLENOL) 325 MG tablet Not filled/taken by Patient ??? oxyCODONE (ROXICODONE) 5 MG IR tablet Not filled/taken by Patient ??? gabapentin (NEURONTIN) 300 MG capsule Encounter Diagnoses Name Primary? 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 Thoracic aortic aneurysm without rupture (H) ??? VILLA (obstructive sleep apnea) ??? Type 2 diabetes mellitus with diabetic neuropathy, without long-term current use of insulin (H) CURRENT MEDICATIONS: Current Outpatient Prescriptions Medication Sig Dispense Refill ??? ascorbic acid (VITAMIN C) 500 MG tablet Take 500 mg by mouth daily ??? aspirin 81 MG tablet Take 2 tablets (162 mg) by mouth daily 60 tablet 0 ??? order for DME Equipment being ordered: Walker Wheels ([id number]) and Walker ([id number]) Treatment Diagnosis: Impaired gait stability s/p BKA 1 each 0 ??? polyvinyl alcohol-povidone (REFRESH) 1.4-0.6 % ophthalmic solution Place 1-2 drops into both eyes as needed for irritation ??? order for DME [employer] Order Primary Dressing Hydrofera Blue READY TRANSFER Qty 5 sheets NOT NEEDED Secondary Dressing 4 Roll gauze Qty 60 NOT NEEDED Secondary Dressing 2 medipore tape Qty 3 Length of Need: 1 month Frequency of dressing change: daily 30 days 0 ??? order for DME [employer] Order Primary Dressing HydroferaBlue Ready Transfer Qty 4 sheets Primary Dressing Endoform Qty 15 sheets Secondary Dressing 4x4 Gauze Loaf Qty 2 Secondary Dressing 2 Medipore Tape Qty 2 Length of Need: 1 month Frequency of dressing change: daily Please send what his insurance will allow. Thank you 30 days 0 ??? lisinopril (PRINIVIL/ZESTRIL) 10 MG tablet Take 30 mg by mouth daily ??? SIMVASTATIN PO Take 20 mg by mouth daily ??? Sertraline HCl (ZOLOFT PO) Take 50 mg by mouth daily ??? Cholecalciferol (VITAMIN D3 PO) Take 5,000 Units by mouth daily ??? GLIPIZIDE XL PO Take 5 mg by mouth daily (with breakfast) ALLERGIES Allergies Allergen Reactions ??? Amoxicillin Hives PAST MEDICAL HISTORY: Past Medical History: Diagnosis Date ??? Anemia [...] (obstructive sleep apnea) 04/02/2017 ??? S/P biopsy 2015 for lymphoma ??? Sleep apnea CPAP ??? Thoracic aortic aneurysm without rupture (H) 09/15/2016 ??? Type 2 diabetes mellitus with diabetic neuropathy (H) 03/17/2016 PAST SURGICAL HISTORY: Past Surgical History: Procedure Laterality Date ??? [...] OR ??? ORTHOPEDIC SURGERY Right bone shaving FAMILY HISTORY: Family History Problem Relation Age of Onset ??? Hyperlipidemia Father ??? Hypertension Mother ??? DIABETES Mother ??? DIABETES Brother SOCIAL HISTORY: Social History Social History ??? Marital status: Spouse name: N/A ??? Number of children: N/A ??? Years of education: N/A Social History Main Topics ??? Smoking status: Never Smoker ??? Smokeless tobacco: Never Used ??? Alcohol use No ??? Drug use: No ??? Sexual activity: Not Asked Other Topics Concern ??? Caffeine Concern No ??? Special Diet Yes diabetic diet ??? Exercise No Social History Narrative Review of Systems: Skin: Eyes: Positive for glasses macular edema - reading ENT: Positive for nasal congestion Respiratory: Positive for sleep apnea;CPAP Cardiovascular: Positive for;edema;fatigue Gastroenterology: Negative Genitourinary: Negative Musculoskeletal: Positive for joint pain;joint stiffness left ankle amputated 06/05/17 - no pain in right foot Neurologic: Positive for numbness or tingling of feet right foot Psychiatric: Positive for excessive stress;anxiety;depression Moods are good - most of the time Heme/Lymph/Imm: Positive for allergies RX allergies Endocrine: Positive for Physical Exam: Vitals: BP 128/78 (BP Location: Right arm, Patient Position: Sitting, Cuff Size: Adult Large) Pulse 78 Ht 1.778 m (5' 10) Wt 107.9 kg (237 lb 14.4 oz) BMI 34.14 kg/m2 Constitutional: cooperative, alert and oriented, well developed, well nourished, in no acute distress Skin: warm and dry to the touch, no apparent skin lesions or masses noted Head: normocephalic, no masses or lesions Eyes: pupils equal and round, conjunctivae and lids unremarkable, sclera white, no xanthalasma, EOMSintact, no nystagmus Lymph: ENT: no pallor or cyanosis, dentition good Neck: carotid pulses are full and equal bilaterally, JVP normal, no carotid bruit Respiratory: normal breath sounds, clear to auscultation, normal A-P diameter, normal symmetry, normal respiratory excursion, no use of accessory muscles Cardiac: regular rhythm, normal S1/S2, no S3 or S4, apical impulse not displaced, no murmurs, gallops or rubs pulses full and equal, no bruits auscultated GI: abdomen soft, non-tender, BS normoactive, no mass, no HSM, no bruits Extremities and Muscular Skeletal: Hard walking boots on right foot to pretibial leg, left foot amputation Neurological: affect appropriate examined in a wheel chair Psych: Alert and Oriented x 3 CC Melanie Desai MD [address] [place] [id number] ORIAN LITERATURE PROFESSOR documented in this encounter Plan of Treatment Scheduled Referrals Name Type Priority Associated Diagnoses Order S chedule Follow-Up with Referral Routine Aneurysm of aortic Expecte d: 10/29/2019 Operations Vice President sinus of Valsalva (Approxima te), without rupture Expires: 11/18/2019 Thoracic aortic aneurysm without rupture (H) documented as of this encounter Visit Diagnoses Diagnosis Aneurysm of aortic sinus of Valsalva wit hout rupture - Primary Thoracic aortic aneurysm without rupture Thoracic aneurysm without mention of rup ture VILLA (obstructive sleep apnea) Obstructive sleep apnea (adult) (pediatr ic) Type 2 diabetes mellitus with diabetic n europathy, without long-term current use of insulin (H) Benign essential hypertension Essential hypertension, benign documented in this encounter Care Teams Hydrometer Finisher Relationship Specialty Start Date End Date Ihsan Dunn MD PCP - General 06/07/17 documented as of this encounter
--- OUTSIDE RECORDS SUMMARY | 2022-07-31 10:06 | XMS_ITS | Encounter Summary ---
:1960 Author Organization [place] Address [address] [place] [address] Care Team Providers Name Role Phone Ihsan Dunn MD Primary Care Provider [phone] Encounter Details Date Type Department Care Team Description 06/22/2017 [facility] [address] [place] [address] Aftercare following Encounter [facility] Kristal Lozada PA-C [facility] [address] [place] [id number] surgery of the [address] (Primary Dx) [place] [phone] Social History Tobacco Use Types Packs/Day Years [...] Comme nts CBC WITH PLATELETS & Routine 06/22/2017 9:43 Aftercare followi ng Results for this DIFFERENTIAL AM CDT surgery of the procedure are in musculoskeletal system the r esults section. ERYTHROCYTE Routine 06/22/2017 9:43 Aftercare following Resul ts for this SEDIMENTATION RATE AM CDT surgery of the procedu re are in AUTO musculoskeletal system the r esults section. CRP INFLAMMATION Routine 06/22/2017 9:43 Aftercare following R esults for this AM CDT surgery of the procedure are in musculoskeletal system the r esults section. documented in this encounter Results (ABNORMAL) Erythrocyte sedimentation rate auto (06/22/2017 9:43 AM CDT) athologist Signature Sed Rate 22 (H) 0 - 20 mm/h 06/22/2017 [facility] 10:00 AM [facility] Specimen Anatomical Collection Method Collection Time Receive d Time (Source) Location / / Volume Laterality Blood specimen 06/22/2017 9:43 AM 017 9:49 (specimen) CDT AM CDT Kristal Lozada PA-C LAB - BLOOD ORDERA BLES Performing Organization Address City/State/ZIP Code Phon e Number [facility] [address] [place], [place] [address] [facility] [address] [phone] CRP inflammation (06/22/2017 9:43 AM CDT) athologist Signature CRP Inflammation 5.5 0.0 - 8.0 06/22/2017 [place] mg/L 10:03 AM T [facility] Specimen Anatomical Collection Method Collection Time Receive d Time (Source) Location / / Volume Laterality Blood specimen 06/22/2017 9:43 AM 017 9:49 (specimen) CDT AM CDT Kristal Lozada PA-C LAB - BLOOD ORDERA BLES Performing Organization Address City/State/ZIP Code Phon e Number M [facility] [address] [place] [address] [facility] [address] [phone] (ABNORMAL) CBC with platelets differential (06/22/2017 9:43 AM CDT) [facility] Method Time Signature WBC 7.4 4.0 - 06/22/2017 [facility] 11.0 9:51 AM [facility] 10e9/L [facility] RBC Count 5.38 4.4 - 5.9 06/22/2017 [facility] 10e12/L 9:51 AM [facility] Hemoglobin 13.3 13.3 - 06/22/2017 [facility] 17.7 g/dL 9:51 AM [facility] Hematocrit 45.7 40.0 - 06/22/2017 [facility] 53.0 % 9:51 AM [facility] MCV 85 78 - 100 06/22/2017 [facility] fl 9:51 AM [facility] MCH 24.7 (L) 26.5 - 06/22/2017 [facility] 33.0 pg 9:51 AM [facility] MCHC 29.1 (L) 31.5 - 06/22/2017 [facility] 36.5 g/dL 9:51 AM [facility] RDW 21.7 (H) 10.0 - 06/22/2017 [facility] 15.0 % 9:51 AM [facility] Platelet Count 269 150 - 450 06/22/2017 [facility] 10e9/L 9:51 AM [facility] Diff Method Automated 06/22/2017 [facility] Method 9:51 AM [facility] % Neutrophils 54.3 % 06/22/2017 [facility] 9:51 AM [facility] % Lymphocytes 30.1 % 06/22/2017 [facility] 9:51 AM [facility] % Monocytes 10.2 % 06/22/2017 [place] 9:51 AM [facility] % Eosinophils 3.6 % 06/22/2017 [place] 9:51 AM [facility] % Basophils 0.9 % 06/22/2017 [place] 9:51 AM [facility] % Immature 0.9 % 06/22/2017 [place] Granulocytes 9:51 AM [facility] Nucleated RBCs 0 0 /100 06/22/2017 [place] 9:51 AM [facility] Absolute 4.0 1.6 - 8.3 06/22/2017 [place] Neutrophil 10e9/L 9:51 AM [facility] Absolute 2.2 0.8 - 5.3 06/22/2017 [place] Lymphocytes 10e9/L 9:51 AM [facility] Absolute 0.8 0.0 - 1.3 06/22/2017 [place] Monocytes 10e9/L 9:51 AM [facility] Absolute 0.3 0.0 - 0.7 06/22/2017 [place] Eosinophils 10e9/L 9:51 AM [facility] Absolute 0.1 0.0 - 0.2 06/22/2017 [place] Basophils 10e9/L 9:51 AM [facility] Abs Immature 0.1 0 - 0.4 06/22/2017 [place] Granulocytes 10e9/L 9:51 AM [facility] Absolute 0.0 06/22/2017 [place] Nucleated RBC 9:51 AM [facility] Specimen Anatomical Collection Method Collection Time Receive d Time (Source) Location / / Volume Laterality Blood specimen 06/22/2017 9:43 AM 017 9:49 (specimen) CDT AM CDT Kristal Lozada PA-C LAB - BLOOD ORDERA BLES Performing Organization Address City/State/ZIP Code Phon e Number [facility] [address] [place] [address] [facility] [address] [phone] documented in this encounter Visit Diagnoses Diagnosis Aftercare following surgery of the [facility] [place] system - Primary Aftercare [facility] documented in this encounter Care Teams Deputy Of Counter Intelligence Relationship Specialty Start Date End Date Ihsan Dunn MD PCP - General 06/07/17 documented as of this encounter
--- OUTSIDE RECORDS SUMMARY | 2022-07-31 10:07 | XMS_ITS | Encounter Summary ---
:1960 Author Organization [place] Address [address] [place] [address] Care Team Providers Name Role Phone Hortencia December Primary Care Provider Reason for Visit Reason Onset Date Comments Other 09/15/2016 review appt Encounter Details Date Type Department Care Team Description 09/15/2016 Telephone [facility] Simone lA, Other (review appt ) Clinic [place] CAPONE [address] [facility] [address] [place] [address] Social History Tobacco Use Types Packs/Day Years Used Date Smoking Tobacco: Never Alcohol Use Standard Drinks/Week Comments No 0 (1 standard drink = 0.6 oz pure alcoho l) Sex Assigned at Date Recorded Not on file documented as of this encounter Miscellaneous Notes Telephone Encounter - Simone Raymond RN - 09/15/2016 1:46 PM CST Pts emergency contact Aminah called stating she was unable to make pts OV today but was wondering what the echo results were and why they are doing an angiogram. Informed Aminah they are doing at CT coronary angiogram to look into the mild aortic dilatation and regional wall motion abnormalities. Also informed Aminah of pt taking metoprolol bid the day before the test. Verbalized understanding No further questions. OV 09/15/16 Dr. Sargent ASSESSMENT: ?? 1.?? Geo Dubois is a pleasant 56-year-old male who has numerous repercussions from diabetes including a Charcot joint on the right foot with previous surgery.?? His echocardiogram at the [facility] indicated sinus of Valsalva aneurysm which is stable.?? He has regional wall motion abnormalities a nd a CT coronary angiogram will now be scheduled.?? I have taken the liberty of giving him 50 mg of metoprolol b.i.d. the day before the test and we will try to get the test done early in the morning since he is diabetic.?? He is otherwise asymptomatic and there are no signs of congestive heart failure.?? His heart rate remains elevated, but his blood pressure has improved.?? Our next steps will be determined by the CT coronary angiogram. ?? 2.?? I have cautioned this patient about watching his diet carefully and losing some of the weight he has gained for the sake of his lower extremities. ?? 3.?? The patient will continue with his CPAP machine. ? It is my pleasure to assist in the care of Geo Dubois.?? We will consider repeating his echocardiogram in 1 year since his ascending aortic aneurysm is stable.?? We will also review this on a CT coronary angiogram for more precise measurements.?? All his medications are the same and we will decide whether to add further medications based on his angiogram.?? All his questions were answered to hissatisfaction.?? We did discuss the x-ray dye and dye nephropathy as well as anaphylaxis, shortness of breath and arrhythmias.?? The patient wishes to proceed with this test.?? All his questions were answered to his satisfaction. ER OPERATOR documented in this encounter Plan of Treatment Not on filedocumented as of this encounter Visit Diagnoses Not on filedocumented in this encounter Care Teams Head Strength And Conditioning Coach Relationship Specialty Start Date End Date December PCP - General Physician Recreational Specialist 03/07/16 05/20/17 [facility] [address] [place] [id number] documented as of this encounter
--- OUTSIDE RECORDS SUMMARY | 2022-07-31 10:07 | XMS_ITS | Encounter Summary ---
:1960 Author Organization [place] Address [address] [place] [id number] Care Team Providers Name Role Phone HortenciaDecember Primary Care Provider Encounter Details Date Type Department Care Team Description 09/15/2016 Orders Only [facility] Heart Aneu rysm of aortic sinus Clinic [facility] [address] [facility] [address] [place] [address] Social History Tobacco Use Types Packs/Day Years Used Date Smoking Tobacco: Never Alcohol Use Standard Drinks/Week Comments No 0 (1 standard drink = 0.6 oz pure alcoho l) Sex Assigned at Date Recorded Not on file documented as of this encounter Plan of Treatment Not on filedocumented as of this encounter Procedures Procedure Name Priority Date/Time Associated Comments Diagnosis HEMOGLOBIN Routine 09/15/2016 8:09 AM Aneurysm of aortic Res ults for this COFFIN MAKER sinus of Valsalva procedure are in without rupture the results section. BASIC METABOLIC Routine 09/15/2016 8:09 AM Aneurysm of aortic Results for this PANEL COFFIN MAKER sinus of Valsalva procedure are in without rupture the results section. documented in this encounter Results (ABNORMAL) Basic metabolic panel (09/15/2016 8:09 AM COFFIN MAKER) [facility] Method Time Signature Sodium 139 133 - 144 [place] mmol/L [facility] Potassium 4.1 3.4 - 5.3 [place] mmol/L [facility] Chloride 105 94 - 109 [place] mmol/L [facility] Carbon Dioxide 30 20 - 32 [place] mmol/L [facility] Anion Gap 4 3 - 14 [place] mmol/L [facility] Glucose 119 (H) 70 - 99 [place] mg/dL [facility] Urea Nitrogen 29 7 - 30 [place] mg/dL [facility] Creatinine 0.85 0.66 - [place] 1.25 [facility] mg/dL [facility] GFR Estimate >90 >60 [place] Non GFR Calc mL/min/1. [facility] 7m2 [facility] GFR Estimate >90 >60 [place] If Black GFR Calc mL/min/1. [facility] 7m2 [facility] Calcium 8.9 8.5 - [place] 10.1 [facility] mg/dL HOSPITAL Specimen Anatomical Collection Method Collection Time Receive d Time (Source) Location / / Volume Laterality Blood specimen 09/15/2016 8:09 AM 016 8:10 (specimen) COFF[facility] AM COFFIN MAKER Prasanna Sargent MD LAB - BLOOD ORDERABLES Performing Organization Address City/[facility]/[address] [address], [facility] [phone] (ABNORMAL) Hemoglobin (09/15/2016 8:09 AM COFFIN MAKER) P athologist Signature Hemoglobin 12.4 (L) 13.3 - 17.7 [place] g/dL [facility] Specimen Anatomical Collection Method Collection Time Receive d Time (Source) Location / / Volume Laterality Blood specimen 09/15/2016 8:09 AM 016 8:10 (specimen) COFFIN [facility] AM COFFIN MAKER Prasanna Sargent MD LAB - BLOOD ORDERABLES Performing Organization Address City/[facility]/[address] 5533 7, [facility] [phone] documented in this encounter Visit Diagnoses Diagnosis Aneurysm of aortic sinus of Valsalva wit hout rupture documented in this encounter Care Teams Gas Mask Inspector Relationship Specialty Start Date End Date December PCP - General Physician Rewind Operator 03/07/16 05/20/17 [place] [address] [address] [id number] documented as of this encounter
--- OUTSIDE RECORDS SUMMARY | 2022-07-31 10:07 | XMS_ITS | Encounter Summary ---
:1960 Author Organization [place] Address [address] [facility] [place] [address] Care Team Providers Name Role Phone HortenciaDecember Primary Care Provider Encounter Details Date Type Department Care Team Description 04/22/2017 Hospital Encounter [facility] Betty Grimm e Charcot ankle, left; Wound Clinic Lavonne Helm PA-C Open wound of knee, leg, and ankle, left , initial encounter; [address] [facility] Charcot's joint of right ank le; [address] [facility] Wound of right ankle, initial encounter JAMA Galan [address] [place] [address] [phone] [place] [id number] Social History Tobacco Use Types Packs/Day Years Used Date Smoking Tobacco: Never Alcohol Use Standard Drinks/Week Comments No 0 (1 standard drink = 0.6 oz pure alcoho l) Sex Assigned at Date Recorded Not on file documented as of this encounter Last Filed Vital Signs Vital Sign Reading Time Taken Comments Blood Pressure 118/59 04/22/2017 2:08 PM CDT Pulse 58 04/22/2017 2:08 PM CDT Temperature 36.6 ??C (97.8 ??F) 04/22/2017 2:08 PM CDT Respiratory Rate 16 04/22/2017 2:08 PM CDT Oxygen Saturation - - Inhaled Oxygen Concentration - - Weight - - Height - - Body Mass Index - - documented in this encounter Medications at Time of Discharge Medication Sig Dispensed Refills Start Date End Date Cholecalciferol (VITAMIN Take 5,000 Units by 0 D3 PO) mouth daily GLIPIZIDE XL PO Take 5 mg by mouth 0 daily (with breakfast) lisinopril Take 30 mg by mouth 0 (PRINIVIL/ZESTRIL) 10 MG daily tablet order for [facility] Order Fax 30 days 0 04/22/2017 DMEIndications: Charcot ankle, left, Open wound Primary Dressing HydroferaBl ue Ready Transfer Qty 4 sheets of knee, leg, and ankle, Primary Dressing Endoform Qty 15 sheets left, initial encounter, Secondary Dressing 4x4 Gauze Loaf Qty 2 Charcot's joint of right Secondary Dressing 2 Medipore Tape Qty 2 ankle, Wound of right Length of Need: 1 month ankle, initial encounter Frequency of dressing change: daily Please send what his insurance will allow. Thank you Sertraline HCl (ZOLOFT Take 50 mg by mouth 0 PO) daily SIMVASTATIN PO Take 20 mg by mouth 0 daily aspirin 81 MG tablet Take 81 mg by mouth 0 06/08/[address] 1 Dose into 0 06/02/2017 both eyes every 30 days documented as of this encounter Progress Notes Karl Grimm PA-C - 04/22/2017 1:09 PM CDT [facility] HISTORY OF PRESENT ILLNESS: Mr. eGo Dubois is a 57-year old male with bilateral Charcot ankles resulting in varus deformities and subsequent lateral ankle ulcerations. He wears HOH walkers in order to stabilize his ankles but unfortunately has been unable to properly offload these areas. He was seen in our clinic by Dr. Cortez 04/03/17 who recommended a left BKA as due to the significant deformity she does not believe he will be able to heal this ulcer and is at risk for sepsis. She felt that he may have a similar situation on his right side, however he appears to place a little less pressure on this ankle and may have some healing capability. WOUND CARE: Currently dressing both wounds with Hydrofera Blue preceded by a Vashe-soak. OFFLOADING: HOH walkers PAST MEDICAL HISTORY: VILLA, neuropathy, charcot joint of bilateral ankles, diabetes mellitus, aneurysm, anemia SOCIAL HISTORY: Lives with a roommate who performs all of his dressing changes REVIEW OF SYSTEMS: CONSTITUTIONAL: Denies fevers or acute illness INTEGUMENTARY: Denies new wounds VITALS: BP 118/59 (BP Location: Left arm) Pulse 58 Temp 97.8 ??F (36.6 ??C) (Temporal) Resp 16 PHYSICAL EXAM: GENERAL: Patient is alert and oriented and in no acute distress INTEGUMENTARY: WOUND ASSESSMENT: ?? Location: right lateral ankle ?? Stage: full-thickness ?? Size: 0.3 cm x 0.3 cm with a depth of 0.2 cm, undermining of 0.3cm ?? Drainage: copious amount of serosanguinous drainage ?? Wound description: does not appear to communicate with the other two R ankle wounds, 100% granulation tissue WOUND ASSESSMENT #2: ?? Location: right distal lateral ankle ?? Stage: full-thickness ?? Size: 1.5 cm x 1.5 cm with a depth of 0.1 cm ?? Drainage: copious amount of serosanguinous drainage ?? Wound description: communicates with posterior R lateral ankle wound, 100% granulation tissue WOUND ASSESSMENT #3: ?? Location: right posterior lateral ankle ?? Stage: full-thickness ?? Size: 1.5 cm x 1 cm with a depth of 0.2 cm with 4 cm of undermining ?? Drainage: copious amount of serosanguinous drainage ?? Wound description: 100% moist yellow slough, once debrided granulation tissue was noted WOUND ASSESSMENT #4: ?? Location: left lateral ankle wound ?? Stage: full-thickness ?? Size: 2.6 cm x 2.6 cm with a depth of 0.3 cm ?? Drainage: copious amount of serosanguinous drainage ?? Wound description: remigio-wound skin is macerated callus, wound bed is pale- pink granulation tissue PROCEDURE: After timeout called and informed consent obtained, topical 4% lidocaine was applied to the wound. Using a 15 blade a surgical debridement was performed down to and including subcutaneous tissue of <20 cm. Undermining was partially unroofed from the right lateral ankle wounds. Hemostasiswas achieved with pressure and silver nitrate. The patient tolerated the procedure well. ASSESSMENT: deteriorating stage 3 pressure ulcers on bilateral lower legs, diabetes, charcot joint bilaterally PLAN: 1. Continue dressing R ankle wounds with Hydrofera Blue 2. Add Endoform to L ankle wound, cover with Hydrofera Blue FOLLOW-UP: with Dr. Cortez in 2 weeks KARL SINCLAIR PA-C documented in this encounter Plan of Treatment Not on filedocumented as of this encounter Visit Diagnoses Diagnosis Charcot ankle, left Open wound of knee, leg, and ankle, left , initial encounter Charcot's joint of right ankle Wound of right ankle, initial encounter documented in this encounter Care Teams Therapist Relationship Specialty Start Date End Date December PCP - General Physician Program Arranger 03/07/16 05/20/17 [place] [address] [place] [id number] documented as of this encounter
--- OUTSIDE RECORDS SUMMARY | 2022-07-31 10:07 | XMS_ITS | Encounter Summary ---
:1960 Author Organization [place] Address [facility] [place] [address] Care Team Providers Name Role Phone Hortencia, December Primary Care Provider Encounter Details Date Type Department Care Team Description 05/01/2017 Hospital Encounter [facility] Lizet Cortez C harcot ankle, right (Primary Dx); Wound Clinic Lavonne FAIRCHILD, Toni ankle, left; [address] Pod[facility]ry/Foot and Decubitus ulcer of right ank le, stage 3 (H); [address] Ankle Surgery Pressure ulcer of left ankle, stage 3 (H ) JAMA Banerjee [address] [place] [id number] [place] [address] [place] [address] Social History Tobacco Use Types Packs/Day Years Used Date Smoking Tobacco: Never Alcohol Use Standard Drinks/Week Comments No 0 (1 standard drink = 0.6 oz pure alcoho l) Sex Assigned at Date Recorded Not on file documented as of this encounter Last Filed Vital Signs Vital Sign Reading Time Taken Comments Blood Pressure 152/90 05/01/2017 9:53 AM CDT Pulse 90 05/01/2017 9:53 AM CDT Temperature 36.3 ??C (97.4 ??F) 05/01/2017 9:53 AM CDT Respiratory Rate 16 05/01/2017 9:53 AM CDT Oxygen Saturation - - Inhaled Oxygen [...] 81 mg by mouth 0 06/08/2017 daily order for [facility] Order Fax 30 days 0 05/01/2017 05/20/2017 DMEIndications: Charcot ankle, right, Charcot Primary Dressing Hydrofera B lue READY TRANSFER Qty 5 sheets ankle, left, Decubitus Secondary Dressing 4 Roll gauze Qty 60 ulcer of right ankle, Secondary Dressing 2 medipore tape Qty 3 stage 3 (H), Pressure Length of Need: 1 month ulcer of left ankle, Frequency of dressing change: daily stage 3 (H) UNKNOWN TO PATIENT Place 1 Dose into 0 06/02/2017 both eyes every 30 days documented as of this encounter Progress Notes Lizet Cortez DPNory, Podiatry/Foot and Ankle Surgery - 05/01/2017 10:45 AM CDT [facility] [place] Progress Note Subject: Patient was seen at wound center. Denies fever, nausea, vomiting, shortness of breath. He notes there has been more drainage from the left and decreased drainage from the right ankle wounds. PMH: Past Medical History: Diagnosis Date ??? Anemia of chronic disorder ??? Aneurysm (H) 2016 ??? Charcot's joint 2014 ??? Diabetes mellitus (H) ??? History of blood transfusion 02/2016 ??? Irregular heart beat 2016 pt states he has a high heart rate ??? Numbness and tingling Numbness in feet ??? S/P biopsy 2016 for lymphoma ??? Sinus of Valsalva aneurysm 2016 ??? Sleep apnea CPAP Social Hx: Social History Social History ??? Marital status: Spouse name: N/A ??? Number of children: N/A ??? Years of education: N/A Occupational History ??? Not on file. Social History Main Topics ??? Smoking status: Never Smoker ??? Smokeless tobacco: Not on file ??? Alcohol use No ??? Drug use: No ??? Sexual activity: Not on file Other Topics Concern ??? Caffeine Concern No ??? Special Diet Yes diabetic diet ??? Exercise No Social History Narrative Surgical Hx: Past Surgical History: Procedure Laterality Date ??? BONE MARROW BIOPSY, BONE SPECIMEN, NEEDLE/TROCAR Right 04/15/2016 Procedure: BIOPSY BONE MARROW; Surgeon: Rudy Goins MD; Location: [facility] OR ??? DISSECT LYMPH NODE INGUINAL Right 03/14/2016 Procedure: DISSECT LYMPH NODE INGUINAL; Surgeon: Damien Lancaster MD; Location: [facility] OR ??? ORTHOPEDIC SURGERY Right bone shaving Allergies: Allergies Allergen Reactions ??? Amoxicillin Hives Medications: Current Outpatient Prescriptions Medication ??? order for DME ??? lisinopril (PRINIVIL/ZESTRIL) 10 MG tablet ??? UNKNOWN TO PATIENT ??? SIMVASTATIN PO ??? Sertraline HCl (ZOLOFT PO) ??? Cholecalciferol (VITAMIN D3 PO) ??? aspirin 81 MG tablet ??? GLIPIZIDE XL PO No current facility-administered medications for this encounter. Objective: Vitals: BP 152/90 (BP Location: Left arm) Pulse 90 Temp 97.4 ??F (36.3 ??C) (Temporal) Resp 16 A1C: does not know General: Patient is alert and orientated. NAD Vascular: DP and PT pulses are palpable. Edema noted. No varicosities noted. CFT's < 3secs. Skin temp is normal. Neuro: Light and gross touch sensation absent. Derm: Right lateral ankle ulceration measures 0.5 x 0.6 x 0.4 cm in depth. Fell there is exposed with no necrosis of muscle or bone noted. No redness or purulent drainage noted.right distal lateral ankle ulcer measures 1.5cm x 1.2cm x 0.5dm. Left lateral ankle ulceration measures 2.8 x 2.76 x 4.0 cm in depth. Base is granular. No redness or signs of infection noted.. Musculoskeletal: Severe deformity of both feet with rocker bottoms and collapse of the ankle joints with the foot in a varus position on the legs. ?? Assessment: 56-year-old diabetic male with neuropathy and Charcot both ankles, bilateral ankle ulcerations both feet. Plan: Wounds are debrided. We will continue with the Hydrofera Blue dressing changes. He is still going to talk to Dr. Abdalla involved bilateral leg amputations. At this point we are purely palliative care for the wounds. He will follow-up in one month. Procedure: After verbal consent, excisional debridement was performed on ulcer. #15 blade was used to debride ulcer down to and including subcutaneous tissue. Bleeding controlled with light pressure. No drainage noted. No anesthesia was used due to neuropathy. Dry dressing applied to foot. Patient tolerated procedure well. Lizet Cortez DPM, Podiatry/Foot and Ankle Surgery CDT documented in this encounter Plan of Treatment Not on filedocumented as of this encounter Visit Diagnoses Diagnosis Charcot ankle, right - Primary Charcot ankle, left Decubitus ulcer of right ankle, stage 3 (H) Pressure ulcer, ankle Pressure ulcer of left ankle, stage 3 (H ) documented in this encounter Care Teams Cement Finisher Apprentice Relationship Specialty Start Date End Date December PCP - General Physician Vinyl Installer 03/07/16 05/20/17 [place] [address] [place] [address] [id number] documented as of this encounter
--- OUTSIDE RECORDS SUMMARY | 2022-07-31 10:07 | XMS_ITS | Encounter Summary ---
:1960 Author Organization [place] Address [facility] [place] [address] Care Team Providers Name Role Phone HortenciaDecember Primary Care Provider Reason for Referral - Closed Specialty Diagnoses / Procedures Referred By Contact Refer red To Contact Diagnoses 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 Thoracic aortic aneurysm without rupture Melanie Desai MD [address] [place] [address] Referral ID Status Reason Start Date Expiration Date Visits Requ ested Visits Authorized [id number] Closed 09/29/2017 09/29/2018 1 1 Reason for Visit Reason Comments Heart Problem Aneurysm of aortic sinus of Valsalva; DM Type 2; family hx of ischemic heart disease; sleep apnea o n CPAP; Anemia of chronic disease - Closed Specialty Diagnoses / Procedures Referred By Contact Refer red To Contact Diagnoses 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 Thoracic aortic aneurysm without rupture Ischemic cardiomyopathy Melanie Desai MD [address] [place] [address] Referral ID Status Reason Start Date Expiration Date Visits Requ ested Visits Authorized [id number] Closed 03/14/2017 03/14/2018 1 1 Encounter Details Date Type Department Care Team Description [facility]/02[facility]2017 [facility] (Primary Dx); [facility] MD Leonila Aneurysm of aortic sinus of Valsalva wit hout rupture; [place] [id number] Thoracic aortic aneurysm wit hout rupture (H); [address] [place] (obstructive sleep apnea) [address] [place] [phone] Social History Tobacco Use Types Packs/Day Years Used Date Smoking Tobacco: Never Tobacco Cessation: Counseling Given: No Alcohol Use Standard Drinks/Week Comments No 0 (1 standard drink = 0.6 oz pure alcoho l) Sex Assigned at Date Recorded Not on file documented as of this encounter Last Filed Vital Signs Vital Sign Reading Time Taken Comments Blood Pressure 150/90 04/02/2017 7:09 AM CDT Pulse 84 04/02/2017 7:09 AM CDT Temperature - - Respiratory Rate - - Oxygen Saturation - - Inhaled Oxygen Concentration - - Weight 101.2 kg (223 lb) 04/02/2017 7:09 AM CDT Height 177.8 cm (5' 10) 04/02/2017 7:09 AM CDT Body Mass Index 32 04/02/2017 7:09 AM CDT documented in this encounter Progress Notes Melanie Desai MD - 04/02/2017 7:15 AM CDT HPI and Plan: See dictation I again had the pleasure of seeing your patient, Tish Fuller, at [facility] for evaluationof sinus of Valsalva aneurysm. The patient has a history of adult onset diabetes mellitus documentedin 06/2015. He has numerous end-organ damage because of this including a right Charcot joint and macular degeneration, but no significant nephropathy to date. Previous echocardiogram performed at the [facility] on 09/03/2015 showed normal left ventricular chamber size, mild left ventricular hypertrophy, ejection fraction of 57% and regional wall motion abnormalities with hypokinesis of both the anterior and inferolateral lara. There is moderate sinus of Valsalva dilatation at that time at 47 mm. ACT angiogram was performed on 09/25/2017 and showed a total Agatston score 0.82 in the LAD and no significant CAD. A comment by the reader was the proximal ascending aorta was normal size. He has never had a known myocardial infarction. He denies chest discomfort. He has been diagnosed with obstructive sleep apnea and started using CPAP in 2003, but discontinued this until 2009 until December of this year. He has now restarted his CPAP. He lost some weight but has gained much of it back. He denies chest discomfort or shortness of breath. He is now facing possible double leg amputations from complications of his diabetes. He has been started on lisinopril for hypertension with his PMD titrating the dose. ? An echocardiogram performed on 09/10 demonstrated mild aortic dilatation at 4 cm at the aortic root and 4.2 cm at the ascending aorta. The inferior and inferolateral regional wall motion abnormalities remain and his overall ejection fraction was estimated at 55%-60%. Assessment and Plan 1. We will perform an echocardiogram in 09/13 to evaluate his aorta and LV function. It is possible the previous RWMA represent a hypertensive cardiomyopathy. 2. BP control will be coordinated by his PMD. 3. No treatment for CAD is necessary. Would continue with the ASA and statin given his diabetes. 4. F/U with Dr. Desai in 08/2017 to discuss the echo results and evaluate the previous discrepancy between the CT scan and echo. Melanie Desai MD, FACC April 02, 2017 7:55 AM Orders Placed This Encounter Procedures ??? Follow-Up with Aircraft Refueler ??? Echocardiogram Orders Placed This Encounter Medications ??? lisinopril (PRINIVIL/ZESTRIL) 10 MG tablet Sig: Take 20 mg by mouth daily Medications Discontinued During This Encounter Medication Reason ??? metoprolol (LOPRESSOR) 50 MG tablet Discontinued by another Health Care Provider Encounter Diagnoses Name Primary? 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 Thoracic aortic aneurysm without rupture (H) CURRENT MEDICATIONS: Current Outpatient Prescriptions Medication Sig Dispense Refill ??? lisinopril (PRINIVIL/ZESTRIL) 10 MG tablet Take 20 mg by mouth daily ??? UNKNOWN TO PATIENT Place 1 Dose into both eyes every 30 days ??? SIMVASTATIN PO Take 20 mg by mouth ??? Sertraline HCl (ZOLOFT PO) Take 50 mg by mouth daily ??? Cholecalciferol (VITAMIN D3 PO) Take 4,000 Units by mouth ??? aspirin 81 MG tablet Take by mouth daily ??? GLIPIZIDE XL PO Take 5 mg by mouth daily (with breakfast) ALLERGIES Allergies Allergen Reactions ??? Amoxicillin Hives PAST MEDICAL HISTORY: Past Medical History: Diagnosis Date ??? Anemia of chronic disorder ??? Aneurysm (H) 2015 ??? Charcot's joint 2014 ??? Diabetes mellitus (H) ??? History of blood transfusion 02/2016 ??? Irregular heart beat 2015 pt states he has a high heart rate ??? Numbness and tingling Numbness in feet ??? S/P biopsy 2015 for lymphoma ??? Sinus of Valsalva aneurysm 2015 ??? Sleep apnea CPAP PAST SURGICAL HISTORY: Past Surgical History: Procedure [...] Smoking status: Never Smoker ??? Smokeless tobacco: None ??? Alcohol use No ??? Drug use: No ??? Sexual activity: Not Asked Other Topics Concern ??? Caffeine Concern No ??? Special Diet Yes diabetic diet ??? Exercise No Social History Narrative Review of Systems: Skin: Positive for sores on outside of both ankles Eyes: Positive for glasses macular edema ENT: Negative Respiratory: Positive for sleep apnea;CPAP Cardiovascular: edema;Positive for;fatigue charcot and lightheaded when surgars are low Gastroenterology: Negative Genitourinary: Negative Musculoskeletal: Positive for joint pain;joint stiffness;arthritis;foot pain Neurologic: Positive for numbness or tingling of feet neuropathy - left foot bone deteriating Psychiatric: Positive for Moods are good Heme/Lymph/Imm: Positive for allergies RX allergies Endocrine: Positive for diabetes Physical Exam: Vitals: BP 150/90 (BP Location: Right arm, Patient Position: Sitting, Cuff Size: Adult Large) Pulse 84 Ht 1.778 m (5' 10) Wt 101.2 kg (223 lb) BMI 32 kg/m2 Constitutional: cooperative, alert and oriented, well developed, well nourished, in no acute distress Skin: warm and dry to the touch, no apparent skin lesions or masses noted Head: normocephalic, no masses or lesions Eyes: pupils equal and round, conjunctivae and lids unremarkable, sclera white, no xanthalasma, EOMSintact, no nystagmus ENT: no pallor or cyanosis, dentition good Neck: carotid pulses are full and equal bilaterally, JVP normal, no carotid bruit, no thyromegaly Chest: normal breath sounds, clear to auscultation, normal A-P diameter, normal symmetry, normal respiratory excursion, no use of accessory muscles Cardiac: regular rhythm, normal S1/S2, no S3 or S4, apical impulse not displaced, no murmurs, gallops or rubs Abdomen: abdomen soft, non-tender, BS normoactive, no mass, no HSM, no bruits Vascular: pulses full and equal, no bruits auscultated Extremities and Back: Hard walking boots on both feet to pretibial legs Neurological: affect appropriate, oriented to time, person and place;no gross motor deficits CC Melanie Desai MD [facility] [address] [place] [address] documented in this encounter Plan of Treatment Scheduled Referrals Name Type Priority Associated Diagnoses Order S chedule Follow-Up with Referral Routine Aneurysm of aortic Expecte d: 09/29/2017 Aircraft Refueler sinus of Valsalva (Approxima te), without rupture Expires: 04/02/2018 Thoracic aortic aneurysm without rupture (H) documented as of this encounter Results Echocardiogram (10/29/2017 11:24 AM NUTRITION SERVICES AIDE) Anatomical Region Laterality Modality Echocardiography Specimen (Source) Anatomical Collection Method Collection Time Re ceived Time Location / / Volume Laterality 10/29/2017 11:03 AM NUTRITION SERVICES AIDE Narrative 10/29/2017 11:46 AM NUTRITION SERVICES AIDE [id number]^LLOYD^MELANIE^[facility] Echocardiography Laboratory [address] [place] [address] Name: TISH FULLER : 1960 Study Date: 10/29/2017 11:03 AM Age: 57 yrs Gender: Male Patient Location: [facility] Reason For Study: , Aneurysm of aortic [...] Procedure Note Adalid Seymour MD - [id number] [facility] [id number]^LLOYD^MELANIE^[facility] Echocardiography Laboratory [address] [place] [address] Name: TISH FULLER : 1960 Study Date: 10/29/2017 11:03 AM Age: 57 yrs Gender: Male Patient Location: [facility] Reason For Study: , Aneurysm of aortic [...] documented in this encounter Visit Diagnoses Diagnosis Benign essential hypertension - Primary Essential hypertension, benign Aneurysm of aortic sinus of Valsalva wit hout rupture Thoracic aortic aneurysm without rupture Thoracic aneurysm without mention of rup ture VILLA (obstructive sleep apnea) Obstructive sleep apnea (adult) (pediatr ic) Aneurysm of aortic sinus of Valsalva wit hout rupture Thoracic aortic aneurysm without rupture Thoracic aneurysm without mention of rup ture documented in this encounter Care Teams Industrial Painter Relationship Specialty Start Date End Date December PCP - General Physician Hide And Skin Classer 03/07/16 05/20/17 [place] [address] [place] [id number] documented as of this encounter
--- OUTSIDE RECORDS SUMMARY | 2022-07-31 10:07 | XMS_ITS | Encounter Summary ---
:1960 Author Organization [place] Address [address] 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 Rh Echo Rscc Procedures ECH COMPLETE [address] [place], [place] [address] Phone: Fax: Referral ID Status Reason Start Date Expiration Date Visits Requ ested Visits Authorized [id number] Closed 09/04/2016 09/04/2017 1 1 Encounter Details Date Type Department Care Team Description 09/10/2016 [facility], Aneu [facility]m of [facility] Melanie Keen MD sinus of Valsalva [facility] [address] without rupture [address] [place] [address] Social History Tobacco Use Types Packs/Day Years Used Date Smoking Tobacco: Never Alcohol Use Standard Drinks/Week Comments No 0 (1 standard drink = 0.6 oz pure alcoho l) Sex Assigned at Date Recorded Not on file documented as of this encounter Medications at Time of Discharge Medication Sig Dispensed Refills Start Date End Date Cholecalciferol (VITAMIN D3 Take 5,000 Units 0 PO) by mouth daily GLIPIZIDE XL PO Take 5 mg by 0 mouth daily (with breakfast) Sertraline HCl (ZOLOFT PO) Take 50 mg by 0 mouth daily SIMVASTATIN PO Take 20 mg by 0 mouth daily Ascorbic Acid (VITAMIN C PO) 0 09/15/2016 aspirin 81 MG tablet Take 81 mg by 0 0 06/08/2017 mouth daily UNKNOWN TO PATIENT Place 1 Dose into 0 06/02/2017 both eyes every 30 days documented as of this encounter Plan of Treatment Not on filedocumented as of this encounter Procedures Procedure Name Priority Date/Time Associated Diagnosis Comme nts ECHO COMPLETE Routine 09/10/2016 10:21 AM Aneurysm of aortic R esults for this SHADING PAINTER sinus of Valsalva procedure are in the without rupture results sect ion. documented in this encounter Results Echocardiogram (09/10/2016 10:21 AM SHADING PAINTER) Anatomical Region Laterality Modality Echocardiography Specimen (Source) Anatomical Collection Method Collection Time Re ceived Time Location / / Volume Laterality 09/10/2016 9:59 AM SHADING PAINTER Narrative 09/10/2016 11:34 AM SHADING PAINTER Interpretation Summary [facility] Echocardiography Laboratory [address] [place] [address] Name: GEO DUBOIS : 1960 Study Date: 09/10/2016 09:59 AM Age: 56 yrs Gender: Male Patient [place] [facility] Reason For Study: , Congenital aneurysm of aorta Ordering Physician: MELANIE DESAI Referring Physician: Breanne Burnett Performed By: Mango Maldonado RDCS BSA: 2.1 m2 Height: 70 in Weight: 200 lb Procedure Complete Echo Adult. Interpretation Summary Moderate aortic root dilatation. The ascending aorta is Mildly dilated. There are regional wall motion abnormali ties as specified. The visual ejection fraction is estimate d at 55-60%. Left Ventricle The left ventricle is normal in size. Th e visual ejection fraction is estimated at 55-60%. Grade I or early di astolic dysfunction. The basal inferior and basal inferolateral wall ap pears moderately to severely hypokinetic. There are regional wall mot ion abnormalities as specified. Right Ventricle The right ventricle is normal in size an d function. Atria Normal left atrial size. Right atrial si ze is normal. There is no color Doppler evidence of an atrial shunt. Lip omatous hypertrophy of the interatrial septum is noted. Mitral Valve There is trace mitral regurgitation. Tricuspid Valve There is trace tricuspid regurgitation. Right ventricular systolic pressure could not be approximated due to inadequ ate tricuspid regurgitation. Aortic Valve The aortic valve is trileaflet. There is mild trileaflet aortic sclerosis. There is trace aortic regurgitation. No hemodynamically significant valvular aortic stenosis. Pulmonic Valve There is no pulmonic valvular regurgitat ion. Vessels Moderate aortic root dilatation. The asc ending aorta is Mildly dilated. The IVC is normal in size and reactivity wit h respiration, suggesting normal central venous pressure. Pericardium There is no pericardial effusion. Rhythm The rhythm was normal sinus. MMode/2D Measurements & Calculations IVSd: 0.97 cm LVIDd: 4.8 cm LVIDs: 3.8 cm LVPWd: 1.1 cm FS: 19.8 % EDV(Teich): 105.2 ml ESV(Teich): 62.6 ml LV mass(C)d: 181.5 grams Ao root diam: 14.0 cm LA dimension: 4.1 cm asc Aorta Diam: 4.2 cm LA/Ao: 0.29 LA Volume (BP): 72.0 ml LA Volume Index (BP): 34.4 ml/m2 Doppler Measurements & Calculations MV E max srini: 89.3 cm/sec MV A max srini: 120.9 cm/sec MV E/A: 0.74 MV dec time: 0.16 sec Lateral E/e': 9.1 Medial E/e': 33.9 Report approved by: Nory Ortiz 09/10/2016 11:34 AM Procedure Note Adalid Seymour MD - [id number] Interpretation Summary [facility] Echocardiography Laboratory [address] [place] [id number] Name: GEO DUBOIS : 1960 Study Date: 09/10/2016 09:59 AM Age: 56 yrs Gender: Male Patient [place] [facility] Reason For Study: , Congenital aneurysm of aorta Ordering Physician: MELANIE DESAI Referring Physician: Breanne Burnett Performed By: Mango Maldonado RDCS BSA: 2.1 m2 Height: 70 in Weight: 200 lb Procedure Complete Echo Adult. Interpretation Summary Moderate aortic root dilatation. The ascending aorta is Mildly dilated. There are regional wall motion abnormali ties as specified. The visual ejection fraction is estimate d at 55-60%. Left Ventricle The left ventricle is normal in size. Th e visual ejection fraction is estimated at 55-60%. Grade I or early di astolic dysfunction. The basal inferior and basal inferolateral wall ap pears moderately to severely hypokinetic. There are regional wall mot ion abnormalities as specified. Right Ventricle The right ventricle is normal in size an d function. Atria Normal left atrial size. Right atrial si ze is normal. There is no color Doppler evidence of an atrial shunt. Lip omatous hypertrophy of the interatrial septum is noted. Mitral Valve There is trace mitral regurgitation. Tricuspid Valve There is trace tricuspid regurgitation. Right ventricular systolic pressure could not be approximated due to inadequ ate tricuspid regurgitation. Aortic Valve The aortic valve is trileaflet. There is mild trileaflet aortic sclerosis. There is trace aortic regurgitation. No hemodynamically significant valvular aortic stenosis. Pulmonic Valve There is no pulmonic valvular regurgitat ion. Vessels Moderate aortic root dilatation. The asc ending aorta is Mildly dilated. The IVC is normal in size and reactivity wit h respiration, suggesting normal central venous pressure. Pericardium There is no pericardial effusion. Rhythm The rhythm was normal sinus. MMode/2D Measurements & Calculations IVSd: 0.97 cm LVIDd: 4.8 cm LVIDs: 3.8 cm LVPWd: 1.1 cm FS: 19.8 % EDV(Teich): 105.2 ml ESV(Teich): 62.6 ml LV mass(C)d: 181.5 grams Ao root diam: 14.0 cm LA dimension: 4.1 cm asc Aorta Diam: 4.2 cm LA/Ao: 0.29 LA Volume (BP): 72.0 ml LA Volume Index (BP): 34.4 ml/m2 Doppler Measurements & Calculations MV E max srini: 89.3 cm/sec MV A max srini: 120.9 cm/sec MV E/A: 0.74 MV dec time: 0.16 sec Lateral E/e': 9.1 Medial E/e': 33.9 Report approved by: Nory Ortiz 09/10/2016 11:34 AM Melanie Desai MD CV ECHO ORDERABLES documented in this encounter Visit Diagnoses Diagnosis Aneurysm of aortic sinus of Valsalva wit hout rupture documented in this encounter Care Teams Contact Lens Flashing Puncher Relationship Specialty Start Date End Date December PCP - General Physician Pulley Worker 03/07/16 05/20/17 [place] [id number] [place] [id number] documented as of this encounter
--- OUTSIDE RECORDS SUMMARY | 2022-07-31 10:07 | XMS_ITS | Encounter Summary ---
:1960 Author Organization [place] Address [address] [place] [address] Care Team Providers Name Role Phone HortenciaDecember Primary Care Provider Reason for Visit Reason Onset Date Comments Results 09/30/2016 CTA Encounter Details Date Type Department Care Team Description 09/30/2016 Telephone [facility] Heart [facility] Yogi Beck RN Results (CTA) [address] [place] [address] Social History Tobacco Use Types Packs/Day Years Used Date Smoking Tobacco: Never Alcohol Use Standard Drinks/Week Comments No 0 (1 standard drink = 0.6 oz pure alcoho l) Sex Assigned at Date Recorded Not on file documented as of this encounter Miscellaneous Notes Addendum Note - Simone Raymond RN - 09/30/2016 2:58 PM HOUSING PROPERTY MANAGER Addended by: SIMONE RAYMOND on: 09/30/2016 02:58 PM Modules accepted: Orders, SmartSet ING PROPERTY MANAGER Telephone Encounter - Simone Raymond RN - 09/30/2016 2:52 PM CST Spoke to patients about results below. CTA ordered for 1 year. ING PROPERTY MANAGER Telephone Encounter - Whitley Beck - 09/30/2016 1:05 PM CST Called patient's Aminah, as chart indicates to give the results of the CTA Stable sinus of Valsalva aneurysm at 4.0 by 4.5 cm. ??Would recheck the CT scan of his aorta in one year. ??No significant CAD. ??Prasanna Sargent MD, [facility] She did not answer. Left a message to call team4 with the direct number. ING PROPERTY MANAGER documented in this encounter Plan of Treatment Not on filedocumented as of this encounter Visit Diagnoses Diagnosis Sinus of Valsalva aneurysm - Primary Other congenital anomaly of aorta documented in this encounter Care Teams Manager Special Events Relationship Specialty Start Date End Date December PCP - General Physician Emergency Registrar 03/07/16 05/20/17 [place] [address] [place] [address] documented as of this encounter
--- OUTSIDE RECORDS SUMMARY | 2022-07-31 10:07 | XMS_ITS | Encounter Summary ---
:1960 Author Organization [place] Address [facility] [place] [address] Care Team Providers Name Role Phone Unavailable Primary Care Provider Unavailable Reason for Visit Auth/Cert Specialty Diagnoses / Procedures Referred By Contact Refer red To Contact Surgery Diagnoses chronic non healing ulcer Rh Periop Services Procedures AMPUTATE LEG BELOW KNEE [address] [place], [place] [address] Phone: Fax: Referral ID Status Reason Start Date Expiration Date Visits Requ ested Visits Authorized [id number] 1 1 Encounter Details Date Type Department Care Team Description 06/05/2017 Anesthesia Event [facility] Blayne Jiang MD [facility] ANESTHESIA [id number] [place], [place] [id number] PeriOp Services Clint Quevedo MD [facility] ANESTHESIA [address] [place], [place] [address] [address] [place] [address] Anesthesia Record Procedure Summary Procedure Name Responsible Anesthesia Start Anesthesia Stop Time Anesthesiologist Time Below-knee Blayne Jiang MD 06/05/17 1042 06/05/17 1320 amputation, left. 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 Questions answered and cares explained before coming to OR. 1046 An Start Data 1047 An Start Data 1050 An Induction 1051 AN START SEVO 1053 An LMA 1054 MD Present 1102 An Tourn Inflated 1108 AN INCISION 1138 MD Present 1208 Quick Note TQ up 65 mins, s urgeon updated. AM 1227 An Tourn Deflated 84 min TTT AM 1237 MD Present 1301 AN END SEVO 1313 LMA Removed 1315 an stop data 1320 An Stop Electronically s igned by Lilo Norwood on June 05 1:30 PM 1320 MD Present Name Total midazolam 1mg/mL 2 mg fentaNYL (SUBLIMAZE) injection 300 mcg propofol (DIPRIVAN) injection 10 mg/mL vial 200 mg ondansetron 2mg/mL 4 mg dexamethasone 4 mg/mL 4 mg ePHEDrine 50mg/mL 10 mg lidocaine 1 % 1 mL 50 mg ceFAZolin sodium-dextrose (ANCEF) infusion 2 g 2 g ceFAZolin (ANCEF) 1 g vial to attach to NS 100 ml bag for ADULT or 50 ml bag 1 g for PEDS lactated ringers infusion 1,300 mL Agents Name NO HELIOX O2 N2O Air Exp Sevoflurane Exp Isoflurane Exp Desflurane Exp N2O O2 Delivery Device Ins Sevoflurane Ins Isoflurane Ins Desflurane O2 Auxiliary Blood No blood administrations on file. Lines, Drains, and Airways Type Details Placement Removal Peripheral IV 03/14/16; 1254; 20 G, 03/14/16 1254 by 1 1/4 inch; Left, Real Padron Anterior; Upper MD New forearm; Alcohol; Injectable; Tolerated well Incision/Surgical Site 03/14/16; 1349; Right; 03/14/16 1349 by Groin; right inguinal Gilmer Bledsoe lymph node biopsy site LIBORIO Guardado Peripheral IV 20 G; Left; Lower 04/15/16 0938 by forearm Incision/Surgical Site 04/15/16; 1040; Right; 04/15/16 1040 by Back Lindsay Westbrook RN Incision/Surgical Site 06/05/17; 1310; Left; 06/05/17 1310 by Vanessa Foreman RN Retired Non-Surgical 06/05/17; 1053; Easy; 06/05/17 1053 by 05/14 1313 by Airway Intravenous; Not Sergio Gonzalez Abby performed; 5; ELIJAH Wilkinson CRNA, APRN CR NA laryngeal mask airway (igel); midline; Equal, clear and bilateral; 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; RJ documented in this encounter Social History Tobacco Use Types Packs/Day Years Used Date Smoking Tobacco: Never Smokeless Tobacco: Never Alcohol Use Standard Drinks/Week Comments No 0 (1 standard drink = 0.6 oz pure alcoho l) Sex Assigned at Date Recorded Not on file documented as of this encounter OR Notes Anesthesia Postprocedure Evaluation - Blayne Jiang MD - 06/05/2017 2:26 PM CDT Patient: Geo Dubois Procedure(s): AMPUTATE LEG BELOW KNEE - Wound Class: III-Contaminated Diagnosis:chronic non healing ulcer Diagnosis Additional Information: Pre-operative diagnosis: chronic non healing ulcer, left Charcot neuroarthropaty with midfoot destruction, left Chronic deformity, left foot and ankle Post-operative diagnosis Same Procedure: Procedure(s): AMPUTATE LEG BELOW KNEE Anesthesia Type: Peripheral Nerve Block for post-op pain at surgeon's request, General, LMA Note: Anesthesia Post Evaluation Patient location during evaluation: PACU Patient participation: Able to fully participate in evaluation Level of consciousness: awake Pain management: adequate Airway patency: patent Cardiovascular status: acceptable Respiratory status: acceptable Hydration status: acceptable PONV: controlled Anesthetic complications: None Last vitals: Vitals: 06/05/17 1325 06/05/17 1330 06/05/17 1345 BP: (!) 163/100 (!) 163/100 133/87 Pulse: Resp: 15 10 12 Temp: SpO2: 100% 100% 96% Electronically Signed By: Blayne Jiang MD June 05, 2017 2:26 PM Anesthesia Preprocedure Evaluation - Blayne Jiang MD - 06/05/2017 11:02 AM CDT Anesthesia Evaluation . ROS/MED HX ENT/Pulmonary: (+)sleep apnea, , . . Neurologic: Cardiovascular: (+) Dyslipidemia, hypertension----. : . . . :. . METS/Exercise Tolerance: Hematologic: Musculoskeletal: (+) , , other musculoskeletal- charcot foot GI/Hepatic: Renal/Genitourinary: Endo: (+) type II DM . Psychiatric: (+) psychiatric history depression Infectious Disease: Malignancy: Other: Physical Exam Airway Mallampati: II TM distance: >3 FB Neck ROM: full Dental Cardiovascular Rhythm and rate: regular and normal Pulmonary breath sounds clear to auscultation Anesthesia Plan History & Physical Review History and physical reviewed and following examination; no interval change. ASA Status: 3 . NPO Status: > 8 hours Plan for General, LMA and Periph. Nerve Block for postop pain with Intravenous and Propofol induction. Maintenance will be Balanced. PONV prophylaxis: Ondansetron (or other 5HT-3) and Dexamethasone or Solumedrol Postoperative Care Postoperative pain management: IV analgesics, Oral pain medications, Peripheral nerve block (Single Shot) and Multi-modal analgesia. Consents Anesthetic plan, risks, benefits and alternatives discussed with: Patient.. . Anesthesia Procedure Notes - Blayne Jiang MD - 06/05/2017 11:01 AM CDT Associated Order(s): ANE PERIPHERAL/PARAVETEBRAL BLOCK Peripheral nerve/Neuraxial procedure note : Femoral Pre-Procedure Performed by BLAYNE JIANG Referred by [facility] Location: pre-op Procedure Times:06/05/2017 10:46 AM and 06/05/2017 10:49 AM Pre-Anesthestic Checklist: patient identified, IV checked, site marked, risks and benefits discussed, informed consent, monitors and equipment checked, pre-op evaluation, at physician/surgeon's requestand post-op pain management Timeout Correct Patient: Yes Correct Procedure: Yes Correct Site: Yes Correct Laterality: Yes Correct Position: Yes Site Marked: Yes . Procedure Documentation Diagnosis:CHARCOT FOOT DISEASE. Procedure: Femoral. Ultrasound used to identify targeted nerve, plexus, or vascular marker and placed a needle adjacentto it., Ultrasound was used to visualize the spread of the anesthetic in close proximity to the above stated nerve. Patient Prep;mask, sterile gloves, povidone-iodine 7.5% surgical scrub. . Needle: insulated, short bevel Needle Gauge: 24. Needle Length (Inches) 4 Insertion Method: Single Shot. Assessment/Narrative Paresthesias: No. Injection made incrementally with aspirations every 5 mL.. The placement was negative for: blood aspirated, painful injection and site bleeding. Bolus given via needle.. Secured via. Complications: none. Comments: The surgeon has given a verbal order transferring care of this patient to me for the performance of a regional analgesia block for post-op pain control. It is requested of me because I am uniquely trained and qualified to perform this block and the surgeon is neither trained nor qualified to perform this procedure. 10 ml 0.5% bupivacaine Anesthesia Procedure Notes - Blayne Jaing MD - 06/05/2017 11:00 AM CDT Associated Order(s): ANE PERIPHERAL/PARAVETEBRAL BLOCK Peripheral nerve/Neuraxial procedure note : Sciatic Pre-Procedure Performed by BLAYNE JIANG Referred by [facility]ELING Location: pre-op Procedure Times:06/05/2017 10:41 AM and 06/05/2017 10:46 AM Pre-Anesthestic Checklist: patient identified, IV checked, site marked, risks and benefits discussed, informed consent, monitors and equipment checked, pre-op evaluation, at physician/surgeon's requestand post-op pain management Timeout Correct Patient: Yes Correct Procedure: Yes Correct Site: Yes Correct Laterality: Yes Correct Position: Yes Site Marked: Yes . Procedure Documentation Diagnosis:CHARCOT FOOT DISEASE. Procedure: Sciatic. Ultrasound used to identify targeted nerve, plexus, or vascular marker and placed a needle adjacentto it., Ultrasound was used to visualize the spread of the anesthetic in close proximity to the above stated nerve. Patient Prep;mask, sterile gloves, povidone-iodine 7.5% surgical scrub. . Needle: insulated, short bevel Needle Gauge: 24. Needle Length (Inches) 4 Insertion Method: Single Shot. Assessment/Narrative Paresthesias: No. Injection made incrementally with aspirations every 5 mL.. The placement was negative for: blood aspirated, painful injection and site bleeding. Bolus given via needle.. Secured via. Complications: none. Comments: The surgeon has given a verbal order transferring care of this patient to me for the performance of a regional analgesia block for post-op pain control. It is requested of me because I am uniquely trained and qualified to perform this block and the surgeon is neither trained nor qualified to perform this procedure. 30 ml 0.5% bupivacaine documented in this encounter Miscellaneous Notes Anesthesia Care Transfer Note - Lilo Norwood APRN CRNA - 06/05/2017 1:29 PM CDT Patient: Geo Dubois Procedure(s): AMPUTATE LEG BELOW KNEE - Wound Class: III-Contaminated Diagnosis: chronic non healing ulcer Diagnosis Additional Information: No value filed. Anesthesia Type: No value filed. Note: Airway :Blow-by and Face Mask Patient transferred to:PACU Comments: VSS, awake and alert, patent airway, no pain. Vitals: (Last set prior to Anesthesia Care Transfer) TARAN VITALS 06/05/2017 1245 - 06/05/2017 1329 06/05/2017 Pulse: 79 SpO2: 98 % Resp Rate (observed): 10 Electronically Signed By: Lilo Norwood APRN CRNA June 05, 2017 1:20 PM documented in this encounter Plan of Treatment Not on filedocumented as of this encounter Procedures Procedure Name Priority Date/Time Associated Diagnosis Comme nts ANE Routine 06/05/2017 11:02 AM CDT PERIPHERAL/PARAVETEBRAL BLOCK Procedure Note - Trae Jiang i, MD - 06/05/2017 11:01 AM CDTThis note is in progress. Formatting of this note migh t be different from the original. Peripheral nerve/Neuraxial p rocedure note : Femoral Pre-Procedure Performed by BLAYNE JIANG Referred by FRANNIE Location: pre-op Procedure Times:06/05/2017 10: 46 AM and 06/05/2017 10:49 AM Pre-Anesthestic Checklist: p atient identified, IV checked, site marked, risks and benefits discussed, informed consent, monitors and equipment checked, pre-op evaluation, at physician/surgeon's request and post-op pain management Timeout Correct Patient: Yes Correct Procedure: Yes Correct Site: Yes Correct Laterality: Yes Correct Position: Yes Site Marked: Yes . Procedure Documentation Diagnosis:CHARCOT FOOT DISEA SE. Procedure: Femoral. Ultrasound used to identify targeted nerve, plexus, or vascular marker and placed a needle adjacent to it., Ultrasound was used to visualize the spread of the anesthetic in close proximity to the above stated nerve. Patient Prep;mask, sterile g loves, povidone-iodine 7.5% surgical scrub. . Needle: insulated, short bevel Needle Gauge: 24. Needle Length (Inches) 4 Insertion Method: Single Shot. Assessment/Narrative Paresthesias: No. Injection made incrementally with aspirations every 5 mL.. The placement was negative for: blood aspirated, painful injection and site bleeding. Bolus given via needle.. Secured via. Complications: none. Comment s: The surgeon has given a verbal order transferring care of this patient to me for the performance of a regional analgesia block for post-op pain control. It is requested of me because I am uniquely trained and qual ified to perform this block and the surgeon is neither trained nor qualified to perform this procedure. 10 ml 0.5% bupivacaine ANE PERIPHERAL/PARAVETEBRAL BLOCK Routine 06/05/2017 11:01 AM CDT Procedure Note - Trae Jiang i, MD - 06/05/2017 11:00 AM CDTThis note is in progress. Formatting of this note migh t be different from the original. Peripheral nerve/Neuraxial p rocedure note : Sciatic Pre-Procedure Performed by BLAYNE JIANG Referred by FRANNIE Location: pre-op Procedure Times:06/05/2017 10: 41 AM and 06/05/2017 10:46 AM Pre-Anesthestic Checklist: p atient identified, IV checked, site marked, risks and benefits discussed, informed consent, monitors and equipment checked, pre-op evaluation, at physician/surgeon's request and post-op pain management Timeout Correct Patient: Yes Correct Procedure: Yes Correct Site: Yes Correct Laterality: Yes Correct Position: Yes Site Marked: Yes . Procedure Documentation Diagnosis:CHARCOT FOOT DISEA SE. Procedure: Sciatic. Ultrasound used to identify targeted nerve, plexus, or vascular marker and placed a needle adjacent to it., Ultrasound was used to visualize the spread of the anesthetic in close proximity to the above stated nerve. Patient Prep;mask, sterile g loves, povidone-iodine 7.5% surgical scrub. . Needle: insulated, short bevel Needle Gauge: 24. Needle Length (Inches) 4 Insertion Method: Single Shot. Assessment/Narrative Paresthesias: No. Injection made incrementally with aspirations every 5 mL.. The placement was negative for: blood aspirated, painful injection and site bleeding. Bolus given via needle.. Secured via. Complications: none. Comment s: The surgeon has given a verbal order transferring care of this patient to me for the performance of a regional analgesia block for post-op pain control. It is requested of me because I am uniquely trained and qual ified to perform this block and the surgeon is neither trained nor qualified to perform this procedure. 30 ml 0.5% bupivacaine documented in this encounter Visit Diagnoses Not on filedocumented in this encounter Administered Medications Inactive Administered Medications - up to 3 most recent administrations Medication Order MAR Action Action Date Dose Rate Site ceFAZolin (ANCEF) 1 g vial to Given 06/05/2017 12:48 PM CDT 1 g attach to NS 100 ml bag for ADULT or 50 ml bag for PEDS Routine, 1 g, Intravenous, SEE ADMIN INSTRUCTIONS, Starting on Thu06/05/17 at 0837, Intra-Op Dose.?Give every 2 hours while patient in surgery, starting 2 hours after pre-op dose.?DO NOT GIVE intra-op dose if CrCl less than 10 mL/min (on dialysis).?If CrCL less than 50 mL/min, double the time interval between doses., Indications: Perioperative Pharmacoprophylaxis, Pre-procedure ceFAZolin sodium-dextrose (ANCEF) infusi on 2 g Given 06/05/2017 10:48 AM CDT 2 g Routine, 2 g, Intravenous, PRE-OP/PRE-PROCEDURE, Starting on Thu06/05/17 at 0837, For 1 dose, Give first dose within 1 hour PRIOR to incision. If patient weight is greater than or equal to 120 kg increase dose to 3 g., Indications: Perioperative Pharmacoprophylaxis, Pre-procedure dexamethasone (DECADRON) injection Given 06/05/2017 10:50 AM CDT 4 mg Intravenous, PRN, Administer over 1-4 Minutes, Starting on Thu06/05/17 at 1050, Anesthesia Intra-op ePHEDrine injection Given 06/05/2017 11:06 AM CDT 5 mg PRN, Starting on Thu06/05/17 at 1100, Anesthesia Intra-op Given 06/05/2017 11:00 AM CDT 5 mg fentaNYL (PF) (SUBLIMAZE) injection Given 06/05/2017 12:53 PM CDT 25 mcg PRN, moderate to severe pain, Starting on Thu06/05/17 at 1050, Anesthesia Intra-op Given 06/05/2017 12:50 PM CDT 25 mcg Given 06/05/2017 12:41 PM CDT 25 mcg lactated ringers infusion New Bag 06/05/2017 11:23 AM CDT at 25 mL/hr, Intravenous, CONTINUOUS, IF patient NOT on dialysis., Pre-procedure, Starting on Thu06/05/17 at 0845, Until Thu06/05/17 at 1316 New Bag 06/05/2017 10:15 AM CDT lidocaine 1 % 1 mL Given 06/05/2017 10:52 AM CDT 50 mg 1 mL, Other, EVERY 1 HOUR PRN, mild pain with VAD insertion or accessing implanted port, Starting on Thu06/05/17 at 0837, Do NOT give if patient has a history of allergy to any local anesthetic or any matthieu product. MAX dose 1 mL subcutaneous OR intradermal in divided doses., Pre-procedure midazolam (VERSED) injection Given 06/05/2017 10:38 AM CDT 2 mg PRN, anxiety, Starting on Thu06/05/17 at 1038, Anesthesia Intra-op ondansetron (ZOFRAN) injection Given 06/05/2017 12:09 PM CDT 4 mg PRN, nausea, vomiting, Administer over 2-5 Minutes, Starting on Thu06/05/17 at 1209, Anesthesia Intra-op propofol (DIPRIVAN) injection 10 mg/mL v ial Given 06/05/2017 10:50 AM CDT 200 mg PRN, Starting on Thu06/05/17 at 1050, Anesthesia Intra-op documented in this encounter
--- OUTSIDE RECORDS SUMMARY | 2022-07-31 10:07 | XMS_ITS | Encounter Summary ---
:1960 Author Organization [place] Address [address] [place] [address] Care Team Providers Name Role Phone HortenciaDecember Primary Care Provider Encounter Details Date Type Department Care Team Description 05/13/2017 Hospital Encounter [facility] Lavonne Helm PA-C [address] [place] [address] [address] [phone] [place] [address] (Wo rk) Social History Tobacco Use Types Packs/Day Years Used Date Smoking Tobacco: Never Alcohol Use Standard Drinks/Week Comments No 0 (1 standard drink = 0.6 oz pure alcoho l) Sex Assigned at Date Recorded Not on file documented as of this encounter Last Filed Vital Signs Vital Sign Reading Time Taken Comments Blood Pressure 160/97 05/13/2017 12:51 PM CDT Pulse 95 05/13/2017 12:51 PM CDT Temperature 36.7 ??C (98 ??F) 05/13/2017 12:51 PM CDT Respiratory Rate 16 05/13/2017 12:51 PM CDT Oxygen Saturation - - Inhaled Oxygen Concentration - - Weight - - Height - - Body Mass Index - - documented in this encounter Medications at Time of Discharge Medication Sig Dispensed Refills Start Date End Date Cholecalciferol Take 5,000 Units by 0 (VITAMIN [...] daily BKA (below knee amputation), left (H) aspirin 81 MG tablet Take 81 mg by mouth 0 06/08/2017 daily cephALEXin (KEFLEX) 500 Take 1 capsule (500 30 capsule 0 04/201705/29/2017 MG capsuleIndications: mg) by mouth 3 times Local infection of daily wound gabapentin (NEURONTIN) Take 1 capsule (300 90 capsule 1 05/2906/12/2017 300 MG mg) by mouth 3 times capsuleIndications: S/P daily BKA (below knee amputation), left (H) order [...] of dressing change: daily stage 3 (H) oxyCODONE (ROXICODONE) Take 1-2 tablets 24 tablet 0 017 06/12/2017 5 MG IR (5-10 mg) by mouth tabletIndications: S/P every 3 hours as BKA (below knee needed for moderate amputation), left (H) to severe pain senna-docusate Take 1-2 tablets by 40 tablet 0 06/08/2017 0 06/12/2017 (SENOKOT-S;PERICOLACE) mouth 2 times daily 8.6-50 MG per tabletIndications: S/P BKA (below knee amputation), left (H) UNKNOWN TO PATIENT Place 1 Dose into 0 06/02/2017 both eyes every 30 days documented as of this encounter Progress Notes Karl [facility]imm PA-C - 05/13/2017 1:29 PM CDT [facility] HISTORY OF PRESENT ILLNESS: Mr. Geo Dubois is a 57-year old male with bilateral Charcot ankles resulting in varus deformities and subsequent lateral ankle ulcerations. He wears KAKE walkers in order to stabilize his ankles but unfortunately has been unable to properly offload these areas. He is being followed by Dr. Cortez and presents earlier than his scheduled appointment with her due toincreased odor and drainage in his left ankle wound. He is currently taking cephalexin three times daily empirically that we started last week for these same complaints. He has a planned amputation of this left leg June 05 so our current goal is to keep the wound stable until surgery. WOUND CARE: Currently dressing both wounds with Hydrofera Blue preceded by a Vashe-soak. OFFLOADING: KAKE walkers PAST MEDICAL HISTORY: VILLA, neuropathy, charcot joint of bilateral ankles, diabetes mellitus, aneurysm, anemia SOCIAL HISTORY: Lives with a roommate who performs all of his dressing changes VITALS: BP (!) 160/97 Pulse 95 Temp 98 ??F (36.7 ??C) (Temporal) Resp 16 PHYSICAL EXAM: GENERAL: Patient is alert and oriented and in no acute distress INTEGUMENTARY: WOUND ASSESSMENT #1: ?? Location: right distal lateral ankle ?? Stage: stage 3 ?? Size: 0.6 cm x 0.3 cm with a depth of 0.4 cm ?? Drainage: copious amount of serosanguinous drainage ?? Wound description: covered with dried eschar that once debrided revealed healthy granulation tissue WOUND ASSESSMENT #4: ?? Location: left lateral ankle wound ?? Stage: stage 4 ?? Size: 2.1cm x 2.3 cm with a depth of 0.9 cm and 2 cm of undermining ?? Drainage: copious amount of serosanguinous drainage ?? Wound description: bone is exposed, some necrotic tissue present PROCEDURE: After timeout called and informed consent obtained, topical 4% lidocaine was applied to the wound. Using a 15 blade and a sharp curette a surgical debridement was performed down to and including necrotic bone of <20 cm. Hemostasis was achieved with pressure. The patient tolerated the procedure well. ASSESSMENT: deteriorating stage 4 pressure ulcers on of left lower leg, improving stage 3 pressure ulcer of right lower leg, diabetes, charcot joint bilaterally PLAN: 1. L ankle to be dressed with betadine damp gauze 2. Continue Hydrofera Blue and Endoform to R ankle 3. If fever or n/v call our office or go into the ED FOLLOW-UP: with Dr. Cortez in 2 weeks KARL SINCLAIR PA-C documented in this encounter Plan of Treatment Not on filedocumented as of this encounter Visit Diagnoses Not on filedocumented in this encounter Care Teams Section Chief Relationship Specialty Start Date End Date December PCP - General Physician [employer] 03/07/16 05/20/17 [place] [id number] [place] [id number] documented as of this encounter
--- OUTSIDE RECORDS SUMMARY | 2022-07-31 10:07 | XMS_ITS | Encounter Summary ---
:1960 Author Organization [facility] Address [address] 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 09/15 [facility] Procedures CT CORONARY ARTERY ANGIO [address] [place] [phone] Phone: Referral ID Status Reason Start Date Expiration Date Visits Requ ested Visits Authorized [id number] Closed 09/15/2016 09/15/2017 1 1 Encounter Details Date Type Department Care Team Description 09/25/2016 Hospital Encounter [facility] Ketroser, 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; [facility] Prasanna Keen MD Thoracic aortic aneurysm without rupture (H); [facility] [address] [facility] Ischemic cardiomyopathy [address] [place] [address] [id number] [place] [phone] (Work) [phone] Social History Tobacco Use Types Packs/Day Years Used Date Smoking Tobacco: Never Alcohol Use Standard Drinks/Week Comments No 0 (1 standard drink = 0.6 oz pure alcoho l) Sex Assigned at Date Recorded Not on file documented as of this encounter Last Filed Vital Signs Vital Sign Reading Time Taken Comments Blood Pressure 142/90 09/25/2016 8:48 AM FOLDER TIER Pulse - - Temperature - - Respiratory [...] mg by mouth 0 daily (with breakfast) Sertraline HCl (ZOLOFT PO) Take 50 mg by 0 mouth daily SIMVASTATIN PO Take 20 mg by 0 mouth daily aspirin 81 MG tablet Take 81 mg by 0 0 06/08/2017 mouth daily metoprolol (LOPRESSOR) 50 Take 1 tablet (50 2 tablet 0 04/02/2017 MG tabletIndications: mg) by mouth as Aneurysm of aortic sinus of needed Valsalva without rupture, Thoracic aortic aneurysm without rupture, Ischemic cardiomyopathy UNKNOWN TO PATIENT Place 1 Dose into 0 06/02/2017 both eyes every 30 days documented as of this encounter Plan of Treatment Not on filedocumented as of this encounter Procedures Procedure Name Priority Date/Time Associated Diagnosis Comme nts CTA ANGIOGRAM Routine 09/25/2016 10:27 Aneurysm of aortic Resu lts for this CORONARY ARTERY AM FOLDER TIER sinus of Valsalva procedu re are in without rupture the results Thoracic aortic section. aneurysm without rupture (H) Ischemic cardiomyopathy RADIOLOGIST CONSULT Routine 09/25/2016 10:27 Aneurysm of aorti c Results for this FOR CARDIOLOGY AM FOLDER TIER sinus of Valsalva procedur e are in without rupture the results Thoracic aortic section. aneurysm without rupture (H) Ischemic cardiomyopathy documented in this encounter Results Radiologist Consult For Cardiology (09/25/2016 10:27 AM FOLDER TIER) Anatomical Region Laterality Modality Computed Tomography Specimen (Source) Anatomical Location Collection Method / Collectio n Time Received Time / Laterality Volume Narrative 09/25/2016 12:47 PM FOLDER TIER RADIOLOGIST CONSULT FOR CARDIOLOGY 09/25/2016 10:27 AM HISTORY: 56-year-old patient with histor y of arterial aneurysm. COMPARISON: None. TECHNIQUE: Multiplanar, multiformatted C TA images were obtained through the heart before and after the u neventful administration of Isovue-370 given for a total of 115 mL. FINDINGS: Please note this report will f ocus only on soft tissue findings. Please see separate report for all cardiac and vascular findings. No abnormally enlarged mediastinal lymph nodes. The visible solid organs in the upper abdomen are unremark able. No acute osseous abnormality. Minimal bibasilar atelectas is. Scattered granulomas in the right lung. No pulmonary masses. ROSALINDA MORENO MD Procedure Note Rosalinda Moreno MD - 09/25/2016 RADIOLOGIST CONSULT FOR CARDIOLOGY 09/25 10:27 AM HISTORY: 56-year-old patient with histor y of arterial aneurysm. COMPARISON: None. TECHNIQUE: Multiplanar, multiformatted C TA images were obtained through the heart before and after the u neventful administration of Isovue-370 given for a total of 115 mL. FINDINGS: Please note this report will f ocus only on soft tissue findings. Please see separate report for all cardiac and vascular findings. No abnormally enlarged mediastinal lymph nodes. The visible solid organs in the upper abdomen are unremark able. No acute osseous abnormality. Minimal bibasilar atelectas is. Scattered granulomas in the right lung. No pulmonary masses. ROSALINDA MORENO MD Prasanna Sargent MD IMG DIAGNOSTIC IMAGING ORDER [facility] CT Angiogram coronary artery (09/25/2016 10:27 AM FOLDER TIER) Anatomical Region Laterality Modality Cardio, SUBRAD CT BODY, UMP CT CHEST Com puted Tomography Specimen (Source) Anatomical Location Collection Method / Collectio n Time Received Time / Laterality Volume Impressions 09/25/2016 11:58 AM FOLDER TIER IMPRESSION: 1. Total Agatston score 0.82, placing th e patient in the the 34th percentile when compared to age and gend er matched control group. 2. No significant coronary artery diseas e seen. Left main is very short and almost immediately divides int o the dominant circumflex, left anterior descending artery and martell s intermedius. 3. The aortic root is enlarged at the le srini of sinuses of Valsalva measuring 4.0 x 4.5 cm. However no disti nct sinus of Valsalva aneurysm is seen in this study 4. ??Please review Radiology report for incidental noncardiac findings that will follow separately. FINDINGS: CORONARY CALCIUM SCORE: The total Agatst on calcium score is 0.82, Left main: 0, left anterior descendin.82, ??circumflex: 0, right coronary artery: 0. This places the dago ent in the 34th percentile when compared to age and gender matched control group. CORONARY CT ANGIOGRAPHY DOMINANCE: Left dominant system. LEFT MAIN: The left main arises normally from the left coronary cusp and is a very small artery which almost immediately trifurcates into the LAD, circumflex and ramus intermediu s artery. LEFT ANTERIOR DESCENDING: The left anter ior descending and its major diagonal branches are widely patent with out any detectable stenosis or plaque. ??A a very small calcified plaqu e may be seen in the proximal portion of this artery. However with a c alcium score of less than 1 is probably a material CIRCUMFLEX: The circumflex and its major branches are widely patent without any detectable stenosis or plaqu e. RIGHT CORONARY ARTERY: Small nondominant ADDITIONAL FINDINGS: The proximal ascending aorta is normal i n size. Normal pulmonary venous anatomy with all four pulmonary veins draining into the left atrium. ?? There is no left ventricular mass or thr ombus. Normal pericardial thickness. There is n o pericardial effusion. The proximal pulmonary arteries are well opacified. Please review Radiology report for incid ental noncardiac findings that will follow separately. ROSALINDA BUENO MD Narrative 09/25/2016 11:58 AM FOLDER TIER Procedure: CT ANGIO CORONARY ARTERY Examination Date: January 28, 2012 9:53:00 AM sinus of Valsalva Indication: ??Chest pain. Clinical Information: chest pain, abnorm al stress echo, 105cc optiray 350 ,(wasted ??45cc) Ordering Physician: Cal Astorga Overall quality of the study: Good. PROCEDURE:The patient was positioned in the scanner gantry and an IV was started using an 18 gauge IV in the right antecubital fossa. Utilizing 115 cc ??Isovue 370, wasted 0 cc, multi-slice computed tomography was performed with a Siemens Dual Source Flash scanner without incident. Beta-blockers were req uired to optimize heart rate, patient was given Metoprolol 50 mg Oral, Metoprolol 40 mg ??IV. The patient was given pre-medication of subl ingual Nitrostat 0.4 mg prior to scanning. Coronary artery calcium sco re was performed using the Flash scanner protocol. CTA was performe d in the sequential mode at a heart rate of 64 bpm with 120 kVp. Image s were reconstructed and analyzed on a [employer] workstation. Sca n protocol was optimized to minimize radiation exposure. The total r adiation exposure including calcium score was calculated to be 477 D LP, and some 0.3 mSv. Procedure Note Ip, Rosalinda Epstein MD - 09/25/2016Forma tting of this note might be different from the original. Procedure: CT ANGIO CORONARY ARTERY Examination Date: January 28, 2012 9:53:00 AM sinus of Valsalva Indication: Chest pain. Clinical Information: chest pain, abnorm al stress echo, 105cc optiray 350 ,(wasted 45cc) Ordering Physician: Cal Astorga Overall quality of the study: Good. PROCEDURE:The patient was positioned in the scanner gantry and an IV was started using an 18 gauge IV in the right antecubital fossa. Utilizing 115 cc Isovue 370, wasted 0 cc , multi-slice computed tomography was performed with a Siemens Dual Source Flash scanner without incident. Beta-blockers were req uired to optimize heart rate, patient was given Metoprolol 50 mg Oral, Metoprolol 40 mg IV. The patient was given pre-medication of subl ingual Nitrostat 0.4 mg prior to scanning. Coronary artery calcium sco re was performed using the Flash scanner protocol. CTA was performe d in the sequential mode at a heart rate of 64 bpm with 120 kVp. Image s were reconstructed and analyzed on a [employer] workstation. Sca n protocol was optimized to minimize radiation exposure. The total r adiation exposure including calcium score was calculated to be 477 D LP, and some 0.3 mSv. IMPRESSION: 1. Total Agatston score 0.82, placing th e patient in the the 34th percentile when compared to age and gend er matched control group. 2. No significant coronary artery diseas e seen. Left main is very short and almost immediately divides int o the dominant circumflex, left anterior descending artery and martell s intermedius. 3. The aortic root is enlarged at the le srini of sinuses of Valsalva measuring 4.0 x 4.5 cm. However no disti nct sinus of Valsalva aneurysm is seen in this study 4. Please review Radiology report for in cidental noncardiac findings that will follow separately. FINDINGS: CORONARY CALCIUM SCORE: The total Agatst on calcium score is 0.82, Left main: 0, left anterior descendin.82, circumflex: 0, right coronary artery: 0. This places the dago ent in the 34th percentile when compared to age and gender matched control group. CORONARY CT ANGIOGRAPHY DOMINANCE: Left dominant system. LEFT MAIN: The left main arises normally from the left coronary cusp and is a very small artery which almost immediately trifurcates into the LAD, circumflex and ramus intermediu s artery. LEFT ANTERIOR DESCENDING: The left anter ior descending and its major diagonal branches are widely patent with out any detectable stenosis or plaque. A a very small calcified plaque may be seen in the proximal portion of this artery. However with a c alcium score of less than 1 is probably a material CIRCUMFLEX: The circumflex and its major branches are widely patent without any detectable stenosis or plaqu e. RIGHT CORONARY ARTERY: Small nondominant ADDITIONAL FINDINGS: The proximal ascending aorta is normal i n size. Normal pulmonary venous anatomy with all four pulmonary veins draining into the left atrium. There is no left ventricular mass or thr ombus. Normal pericardial thickness. There is n o pericardial effusion. The proximal pulmonary arteries are well opacified. Please review Radiology report for incid ental noncardiac findings that will follow separately. ROSALINDA BUENO MD Prasanna Sargent MD IMG CT ORDERABLES documented in this encounter Visit Diagnoses Diagnosis Aneurysm of aortic sinus of Valsalva wit hout rupture Thoracic aortic aneurysm without rupture Thoracic aneurysm without mention of rup ture Ischemic cardiomyopathy Other specified forms of chronic ischemi c heart disease documented in this encounter Administered Medications Inactive Administered Medications - up to 3 most recent administrations Medication Order MAR Action Action Date Dose Rate Site iopamidol (ISOVUE-370) solution Given 09/25/2016 10:33 AM FOLDER TIER 11 5 mLs 50-150 mL 50-150 mL, Intravenous, ONCE, On [place] 09/25/16 at 1000, For 1 dose metoprolol (LOPRESSOR) injection 5-15 mg Given 09/25/2016 10:20 AM FOLDER TIER 10 mg 5-15 mg, Intravenous, EVERY 3 MIN PRN, other, during procedure for maintaining heart rate less than 60 bpm.?MAX total dose = 40 mg., Starting on [place] 09/25/16 at 0832, May give every 3 minutes, as needed during the procedure as verbally directed by provider. Vital signs to be monitored during the administration of the drug. HOLD for systolic blood pressure less than 90 mmHg. Dose to be given by CT nursing staff. Discontinue after procedure., Cardiac Intra-procedure Given 09/25/2016 10:14 AM FOLDER TIER 10 mg Given 09/25/2016 10:10 AM FOLDER TIER 10 mg metoprolol (LOPRESSOR) tablet 50-100 mg Given 09/25/2016 8:48 AM FOLDER TIER 50 mg 50-100 mg, Oral, ONCE PRN, for patients in whom the heart rate is 55 bpm or greater and systolic blood pressure greater than 90 mm Hg, Starting on Dun[place] 09/25/16 at 0832, For 1 dose, If patient has not received metoprolol prior to the procedure. - 50 mg if heart rate is 55-59 bpm and systolic blood pressure greater than 90 mmHg - 100 mg if heart rate is 60 bpm or greater and systolic blood pressure greater than 90 mmHg HOLD for systolic blood pressure less than 90 mmHg. Give one hour PRIOR to procedure. Dose to be given by CT nursing staff. Discontinue after procedure., Cardiac Intra-procedure nitroglycerin (NITROSTAT) sublingual tablet Given 08/29 10:15 AM FOLDER TIER 0.4 mg 0.4 mg 0.4 mg, Sublingual, EVERY 15 MIN PRN, other, Administer the first dose when the patient is on the table just before starting CT scan., Starting on [place] 09/25/16 at 0832, For 2 doses, If there is a delay in the procedure, administer a second dose if necessary 15 minutes after the initial dose IF directed by the provider prior to the start of the exam. Hold for systolic blood pressure less than 90 mmHg - notify provider. Notify provider prior to giving medication if patient has a history of severe aortic stenosis., Cardiac Intra-procedure sodium chloride (PF) 0.9% PF flush 10-100 Given 09/25/2016 1 0:34 AM FOLDER TIER 100 mLs mL 10-100 mL, Intravenous, ONCE, On [place] 09/25/16 at 1000, For 1 dose documented in this encounter Care Teams Behavioral Health Technician Relationship Specialty Start Date End Date December PCP - General Physician Tank Furnace Operator 03/07/16 05/20/17 [facility] [address] [place] [address] documented as of this encounter
--- OUTSIDE RECORDS SUMMARY | 2022-07-31 10:07 | XMS_ITS | Encounter Summary ---
:1960 Author Organization [facility] Address [address] [place] [id number] Care Team Providers Name Role Phone HortenciaDecember Primary Care Provider Reason for Visit Auth/Cert Specialty Diagnoses / Procedures Referred By Contact Refer red To Contact Surgery Diagnoses anemia Rh Periop Services Procedures BIOPSY BONE MARROW [address] [place], [place] [address] Phone: Fax: Referral ID Status Reason Start Date Expiration Date Visits Requ ested Visits Authorized [id number] 1 1 Encounter Details Date Type Department Care Team Description 04/15/2016 Surgery [facility] Rudy Goins bone marrow biopsy and [place] Peri[facility] Connor Chi MD aspiration, Right [address] posterior superior [place], [place] [address] iliac crest [address] [phone] Surgery Details Date/Time Status Location OR Service Patient Case Case Traum a Class Class Type Case? 04/15/16 10:05 Posted [facility] OR OR 08 Pathology Same Day AM Surgery Panel 1 Procedure LRB Anes Op Region Wound Class Commen ts bone marrow biopsy and Right MAC Pelvis I-Clean matthew ne marrow biopsy and aspiration, Right aspirat ion, Right posterior superior iliac posterior superior iliac crest crest ?? Surgeon Surgeon Role Service Panel Rudy Goins MD Primary Pathology 1 Special Needs Ref: dr. Adry montesinos from [facility] 5' 10 Wt 190 lbsPt bringing CPAP machinePt is DM documented in this encounter Social History Tobacco Use Types Packs/Day Years Used Date Smoking Tobacco: Never Alcohol Use Standard Drinks/Week Comments No 0 (1 standard drink = 0.6 oz pure alcoho l) Sex Assigned at Date Recorded Not on file documented as of this encounter Last Filed Vital Signs Vital Sign Reading Time Taken Comments Blood Pressure 126/87 04/15/2016 11:15 AM CDT Pulse - - Temperature 36.7 ??C (98.1 ??F) 04/15/2016 10:55 AM CDT Respiratory Rate 16 04/15/2016 11:15 AM CDT Oxygen Saturation 99% 04/15/2016 11:15 AM CDT Inhaled Oxygen Concentration - - Weight 87.5 kg (192 lb 12.8 oz) 04/15/2016 8:47 AM CDT Height 177.8 cm (5' 10) 04/15/2016 8:47 AM CDT Body Mass Index 27.66 04/15/2016 8:47 AM CDT documented in this encounter Discharge Instructions Discharge InstructionsMarielle Bowser RN - 04/15/2016 11:06 AM CDT GENERAL ANESTHESIA OR SEDATION ADULT DISCHARGE INSTRUCTIONS SPECIAL PRECAUTIONS FOR 24 HOURS AFTER SURGERY IT IS NOT UNUSUAL TO FEEL LIGHT-HEADED OR FAINT, UP TO 24 HOURS AFTER SURGERY OR WHILE TAKING PAIN MEDICATION. IF YOU HAVE THESE SYMPTOMS; SIT FOR A FEW MINUTES BEFORE STANDING AND HAVE SOMEONE ASSIST YOU WHEN YOU GET UP TO WALK OR USE THE BATHROOM. YOU SHOULD REST AND RELAX FOR THE NEXT 24 HOURS AND YOU MUST MAKE ARRANGEMENTS TO HAVE SOMEONE STAY WITH YOU FOR AT LEAST 24 HOURS AFTER YOUR DISCHARGE. AVOID HAZARDOUS AND STRENUOUS ACTIVITIES. DO NOTMAKE IMPORTANT DECISIONS FOR [address] ANY VEHICLE OR OPERATE MECHANICAL EQUIPMENT FOR 24 HOURS FOLLOWING THE END OF YOUR SURGERY. EVEN THOUGH YOU MAY FEEL NORMAL, YOUR REACTIONS MAY BE AFFECTED BY THE MEDICATION YOU HAVE RECEIVED. DO NOT DRINK ALCOHOLIC BEVERAGES FOR 24 HOURS FOLLOWING YOUR SURGERY. DRINK CLEAR LIQUIDS (APPLE JUICE, TAVO TASHA, 7-UP, BROTH, ETC.). PROGRESS TO YOUR REGULAR DIET YOU FEEL ABLE. YOU MAY HAVE A DRY MOUTH, A SORE THROAT, MUSCLES ACHES OR TROUBLE SLEEPING. THESE SHOULD GO AWAY AFTER 24 HOURS. CALL YOUR DOCTOR FOR ANY OF THE FOLLOWING: SIGNS OF INFECTION (FEVER, GROWING TENDERNESS AT THE SURGERY SITE, A LARGE AMOUNT OF DRAINAGE OR BLEEDING, SEVERE PAIN, FOUL-SMELLING DRAINAGE, REDNESS OR SWELLING. IT HAS BEEN OVER 8 TO 10 HOURS SINCE SURGERY AND YOU ARE STILL NOT ABLE TO URINATE (PASS WATER). BONE MARROW BIOPSY DISCHARGE INSTRUCTIONS DRS. Tom QUINTANILLA, Bobby VERA & Maynor GERMAIN HOW SHOULD I CARE FOR MYSELF AFTERWARD? If you have had medicine to help you relax: 1. Someone will need to drive you home. 2. You may have a brief period of amnesia. You may not remember the biopsy. 3. You may have a headache, nausea (feeling sick to your stomach) and vomiting (throwing up). 4. Do not drive or use heavy machinery for 24 hours. 5. Do not drink alcohol for 24 hours. 6. You may go back to your normal diet, activities and medicines as you feel able. Whether or not you had medicine to help you relax: 1. Keep the bandage dry and in place for 24 hours. After that, you may remove it and take a shower. You may see some bruising at the needle site. 2. Bleeding is rare. If the amount of blood is larger than the size of a quarter, lie on the floor for 30 minutes to put pressure on the needle site. If you are still bleeding after that, call your doctor. 3. Infection is rare. If you have signs of infection, call your doctor or clinic at once. Symptoms include: - redness, pain, warmth or swelling at the site - a fever of 100.5 degrees F or higher, taken under the tongue. WHEN WILL I GET MY RESULTS? In most cases, your doctor will have the results within 72 hours. documented in this encounter Medications at Time [...] 30 days documented as of this encounter Miscellaneous Notes Op Note - Rudy Goins MD - 04/15/2016 11:17 AM CDT PATHOLOGY PROCEDURE NOTE: PROCEDURE: Bone Marrow Biopsy and Aspiration INDICATION: Anemia. SITE: Right posterior superior iliac crest The patient was identified and the procedure to be performed was reviewed to be correct. Pause for the Cause was taken. The procedure and the potential risks involved, including, but not limited to pain, bleeding at procedure site, and infection, were discussed with the patient. Post-procedure care instructions were given. An opportunity to ask questions was provided. The patient acknowledged understanding of the procedure and an informed consent was obtained. Biopsy site was prepped in the usual sterile fashion. LOCAL ANESTHETIC used: 5 ml of 1% Lidocaine and conscious sedation. SPECIMEN OBTAINED: Needle core biopsy: Right posterior iliac crest. Aspirate fluid: Right posterior iliac crest. DRESSING: Coverlet and pressure bandage. COMPLICATIONS: None. The patient tolerated the procedure well. POST-PROCEDURE CARE: Patient advised to stay supine for one-hour post-procedure and to keep dressingdry for 24 hours. PROCEDURE WAS PERFORMED BY: RUDY LLANOS MD 04-15-2016 @ 11:18 AM Plan of Care - Lora Carey RN - 04/14/2016 2:[address] flores called and message left regarding hgb of 8.9. Dr. Theodore MDA informed and no orders received. documented in this encounter Plan of Treatment Not on filedocumented as of this encounter Procedures Procedure Name Priority Date/Time Associated Comments Diagnosis GLUCOSE BY METER Routine 04/15/2016 11:12 Results for this AM CDT procedure are i n the results section. LEUKEMIA LYMPHOMA Routine 04/15/2016 10:41 Result s for this EVALUATION NON CSF AM CDT procedure are in the results section. LABORATORY Routine 04/15/2016 10:41 Results for this MISCELLANEOUS ORDER AM CDT procedur e are in the results section. CHROMOSOME ANALYSIS, Routine 04/15/2016 10:41 Res ults for this BONE MARROW, AM CDT procedure are i n DIAGNOSIS/RELAPSE the result s section. BONE MARROW BIOPSY Routine 04/15/2016 10:41 Resul ts for this AM CDT procedure are i n the results section. LABORATORY Routine 04/15/2016 10:40 Results for this MISCELLANEOUS ORDER AM CDT procedur e are in the results section. BIOPSY, BONE MARROW 04/15/2016 10:18 anemia AM CDT Special Needs Ref: [facility] Wt 190 lbsPt bringing CPAP machinePt is DM GLUCOSE BY METER Routine 04/15/2016 9:41 AM CDT R esults for this procedure are i n the results section . CBC WITH PLATELETS & STAT 04/15/2016 9:00 AM CDT Results for this DIFFERENTIAL procedure are i n the results section . RETICULOCYTE COUNT STAT 04/15/2016 9:00 AM CDT Results for this procedure are i n the results section . documented in this encounter Results Glucose by meter (04/15/2016 11:12 AM CDT) athologist Signature Glucose 92 70 - 99 POINT OF CARE mg/dL TEST, GLUCOSE Specimen Anatomical Collection Method Collection Time Receive d Time (Source) Location / / Volume Laterality 04/15/2016 11:12 04/15/2016 AM CDT 11:30 AM CDT Rudy Llanos MD LAB - [facility] Performing Organization Address City/State/ZIP Code Phon e Number FV POINT OF CARE TEST, GLUCOSE POINT OF CARE TEST, GLUCOSE Bone marrow biopsy (04/15/2016 10:41 AM CDT) Component Value Ref Test Analysis Performed At [facility] gist Range Method Time Signature Copath Report Patient Name: TISH FULLER [place] MR#: [id number] Specimen #: [id number] Collected: 04/15/2016 Received: 04/15/2016 Reported: 04/17/2016 12:31 Ordering Phy(s): ADRY MONTESINOS ORIGINAL REPORT FOLLOWS ADDENDUM ADDENDUM TO ORIGINAL REPORT Status: Signed Out Date Ordered:05/05/2016 Date Complete:05/05/2016 Date Reported:05/05/2016 07:30 Signed Out By: Rudy Vera M.D. INTERPRETATION: Cytogenetics report: Bone marrow chromosome analysis: Results: 46,XY[20] No clonal chromosomal abnormality was detected among the 20 metaphase cells analyzed. ??See complete report [id number]. ORIGINAL REPORT: TEST(S): Unilateral Bone Marrow Biopsy and Aspiration, right iliac FINAL DIAGNOSIS: Specimen Type: ??Peripheral blood smears, trephine core biop sy, trephine core biopsy imprints, bone marrow aspirate smears and iron s tains. Biopsy Site and Side: ??Right posterior iliac crest. Adequacy of Specimen: ??Specimen adequate for evaluation. Bone Marrow Findings: - Hypercellular bone marrow (60% cellularity) with trilineag e hematopoiesis, erythroid hyperplasia, 0.6% blasts and polyty pic plasmacytosis (2.4%). - No evidence of infiltrative bone marrow processes. Peripheral Blood Findings: - Normocytic hypochromic anemia, moderate. - Increased rouleaux formation. Immunophenotyping: ??[id number]: Polytypic B cells. No aberra nt immunophenotype on T cells. Polytypic plasma cells. No incre ased in myeloid blasts. No abnormal myeloid-blast population. See co mplete report. Cytogenetics: ??[id number]: Pending. Molecular Diagnostics: ??Not performed. Iron Stains: Markedly increased stainable iron stores. ??Mar kedly decreased to absent sideroblasts. ??No evidence of ringed si deroblasts. Findings consistent with anemia of chronic disease. Electronically signed out by: Rudy Vera M.D. CLINICAL HISTORY: 56 years old male. ??Indication for bone marrow biopsy: Anem ia. PERIPHERAL BLOOD DATA: Patient Value (Reference Range >18 year old male) 7.1 ?WBC (4.0-11.0 x 10*9/L) 3.52 ? RBC (4.4-5.9 x 10*12/L) 8.1 ?HGB (13.3-17.7 g/dL) 28.4 ? HCT (40.0-53.0 %) 81 ? MCV (78-100fL) 23.0 ? MCH (26.5-33.0 pg) 28.5 ? MCHC (31.5-36.5 g/dL) 18.8 ? RDW (10.0-15.0 %) 217 ?PLT (150-450 x 10*9/L) 1.1 ?RETIC (0.5-2.0%) PERIPHERAL BLOOD DIFFERENTIAL (Reference ranges >18 year old) Percent 64.6 ??Neutrophils, segmented and bands 22.0 ??Lymphocytes 10.9 ??Monocytes 1.3 ?? Eosinophils 0.6 ?? Basophils 0.6 ?? Immature granulocytes Absolute 4.6 ?? Neutrophils, segmented and bands ??(1.6 - 8.3 x 10*9/ L) 1.6 ?? Lymphocytes ??(0.8 - 5.3 x 10*9/L) 0.8 ?? Monocytes ??(0 -1.3 x 10*9/L) 0.1 ?? Eosinophils ??(0 - 0.7 x 10*9/L) 0.0 ?? Basophils ??(0 - 0.2 x 10*9/L) PERIPHERAL MORPHOLOGY: ERYTHROCYTES: The hemoglobin is recorded as 8.1 g/dL. ??The erythrocytes are decreased and are normocytic hypochromic per indices. ?? The erythrocytes have a dimorphic appearance. ??There is increas ed rouleaux formation. LEUKOCYTES: The white blood cell count is recorded as 7100. ??The white blood cell count and differential are within normal limits. ??The neutrophils, eosinophils, basophils, monocytes and lymphocyt es show mature morphology. ??No dysplastic changes, atypical lymphoi d cells, plasma cells or blasts are seen. PLATELETS: The platelet count is recorded as 217,000. ??The platelets show normal size granulation. BONE MARROW: A right posterior iliac crest bone marrow core biopsy and as pirate were performed. Bone Marrow Data: Percent (Reference Range) 1 ? Perivascular and fat layer (1 - 3%) 67 ?Plasma 3 ? Myeloid-erythroid layer (5 - 8%) 29 ?Red blood cells The differential count is as follows (from ME smears; 500 ce lls): Percent (reference range) 41.4 ?Normoblasts (18-24) 0.6 ? Myeloblasts (0-1) 45.0 ?Neutrophils and precursors (54-63) 2.0 ? Eosinophils and precursors (1 - 3) 0.0 ? Basophils and precursors (0 - 1) 5.8 ? Lymphocytes (8-12) 2.8 ? Monocytes (1-1.5) 2.4 ? Plasma cells ??(0-1.5) The imprint, direct, and ME smears are adequate for evaluati on. ??They show evidence of trilineage hematopoiesis. ??Megakaryocytes appear in adequate number and morphology. ??The red blood cell precurs ors are increased and show normoblastic maturation. ??The granulocyt e precursors are decreased and are characterized by complete maturation. ??The lymphocytes and monocytes show mature morphology. ??There ar e increased plasma cells with mature morphology. DECALCIFIED BONE MARROW CORE AND CLOT SECTIONS: The sections are adequate for evaluation. ??The sections yuriy w periosteum, cortical and cancellous bone and bone marrow. ??The bone is histologically unremarkable for age. ??The bone marrow is hy percellular (60% cellularity) and shows evidence of trilineage hematopoi esis. ??They are red blood cell precursors appear increased and of normal morphology. The granulocyte precursors show normal endosteal gradient o f maturation. ??Megakaryocytes appear adequate in number, morp hology and distribution. ??There are increased plasma cells and they sh ow mature morphology. ??There is no evidence of infiltrative bone magdy ow processes. ANCILLARY STUDIES: Flow Cytometry: [id number] 2603: Polytypic B-cells. No aberrant immunophenotype on T cells. Polytypic plasma cells. No incre ased in myeloid blasts. No abnormal myeloid-blast population. Cytogenetics: ??[id number]: Ordered and pending. Molecular Diagnostics: Not performed. Iron stains: ??Iron stains were reviewed on core sections, c lot sections, PC-ME preparation and ME. Smear. ??The iron stains show uy edly increased stainable iron stores and markedly decreased to ab sent sideroblasts. ??There is no evidence of ringed sideroblasts. ??The findings are consistent with anemia of chronic disease. (Dictated by Rudy Vera MD 04-17-2016 @ 12:31 PM). CPT Codes: A: 71480-EDST, 01268-JPZD, 97344-SDTA, 43904-JJSE, 67962-QIQ , 00806-AGDK, 61434-RASR, 73892-KOWSM, 49313-WWUFQ, SOH, SOH TESTING LAB LOCATION: [facility] [address] [place], [place] ??[address] COLLECTION SITE: Client: ??[facility] Location: ??RHOR (R) Specimen Anatomical Collection Method Collection Time Receive d Time (Source) Location / / Volume Laterality 04/15/2016 10:41 04/15/2016 AM CDT 11:13 AM CDT Adry Montesinos MD [facility] Performing Organization Address City/State/ZIP Code Phon e Number [facility] Leukemia lymphoma evaluation (04/15/2016 10:41 AM CDT) Component Value Ref Test Analysis Performed At [facility] gist Range Method Time Signature [facility] [id number] Specimen #: [id number] Collected: 04/15/2016 10:41 Received: 04/15/2016 16:11 Reported: 04/17/2016 11:04 Ordering Phy(s): ADRY MONTESINOS Additional Phy(s): RUDY LLANOS SPECIMEN(S): Bone marrow, right INTERPRETATION: Bone marrow, right: ? Polytypic B cells ? No aberrant immunophenotype on T cells ? Polytypic plasma cells ? No increase in myeloid blasts and no abnormal myeloid blast population ? See comment COMMENT: There is no immunophenotypic evidence of non-Hodgkin lymphom a, lymphoid leukemia, a clonal plasma cell process, or acute leukemia. ? ?Final interpretation requires correlation with morphologic and cli nical features. RESULTS: Percentages reported below are based on the total number of CD45 positive viable leukocytes. If applicable, percentage of nica sma cells is from total viable nucleated cells. 0.7% polytypic B cells 11% T cells with a CD4:CD8 ratio of 1.0:1. 0.7% NK cells 1% polytypic plasma cells The plasma cell percentage by flow cytometry is expected to be less than by morphology due to specimen processing. 1.5% cells in the blast gate (CD45 dim and low side scatter blast gate). There is no aberrant immunophenotype on the myeloid blasts. 0.9% CD34 positive blasts ANTIBODIES: Eight and ten-color analyses are performed for the following antigens: CD2, CD3, CD4, CD5, CD7, CD8, CD10, CD11b, CD11c, CD13, CD14 , CD15, CD16, CD19, CD20, CD22, CD33, CD34, CD38, CD45, CD56, CD64, CD117, CD138, HLA-DR, T cell receptor alpha beta, T cell receptor g faheem delta, and surface and cytoplasmic kappa and lambda immunoglobulin light chains. Cells are gated to isolate populations (CD45 versus side scatter and forward scatter versus side scatter), to exclude debris (forward scatter versus side scatter) and to exclude cell doublets (f orward scatter height versus forward scatter width and side scatter height versus side scatter width). Forward scatter varies with cell size. Side scatter varies with the amount of cytoplasmic granules. Inte nsity for CD45 usually increases as hematolymphoid cells mature. The a nalytic sensitivity of this assay to detect monotypic plasma cells a s rare flow events is 0.01%. CLINICAL HISTORY: 56 year old male with anemia I have personally reviewed all specimens and/or slides, incl uding the listed special stains, and used them with my medical judgmen t to determine the final diagnosis. Electronically signed out by: Karlee Morenosiroxanna Analyte Specific Reagents are used in many laboratory tests necessary for standard medical care and generally do not require FDA a pproval. This test was developed and its performance characteristics determined by [facility] [place] [facility]. ??It has not been cleared or approved by the U .S. Food and Drug Administration. CPT Codes: A: 41391-RN, 96632-QHSN>15, 15583-90-CAXS58(26), 78423-81-TC OW59(2) TESTING LAB LOCATION: [facility] [address] [facility] [address] [place] [address] COLLECTION SITE: Client: ??[facility] Location: ??RHOR (R) Specimen Anatomical Collection Method Collection Time Receive d Time (Source) Location / / Volume Laterality 04/15/2016 10:41 04/15/2016 4:11 AM CDT PM CDT Adry Montesinos MD [facility] SPECIAL DIAG OR DERABLES Performing Organization Address City/State/ZIP Code Phon e Number [place] Chromosome bone marrow (04/15/2016 10:41 AM CDT) Component Value Ref Test Analysis Performed At [facility] Range Method Time Signature Copath Report Patient Name: TISH FULLER MR#: [id number] Specimen #: [id number] Collected: 04/15/2016 10:41 Received: 04/15/2016 15:06 Reported: 05/02/2016 18:56 Ordering Phy(s): ADRY MONTESINOS Additional Phy(s): RUDY LLANOS TEST(S) REQUESTED: Bone Marrow Chromosome Analysis SPECIMEN DESCRIPTION: Bone Marrow Aspirate CLINICAL COMMENTS: Anemia Metaphases analyzed: ?20 Additional metaphases screened: ?? 0 Metaphases karyotyped: ?2 Banding utilized: ?G-banding Band resolution: ? < 400 Karyotypically normal cells: ?20 Karyotypically abnormal cells: ?0 METHODS: Unstimulated, 24 and 48 hour cultures. ISCN: 46,XY[20] INTERPRETATION: No clonal chromosomal abnormality was detected among the 20 metaphase cells analyzed. ??No cytogenetic evidence of a malignant pro cess was found. Ema Beckford, Ph.D., [facility] Director, Cytogenetics Laboratory Electronically Signed Out By: Ela Liu M.D., [facility] CPT Codes: A: 75248-CLFRL, 41636-CIODF, 05589-PNLNVCO, 38987-UHNNRY TESTING LAB LOCATION: [facility] [address], [facility] [address] [place] [id number] COLLECTION SITE: Client: ??[facility] Location: ??RHOR (R) Specimen Anatomical Collection Method Collection Time Receive d Time (Source) Location / / Volume Laterality 04/15/2016 10:41 04/15/2016 3:06 AM CDT PM CDT Adry Montesinos MD LAB - [facility] Performing Organization Address City/[facility]/ZIP Code Phon e Number [place] : Laboratory Miscellaneous Order (04/15/2016 10:41 AM CDT) Component Value Ref Test Analysis Performed At [facility] gist Range Method Time Signature Miscellaneous Specimen Received, Reordered and sent to Performing laboratory - Report to [place] Test follow upon completion. [facility] Specimen (Source) Anatomical Collection Method Collection Time Re ceived Time Location / / Volume Laterality Specimen from bone BONE MARROW 04/15/2016 10:41 marrow obtained by STRUCTURE / AM CDT aspiration Unknown (specimen) Rudy Llanos MD LAB - BLOOD ORDERABLES Performing Organization Address City/[facility]/ZIP Code Phon e Number M [place] [address] [address] [place] [address] [place] [address] [phone] : Laboratory Miscellaneous Order (04/15/2016 10:40 AM CDT) Component Value Ref Test Analysis Performed At [facility] gist Range Method Time Signature Miscellaneous Specimen Received, Reordered and sent to Performing laboratory - Report to [facility] Test follow upon completion. [facility] Specimen (Source) Anatomical Collection Method Collection Time Re ceived Time Location / / Volume Laterality Bone marrow BONE MARROW 04/15/2016 10:40 source (specimen) STRUCTURE / AM CDT Unknown Rudy Llanos MD LAB - BLOOD ORDERABLES Performing Organization Address City/[facility]/ZIP Code Phon e Number M [facility] [address] [place], [place] [address] [place] [address] [address] [place], [place] [address] [phone] (ABNORMAL) Glucose by meter (04/15/2016 9:41 AM CDT) athologist Signature Glucose 104 (H) 70 - 99 POINT OF CARE mg/dL TEST, GLUCOSE Specimen Anatomical Collection Method Collection Time Receive d Time (Source) Location / / Volume Laterality 04/15/2016 9:41 AM 6 9:45 CDT AM CDT Rudy Llanos MD LAB - [facility] Performing Organization Address City/[facility]/ZIP [facility] Phon e Number [facility] POINT OF CARE TEST, GLUCOSE POINT OF CARE TEST, GLUCOSE Reticulocyte count (04/15/2016 9:00 AM CDT) athologist Signature % Retic 1.1 0.5 - 2.0 [facility] Absolute Retic 38.4 25 - 95 [place] [address]/[facility] Specimen Anatomical Collection Method Collection Time Receive d Time (Source) Location / / Volume Laterality Blood specimen 04/15/2016 9:00 AM 016 9:09 (specimen) CDT AM CDT Rudy Llanos MD LAB - BLOOD ORDERABLES Performing Organization Address City/[facility]/ZIP [facility] Phon e Number M [facility] [address], [place] [address] [facility] [address] [place], [place] [address] [phone] (ABNORMAL) CBC with platelets differential (04/15/2016 9:00 AM CDT) Patholo gist Method Time Signature WBC 7.1 4.0 - [place] 11.0 [facility] 10e9/L [facility] RBC Count 3.52 (L) 4.4 - 5.9 [place] 10e12/L [facility] Hemoglobin 8.1 (L) 13.3 - [place] 17.7 g/dL [facility] Hematocrit 28.4 (L) 40.0 - [place] 53.0 % [facility] MCV 81 78 - 100 [place] fl [facility] MCH 23.0 (L) 26.5 - [place] 33.0 pg [facility] MCHC 28.5 (L) 31.5 - [place] 36.5 g/dL [facility] RDW 18.8 (H) 10.0 - [place] 15.0 % [facility] Platelet Count 217 150 - 450 [place] 10e9/L [facility] Diff Method Automated [place] Method [facility] % Neutrophils 64.6 % [facility] % Lymphocytes 22.0 % [facility] % Monocytes 10.9 % [facility] % Eosinophils 1.3 % [facility] % Basophils 0.6 % [facility] % Immature 0.6 % [place] Granulocytes [facility] Nucleated RBCs 0 0 /100 [facility] Absolute 4.6 1.6 - 8.3 [place] Neutrophil 10e9/[facility] [facility] Absolute 1.6 0.8 - 5.3 [place] Lymphocytes 10e9/L [facility] Absolute 0.8 0.0 - 1.3 [place] Monocytes 10e9/L [facility] Absolute 0.1 0.0 - 0.7 [place] Eosinophils 10e9/L [facility] Absolute 0.0 0.0 - 0.2 [place] Basophils 10e9/MARY [facility] Abs Immature 0.0 0 - 0.4 [place] Granulocytes [address] [place] [address] Absolute 0.0 [place] Nucleated RBC [facility] Anisocytosis Moderate [facility] Platelet Normal [place] Estimate [facility] Specimen Anatomical Collection Method Collection Time Receive d Time (Source) Location / / Volume Laterality Blood specimen 04/15/2016 9:00 AM 016 9:09 (specimen) CDT AM CDT Rudy Llanos MD LAB - BLOOD ORDERABLES Performing Organization Address City/State/ZIP Code Phon e Number M [facility] [address] [place], [place] [address] [facility] [address] [phone] documented in this encounter Visit Diagnoses Not on filedocumented in this encounter Administered Medications Inactive Administered Medications - up to 3 most recent administrations Medication Order MAR Action Action Date Dose Rate Site lidocaine BUFFERED 1 % Given 04/15/2016 10:40 AM 5 mLs Operative solution CDT Site/Surgical S ite PRN, Starting on Thu04/15/16 at 1040, Intra-procedure documented in this encounter Active and Recently Administered Medications Times are shown in CDT. Continuous Medication Order 04/13/2016 04/14/2016 04/15/2016 lactated ringers infusion (CANCELED) 0951 (New Bag - Provider: Adam Vásquez APRN KINDERGARTEN AIDE)1048 (Anesthesia Volume Adjustment - Provider: Adam Vásquez APRN KINDERGARTEN AIDE) at 25 mL/hr, Intravenous, CONTINUOUS, IF patient NOT on dialysis., Pre- procedure, Starting Thu04/15/16 at 0900, Until Thu04/15/16 at 1056 PRN Medication Order 04/13/2016 04/14/2016 04/15/2016 lidocaine BUFFERED 1 % solution (CANCELED) 1040 (Given - Provider: Rudy Llanos MD) PRN, Starting Thu04/15/16 at 1040, Intra-procedure documented in this encounter Care Teams Geotechnician Relationship Specialty Start Date End Date December PCP - General Physician Programming Manager 03/07/16 05/20/17 [place] [address] [place] [id number] documented as of this encounter
--- OUTSIDE RECORDS SUMMARY | 2022-07-31 10:07 | XMS_ITS | Encounter Summary ---
:1960 Author Organization [place] Address [facility] [place] [address] Care Team Providers Name Role Phone Jeanethdecember Primary Care Provider Reason for Visit Reason Onset Date Comments Refill Request 05/20/2017 tape Encounter Details Date Type Department Care Team Description 05/20/[address] [facility] Wound Cecconi, Betty e Refill Request (tape) Clinic [place] Helm PA-C [address] [place] [address] [address] [phone] [place] [address] (Wo rk) Social History Tobacco Use Types Packs/Day Years Used Date Smoking Tobacco: Never Alcohol Use Standard Drinks/Week Comments No 0 (1 standard drink = 0.6 oz pure alcoho l) Sex Assigned at Date Recorded Not on file documented as of this encounter Plan of Treatment Not on filedocumented as of this encounter Visit Diagnoses Diagnosis Charcot ankle, right Charcot ankle, left Decubitus ulcer of right ankle, stage 3 (H) Pressure ulcer, ankle Pressure ulcer of left ankle, stage 3 (H ) documented in this encounter Care Teams Casting Wheel Operator Relationship Specialty Start Date End Date December PCP - General Physician [employer] Senior Officer 03/07/16 05/20/17 [facility] [address] [place] [address] [address] documented as of this encounter
--- OUTSIDE RECORDS SUMMARY | 2022-07-31 10:07 | XMS_ITS | Encounter Summary ---
:1960 Author Organization [place] Address [address] [place] [address] Care Team Providers Name Role Phone BrendonneidaDecember Primary Care Provider Reason for Visit Auth/Cert Specialty Diagnoses / Procedures Referred By Contact Refer red To Contact Surgery Diagnoses anemia Rh Periop Services Procedures BIOPSY BONE MARROW [address] [place], [place] [address] Phone: Fax: Referral ID Status Reason Start Date Expiration Date Visits Requ ested Visits Authorized [id number] 1 1 Encounter Details Date Type Department Care Team Description 04/15/2016 Hospital Encounter [facility] Iwona Goins PreOP/PostOP MD Arti [address] [place], [place] [address] [phone] Social History Tobacco Use Types Packs/Day Years Used Date Smoking Tobacco: Never Alcohol Use Standard Drinks/Week Comments No 0 (1 standard drink = 0.6 oz pure alcoho l) Sex Assigned at Date Recorded Not on file documented as of this encounter Last Filed Vital Signs Vital Sign Reading Time Taken Comments Blood Pressure 131/85 04/15/2016 11:41 AM CDT Pulse - - Temperature 36.7 ??C (98.1 ??F) 04/15/2016 10:55 AM CDT Respiratory Rate 16 04/15/2016 11:41 AM CDT Oxygen Saturation 99% 04/15/2016 11:41 AM CDT Inhaled Oxygen Concentration - - [...] [facility] Ne[facility] 190 lbsPt bringing CPAP [...] Glucose by meter (04/15/2016 11:12 AM CDT) P athologist Signature Glucose 92 70 - 99 POINT OF CARE mg/dL TEST, GLUCOSE Specimen Anatomical Collection Method Collection Time Receive d Time (Source) Location / / Volume Laterality 04/15/2016 11:12 04/15/2016 AM CDT 11:30 AM CDT Rudy Llanos MD [facility] POCT Performing Organization Address City/State/ZIP Code Phon e Number FV POINT OF CARE TEST, GLUCOSE POINT OF CARE TEST, GLUCOSE Bone marrow biopsy (04/15/2016 10:41 AM CDT) Component Value Ref Test Analysis Performed At [facility] gist Range Method Time Signature Copath Report Patient Name: TISH FULLER MR#: [id number] Specimen #: [id number] Collected: 04/15/2016 Received: 04/15/2016 Reported: 04/17/2016 12:31 Ordering Phy(s): ADRY MONTESINOS ORIGINAL REPORT FOLLOWS ADDENDUM ADDENDUM TO ORIGINAL REPORT Status: Signed Out Date Ordered:05/05/2016 Date Complete:05/05/2016 Date Reported:05/05/2016 07:30 Signed Out By: Rudy Vera M.D. INTERPRETATION: Cytogenetics report: Bone marrow chromosome analysis: Results: 46,XY[20] No clonal chromosomal abnormality was detected among the 20 metaphase cells analyzed. ??See complete report [id number]. ORIGINAL REPORT: TEST(S): Unilateral Bone Marrow Biopsy [...] anemia, moderate. - Increased rouleaux formation. Immunophenotyping: ??[id number]: Polytypic B cells. No aberra nt immunophenotype on T cells. Polytypic plasma cells. No incre ased in myeloid blasts. No abnormal myeloid-blast population. See co mplete report. Cytogenetics: ??[id number]: Pending. Molecular Diagnostics: ??Not performed. Iron Stains: [...] myeloid blasts. No abnormal myeloid-blast population. Cytogenetics: ??[id number]: Ordered and pending. Molecular Diagnostics: Not performed. Iron stains: ??Iron stains were reviewed on core sections, c lot sections, PC-ME preparation and ME. Smear. ??The iron stains show yu liborioy increased stainable iron stores and markedly decreased to ab sent sideroblasts. ??There is no evidence of ringed sideroblasts. ??The findings are consistent with anemia of chronic disease. (Dictated by Rudy Vera MD 04-17-2016 @ 12:31 PM). CPT Codes: A: 79111-YDGD, 51994-BEPA, 32604-STGJ, 59948-KNPP, 89321-BNZ , 92687-WTCN, 53166-HKFL, 12812-LOCQJ, 04898-LNGQG, SOH, SOH TESTING LAB LOCATION: [address] ??[address] COLLECTION SITE: Client: ??[facility] Location: ??RHOR (R) Specimen Anatomical Collection Method Collection Time Receive d Time (Source) Location / / Volume Laterality 04/15/2016 10:41 04/15/2016 AM CDT 11:13 AM CDT Adry [facility] Performing Organization Address City/State/ZIP Code Phon e Number [place] Leukemia lymphoma evaluation (04/15/2016 10:41 AM CDT) Component Value Ref Test Analysis Performed At [facility] Range Method Time Signature Copath Patient Name: TISH FULLER [place] Report MR#: [id number] Specimen #: [id number] Collected: 04/15/2016 10:41 Received: 04/15/2016 16:11 Reported: [...] the final diagnosis. Electronically signed out by: Keiry Little M.D. [facility] Analyte Specific Reagents are used in many laboratory tests necessary for standard medical care and generally do not require FDA a pproval. This test was developed and its performance characteristics determined by [facility], [place] [facility]. ??It has not been cleared or approved by the U .S. Food and Drug Administration. CPT Codes: A: 95789-MD, 95511-SWOS>15, 76272-28-XQVI58(26), 82978-13-JK OW59(2) TESTING LAB LOCATION: [place] [id number] [facility] [address] [place] [address] COLLECTION SITE: Client: ??[facility] Location: ??RHOR (R) Specimen Anatomical Collection Method Collection Time Receive d Time (Source) Location / / Volume Laterality 04/15/2016 10:41 04/15/2016 4:11 AM CDT PM CDT Adry Montesinos MD LAB - [place] SPECIAL DIAG OR DERABLES Performing Organization Address City/State/ZIP Code Phon e Mark NICOLE Chromosome bone marrow (04/15/2016 10:41 AM CDT) Component Value Ref Test Analysis Performed At [facility] gist Range Method Time Signature Copath Report Patient Name: TISH FULLER MR#: [id number] Specimen #: [id number] Collected: 04/15/2016 10:41 Received: 04/15/2016 15:06 Reported: [...] pro cess was found. Ema Beckford, Ph.D., [facility] Director, Cytogenetics Laboratory Electronically Signed Out By: Ela Liu M.D., [facility] CPT Codes: A: 37383-ZVLKY, 31454-DLJQE, 16617-WTHUHSA, 46711-OBUPWP TESTING LAB LOCATION: [facility] [address] [address], [address] [address] COLLECTION SITE: Client: ??[facility] Location: ??RHOR (R) Specimen Anatomical Collection Method Collection Time Receive d Time (Source) Location / / Volume Laterality 04/15/2016 10:41 04/15/2016 3:06 AM CDT PM CDT Adry Montesinos MD LAB - BEAKER AP Performing Organization Address City/State/ZIP Code Phon e Number [place] : Laboratory Miscellaneous Order (04/15/2016 10:41 AM CDT) Component Value Ref Test Analysis Performed At [facility] gist Range Method Time Signature Miscellaneous Specimen Received, Reordered and sent to Performing laboratory - Report to [facility] Test follow upon completion. [facility] Specimen (Source) Anatomical Collection Method Collection Time Re ceived Time Location / / Volume Laterality Specimen from bone BONE MARROW 04/15/2016 10:41 marrow obtained by STRUCTURE / AM CDT aspiration Unknown (specimen) Rudy Llanos MD LAB - BLOOD ORDERABLES Performing Organization Address City/State/ZIP Code Phon e Number M [facility] [address] [place], [place] [address] [place] [address] [address] [place], [place] [address], [facility] [phone] : Laboratory Miscellaneous Order (04/15/2016 10:40 AM CDT) Component Value Ref Test Analysis Performed At [facility] Range Method Time Signature Miscellaneous Specimen Received, Reordered and sent to Performing laboratory - [facility] Test follow upon completion. [facility] Specimen (Source) Anatomical Collection Method Collection Time Re ceived Time Location / / Volume Laterality Bone marrow BONE MARROW 04/15/2016 10:40 source (specimen) STRUCTURE / AM CDT Unknown Rudy Llanos MD LAB - BLOOD ORDERABLES Performing Organization Address City/[facility]/ZIP Code Phon e Number M [facility] [address] [place], [place] [address] [facility] [address] [place], [place] [address], [facility] [phone] (ABNORMAL) Glucose by meter (04/15/2016 9:41 AM CDT) P athologist Signature Glucose 104 (H) 70 - 99 POINT OF CARE mg/dL TEST, GLUCOSE Specimen Anatomical Collection Method Collection Time Receive d Time (Source) Location / / Volume Laterality 04/15/2016 9:41 AM 07/19/201 6 9:45 CDT AM CDT Rudy Llanos MD LAB - BEAKER POCT Performing Organization Address City/State/ZIP Code Phon e Number FV POINT OF CARE TEST, GLUCOSE POINT OF CARE TEST, GLUCOSE Reticulocyte count (04/15/2016 9:00 AM CDT) P athologist Signature % Retic 1.1 0.5 - 2.0 [facility] Absolute Retic 38.4 25 - 95 [facility] 10e9/L [facility] Specimen Anatomical Collection Method Collection Time Receive d Time (Source) Location / / Volume Laterality Blood specimen 04/15/2016 9:00 AM 016 9:09 (specimen) CDT AM CDT Rudy Llanos MD LAB - BLOOD ORDERABLES Performing Organization Address City/State/ZIP [facility] Phon e Number M [facility] [address] [place] [address] [facility] [address] [phone] (ABNORMAL) CBC with platelets differential (04/15/2016 9:00 AM CDT) Patholo gist Method Time Signature WBC 7.1 4.0 - [facility] 11.0 [facility] 10e9/[facility] RBC Count 3.52 (L) 4.4 - 5.9 [facility] 10e12/L [facility] Hemoglobin 8.1 (L) 13.3 - [facility] 17.7 g/dL [facility] Hematocrit 28.4 (L) 40.0 - [facility] 53.0 % [facility] MCV 81 78 - 100 [facility] MCH 23.0 (L) 26.5 - [facility] 33.0 pg [facility] MCHC 28.5 (L) 31.5 - [facility] 36.5 g/dL [facility] RDW 18.8 (H) 10.0 - [facility] 15.0 % [facility] Platelet Count 217 150 - 450 [facility] 10e9L [facility] Diff Method Automated [facility] % Neutrophils 64.6 % [facility] % Lymphocytes 22.0 % [facility] % Monocytes 10.9 % [facility] % Eosinophils 1.3 % [facility] % Basophils 0.6 % [facility] % Immature 0.6 % [facility] Granulocytes [facility] Nucleated RBCs 0 0 /100 [facility] Absolute 4.6 1.6 - 8.3 [facility] Neutrophil 10e9/L [facility] Absolute 1.6 0.8 - 5.3 [facility] Lymphocytes 10e9/L [facility] Absolute 0.8 0.0 - 1.3 [facility] Monocytes 10e9/L [facility] Absolute 0.1 0.0 - 0.7 [facility] Eosinophils 10e9/L [facility] Absolute 0.0 0.0 - 0.2 [facility] Basophils 10e9/L [facility] Abs Immature 0.0 0 - 0.4 [facility] Granulocytes [address] [place] [address] Absolute 0.0 [facility] Nucleated RBC [facility] Anisocytosis Moderate [facility] Platelet Normal [facility] Estimate [facility] Specimen Anatomical Collection Method Collection Time Receive d Time (Source) Location / / Volume Laterality Blood specimen 04/15/2016 9:00 AM 016 9:09 (specimen) CDT AM CDT Rudy Llanos MD LAB - BLOOD ORDERABLES Performing Organization Address City/State/ZIP Code Phon e Number M [place] [address] [phone] documented in this encounter Visit Diagnoses Not on filedocumented in this encounter Active and Recently Administered Medications Times are shown in CDT. Continuous Medication Order 04/13/2016 04/14/2016 04/15/2016 lactated ringers infusion (CANCELED) 0951 (New Bag - Provider: Adam Vásquez APRN LOCKSTITCH TOPSTITCHER)1048 (Anesthesia Volume Adjustment - Provider: Adam Vásquez APRN CRNA) at 25 mL/hr, Intravenous, CONTINUOUS, IF patient NOT on dialysis., Pre- procedure, Starting Thu04/15/16 at 0900, Until Thu04/15/16 at 1056 PRN Medication Order 04/13/2016 04/14/2016 04/15/2016 lidocaine BUFFERED 1 % solution (CANCELED) 1040 (Given - Provider: Rudy Llanos MD) PRN, Starting Tu04/15/16 at 1040, Intra-procedure documented in this encounter Care Teams Manager Mail Relationship Specialty Start Date End Date December PCP - General Physician Hand Cloth Cutter 03/07/16 05/20/17 [place] [id number] [place] [address] documented as of this encounter
--- OUTSIDE RECORDS SUMMARY | 2022-07-31 10:07 | XMS_ITS | Encounter Summary ---
:1960 Author Organization [place] Address [address] [facility] [place] [address] Care Team Providers Name Role Phone Brendondecember Primary Care Provider Reason for Visit Auth/Cert Specialty Diagnoses / Procedures Referred By Contact Refer red To Contact Surgery Diagnoses anemia Rh Periop Services Procedures BIOPSY BONE MARROW [address] [place], [place] [address] Phone: Fax: Referral ID Status Reason Start Date Expiration Date Visits Requ ested Visits Authorized [id number] 1 1 Encounter Details Date Type Department Care Team Description 04/15/[address] [facility] Gary Arreola, DO PeriOp Services [facility] [address] [facility] [place] [address] [facility] [phone] [address] [place], [place] [address] (Wo rk) Anesthesia Record Procedure Summary Procedure Name Responsible Anesthesia Start Anesthesia Stop Time Anesthesiologist Time bone marrow biopsy Gary Arreola DO 04/15/16 1025 04/15/16 1054 and aspiration, Right posterior superior iliac crest (Right: Pelvis) Events Date Time Event Comment 04/15/2016 0938 1025 An Start 1027 An Start Data 1031 MD Present 1039 AN INCISION 1050 an stop data 1052 Present 1054 An Stop Electronically s igned by Adam Vásquez on April 15, 2016 10:54 AM Name Total midazolam 1mg/mL 2 mg fentaNYL (SUBLIMAZE) injection 100 mcg propofol (DIPRIVAN) injection 10 mg/mL vial 70 mg lactated ringers infusion 650 mL Agents Name O2 Blood No blood administrations on file. Lines, Drains, and Airways Type Details Placement Removal Peripheral IV 03/14/16; 1254; 20 G, 1 10/0103/14/16 1254 [facility]; Left, Anterior; Upper Real Wolff MD forearm; Alcohol; Injectable; Tolerated well Incision/Surgical Site 03/14/16; 1349; Right; 03/14/16 1349 by Kristy sesay Groin; right inguinal lymph Gilmer Guardado RN node biopsy site Peripheral IV 20 G; Left; Lower forearm 04/15/16 0938 by Incision/Surgical Site 04/15/16; 1040; Right; Back 04/15/16 1040 by Lindsay Westbrook RN documented in this encounter Social History Tobacco Use Types Packs/Day Years Used Date Smoking Tobacco: Never Alcohol Use Standard Drinks/Week Comments No 0 (1 standard drink = 0.6 oz pure alcoho l) Sex Assigned at Date Recorded Not on file documented as of this encounter OR Notes Anesthesia Postprocedure Evaluation - Gary Arreola DO - 04/15/2016 2:35 PM CDT Patient: Geo Dubois BIOPSY BONE MARROW (Right Pelvis) Additional InformationProcedure(s): bone marrow biopsy and aspiration, Right posterior superior iliac crest ?? - Wound Class: I-Clean Diagnosis:anemia Diagnosis Additional Information: ??Anemia. Anesthesia Type: MAC Note: Anesthesia Post Evaluation Patient location during evaluation: PACU Patient participation: Able to fully participate in evaluation Level of consciousness: awake Pain management: adequate Airway patency: patent Anesthetic complications: no Cardiovascular status: acceptable Respiratory status: acceptable Hydration status: acceptable PONV: controlled Last vitals: Filed Vitals: 04/15/16 1100 04/15/16 1115 04/15/16 1141 BP: 123/80 126/87 131/85 Temp: Resp: 16 SpO2: 98% 99% 99% Electronically Signed By: Gary Arreola DO April 15, 2016 2:35 PM Anesthesia Preprocedure Evaluation - Gary Arreola DO - 04/15/2016 9:34 AM CDT Anesthesia Evaluation . ROS/MED HX ENT/Pulmonary: (+)sleep apnea, , . . Neurologic: - neg neurologic ROS Cardiovascular: (+) ----. : . . . :. Irregular Heartbeat/Palpitations, . METS/Exercise Tolerance: Hematologic: (+) Anemia, - Musculoskeletal: - neg musculoskeletal ROS GI/Hepatic: - neg GI/hepatic ROS Renal/Genitourinary: - ROS Renal section negative Endo: - neg endo ROS Psychiatric: - neg psychiatric ROS Infectious Disease: - neg infectious disease ROS Malignancy: Other: Physical Exam Normal systems: cardiovascular and pulmonary Airway Mallampati: II Dental Cardiovascular Rhythm and rate: regular and normal Pulmonary breath sounds clear to auscultation Anesthesia Plan ASA Score: 2 . Plan for MAC - with Intravenous induction. Routine analgesia and antiemetics History & Physical Review History and physical reviewed and following examination; no interval change. . documented in this encounter Miscellaneous Notes Anesthesia Care Transfer Note - Adam Vásquez APRN CRNA - 04/15/2016 10:51 AM CDT Patient: Geo Dubois BIOPSY BONE MARROW (N/A Update) Additional Information@[email or web address]@ Diagnosis: anemia Diagnosis Additional Information: No value filed. Anesthesia Type: MAC Note: Airway :Room Air Patient transferred to:Phase II Electronically Signed By: Adam Vásquez APRN CRNA April 15, 2016 10:51 AM documented in this encounter Plan of Treatment Not on filedocumented as of this encounter Visit Diagnoses Not on filedocumented in this encounter Administered Medications Inactive Administered Medications - up to 3 most recent administrations Medication Order MAR Action Action Date Dose Rate Site fentaNYL Citrate (PF) Given 04/15/2016 10:33 AM CDT 100 mcg (SUBLIMAZE) injection PRN, moderate to severe pain, Starting on Tu04/15/16 at 1033, Anesthesia Intra-op lactated ringers infusion New Bag 04/15/2016 9:51 AM CDT at 25 mL/hr, Intravenous, CONTINUOUS, IF patient NOT on dialysis., Pre-procedure, Starting on Thu04/15/16 at 0900, Until Thu04/15/16 at 1056 midazolam (VERSED) injection Given 04/15/2016 10:26 AM CDT 2 mg PRN, anxiety, Starting on Thu04/15/16 at 1026, Anesthesia Intra-op propofol (DIPRIVAN) injection 10 mg/mL v ial Given 04/15/2016 10:40 AM CDT 20 mg PRN, Starting on Thu04/15/16 at 1033, Anesthesia Intra-op Given 04/15/2016 10:37 AM CDT 10 mg Given 04/15/2016 10:33 AM CDT 20 mg documented in this encounter Care Teams Sports Marketing Specialist Relationship Specialty Start Date End Date December PCP - General Physician Housing Inspector 03/07/16 05/20/17 [place] [id number] [place] [id number] documented as of this encounter
--- OUTSIDE RECORDS SUMMARY | 2022-07-31 10:07 | XMS_ITS | Encounter Summary ---
:1960 Author Organization [place] Address [address] [place] [id number] Care Team Providers Name Role Phone Hortencia December Primary Care Provider Reason for Visit Reason Onset Date Comments Results 09/11/2016 ECHO Encounter Details Date Type Department Care Team Description 09/11/2016 Telephone [facility] Sa sadie Hernández RN Results (ECHO) [address] [place] [address] Social History Tobacco Use Types Packs/Day Years Used Date Smoking Tobacco: Never Alcohol Use Standard Drinks/Week Comments No 0 (1 standard drink = 0.6 oz pure alcoho l) Sex Assigned at Date Recorded Not on file documented as of this encounter Miscellaneous Notes Telephone Encounter - Ramya Hernández RN - 09/11/2016 2:09 PM CST Notes Recorded by Prasanna Sargent MD on 09/10/2016 at 11:00 PM Mild aortic dilatation. ??RWMA seen. ??This may indicate CAD. ?? This patient needs a CT coronary angiogram which will also give us exact measurements of his aorta. ??He needs a BMP first and a Hgb. ??If these are OK, we can proceed with the CT scan. ??Thanks. ??Prasanna Sargent MD, [facility] September 10, 2016 11:00 PM Orders placed for BMP and hgb. Called pt and updated him of Dr. Sargent's above response. Pt is willing to have his labs drawn prior to appt with Dr. Sargent on 09/15/16. cta was not ordered at this time because we are waiting on the results from the labs. Pt has no further questions or concerns at this time. pt states that he ishaving hgb drawn that same day at another appt, but states he is willing to get drawn here so Dr. Sargent can see results immediately. Reminded pt of appt with Dr. Sargent on 09/15/16. No further questions or concerns at this time. M MAKER documented in this encounter Plan of Treatment Not on filedocumented as of this encounter Results (ABNORMAL) Basic metabolic panel (09/15/2016 8:09 AM BROOM MAKER) [facility] Method Time Signature Sodium 139 133 - 144 [place] mmol/L [facility] Potassium 4.1 3.4 - 5.3 [place] mmol/L [facility] Chloride 105 94 - 109 [place] mmol/L [facility] Carbon Dioxide 30 20 - 32 [place] mmol/L [facility] Anion Gap 4 3 - 14 [place] mmol/L [facility] Glucose 119 (H) 70 - 99 [place] mg/dL [facility] Urea Nitrogen 29 7 - 30 [place] mg/dL [facility] Creatinine 0.85 0.66 - [place] 1.25 [facility] mg/dL [facility] GFR Estimate >90 >60 [place] Non GFR Calc mL/min/1. RIDGE 7m2 [facility] GFR Estimate >90 >60 [place] If Black GFR Calc mL/min/1. RIDG ES 7m2 [facility] Calcium 8.9 8.5 - [place] 10.1 [facility] mg/dL HOSPITAL Specimen Anatomical Collection Method Collection Time Receive d Time (Source) Location / / Volume Laterality Blood specimen 09/15/2016 8:09 AM 016 8:10 (specimen) BROOM MAKER AM BROOM MAKER Prasanna Sargent MD LAB - BLOOD ORDERABLES Performing Organization Address City/State/ZIP Code Phon e Number M [facility] [address] [place], [place] [address] [facility] [address] [phone] (ABNORMAL) Hemoglobin (09/15/2016 8:09 AM BROOM MAKER) P athologist Signature Hemoglobin 12.4 (L) 13.3 - 17.7 [place] g/dL [facility] Specimen Anatomical Collection Method Collection Time Receive d Time (Source) Location / / Volume Laterality Blood specimen 09/15/2016 8:09 AM 016 8:10 (specimen) BROOM MAKER AM BROOM MAKER Prasanna Sargent MD LAB - BLOOD ORDERABLES Performing Organization Address City/State/ZIP Code Phon e Number M [place] [address] [address] [place] [address] [place] [address] [phone] documented in this encounter Visit Diagnoses Diagnosis 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
--- OUTSIDE RECORDS SUMMARY | 2022-07-31 10:07 | XMS_ITS | Encounter Summary ---
:1960 Author Organization [place] Address [facility] [place] [address] Care Team Providers Name Role Phone Unavailable Primary Care Provider Unavailable Encounter Details Date Type Department Care Team Description 05/29/2017 Hospital Encounter M [facility] Wound DiegoJese DPM, [facility]/Foot and [address] [facility] [id number] [place] [address] [address] [place], [place] [address] (Wo rk) Social History Tobacco Use Types Packs/Day Years Used Date Smoking Tobacco: Never Smokeless Tobacco: Never Alcohol Use Standard Drinks/Week Comments No 0 (1 standard drink = 0.6 oz pure alcoho l) Sex Assigned at Date Recorded Not on file documented as of this encounter Last Filed Vital Signs Vital Sign Reading Time Taken Comments Blood Pressure 131/88 05/29/2017 9:51 AM CDT Pulse 93 05/29/2017 9:51 AM CDT Temperature 36.5 ??C (97.7 ??F) 05/29/2017 9:51 AM CDT Respiratory Rate 18 05/29/2017 9:51 AM CDT Oxygen Saturation - - Inhaled [...] 81 mg by mouth 0 06/08/2017 daily gabapentin (NEURONTIN) Take 1 capsule (300 90 capsule 1 05/2906/12/2017 300 MG mg) by mouth 3 times capsuleIndications: S/P daily BKA (below knee amputation), left (H) oxyCODONE (ROXICODONE) Take 1-2 tablets 24 [...] of this encounter Progress Notes Lizet Cortez DPM, Podiatry/Foot and Ankle Surgery - 05/29/2017 10:02 AM CDT [facility] [place] Progress Note Subject: Patient was seen at wound center. Has been doing endo-form dressing changes to the right ankle and Betadine to the left. Notes that he is going to have [id number]-[id number] amputation with Dr. Abdalla next week on the left side. Denies fever, nausea, vomiting, shortness of breath. PMH: Past Medical History: Diagnosis Date ??? [...] Prescriptions Medication ??? order for DME ??? cephALEXin (KEFLEX) 500 MG capsule ??? order for DME ??? lisinopril (PRINIVIL/ZESTRIL) 10 MG tablet ??? UNKNOWN TO PATIENT ??? SIMVASTATIN PO ??? Sertraline HCl (ZOLOFT PO) ??? Cholecalciferol (VITAMIN D3 PO) ??? aspirin 81 MG tablet ??? GLIPIZIDE XL PO No current facility-administered medications for this encounter. Objective: Vitals: BP 131/88 Pulse 93 Temp 97.7 ??F (36.5 ??C) (Temporal) Resp 18 A1C: does not know ?? General: Patient is alert and orientated. NAD Vascular: ??DP and PT pulses are palpable. Edema noted. ??No varicosities noted. ??CFT's <??3secs. ??Skin temp is normal. Neuro: ??Light and gross touch sensation absent. Derm: Right lateral ankle ulceration is healed. Left lateral ankle ulceration measures 2.8 x 2.76 x 4.0 cm in depth. Bone is exposed. ?? Musculoskeletal: ??Severe deformity of both feet with rocker bottoms and collapse of the ankle joints with the foot in a varus position on the legs. ? Assessment:??56-year-old diabetic male with neuropathy and Charcot both ankles, bilateral ankle ulcerations both feet. ?? Plan: at this time the right ankle ulceration is healed. Just recommend a bandage to protect the newskin for the next few weeks. He does not have to put any endo-form on their. He is getting a [id number]-vfu-[id number] and rotation on the left leg next week. Since the right ankle wound has healed we will have him follow-up as needed. ?? Lizet Cortez DPM, Podiatry/Foot and Ankle Surgery CDT documented in this encounter Plan of Treatment Not on filedocumented as of this encounter Visit Diagnoses Not on filedocumented in this encounter
--- OUTSIDE RECORDS SUMMARY | 2022-07-31 10:07 | XMS_ITS | Encounter Summary ---
:1960 Author Organization [place] Address [facility] [place] [address] Care Team Providers Name Role Phone Hortencia, December Primary Care Provider Encounter Details Date Type Department Care Team Description 04/03/2017 Hospital Encounter [facility] Lizet Cortez C harmylene ankle, left (Primary Dx); Wound [facility], Open wound of knee, leg, and ankle, left, initial encounter; [address] [facility]/Foot and Charcot's joint of right ank le; [address] Ankle Surgery Wound of right ankle, initial encounter [place] [address] [facility] [address] [place] [address] [place] [address] Social History Tobacco Use Types Packs/Day Years [...] mouth 0 (PRINIVIL/ZESTRIL) 10 MG daily tablet Sertraline HCl (ZOLOFT Take 50 mg by mouth 0 PO) daily SIMVASTATIN PO Take 20 mg by mouth 0 daily aspirin 81 MG tablet Take 81 mg by mouth 0 06/08/2017 daily order for [facility] Order Fax 30 days 0 04/03/2017 04/22/2017 DMEIndications: Charcot ankle, left, Open wound Primary Dressing HydroferaBl ue Ready Transfer Qty Not Needed at this time of knee, leg, and ankle, Secondary Dressing 4x4 Gauze Loaf Qty 2 left, initial encounter, Secondary Dressing 2 Medipore Tape Qty 2 Charcot's joint of right Length of Need: 1 month ankle, Wound of right Frequency of dressing change: daily ankle, initial encounter Please send what his insurance will allow. Thank you UNKNOWN TO PATIENT Place 1 Dose into 0 06/02/2017 both eyes every 30 days documented as of this encounter Progress Notes Lizet Cortez DPM, Podiatry/Foot and Ankle Surgery - 04/03/2017 10:31 AM CDT [facility] Wound Healing [place] Progress Note Subject: Patient was seen at wound center. Presents to clinic for bilateral ankle ulcerations. Patient is diabetic and has Charcot both ankles. Has been seeing Dr. Abdalla at [facility] for these. They have talked about possible surgery on the right foot to correct infuse the ankle joint. They've also talked about below-knee amputations. He is here today to see if there is any other offloading options to help heal the ulcerations. He currently denies fever, nausea, vomiting, shortness of breath. Past Medical History: Diagnosis Date ??? Anemia [...] Valsalva aneurysm 2016 ??? Sleep apnea CPAP Past Surgical History: Procedure Laterality Date ??? BONE MARROW BIOPSY, BONE SPECIMEN, NEEDLE/TROCAR Right 04/15/2016 Procedure: BIOPSY BONE MARROW; Surgeon: Rudy Goins MD; Location: [facility] OR ??? DISSECT LYMPH NODE INGUINAL Right 03/14/2016 Procedure: DISSECT LYMPH NODE INGUINAL; Surgeon: Damien Lancaster MD; Location: OR ??? ORTHOPEDIC SURGERY Right bone shaving Social History Social History ??? Marital status: [...] diet ??? Exercise No Social History Narrative Allergies Allergen Reactions ??? Amoxicillin Hives Current Outpatient Prescriptions Medication ??? order for DME ??? lisinopril (PRINIVIL/ZESTRIL) 10 MG tablet ??? UNKNOWN TO PATIENT ??? SIMVASTATIN PO ??? Sertraline HCl (ZOLOFT PO) ??? Cholecalciferol (VITAMIN D3 PO) ??? aspirin 81 MG tablet ??? GLIPIZIDE XL PO No current facility-administered medications for this encounter. Objective: Vitals: BP: 130/87, P 92, T: 97.4, R: 16 A1C: he did not remember. General: Patient is alert and orientated. NAD [...] bone noted. No redness or purulent drainage noted. Left lateral ankle ulceration measures 2.1 x 2.4 x 0.1 cm in depth. Base is granular. No redness or signs of infection noted.. Musculoskeletal: Severe deformity of both feet with rocker bottoms and collapse of the ankle joints with the foot in a varus position on the legs. Assessment: 56-year-old diabetic male with neuropathy and Charcot both ankles, bilateral ankle ulcerations both feet. Plan: The wounds were debrided. At this time we'll do Hydrofera Blue dressing changes to the area. Patient is already in rincon walkers. Given the significant deformity of the feet on the legs he had mentioned that they had talked about below-knee amputations. Especially with the left ankle wound, do not feel that we would get this wound to heal and if we did that it would recur. There is a risk of sepsis with an open wound and I would recommend a below-knee amputation on the left. Discussed that is similar for the right ankle however it looks like he puts a little more pressure on the foot and we can see how this one goes. He will call with further questions or concerns. We discussed that he can follow-up with us. Hehe's going to talk with Dr. Abdalla about his options. Procedure: After verbal consent, excisional debridement was [...] encounter Visit Diagnoses Diagnosis Charcot ankle, left - Primary Open wound of knee, leg, and ankle, left , initial encounter Charcot's joint of right ankle Wound of right ankle, initial encounter documented in this encounter Care Teams Aerospace Engineer Officer Armament Relationship Specialty Start Date End Date December PCP - General Physician Bar Supervisor 03/07/16 05/20/17 [place] [address] [place] [address] documented as of this encounter
--- OUTSIDE RECORDS SUMMARY | 2022-07-31 10:07 | XMS_ITS | Encounter Summary ---
:1960 Author Organization [place] Address [facility] [place] [address] Care Team Providers Name Role Phone HortenciaDecember Primary Care Provider Reason for Referral - Closed Specialty Diagnoses / Procedures Referred By Contact Refer red To Contact Diagnoses 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 Thoracic aortic aneurysm without rupture Ischemic cardiomyopathy Melanie Desai [facility] [address] [facility] [address] [place] [address] Referral ID Status Reason Start Date Expiration Date Visits Requ ested Visits Authorized [id number] Closed 03/14/2017 03/14/2018 1 1 DRY ROOM ATTENDANT Reason for Visit Reason Comments Heart Problem hx of aneurysm of aortic sin us of Valsalva, DM - Closed Specialty Diagnoses / Procedures Referred By Contact Refer red To Contact Diagnoses 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 Melanie Desai MD [address] [facility] [employer] [address] [place] [address] Referral ID Status Reason Start Date Expiration Date Visits Requ ested Visits Authorized [id number] Closed 09/13/2016 09/13/2017 1 1 Encounter Details Date Type Department Care Team Description 09/15/2016 Office Visit [facility] Melanie Desai Aneury sm of aortic sinus of Valsalva without rupture (Primary Dx); Heart Clinic MD Leonila Thoracic aortic aneurysm without rupture (H); [place] [address] [address] Ischemic cardiomyopathy [address] [facility] [address] [place] [phone] Social History Tobacco Use Types Packs/Day Years Used Date Smoking Tobacco: Never Tobacco Cessation: Counseling Given: No Alcohol Use Standard Drinks/Week Comments No 0 (1 standard drink = 0.6 oz pure alcoho l) Sex Assigned at Date Recorded Not on file documented as of this encounter Last Filed Vital Signs Vital Sign Reading Time Taken Comments Blood Pressure 120/85 09/15/2016 9:03 AM right arm, la rge cuff LAUNDRY ROOM ATTENDANT Pulse 88 09/15/2016 9:03 AM regular LAUNDRY ROOM ATTENDANT Temperature - - Respiratory Rate - - Oxygen Saturation - - Inhaled Oxygen - - Concentration Weight 96.2 kg (212 lb) 09/15/2016 9:03 AM LAUNDRY ROOM ATTENDANT Height 177.8 cm (5' 10) 09/15/2016 9:03 AM LAUNDRY ROOM ATTENDANT Body Mass Index 30.42 09/15/2016 9:03 AM LAUNDRY ROOM ATTENDANT documented in this encounter Progress Notes Melanie Desai MD - 09/15/2016 10:13 AM CST September 15, 2016December KRISTOFER Burnett [address] [address] RE:Tish Dubois :[address] Burnett: I again had the pleasure of seeing your patient, Tish Dubois, at [facility] for evaluationof sinus of Valsalva aneurysm. The patient has a history of adult onset diabetes mellitus documentedin 06/2015. He has numerous end-organ damage because of this including a right Charcot joint and macular degeneration, but no significant nephropathy to date. Previous echocardiogram performed at the [facility] on 09/03/2015 showed normal left ventricular chamber size, mild left ventricular hypertrophy, ejection fraction of 57% and regional wall motion abnormalities with hypokinesis of both the anterior and inferolateral lara. There is moderate sinus of Valsalva dilatation at that time at 47 mm. The patient was told to undergo a CT coronary angiogram, but this was not performed because he was tootachycardic and went on to have surgery on his right foot without difficulty. He has never had a known myocardial infarction. He denies chest discomfort. He has been diagnosed with obstructive sleep apnea and started using CPAP in 2003, but discontinued this until 2009 until December of this year. He hasnow restarted his CPAP. He lost some weight but has gained much of it back. He is now receiving irontransfusions and hemoglobin has increased to 12.4 today. Additionally, his sodium was 139, potassium4.1, ?? 29, creatinine 0.85 and glucose 119 on a nonfasting sample. The patient asked me to refill his simvastatin but I am not aware of any lipid profile that has been done here. Since they are being done by his primary care physician I have asked her to refill this. An echocardiogram performed on 09/10 demonstrated mild aortic dilatation at 4 cm at the aortic root and 4.2 cm at the ascending aorta. The inferior and inferolateral regional wall motion abnormalities remain and his overall ejection fraction was estimated at 55%-60%. PHYSICAL EXAMINATION: VITAL SIGNS: Current blood pressure is 120/85, pulse is 88 and regular. Weight is 212 pounds, an increase of 23 pounds since February. CHEST: Clear to auscultation. CARDIAC: Regular rate and rhythm with a rare ectopic, normal S1 and S2 without gallop or murmur. No heave, rub or thrill. No JVD or HJR. Pulses were all intact to the upper extremities without bruits. He wears his bilateral boots and his lower extremities are not examined. ABDOMEN: Benign without organomegaly. EXTREMITIES: Not examined because of his boots. ASSESSMENT: 1. Tish Dubois is a pleasant 56-year-old male who has numerous repercussions from diabetes including a Charcot joint on the right foot with previous surgery. His echocardiogram at the [facility] indicated sinus of Valsalva aneurysm which is stable. He has regional wall motion abnormalities and a CT coronary angiogram will now be scheduled. I have taken the liberty of giving him 50 mg of metoprolo l b.i.d. the day before the test and we will try to get the test done early in the morning since he is diabetic. He is otherwise asymptomatic and there are no signs of congestive heart failure. His heart rate remains elevated, but his blood pressure has improved. Our next steps will be determined by the CT coronary angiogram. 2. I have cautioned this patient about watching his diet carefully and losing some of the weight he has gained for the sake of his lower extremities. 3. The patient will continue with his CPAP machine. It is my pleasure to assist in the care of Tish Dubois. We will consider repeating his echocardiogram in 1 year since his ascending aortic aneurysm is stable. We will also review this on a CT coronary angiogram for more precise measurements. All his medications are the same and we will decide whether to add further medications based on his angiogram. All his questions were answered to his satisfaction. We did discuss the x-ray dye and dye nephropathy as well as anaphylaxis, shortness of breath and arrhythmias. The patient wishes to proceed with this test. All his questions were answered to his satisfaction. Sincerely, Melanie Desai MD, FACC MELANIE DESAI MD, FACC MT: Name: TISH DUBOIS Account: [id number] : 1960 Service Date: 09/15/2016 Document: [id number] DRY ROOM ATTENDANT Melanie Desai MD - 09/15/2016 10:07 AM CST HPI and Plan: See dictation:[id number] Orders Placed This Encounter Procedures ??? CT Angiogram coronary artery ??? Follow-Up with Hedis Manager Orders Placed This Encounter Medications ??? metoprolol (LOPRESSOR) 50 MG tablet Sig: Take 1 tablet (50 mg) by mouth as needed Dispense: 2 tablet Refill: 0 Medications Discontinued During This Encounter Medication Reason ??? Ascorbic Acid (VITAMIN C PO) Therapy completed Encounter Diagnoses Name Primary? 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 Thoracic aortic aneurysm without rupture (H) ??? Ischemic cardiomyopathy CURRENT MEDICATIONS: Current Outpatient Prescriptions Medication Sig Dispense Refill ??? metoprolol (LOPRESSOR) 50 MG tablet Take 1 tablet (50 mg) by mouth as needed 2 tablet 0 ??? UNKNOWN TO PATIENT Place 1 Dose into both eyes every 30 days ??? SIMVASTATIN PO Take 20 mg by mouth ??? Sertraline HCl (ZOLOFT PO) Take 50 mg by mouth daily ??? Cholecalciferol (VITAMIN D3 PO) Take 5,000 Units by mouth ??? aspirin 81 MG tablet Take by mouth daily ??? GLIPIZIDE XL PO Take 5 mg by mouth daily (with breakfast) ALLERGIES Allergies Allergen Reactions ??? Amoxicillin Hives PAST MEDICAL HISTORY: Past Medical History Diagnosis Date ??? Diabetes mellitus (H) ??? Sleep apnea CPAP ??? Numbness and tingling Numbness in feet ??? Anemia ??? Irregular heart beat 2016 pt states he has a high heart rate ??? History of blood transfusion 02/2016 ??? Aneurysm (H) 2016 ??? Sinus of Valsalva aneurysm 2015 ??? Charcot's joint 2014 ??? S/P biopsy 2016 for lymphoma PAST SURGICAL HISTORY: Past Surgical History Procedure Laterality Date ??? Orthopedic surgery Right bone shaving ??? Dissect lymph node inguinal Right 03/14/2016 Procedure: DISSECT LYMPH NODE INGUINAL; Surgeon: Damien Lancaster MD; Location: [facility] OR ??? Bone marrow biopsy, bone specimen, needle/trocar Right 04/15/2016 Procedure: BIOPSY BONE MARROW; Surgeon: Rudy Goins MD; Location: [facility] OR FAMILY HISTORY: Family History Problem Relation Age of Onset ??? Hyperlipidemia Father ??? Hypertension Mother ??? DIABETES Mother ??? DIABETES Brother SOCIAL HISTORY: Social History Social History ??? Marital Status: Spouse Name: N/A ??? Number of Children: N/A ??? Years of Education: N/A Social History Main Topics ??? Smoking status: Never Smoker ??? Smokeless tobacco: None ??? Alcohol Use: No ??? Drug Use: No ??? Sexual Activity: Not Asked Other Topics Concern ??? Caffeine Concern No ??? Special Diet Yes diabetic diet ??? Exercise No Social History Narrative Review of Systems: Skin: Negative Eyes: Positive for glasses macular edema ENT: Negative Respiratory: sleep apnea;CPAP Cardiovascular: edema;Positive for Gastroenterology: Negative Genitourinary: Negative Musculoskeletal: Positive for arthritis Neurologic: Positive for numbness or tingling of feet Psychiatric: Positive for excessive stress;anxiety;depression Heme/Lymph/Imm: Negative Endocrine: Positive for diabetes Physical Exam: Vitals: BP 120/85 mmHg Pulse 88 Ht 1.778 m (5' 10) Wt 96.163 kg (212 lb) BMI 30.42 kg/m2 Constitutional: cooperative, alert and oriented, well [...] time, person and place;no gross motor deficits [address] [place] [address] DRY ROOM ATTENDANT documented in this encounter Plan of Treatment Scheduled Referrals Name Type Priority Associated Diagnoses Order S chedule Follow-Up with Referral Routine Aneurysm of aortic sinus E xpected: Hedis Manager of Valsalva without 03/14/20 17 rupture (Approximate), Thoracic aortic aneurysm Exp ires: 09/15/2017 without rupture (H) Ischemic cardiomyopathy documented as of this encounter Results CT Angiogram coronary artery (09/25/2016 10:27 AM LAUNDRY ROOM ATTENDANT) Anatomical Region Laterality Modality Cardio, SUBRAD CT BODY, UMP CT CHEST Com puted Tomography Specimen (Source) Anatomical Location Collection Method / Collectio n Time Received Time / Laterality Volume Impressions 09/25/2016 11:58 AM LAUNDRY ROOM ATTENDANT IMPRESSION: 1. Total Agatston score 0.82, placing [...] ROSALINDA BUENO MD Narrative 09/25/2016 11:58 AM LAUNDRY ROOM ATTENDANT Procedure: CT ANGIO CORONARY ARTERY Examination Date: [...] s were reconstructed and analyzed on a Tamr workstation. Sca n protocol was optimized to [...] s were reconstructed and analyzed on a Tamr workstation. Sca n protocol was optimized to [...] that will follow separately. ROSALINDA BUENO MD Melanie Desai MD IMG CT ORDERABLES documented in this encounter Visit Diagnoses Diagnosis Aneurysm of aortic sinus of Valsalva wit hout rupture - Primary Thoracic aortic aneurysm without rupture Thoracic aneurysm without mention of rup ture Ischemic cardiomyopathy Other specified forms of chronic ischemi c heart disease Aneurysm of aortic sinus of Valsalva wit hout rupture Thoracic aortic aneurysm without rupture Thoracic aneurysm without mention of rup ture Ischemic cardiomyopathy Other specified forms of chronic ischemi c heart disease documented in this encounter Care Teams E Business Project Manager Relationship Specialty Start Date End Date December PCP - General Physician Industrial/Organizational Psychologist 03/07/16 05/20/17 [facility]ICAL [facility] [place] [address] [id number] documented as of this encounter
--- OUTSIDE RECORDS SUMMARY | 2022-07-31 10:07 | XMS_ITS | Encounter Summary ---
:1960 Author Organization [place] Address [address] [place] [address]. [place] [address] Care Team Providers Name Role Phone Jeanethdecember Primary Care Provider Reason for Visit Reason Onset Date Comments Previsit 09/12/2016 Encounter Details Date Type Department Care Team Description 09/12/2016 PRE VISIT [facility] Heart Prasanna Sargent MD Previsit Clinic [address] [address] [place] [address] [address] [place] [address] [phone] Social History Tobacco Use Types Packs/Day Years Used Date Smoking Tobacco: Never Alcohol Use Standard Drinks/Week Comments No 0 (1 standard drink = 0.6 oz pure alcoho l) Sex Assigned at Date Recorded Not on file documented as of this encounter Plan of Treatment Not on filedocumented as of this encounter Visit Diagnoses Not on filedocumented in this encounter Care Teams B2B Sales Executive Relationship Specialty Start Date End Date December PCP - General Physician Clin Nurse 03/07/16 05/20/17 [facility] [address] [place] [place] [id number] documented as of this encounter
--- OUTSIDE RECORDS SUMMARY | 2022-07-31 10:07 | XMS_ITS | Encounter Summary ---
:1960 Author Organization [place] Address [address] [facility] [place] [address] Care Team Providers Name Role Phone Jeanethdecember Primary Care Provider Reason for Visit Reason Onset Date Comments WOUND CARE 05/05/2017 increased and foul s melling drainage Encounter Details Date Type Department Care Team Description 05/05/2017 Telephone [facility] Masha Grimm CARE (increased Wound Clinic Lavonne Helm PA-C and foul smelling [address] WOUND HEALING drainage ) [address] [place] [address] [phone] [place], [place] [id number] (Wo rk) Social History Tobacco Use Types Packs/Day Years Used Date Smoking Tobacco: Never Alcohol Use Standard Drinks/Week Comments No 0 (1 standard drink = 0.6 oz pure alcoho l) Sex Assigned at Date Recorded Not on file documented as of this encounter Miscellaneous Notes Telephone Encounter - Kamila Cornelius RN - 05/05/2017 11:58 AM CDT Gian Burr's caregiver, called to report that there is increased, foul smelling drainage from footwounds. Patient saw surgeon and an amputation is planned for the beginning of May. Surgeon recommended Aminah contact I for antibiotics. Keflex 500 mg 3x/day x 10 days ordered. Patient notified of order. documented in this encounter Plan of Treatment Not on filedocumented as of this encounter Visit Diagnoses Diagnosis Local infection of wound - Primary Posttraumatic wound infection not elsewh ere classified documented in this encounter Care Teams Tablet Coater Relationship Specialty Start Date End Date December PCP - General Physician Vegetable Thinner 03/07/16 05/20/17 [place] [id number] [place] [address] [id number] documented as of this encounter
--- OUTSIDE RECORDS SUMMARY | 2022-07-31 10:07 | XMS_ITS | Encounter Summary ---
:1960 Author Organization [place] Address [address] [place] [address] Care Team Providers Name Role Phone Unavailable Primary Care Provider Unavailable Reason for Visit Auth/Cert Specialty Diagnoses / Procedures Referred By Contact Refer red To Contact Surgery Diagnoses chronic non healing ulcer Rh Periop Services Procedures AMPUTATE LEG BELOW KNEE [address] [place], [place] [phone] Phone: Fax: Referral ID Status Reason Start Date Expiration Date Visits Requ ested Visits Authorized [id number] 1 1 Encounter Details Date Type Department Care Team Description 06/05/2017 Surgery [facility] Felix Zapien Below- knee amputation, [facility] young Phan MD left. [address] [place], [place] ORTHOPEDICS [address] [place] [phone] [address] [place], [place] [address] (Wo rk) Surgery Details Date/Time Status Location OR Service Patient Case Case Traum a Class Class Type Case? 06/05/17 10:15 Posted OR OR 09 Orthopedics Surgery AM Admit Panel 1 Procedure LRB Anes Op Region Wound Class Commen ts Below-knee Left General with Leg IV-Dirty or Below-knee amputation, left. Block Infected amputat ion, left. Surgeon Surgeon Role Service Panel Felix Zpaien MD Primary Orthopedics 1 Kristal Lozada PA-C Assisting Radiotelephone Operator Authorization 1 Special Needs Ht- 5'10 Wt- 219# per H&PPt wears speci al crowboot to be able to walk on charcot feetWill bring CPAP documented in this encounter Social History Tobacco Use Types Packs/Day Years Used Date Smoking Tobacco: Never Smokeless Tobacco: Never Alcohol Use Standard Drinks/Week Comments No 0 (1 standard drink = 0.6 oz pure alcoho l) Sex Assigned at Date Recorded Not on file documented as of this encounter Last Filed Vital Signs Vital Sign Reading Time Taken Comments Blood Pressure 160/107 06/05/2017 10:25 AM CDT Pulse - - Temperature 36.2 ??C (97.1 ??F) 06/05/2017 8:20 AM CDT Respiratory Rate 15 06/05/2017 10:25 AM CDT Oxygen Saturation 99% 06/05/2017 10:25 AM CDT Inhaled Oxygen Concentration - - [...] On 06/08/2017 he was discharged to the [facility]. Please see the chart for further details and discharge instructions. FELIX ZAPIEN MD MT: [id number] Name: TISH FULLER MRN: [id number] Account: [id number] : 1960 Admit Date: Discharge Date: 06/08/2017 Document: [id number] documented in this encounter Medications at Time [...] ready for transfer today [facility]. Ithas been noted to SW by RN that arrangements cannot be made for stump protector through ortho clinictoday, nor available for application at [facility] therefore arrangements are to be made when [...] Walters LSW - 06/07/2017 2:23 PM CDT RAIMRO met with patient and his family. Patient is interested in going to [facility]. Discussed the requirements. RAMIRO called Codi at [facility] and made initial referal. She said they would call for approval with his insurance company in the morning. If [facility] does not work out then patient would like to go to [place]. MODESTA Siddiqi [phone] Miko Dubois DO - 06/07/2017 2:03 PM CDT [facility] Hospitalist Progress Note Miko Aldrich DO 06/07/2017 Reason for Stay (Diagnosis): Left below knee amputation. Assessment and Plan: 57-year-old man with history of diabetes mellitus and retinopathy neuropathy and Charcot mid foot distraction and deformity admitted for below knee amputation done this morning without complication. ??Patient has diabetes and sleep apnea as well as anemia of chronic disease. ??[facility] [...] 4. Possibly home Thursday Josh Bullock MD [phone] Vicky Martinez OT - 06/06/2017 2:11 PM CDT 06/06/17 [...] Currently Used at Home other (see comments) (QAGAN TAYAGUNGIN boots cassandra) Activity/Exercise/Self-Care Comment Pt owns crutches, [...] by B foot pain/deformities and wounds, wears QAGAN TAYAGUNGIN (charcot restraint orthotics) at baseline B. Uses power scooters at stores when shopping. Pt reports mod I in all ADLs, IADLs and mobility tasks with no AD. Assists nephew with [employer] occasionally. General Information Onset of Illness/Injury or Date of Surgery - Date 06/05/17 Referring Physician Felix Zapien MD Patient/Family Goals Statement Pt open to rehab options if needed Additional Occupational Profile Info/Pertinent History of Current Problem Per chart: Pt is a 57 yearold male POD #1 s/p L BKA, hx of DM and chronic foot wounds/ charcot demformity. Wears QAGAN TAYAGUNGIN boots cassandra at baseline (charcot restraint orthosis), [...] in B digits, reports having appointment with emergency registrar for further investigation. Pain Assessment Patient Currently in Pain No Range of Motion (ROM) ROM Comment WFL Strength Strength Comments WFL Hand Strength Hand Strength Comments WFL Coordination Upper Extremity Coordination No deficits were identified Bed Mobility Skill: Sit to Supine Level of Weakley: Sit/Supine stand-by assist Physical Assist/Nonphysical Assist: Sit/Supine 1 person assist Bed Mobility Skill: Supine to Sit Level of Weakley: Supine/Sit stand-by assist Physical Assist/Nonphysical Assist: Supine/Sit 1 person assist Transfer Skill: Bed to Chair/Chair to Bed Level of Weakley: Bed to Chair contact guard Physical Assist/Nonphysical Assist: Bed to Chair 1 person assist Weight-Bearing Restrictions nonweight-bearing Assistive Device - Transfer Skill Bed to Chair Chair to Bed Rehab Eval standard walker Transfer Skill: Sit to Stand Level of Weakley: Sit/Stand contact guard Physical Assist/Nonphysical Assist: Sit/Stand 1 person assist Transfer Skill: Sit to Stand nonweight-bearing Assistive Device for Transfer: Sit/Stand standard walker Upper Body Dressing Level of Weakley: Dress Upper Body stand-by assist Physical Assist/Nonphysical Assist: Dress Upper Body 1 person assist Lower Body Dressing Level of Weakley: Dress Lower Body minimum assist (75% patients effort) Physical Assist/Nonphysical Assist: Dress Lower Body 1 person assist Toileting Level of Weakley: Toilet minimum assist (75% patients effort) Physical Assist/Nonphysical Assist: Toilet 1 person assist Grooming Level of Weakley: Grooming contact guard Physical Assist/Nonphysical Assist: Grooming [...] tasks due to current deficits impacting function [facility] AM-PAC??? 6 Clicks Daily Activity Inpatient [...] home vs. TCU pending progress. Likely Thursday ÍOT Wero Craven MD - 06/06/2017 11:38 AM CDT [facility] Hospitalist Progress Note Assessment and Plan: 57-year-old [...] Currently Used at Home other (see comments) (QAGAN TAYAGUNGIN boots cassandra) Activity/Exercise/Self-Care Comment Pt owns crutches, [...] by B foot pain/deformities and wounds, wears QAGAN TAYAGUNGIN (charcot restraint orthotics) at baseline B. Uses [...] and chronic foot wounds/ charcot demformity. Wears QAGAN TAYAGUNGIN bootsbil at baseline (charcot restraint orthosis), functions [...] to hop well on R foot with QAGAN TAYAGUNGIN boot donned, taking WB well through arms [...] in agreement with plan of care Yes [facility] TM 6 Clicks ?? 2016, Trustees of [facility], under license to [employer]. All rights reserved. 6 Clicks Short Forms Basic Mobility Inpatient Short Form [facility] AM-PAC??? 6 Clicks V.2 Basic Mobility [...] RN - 06/07/2017 10:25 AM CDTAssociated Order(s): TUFTING MACHINE FIXER IP CONSULT Advertising Production Manager Discharge Plans in progress: CTS following for [...] placement vs home Follow up plan: per Entered by: Gail Palmer 06/07/2017 10:23 AM [...] he knows off or prior history of AK. His blood sugar is reasonably controlled and [...] Goal Outcome Summary Goal: Goal Outcome Summary Advertising Production Manager OT Patient plan for discharge: ARU Current [...] goal(s). See goals on Care Plan in [facility] electronic health record for goal details. Goals partially met. Barriers to achieving goals: discharge from facility. Therapy recommendation(s): Continued therapy is recommended. Rationale/Recommendations: ARU recommended to further improve safety, strength, and independence. Plan of Care - Chana Alexander, HR RECRUITER - 06/08/2017 10:16 AM CDT Problem: Goal Outcome Summary Goal: Goal Outcome Summary Advertising Production Manager PT Patient plan for discharge: Pt and [...] obtained from chart review and discussion with HR RECRUITER. Plan of Care - Kacie Borja RN [...] Below-knee amputation, left. SURGEON: Felix Zapien MD PACKING MACHINE TENDER: Kristal Lozada PA-C ANESTHESIA: Regional plus general. ESTIMATED BLOOD LOSS: 30 mL. DRAINS: None. SPECIMENS: None. COMPLICATIONS: None. INDICATIONS FOR PROCEDURE: Tish Fuller is a 57-year-old man whom I have treated for quite some time with bilateral mid foot destruction from Charcot neuroarthropathy. Unfortunately, despite use of custom QAGAN TAYAGUNGIN boot, he has developed a chronic nonhealing [...] benefits. We will then see him at [facility] for fitting of a removable clamshell postoperative splint. He will then return at 2 weeks for wound check and sutures out. At that point he will begin workwith [facility] to advance into protocols for a prosthetic limb. FELIX ZAPIEN MD MT: [id number] Name: TISH FULLER Account: [id number] : 1960 Procedure Date: 06/05/2017 Document: [id number] Plan of [place] - Rene Hernandez, PT - 06/07/2017 2:19 PM CDT Problem: Goal Outcome Summary Goal: Goal Outcome Summary Advertising Production Manager PT Patient plan for discharge: Pt and sig other in agreement ARU is best d/c option at this time Current status: Continuing to progress well with PT, but did not R knee buckling x 1 during gait andneeded max A to prevent fall during stair training trial. Complicated by baseline neuropathy in R foot and use of QAGAN TAYAGUNGIN boot. SBA with transfers. Amb x 25ft [...] to leftleg, C/D/I, IVSL, PT, OT and care team coordinator scheduler following. 10mg oxy given X1. Plan is possible D/C to TCU tomorrow after stump protector fitting. POC reviewed with patient, questions answered. Plan of Care - Ramya Ames OT - 06/07/2017 9:23 AM CDT Problem: Goal Outcome Summary Goal: Goal Outcome Summary Advertising Production Manager OT Patient plan for discharge: Open to [...] bed from wheelchair, SBA; pt independently managing QAGAN TAYAGUNGIN boot for R LE Barriers to return [...] Goal Outcome Summary Goal: Goal Outcome Summary Advertising Production Manager PT Patient plan for discharge: pt now states he is considering d/c to his brother's home, which is handicapped accessible (brother uses a w/c for mobility), has daughter that lives nearby for check-in support Current status: Tolerating therapy very well, making good progress. Amb 2x40ft with FWW and CGA, mild LOB x 2 due to QAGAN TAYAGUNGIN boot catching on floor. Tolerating BKA exercises [...] single level home, has a w/c from [facility] but will need elevating leg rests (provided [...] to monitor. Plan of Care - Vicky Martinez, OT - 06/06/2017 2:18 PM CDT Problem: Goal Outcome Summary Goal: Goal Outcome Summary OT: Order received, eval completed and treatment initiated. Pt is a 57 year old male POD #1 s/p L BKA. Pt lives with SO in condo, 1 step to enter, full flight to bedroom, is able to stay on main level if needed, walk in shower, standard height toilet. Pt reports indep/mod I in all ADLs, IADLs and mobility tasks with no AD (other than QAGAN TAYAGUNGIN boots) at baseline. Pt has support of family/SO for ADL/IADL tasks as needed. Could potentially stay with brother in w/c accessible house. Advertising Production Manager OT Patient plan for discharge: Open to rehab options Current status: Pt completed bed mobility supine <> sit EOB with SBA. Pt completed room mobility FWW level with CGA for safety, QAGAN TAYAGUNGIN boot donned on RLE. Pt educated on [...] Outcome Summary Goal: Goal Outcome Summary PT: Eval complete, treatment initiated. Pt seen POD #1 s/p L BKA, hx of DM and chronic foot wounds/ charcot demformity. Wears QAGAN TAYAGUNGIN boots cassandra at baseline (charcot restraint orthosis), functions independently. Lives with roommate in a 2-level condo, small threshold to enter and full flight of stairs up to bedroom level, has couch on main level he states he could sleep on. Pt owns crutches, able to walkshort distances at baseline, typically uses power scooter when shopping. Advertising Production Manager PT Patient plan for discharge: rehab center Current status: Initiated mobility training and BKA exercises, tolerating well today, minimal pain. Some sensations of phantom limb, but tolerable. SBA with bed mobilities, CGA with sit <> stand transfers and amb x 30ft with FWW, QAGAN TAYAGUNGIN boot R foot at baseline. Up to [...] Zapien MD - 06/05/2017 12:39 PM CDT [facility] Brief Operative Note Pre-operative diagnosis: chronic non [...] received. Pharmacy-Admission Medication History - Nehemias Hand RP - 06/02/2017 8:06 PM CDT Admission medication history interview status for this patient is complete. See [facility] admission navigator for allergy information, prior to admission medications and immunization status. HR RECRUITER meds completed by pre-admitting nurse Lo Julien [...] PM 7 8:30 CDT PM CDT Felix Zapien MD LAB - BENAIF POCT Performing Organization Address City/[facility]/ZIP Code Phon e Number FV POINT OF CARE TEST, GLUCOSE POINT OF CARE TEST, GLUCOSE (ABNORMAL) Glucose by meter (06/07/2017 4:40 PM CDT) P athologist Signature Glucose 136 (H) 70 - 06/07/2017 POINT OF CARE mg/dL 4:45 PM CDT TEST, GLUCOSE Specimen Anatomical Collection Method Collection Time Receive d Time (Source) Location / / Volume Laterality 06/07/2017 4:40 PM 7 4:45 CDT PM CDT Felix Zapien MD LAB - JASPREET POCT Performing Organization Address City/[facility]/ZIP Code Phon e Number FV POINT OF CARE TEST, GLUCOSE POINT OF CARE TEST, GLUCOSE Glucose by meter (06/07/2017 12:29 PM CDT) P athologist Signature Glucose 91 70 - 99 06/07/2017 POINT OF CARE mg/dL 12:50 PM CDT TEST, GLUCOSE Specimen Anatomical Collection Method Collection Time Receive d Time (Source) Location / / Volume Laterality 06/07/2017 12:29 06/07/2017 PM CDT 12:50 PM CDT Felix Zapien MD LAB - BENAIF POCT Performing Organization Address City/[facility]/ZIP Code Phon e Number FV POINT OF CARE TEST, GLUCOSE POINT OF CARE TEST, GLUCOSE (ABNORMAL) Glucose by meter (06/07/2017 7:45 AM CDT) P athologist Signature Glucose 152 (H) 70 - 99 06/07/2017 POINT OF CARE mg/dL 7:50 AM CDT TEST, GLUCOSE Specimen Anatomical Collection Method Collection Time Receive d Time (Source) Location / / Volume Laterality 06/07/2017 7:45 AM 7 7:50 CDT AM CDT Felix Zapien MD LAB - BENA[place] POCT Performing Organization Address City/State/ZIP Code Phon e Number FV POINT OF CARE TEST, GLUCOSE POINT OF CARE TEST, GLUCOSE (ABNORMAL) Hemoglobin (06/07/2017 7:30 AM CDT) P athologist Signature Hemoglobin 11.3 (L) 13.3 - 17.7 06/07/2017 [place] g/dL 7:51 AM CDT [facility] Specimen Anatomical Collection Method Collection Time Receive d Time (Source) Location / / Volume Laterality Blood specimen 06/07/2017 7:30 AM 017 7:46 (specimen) CDT AM CDT Felix Zapien MD LAB - BLOOD ORDERABLES Performing Organization Address City/[facility]/ZIP [place] Phon e Number M [facility] [address] [place], [place] [address] [facility] [address] [place], [place] [address] [place] [address] (ABNORMAL) Glucose by meter (06/07/2017 3:18 AM CDT) P athologist Signature Glucose 116 (H) 70 - 99 06/07/2017 POINT OF CARE mg/dL 7:10 AM CDT TEST, GLUCOSE Specimen Anatomical Collection Method Collection Time Receive d Time (Source) Location / / Volume Laterality 06/07/2017 3:18 AM 7 7:10 CDT AM CDT Felix WAGNER - JASPREET [...] PM 7 6:15 CDT PM CDT Felix WAGNER - JASPREET POCT Performing Organization Address City/State/ZIP Code Phon e Number FV POINT OF CARE TEST, GLUCOSE POINT OF CARE TEST, GLUCOSE Glucose by meter (06/06/2017 11:35 AM CDT) athologist Signature Glucose 87 70 - 99 06/06/2017 POINT OF CARE mg/dL 11:40 AM CDT TEST, GLUCOSE Specimen Anatomical Collection Method Collection Time Receive d Time (Source) Location / / Volume Laterality 06/06/2017 11:35 06/06/2017 AM CDT 11:40 AM CDT Felix WAGNER - JASPREET POCT [...] AM 7 8:06 CDT AM CDT Felix Zapien MD LAB - JASPREET POCT Performing Organization Address City/State/ZIP Code Phon e Number FV POINT OF CARE TEST, GLUCOSE POINT OF CARE TEST, GLUCOSE (ABNORMAL) CBC with platelets differential (06/06/2017 7:34 AM CDT) [facility] gist Method Time Signature WBC 7.3 4.0 - 06/06/2017 [facility] 11.0 8:06 AM [facility] 10[facility]9/L [facility] RBC Count 4.34 (L) 4.4 - 5.9 06/06/2017 [facility] 10e12/L 8:06 AM [facility] Hemoglobin 10.8 (L) 13.3 - 06/06/2017 [facility] 17.7 g/dL 8:06 AM [facility] Hematocrit 36.1 (L) 40.0 - 06/06/2017 [facility] 53.0 % 8:06 AM [facility] MCV 83 78 - 100 06/06/2017 [facility] fl 8:06 AM [facility] MCH 24.9 (L) 26.5 - 06/06/2017 [facility] 33.0 pg 8:06 AM [facility] MCHC 29.9 (L) 31.5 - 06/06/2017 [facility] 36.5 g/dL 8:06 AM [facility] RDW 20.0 (H) 10.0 - 06/06/2017 [facility] 15.0 % 8:06 AM [facility] Platelet Count 158 150 - 450 06/06/2017 [facility] 10e9/L 8:06 AM [facility] Diff Method Automated 06/06/2017 [facility] Method 8:06 AM [facility] % Neutrophils 61.1 % 06/06/2017 [facility] 8:06 AM [facility] % Lymphocytes 26.2 % 06/06/2017 [facility] 8:06 AM [facility] % Monocytes 11.1 % 06/06/2017 [facility] 8:06 AM [facility] % Eosinophils 1.0 % 06/06/2017 [facility] 8:06 AM [facility] % Basophils 0.3 % 06/06/2017 [facility] 8:06 AM [facility] % Immature 0.3 % 06/06/2017 [facility] Granulocytes 8:06 AM [facility] Nucleated RBCs 0 0 /100 06/06/2017 [facility] 8:06 AM [facility] Absolute 4.5 1.6 - 8.3 06/06/2017 [facility] Neutrophil 10e9/L 8:06 AM [facility] Absolute 1.9 0.8 - 5.3 06/06/2017 [facility] Lymphocytes 10e9/L 8:06 AM [facility] Absolute 0.8 0.0 - 1.3 06/06/2017 [facility] Monocytes 10e9/L 8:06 AM [facility] Absolute 0.1 0.0 - 0.7 06/06/2017 [facility] Eosinophils 10e9/L 8:06 AM [facility] Absolute 0.0 0.0 - 0.2 06/06/2017 [facility] Basophils 10e9/L 8:06 AM [facility] Abs Immature 0.0 0 - 0.4 06/06/2017 [facility] Granulocytes 10e9/L 8:06 AM [facility] Absolute 0.0 06/06/2017 [facility] Nucleated RBC 8:06 AM [facility] Specimen Anatomical Collection Method Collection Time Receive d Time (Source) Location / / Volume Laterality Blood specimen 06/06/2017 7:34 AM 017 8:03 (specimen) CDT AM CDT Wero Craven MD LAB - BLOOD ORDERABLES Performing Organization Address City/State/ZIP Code Phon e Number M [facility] [address] [place] [address] [facility] [address] [place] [phone] (ABNORMAL) Basic metabolic panel (06/06/2017 7:34 AM CDT) P athologist Signature Sodium 136 133 - 144 06/06/2017 [place] mmol/L 8:21 AM [facility] Potassium 4.3 3.4 - 5.3 06/06/2017 [place] mmol/L 8:21 AM [facility] Chloride 105 94 - 109 06/06/2017 [place] mmol/L 8:21 AM [facility] Carbon Dioxide 24 20 - 32 06/06/2017 [place] mmol/L 8:21 AM [facility] Anion Gap 7 3 - 14 06/06/2017 [place] mmol/L 8:21 AM [facility] Glucose 93 70 - 99 06/06/2017 [facility] mg/dL 8:21 AM [facility] Urea Nitrogen 27 7 - 30 06/06/2017 [facility] mg/dL 8:21 AM [facility] Creatinine 1.08 0.66 - 06/06/2017 [place] 1.25 mg/dL 8:21 AM [facility] GFR Estimate 71 >60 06/06/2017 [place] mL/min/1.7 8:[address] Comment: Non GFR Calc GFR Estimate If 86 >60 mL/min/1.7m2 06/06/2017 8:21 A M [facility] Comment: GFR Calc Calcium 8.2 (L) 8.5 - 10.1 mg/dL 06/06/2017 8:21 AM [facility] Specimen Anatomical Collection Method Collection Time Receive d Time (Source) Location / / Volume Laterality Blood specimen 06/06/2017 7:34 AM 017 8:03 (specimen) CDT AM CDT Wero Craven MD LAB - BLOOD ORDERABLES Performing Organization Address City/State/ZIP Code Phon e Number M [place] [address] [place] [address] [facility] [address] [phone] (ABNORMAL) Glucose by meter (06/06/2017 2:51 AM CDT) P athologist Signature Glucose 124 (H) 70 - 99 06/06/2017 POINT OF CARE mg/dL 2:55 AM CDT TEST, GLUCOSE Specimen Anatomical Collection Method Collection Time Receive d Time (Source) Location / / Volume Laterality 06/06/2017 2:51 AM 7 2:55 CDT AM CDT Felix Zapien MD LAB [...] PM 7 9:05 CDT PM CDT Felix Zapien MD LAB [...] LAB - JASPREET POCT Performing Organization Address City/[facility]/ZIP Code Phon e Number FV POINT OF [...] PM 7 2:25 CDT PM CDT Felix WAGNER - JASPREET POCT Performing Organization Address City/[facility]/ZIP Code Phon e Number FV POINT OF [...] Copath Patient Name: TISH FULLER Report MR#: [id number] Specimen #: [id number] Collected: 06/05/2017 Received: 06/05/2017 Reported: 06/08/2017 14:30 [...] PM) MICROSCOPIC: Microscopic performed CPT Codes: A: 18367-XE7, 76169-TSM TESTING LAB LOCATION: [address] ??[phone] COLLECTION SITE: Client: [facility] Location: [facility] (R) Specimen (Source) Anatomical Collection Method Collection Time Re ceived Time Location / / Volume Laterality Tissue specimen STRUCTURE OF LEFT 06/05/2017 12:08 (specimen) LOWER LIMB / PM CDT Unknown Felix WAGNER - JASPREET AP Performing Organization Address City/State/ZIP Code Phon e Number [facility] Glucose by meter (06/05/2017 9:19 AM CDT) athologist Signature Glucose 93 70 - 99 06/05/2017 [facility]ARE mg/dL 9:26 AM CDT TEST, GLUCOSE Specimen Anatomical Collection Method Collection Time Receive d Time (Source) Location / / Volume Laterality 06/05/2017 9:19 AM 7 9:26 CDT AM CDT Felix WAGNER - JASPREET POCT Performing Organization Address City/State/ZIP Code Phon e Number FV POINT OF CARE TEST, GLUCOSE POINT OF CARE TEST, GLUCOSE Potassium (06/05/2017 8:52 AM CDT) athologist Signature Potassium 4.7 3.4 - 5.3 06/05/2017 [facility] mmol/L 9:37 AM [facility] Specimen Anatomical Collection Method Collection Time Receive d Time (Source) Location / / Volume Laterality Blood specimen 06/05/2017 8:52 AM 017 9:12 (specimen) CDT AM CDT Sylvester Glover MD LAB - BLOOD ORDERABLES Performing Organization Address City/State/ZIP [place] Phon e Number M [place] [address] [facility] [address] [phone] Creatinine (06/05/2017 8:52 AM CDT) athologist Signature Creatinine 1.05 0.66 - 1.25 06/05/2017 [place] mg/dL 9:37 AM [facility] [facility] GFR Estimate 73 >60 06/05/2017 [place] mL/min/1.7m 9:[address] Comment: Non GFR Calc GFR Estimate If 89 >60 mL/min/1.7m2 06/05/2017 9:37 A M T [facility] Comment: GFR Calc Specimen Anatomical Collection Method Collection Time Receive d Time (Source) Location / / Volume Laterality Blood specimen 06/05/2017 8:52 AM 017 9:12 (specimen) CDT AM CDT Sylvester Glover MD LAB - BLOOD ORDERABLES Performing Organization Address City/State/ZIP Code Phon e Number M [facility] [address] [place], [place] [address] [place] [address] [address] [place], [place] [address], [facility] [phone] (ABNORMAL) Hemoglobin (06/05/2017 8:52 AM CDT) athologist Signature Hemoglobin 12.1 (L) 13.3 - 17.7 06/05/2017 [place] g/dL 9:17 AM CDT [facility] Specimen Anatomical Collection Method Collection Time Receive d Time (Source) Location / / Volume Laterality Blood specimen 06/05/2017 8:52 AM 017 9:12 (specimen) CDT AM CDT Sylvester Glover MD LAB - BLOOD ORDERABLES Performing Organization Address City/State/ZIP Code Phon e Number M [facility] [address] [place], [place] [address] [place] [address] [address] [place], [place] [address], [facility] [phone] EKG CARDIAC - HIM SCAN (05/28/2017 12:00 AM CDT) Specimen (Source) Anatomical Location Collection Method / Collectio n Time Received Time / Laterality Volume 05/28/2017 Narrative This result has an attachment that is no t available. Provider Outside ECG ORDERABLES documented in this encounter Visit Diagnoses Not on filedocumented in this encounter Administered Medications Inactive Administered Medications - up to 3 most recent administrations Medication Order MAR Action Action Date Dose Rate Site aspirin EC EC tablet 81 mg Given 06/07/2017 10:11 PM CDT 81 mg 81 mg, Oral, DAILY, First dose on 06/06/17 at 2000, Post-procedure Given 06/06/2017 7:50 PM CDT 81 mg cholecalciferol (vitamin D) tablet 4,000 Given [...] / not alert = 50 mL Vesicant. glipiZIDE (GLUCOTROL XL) 24 hr tablet 5 [...] juice on I and O fl owsheet. glucose 40 % gel 15-30 g 15-30 [...] juice on I and O fl owsheet. insulin aspart (NovoLOG) inj (RAPID ACTI NG) [...] 5 min before meal or immediately after. lisinopril (PRINIVIL/ZESTRIL) tablet 30 mg Given 06/08/2017 [...] end of dosing range. Hold while on RADIO TALK SHOW HOST or with regular IV opioid dosing., Post-procedure [...] 1950 (Given - Provider: Caren viera RN) 221 (Given - Provider: Brielle Garcia, LIBORIO) 81 mg, Oral, DAILY, First dose on Thu06/06/17 at 2000, Post-proce dure ceFAZolin sodium-dextrose (ANCEF) [...] DAILY, First dose on Thu06/06/17 at 0800, Post -procedure gabapentin (NEURONTIN) capsule [...] (G iven - Provider: Melinda Ngo LPN) 5 mg, Oral, DAILY WITH BREAKFAST, First dose on Thu06/06/17 at 0800, Post-procedure insulin aspart (NovoLOG) inj (RAPID ACTING) 0750 (Not Given - Provider: Tish Miguel LPN - Reason: Order parameters not met)1142 (Not Given - Provider: Tish Miguel LPN - Reason: Order parameters not met) 0822 (Not Given - Provider: Tish Miguel LPN - Reason: Patient/family refused - Comment: bs post meal)1245 (Not Given - Provider: Tish Miguel LPN [...] parameters not met - Comment: BS 104) 2157 (Not Given - Provider: Brielle Garcia RN [...] LPN)1949 (Given - Provider: Caren Moncada RN) 0819 (Given - Provider: Tish Miguel LPN)220 (Given [...] 0758 (Given - Provider: John Miguel LPN) 0819 (Given - Provider: Tish Miguel LPN) 0809 (Given - Provider: Melinda Ngo LPN) 50 mg, Oral, DAILY, First dose on Thu06/05/17 at 1430, Post-proce dure simvastatin (ZOCOR) tablet 20 mg 1949 (Given - Provider: Karen Moncada RN) 221 (Given - Provider: Brielle Garcia RN) 20 [...] Borja RN )0810 (Given - Provider: Melinda Ngo LPN) 3 mL, Intracatheter, EVERY 8 HOURS, Firs t dose on Thu06/05/17 at 1430, And Q1H PRN, to lock peripheral IV dormant line., Post-procedure 2201 (Given - Provider: Caren Moncada RN) PRN Medication Order 06/06/2017 06/07/2017 06/08/2017 acetaminophen (TYLENOL) tablet 650 mg 650 mg, Oral, EVERY 4 HOURS PRN, other, surgical pain, Starting Thu06/08/17 at 0000, May give first dose 4 [...] sugar, May repeat x 1 only, Starting 06/05/17 at 1446, May give SQ or IM. [...] to take PO, Post-procedure, Hold while on RADIO TALK SHOW HOST.. hydrOXYzine (ATARAX) tablet 25 mg 25 mg, Oral, EVERY 6 HOURS PRN, itching, Starting Thu06/05/17 at 1418, Caution to be used when administering multiple Central Nervous System (DISPERSION MIXER) depressing meds within a short time frame., [...] Analilia Viera, LIBORIO)1248 (Given - Provider: Analilia Viera RN) 5-10 mg, Oral, EVERY 3 HOURS PRN, modera te to severe pain, Starting Thu06/05/17 at 1418, IF CrCl is UNKNOWN start at lowest end of dosing range. Hold while on RADIO TALK SHOW HOST or with regular IV opioid dosing., Post-procedure 1949 (Given - Provider: Caren Moncada, RN)2248 (Given - Provider: Caren Moncada, LIBORIO) 2210 [...] 3 mL 1311 (Given - Provider: Luz Meng, LIBORIO) 3 mL, Intracatheter, EVERY 1 HOUR PRN, [...]
--- OUTSIDE RECORDS SUMMARY | 2022-07-31 10:08 | XMS_ITS | Encounter Summary ---
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 Type 2 diabetes mellitus with diabetic neuropathy (H) Melanie Sargent MD [address] [place] [address] Referral ID Status Reason Start Date Expiration Date Visits Requ ested Visits Authorized [id number] Closed 03/01/2016 03/01/2017 1 1 Reason for Visit Reason Comments Heart Problem New consult for family hx of heart disease Encounter Details Date Type Department Care Team Description 01/31/2016 Office Visit [facility] Melanie Sargent Aneury sm of aortic sinus of Valsalva without rupture (Primary Dx); Heart Clinic MD Leonila Type 2 diabetes mellitus with diabetic n europathy (H); [place] [id number] [address] Family history of ischemic h eart disease [address] [place] [id number] Social History Tobacco Use Types Packs/Day Years Used Date Smoking Tobacco: Never Tobacco Cessation: Counseling Given: No Alcohol Use Standard Drinks/Week Comments No 0 (1 standard drink = 0.6 oz pure alcoho l) Sex Assigned at Date Recorded Not on file documented as of this encounter Last Filed Vital Signs Vital Sign Reading Time Taken Comments Blood Pressure 94/60 01/31/2016 11:09 AM (from Exten ded CDT Vitals) Pulse 92 01/31/2016 11:09 AM (from Exten ded CDT Vitals) Temperature - - Respiratory Rate - - Oxygen Saturation - - Inhaled Oxygen - - Concentration Weight 99.3 kg (219 lb) 01/31/2016 10:23 AM CDT Height 177.8 cm (5' 10) 01/31/2016 10:23 AM CDT Body Mass Index 31.42 01/31/2016 10:23 AM CDT documented in this encounter Progress Notes Melanie Sargent MD - 01/31/2016 12:32 PM CDT PRIMARY CARE PROVIDER: Breanne Burnett PA-C. REASON FOR CONSULTATION: I have been asked by Breanne Burnett to see Geo Dubois for evaluation of sinus of Valsalva aneurysm and possible coronary artery disease. HISTORY OF PRESENT ILLNESS: Geo Dubosi is a pleasant 55-year-old male accompanied by his today. He has a history of diabetes mellitus documented 06/2015. He was noted to be tachycardic. He had evidence of a right Charcot foot and needed surgery. He had not seen a physician for at least 15 years prior to that. An echocardiogram was performed and the patient was seen by a [facility] ball thread machine tender. The echocardiogram from 09/03/2015 showed normal left ventricular chamber size. There was mild left ventricular septal hypertrophy at 14 mm. Ejection fraction was 57%. There were regional wall motion abnormalities with hypokinesis of both the anterior and inferolateral lara. Normal right ventricu lar size and function. No significant valvular abnormality. There was moderate sinus of Valsalva dilatation at 47 mm. The patient was then told that he should undergo a CT coronary angiogram. In the meantime, this was not performed because the patient was tachycardic and the patient went on to have his surgery on his right foot without difficulty. The patient has never had a known myocardial infarction. He denies chest discomfort. He has been diagnosed with obstructive sleep apnea in the past. He started using CPAP in 2003 but discontinued this from 2009 until approximately 1 month ago. The patienthas now been referred to [facility] for further update on his sleep apnea and his machine. The patient is now wearing special boots bilaterally. He has been on and off Glipizide. His hemoglobin A1c went from 10 to 5 indicating fairly good control of his blood sugar more recently. He, however, has been anemic with hemoglobins in the 9 range. Etiology has not been found despite colonoscopy. He also has low vitamin D level which is being treated. He is a nonsmoker. He has not been drinking alcohol at all for 3 years. He has no family history of premature atherosclerosis. He is being treated for macular edema of his bilateral eyes and is currently legally blind. The patient's only surgery on 10/09/2015 is a Charcot joint repair on his right foot. FAMILY HISTORY: Includes high cholesterol in father, diabetes and high blood pressure in his mother and diabetes in a brother. The patient notes some weight loss in general more recently. Some chills as well. He has lost some of his vision as mentioned above. He also has some hearing loss. He notes erectile dysfunction. He has had some swelling of his bilateral legs. He notes that his memory is not as good as before. MEDICATIONS: As listed below. PHYSICAL EXAMINATION: VITAL SIGNS: Current blood pressure is 100/56 on the right arm, pulse 96 and regular with occasionalectopic. Blood pressure on the left arm 94/60. The patient weighs 219 pounds, BMI is 31.5. GENERAL: The patient is an alert male appearing his stated age, in no acute distress. HEENT: Benign without xanthelasma. NECK: Supple without thyromegaly. CHEST: Clear to auscultation without kyphosis or scoliosis. No wheezes, rales or rhonchi. CARDIAC: Tachycardia with occasional ectopic, normal S1 and S2 without gallop or murmur. No heave, rub or thrill. No JVD or HJR. Pulses were all intact without bruits to the upper extremities. I did not feel his pulses to the lower extremities because of his bilateral boots. No tenderness to palpationacross the precordium. ABDOMEN: Soft, nontender without organomegaly. Bowel sounds are present. No bruits. EXTREMITIES: Not examined because of his boots. EKG from today demonstrates normal sinus rhythm at a rate of 92 beats per minute. Occasional premature ventricular contraction. I cannot rule out an old anterior wall [place] based on poor R-wave progression V1 through V3. ASSESSMENT: 1. Geo Dubois is a pleasant 55-year-old male who has neglected himself until more recently. He developed a Charcot joint on his right foot and underwent surgery for this. Echocardiogram prior to that at the [facility] indicated sinus of Valsalva aneurysm and regional wall motion abnormalities of the left ventricle. A stress test or a CT coronary angiogram should be performed to better understand his anatomy. The patient is asymptomatic and I do not believe we need to move to an invasive coronary angiogram. Because of his heart rate, it is impossible to move ahead with a CT angiogram. We will wait a month and see if his anemia is improved. I have asked the patient to stop his furosemide to see if his heart rate will slow down. If his blood pressure comes up a little bit I can start him on low dose beta blockers and then we can go ahead and test him. If there is severe coronary artery disease, invasive coronary angiogram may be necessary. There is no evidence of congestive heart failure. 2. The CT coronary angiogram will also look at his aorta and give us an idea of any aneurysmal dilatation. 3. This patient is unable to exercise because of his diabetic neuropathy. 4. When I see this patient in a month, I believe we should start him on a statin given his risk factors. We will have some lab tests when I see him in a month from Breanne Burnett's office and can make that determination. It is my pleasure to assist in the care of Geo Dubois. He will call for any further difficulties until I see him in 1 month. All his questions were answered to his satisfaction. His was in attendance. MD MELANIE De La Cruz MD, LOCATED [facility]IN [facility] MT: bertha Name: GEO DUBOIS MRN: [id number] Account: [id number] : 1960 Service Date: 01/31/2016 Document: [id number] Melanie Sargent MD - 01/31/2016 12:21 PM CDT HPI and Plan: See dictation:[id number] Orders Placed This Encounter Procedures ??? Follow-Up with Pricing Actuary ??? EKG 12-lead complete w/read - Clinics (performed today) Orders Placed This Encounter Medications ??? Sertraline HCl (ZOLOFT PO) Sig: Take 50 mg by mouth daily ??? Ascorbic Acid (VITAMIN C PO) Sig: ??? Cholecalciferol (VITAMIN D3 PO) Sig: Take by mouth daily ??? aspirin 81 MG tablet Sig: Take by mouth daily Medications Discontinued During This Encounter Medication Reason ??? ferrous fumarate 65 mg, [place]. FE,-Vitamin C 125 mg (VITRON C) 65-125 MG TABS Therapy completed ??? FUROSEMIDE PO Encounter Diagnoses Name Primary? 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 Type 2 diabetes mellitus with diabetic neuropathy (HCC) ??? Family history of ischemic heart disease CURRENT MEDICATIONS: Current Outpatient Prescriptions Medication Sig Dispense Refill ??? Sertraline HCl (ZOLOFT PO) Take 50 mg by mouth daily ??? Ascorbic Acid (VITAMIN C PO) ??? Cholecalciferol (VITAMIN D3 PO) Take by mouth daily ??? aspirin 81 MG tablet Take by mouth daily ??? METFORMIN HCL PO Take 500 mg by mouth 2 times daily (with meals) ??? GLIPIZIDE XL PO Take 2.5 mg by mouth ALLERGIES Allergies Allergen Reactions ??? Amoxicillin Hives PAST MEDICAL HISTORY: Past Medical History Diagnosis Date ??? Diabetes mellitus (HCC) PAST SURGICAL HISTORY: History reviewed. No pertinent past surgical history. FAMILY HISTORY: Family History Problem Relation Age of Onset ??? Hyperlipidemia Father ??? Hypertension Mother ??? Diabetes Mother ??? Diabetes Brother SOCIAL HISTORY: History Social History ??? Marital Status: Spouse Name: N/A ??? Number of Children: N/A ??? Years of Education: N/A Social History Main Topics ??? Smoking status: Never Smoker ??? Smokeless tobacco: Not on file ??? Alcohol Use: No ??? Drug Use: Not on file ??? Sexual Activity: Not on file Other Topics Concern ??? Caffeine Concern No ??? Special Diet Yes diabetic diet ??? Exercise No Social History Narrative Review of Systems: Skin: Negative Eyes: Positive for glasses macular edema ENT: Negative Respiratory: Positive for sleep apnea;CPAP Cardiovascular: lightheadedness;Positive for;edema [place] and lightheaded when surgars are low Gastroenterology: Negative Genitourinary: Negative Musculoskeletal: Negative Neurologic: Positive for numbness or tingling of feet Psychiatric: Positive for depression Heme/Lymph/Imm: Negative Endocrine: Positive for diabetes Physical Exam: Vitals: BP 100/56 mmHg Pulse 96 Ht 1.778 m (5' 10) Wt 99.338 kg (219 lb) BMI 31.42 kg/m2 Constitutional: cooperative, alert and oriented, well developed, well nourished, in no acute distress Skin: warm and dry to the touch, no apparent skin lesions or masses noted Head: normocephalic, no masses or lesions Eyes: pupils equal and round, conjunctivae and lids unremarkable, sclera white, no xanthalasma, EOMSintact, no nystagmus ENT: no pallor or cyanosis, dentition good Neck: Chest: normal breath sounds, clear to auscultation, normal A-P diameter, normal symmetry, normal respiratory excursion, no use of accessory muscles Cardiac: regular rhythm;normal S1 and S2;no S3 or S4;apical impulse not displaced tachycardic no presence of murmur Abdomen: abdomen soft, non-tender, BS normoactive, no mass, no HSM, no bruits Vascular: pulses full and equal, no bruits auscultated Extremities and Back: Hard walking boots on both feet to pretibial legs Neurological: affect appropriate, oriented to time, person and place;no gross motor deficits CC No referring provider defined for this encounter. documented in this encounter Plan of Treatment Scheduled Referrals Name Type Priority Associated Diagnoses Order S chedule Follow-Up with Referral Routine Aneurysm of aortic Expecte d: 03/01/2016 Pricing Actuary sinus of Valsalva (Approxima te), without rupture Expires: 01/30/2017 Type 2 diabetes mellitus with diabetic neuropathy (H) Family history of ischemic heart disease documented as of this encounter Procedures Procedure Name Priority Date/Time Associated Diagnosis Comme nts EKG 12-LEAD COMPLETE Routine 01/31/2016 Family history of Re sults for this W/READ - CLINICS ischemic heart disease p rocedure are in the results section . documented in this encounter Results EKG 12-lead complete w/read - Clinics (performed today) (01/31/2016) Narrative This result has an attachment that is no t available. Melanie Sargent MD ECG ORDERABLES documented in this encounter Visit Diagnoses Diagnosis Aneurysm of aortic sinus of Valsalva wit hout rupture - Primary Type 2 diabetes mellitus with diabetic n europathy (H) Type II or unspecified type diabetes gilberto litus with neurological manifestations, not stated as uncontrolled Family history of ischemic heart disease documented in this encounter Care Teams Mattress Stuffer Relationship Specialty Start Date End Date Doctor, None, MD PCP - General 11/12/01 6 documented as of this encounter
--- OUTSIDE RECORDS SUMMARY | 2022-07-31 10:08 | XMS_ITS | Encounter Summary ---
:1960 Author Organization [place] Address [facility] [place] [address] Care Team Providers Name Role Phone DoctorWendy MD Primary Care Provider Unavailable Reason for Visit Reason Comments Other recs received from [facility]- sent to chart prep for ov 01/31/[address] kwna Encounter Details Date Type Department Care Team Description 01/11/2016 Documentation Only [facility] Him Use Only, Oth er (recs received [facility] [place] [facility] from [address] [place] [address] Social History Tobacco Use Types Packs/Day Years Used Date Smoking Tobacco: Never Assessed Sex Assigned at Date Recorded Not on file documented as of this encounter Plan of Treatment Not on filedocumented as of this encounter Visit Diagnoses Not on filedocumented in this encounter Care Teams Suction Worker Relationship Specialty Start Date End Date Wendy Wagoner MD PCP - General 11/12/01 03/06/16 documented as of this encounter
--- OUTSIDE RECORDS SUMMARY | 2022-07-31 10:08 | XMS_ITS | Encounter Summary ---
:1960 Author Organization [place] Address [address] [place] [address] Care Team Providers Name Role Phone Wendy Wagoner MD Primary Care Provider Unavailable Reason for Visit Reason Onset Date Comments Previsit 01/29/2016 Encounter Details Date Type Department Care Team Description 01/29/2016 PRE VISIT [facility] Heart Prasanna Sargent MD Previsit Clinic [address] [address] [facility] [place] [address] [address] [place] [address] [phone] Social History Tobacco Use Types Packs/Day Years Used Date Smoking Tobacco: Never Assessed Sex Assigned at Date Recorded Not on file documented as of this encounter Plan of Treatment Not on filedocumented as of this encounter Visit Diagnoses Not on filedocumented in this encounter Care Teams Hydrogenation Operator Relationship Specialty Start Date End Date Wendy Wagoner MD PCP - General 11/12/01 03/06/16 documented as of this encounter
--- OUTSIDE RECORDS SUMMARY | 2022-07-31 10:08 | XMS_ITS | Encounter Summary ---
:1960 Author Organization [facility] Address [address] [facility] [place] [address] Care Team Providers Name Role Phone BrendonneidaDecember Primary Care Provider Reason for Visit Auth/Cert Specialty Diagnoses / Procedures Referred By Contact Refer red To Contact Surgery Diagnoses adenopathy Rh Periop Services Procedures DISSECT LYMPH NODE INGUINAL [address] [place] [address] Phone: Fax: Referral ID Status Reason Start Date Expiration Date Visits Requ ested Visits Authorized [id number] 1 1 Encounter Details Date Type Department Care Team Description 03/14/2016 Anesthesia Event [facility] Mango Baxter MD [facility] ANESTHESIA [address] [place], [place] [address] PeriOp Services Real Padron MD [facility] ANESTHESIA [address] [place] [address] [address] [place] [address] Anesthesia Record Procedure Summary Procedure Name Responsible Anesthesia Start Anesthesia Stop Time Anesthesiologist Time Right inguinal Mango Naqvi MD 03/14/16 1312 6 1358 lymph node biopsy (Right: Groin) Events Date Time Event Comment 03/14/2016 1312 An Start 1312 An Start Data 1312 MD Present 1313 An Induction 1314 AN START SEVO 1314 MD Present 1315 An LMA 1316 MD Present 1322 MD Present 1346 AN END SEVO 1350 MD Present 1351 MD Present 1354 an stop data 1358 An Stop Electronically s igned by Michaelle Melendrez on March 14, 2016 1:58 PM Name Total midazolam 1mg/mL 2 mg fentaNYL (SUBLIMAZE) injection 150 mcg lidocaine 1% 50 mg propofol (DIPRIVAN) injection 10 mg/mL vial 150 mg ondansetron 2mg/mL 4 mg phenylephrine 10mg/mL 400 mcg levofloxacin (LEVAQUIN) intermittent infusion 500 mg 5 00 mg lactated ringers infusion 600 mL Agents Name O2 Air Exp Sevoflurane Blood No blood administrations on file. 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 documented in this encounter Social History Tobacco Use Types Packs/Day Years Used Date Smoking Tobacco: Never Alcohol Use Standard Drinks/Week Comments No 0 (1 standard drink = 0.6 oz pure alcoho l) Sex Assigned at Date Recorded Not on file documented as of this encounter OR Notes Anesthesia Postprocedure Evaluation - Gary Arreola DO - 03/14/2016 2:10 PM CDT Patient: Geo Herrera McAnujbbmaria antonia DISSECT LYMPH NODE INGUINAL (Right Groin) Additional InformationProcedure(s): Right inguinal lymph node biopsy - Wound Class: I-Clean Diagnosis:right lymph node adenopathy Diagnosis Additional Information: right inguinal lymph adenopathy?? Anesthesia Type: General, LMA Note: Anesthesia Post Evaluation Patient location during evaluation: PACU Patient participation: Able to fully participate in evaluation Level of consciousness: awake Pain management: adequate Airway patency: patent Anesthetic complications: no Cardiovascular status: acceptable Respiratory status: acceptable Hydration status: acceptable PONV: controlled Last vitals: Filed Vitals: 03/14/16 1355 03/14/16 1400 03/14/16 1405 BP: 109/72 110/80 Temp: 98.6 ??F (37 ??C) Resp: SpO2: 99% 100% 100% Electronically Signed By: Gary Arreola DO March 14, 2016 2:10 PM Anesthesia Preprocedure Evaluation - Real Padron MD - 03/14/2016 12:59 PM CDT Anesthesia Evaluation . Pt has had prior anesthetic. Type: General No history of anesthetic complications ROS/MED HX ENT/Pulmonary: (+)sleep apnea, , . . Neurologic: (+)neuropathy Cardiovascular: - neg cardiovascular ROS METS/Exercise Tolerance: Hematologic: (+) Anemia, Other Hematologic Disorder-inguinal lymphadenopthy Musculoskeletal: - neg musculoskeletal ROS GI/Hepatic: - neg GI/hepatic ROS Renal/Genitourinary: - ROS Renal section negative Endo: (+) type II DM . Psychiatric: - neg psychiatric ROS Infectious Disease: - neg infectious disease ROS Malignancy: - no malignancy Other: - neg other ROS Physical Exam Normal systems: cardiovascular, pulmonary and dental Airway Mallampati: II TM distance: >3 FB Neck ROM: full Dental Cardiovascular Pulmonary Anesthesia Plan ASA Score: 2 . Plan for General and LMA - with Intravenous and Propofol induction. Maintenance will be Balanced. Anesthetic plan, risks, benefits and alternatives discussed with: patient or associate financial representative. Routine analgesia and antiemetics History & Physical Review History and physical reviewed and following examination; no interval change. . documented in this encounter Miscellaneous Notes Anesthesia Care Transfer Note - Michaelle Melendrez APRN CRNA - 03/14/2016 1:58 PM CDT Patient: Geo Dubois DISSECT LYMPH NODE INGUINAL (Right Groin) Additional [email or web address] Diagnosis: right lymph node adenopathy Diagnosis Additional Information: No value filed. Anesthesia Type: General, LMA Note: Patient transferred to:PACU Comments: Pt spont resps LMA removed to [facility] VSS Report to RN Electronically Signed By: Michaelle Melendrez APRN CRNA March 14, 2016 1:58 PM documented in this encounter Plan of Treatment Not on filedocumented as of this encounter Visit Diagnoses Not on filedocumented in this encounter Administered Medications Inactive Administered Medications - up to 3 most recent administrations Medication Order MAR Action Action Date Dose Rate Site FentaNYL Citrate (PF) (SUBLIMAZE) Given 03/14/2016 1:36 PM CDT 2 5 mcg injection PRN, moderate to severe pain, Starting on Thu03/14/16 at 1313, Anesthesia Intra-op Given 03/14/2016 1:31 PM CDT 25 mcg Given 03/14/2016 1:13 PM CDT 100 mcg lactated ringers infusion New Bag 03/14/2016 1:12 PM CDT at 25 mL/hr, Intravenous, CONTINUOUS, IF patient NOT on dialysis., Pre-procedure, Starting on Thu03/14/16 at 1300, Until Thu03/14/16 at 1355 levofloxacin (LEVAQUIN) intermittent infusion Given 1:12 PM CDT 500 mg 500 mg Routine, 500 mg, Intravenous, PRE-OP/PRE-PROCEDURE, Starting on Thu03/14/16 at 1235, For 1 dose, Administer at a rate of no greater than 100mL/hr, Indications: Perioperative Pharmacoprophylaxis, Pre-procedure lidocaine 1 % injection Given 03/14/2016 1:13 PM CDT 50 mg PRN, Starting on Thu03/14/16 at 1313, Anesthesia Intra-op midazolam (VERSED) injection Given 03/14/2016 1:12 PM CDT 2 mg PRN, anxiety, Starting on Thu03/14/16 at 1312, Anesthesia Intra-op ondansetron (ZOFRAN) injection Given 03/14/2016 1:35 PM CDT 4 mg PRN, nausea, vomiting, Administer over 2-5 Minutes, Starting on Thu03/14/16 at 1335, Anesthesia Intra-op phenylephrine (LUTHER-SYNEPHRINE) injection Given 03/14/2016 1:40 PM CDT 100 mcg PRN, Starting on Thu03/14/16 at 1321, Anesthesia Intra-op Given 03/14/2016 1:35 PM CDT 100 mcg Given 03/14/2016 1:29 PM CDT 100 mcg propofol (DIPRIVAN) injection 10 mg/mL v ial Given 03/14/2016 1:13 PM CDT 150 mg PRN, Starting on Thu03/14/16 at 1313, Anesthesia Intra-op documented in this encounter Care Teams Timekeeping Supervisor Relationship Specialty Start Date End Date December PCP - General Physician Communications Marketing Intern 03/07/16 05/20/17 [facility] [place] [address] [place] [id number] documented as of this encounter
--- OUTSIDE RECORDS SUMMARY | 2022-07-31 10:08 | XMS_ITS | Encounter Summary ---
:1960 Author Organization [facility] Address [address] [place] [id number] Care Team Providers Name Role Phone Brendondecember Primary Care Provider Reason for Visit Auth/Cert Specialty Diagnoses / Procedures Referred By Contact Refer red To Contact Surgery Diagnoses adenopathy [facility] Periop Services Procedures DISSECT LYMPH NODE INGUINAL [address] [place], [place] [address] Phone: Fax: Referral ID Status Reason Start Date Expiration Date Visits Requ ested Visits Authorized [id number] 1 1 Encounter Details Date Type Department Care Team Description 03/14/2016 Surgery [facility] Jono Lancaster MD Right inguinal lymph [facility] [address] node biopsy [address] [place], [place] [id number] [phone] Surgery Details Date/Time Status Location OR Service Patient Case Class Case Type Trauma Class Case? 03/14/16 1:25 Posted [facility] OR OR 02 General Same Day PM Surgery Panel 1 Procedure LRB Anes Op Region Wound Class Commen ts Right inguinal lymph node Right General Groin I-Clean Right inguinal lymph biopsy node biopsy Surgeon Surgeon Role Service Panel Jono Lancaster MD Primary General 1 Willie Griffin PA-C Assisting Truck Leasing Manager Autho rization 1 Special Needs 5' 10/190 lb per office note Wears surg ical boots. Has vision problems and has difficulty reading some forms. Recent hi story of low BP and tachycardia Blood transfusion on 03/11 and Iron infusion on 03/13 per pt. documented in this encounter Social History Tobacco Use Types Packs/Day Years Used Date Smoking Tobacco: Never Alcohol Use Standard Drinks/Week Comments No 0 (1 standard drink = 0.6 oz pure alcoho l) Sex Assigned at Date Recorded Not on file documented as of this encounter Last Filed Vital Signs Vital Sign Reading Time Taken Comments Blood Pressure 128/86 03/14/2016 12:46 PM CDT Pulse - - Temperature 36.1 ??C (97 ??F) 03/14/2016 12:46 PM CDT Respiratory Rate 16 03/14/2016 12:46 PM CDT Oxygen Saturation 98% 03/14/2016 12:46 PM CDT Inhaled Oxygen Concentration - - Weight - - Height - - Body Mass Index - - documented in this encounter Discharge Instructions Discharge InstructionsDasha Parham RN - 03/14/2016 2:58 PM CDT HOME CARE FOLLOWING MINOR SURGERY Sean Da Silva, Rogelio Hansen, Maureen Lancaster, R. O???Luiza Garrison RESULTS: If a biopsy of tissue was done, you may call for your final pathology report after 1p.m. two workingdays after surgery. Your results will also be reviewed with you at your postoperative appointment. INCISIONAL CARE: ??? If you have a dressing in place, keep clean and dry for 48 hours; you may replace the gauze if it becomes soiled. ??? After 48 hours you may remove the dressing and shower. Do not submerse incision in water for 1 week. ??? Sutures which are beneath the skin will absorb and do not need to be removed. ??? Sutures you can see should be removed at your surgeon's office in 10-14 days at the latest. ??? If present, leave the steri-strips (white paper tapes) in place till they fall off, or remove at2 weeks after surgery. ??? You may expect a small amount of drainage from your incision. ??? A lump/ridge under the incision is normal and will gradually resolve. If it becomes red or very uncomfortable, contact the nurse at your surgeon's office to discuss whether this needs to be evaluated. ACTIVITY: Cautiously resume exercise and strenuous activities such as jogging, tennis, aerobics, etc. Also, becareful of stretching activities which affect the area of surgery for two weeks. DIET: No restrictions. Increased fluid intake is recommended. While taking pain medications, increase dietary fiber or add a fiber supplementation like Metamucil or Citrucel to help prevent constipation - a possible side effect of pain medications. DISCOMFORT: Local anesthetic placed at surgery should provide relief for 4-8 hours. Begin taking pain pills before discomfort is severe. Take the pain medication with some food, when possible, to minimize side effects. Intermittent use of ice packs may help during the first 48 hours. Expect gradual improvement. You may slowly transition to use of iwpl-ite-atenghx medications for pain relief when you are no longer requiring narcotics for pain control. RETURN APPOINTMENT: Schedule a follow-up visit 1-3 weeks post-op. Office CONTACT US IF THE FOLLOWING DEVELOPS: 1. A fever that is above 101?? 2. If there is a large amount of drainage, bleeding, or swelling. 3. Severe pain that is not relieved by your prescription. 4. Drainage that is thick, cloudy, yellow, green or white. 5. Any other questions not answered by ???Frequently Asked Questions?? sheet. FREQUENTLY ASKED QUESTIONS: Q: How should my incision look? A: Normally your incision will appear slightly swollen with light redness directly along the incision itself as it heals. It may feel like a bump or ridge as the healing/scarring happens, and over time(3-4 months) this bump or ridge feeling should slowly go away. In general, clear or pink watery drainage can be normal at first as your incision heals, but should decrease over time. Q: How do I know if my incision is infected? A: Look at your incision for signs of infection, like redness around the incision spreading to surrounding skin, or drainage of cloudy or foul-smelling drainage. If you feel warm, check your temperature to see if you are running a fever. If any of these things occur, please notify the nurse at our office. We may need you to come into the office for an incision check. Q: How do I take care of my incision? A: If you have a dressing in place - Starting the day after surgery, replace the dressing 1-2 times a day until there is no further drainage from the incision. At that time, a dressing is no longer needed. Try to minimize tape on the skin if irritation is occurring at the tape sites. If you have significant irritation from tape on the skin, please call the office to discuss other method of dressing your incision. Small pieces of tape called ???steri-strips?? may be present directly overlying your incision; these may be removed 10 days after surgery unless otherwise specified by your surgeon. If these tapes start to loosen at the ends, you may trim them back until they fall off or are removed. Q: There is a piece of tape or a sticky ???lead?? still on my skin. Can I remove this? A: Sometimes the sticky ???leads?? used for monitoring during surgery or for evaluation in the emergency department are not all removed while you are in the hospital. These sometimes have a tab or metal dot on them. You can easily remove these on your own, like taking off a band-aid. If there is a gel substance under the ???lead?? , simply wipe/clean it off with a washcloth or paper towel. Q: What can I do to minimize constipation (very hard stools, or lack of stools)? A: Stay well hydrated. Increase your dietary fiber intake or take a fiber supplement -with plenty ofwater. Walk around frequently. You may consider an vvcd-djb-xqthnon stool-softener. Your Pharmacist can assist you with choosing one that is stocked at your pharmacy. Constipation is also one of the most common side effects of pain medication. If you are using pain medication, be pro-active and try toPREVENT problems with constipation by taking the steps above BEFORE constipation becomes a problem. Q: What do I do if I need more pain medications? A: Call the office to receive refills. Be aware that certain pain meds cannot be called into a pharmacy and actually require a paper prescription. A change may be made in your pain med as you progress thru your recovery period or if you have side effects to certain meds. --Pain meds are NOT refilled after 5pm on weekdays, and NOT AT ALL on the weekends, so please look ahead to prevent problems. Q: Why am I having a hard time sleeping now that I am at home? A: Many medications you receive while you are in the hospital can impact your sleep for a number of days after your surgery/hospitalization. Decreased level of activity and naps during the day may alsomake sleeping at night difficult. Try to minimize day-time naps, and get up frequently during the day to walk around your home during your recovery time. Sleep aides may be of some help, but are not recommended for long-term use. Q: I am having some back discomfort. What should I do? A: This may be related to certain positioning that was required for your surgery, extended periods of time in bed, or other changes in your overall activity level. You may try ice, heat, acetaminophen,or ibuprofen to treat this temporarily. Note that many pain medications have acetaminophen in them and would state this on the prescription bottle. Be sure not to exceed the maximum of 4000mg per day of acetaminophen. If the pain you are having does not resolve, is severe, or is a flare of back pain you have had onother occasions prior to surgery, please contact your primary physician for further recommendations or for an appointment to be examined at their office. Q: Why am I having headaches? A: Headaches can be caused by many things: caffeine withdrawal, use of pain meds, dehydration, high blood pressure, lack of sleep, over-activity/exhaustion, flare-up of usual migraine headaches. If youfeel this is related to muscle tension (a band-like feeling around the head, or a pressure at the low-back of the head) you may try ice or heat to this area. You may need to drink more fluids (try electrolyte drink like Gatorade), rest, or take your usual migraine medications. If your headaches do not resolve, worsen, are accompanied by other symptoms, or if your blood pressure is high, please call your primary physician for recommendation and/or examination. Q: I am unable to urinate. What do I do? A: A small percentage of people can have difficulty urinating initially after surgery. This includesbeing able to urinate only a very small amount at a time and feeling discomfort or pressure in the very low abdomen. This is called ???urinary retention?? , and is actually an urgent situation. Proceedto your nearest Emergency department for evaluation (not an Urgent Care Center). Sometimes the bladder does not work correctly after certain medications you receive during surgery, or related to certain procedures. You may need to have a catheter placed until your bladder recovers. When planning to goto an Emergency department, it may help to call the ER to let them know you are coming in for this problem after a surgery. This may help you get in quicker to be evaluated. If you have symptoms of a urinary tract infection, please contact your primary physician for the proper evaluation and treatment. If you have other questions, please call the office Thursday thru Thursday between 8am and 5pm to discuss with the nurse or physician acute care assistant. # There is a surgeon INTEGRATED CIRCUIT LAYOUT DESIGNER on weekday evenings and over the weekend in case of urgent need only, andmay be contacted at the same number. If you are having an emergency, call 911 or proceed to your nearest emergency department. GENERAL ANESTHESIA OR SEDATION ADULT DISCHARGE INSTRUCTIONS [...] STILL NOT ABLE TO URINATE (PASS WATER). HOME CARE FOLLOWING HERNIA REPAIR Maureen Lowry E. Gavin, N. Guttormson, D. Anisha, R. [place] [facility] [place] DIET: No restrictions. Increased fluid intake is recommended. While taking pain medications, increase dietary fiber or add a fiber supplementation like Metamucil or Citrucel to help prevent constipation - a possible side effect of pain medications. If taking Metamucil or Citrucel, take with plenty of fluidsas instructed. NAUSEA: If nauseated from the anesthetic/pain meds; rest in bed, get up cautiously with assistance, and drink clear liquids (juice, tea, broth). ACTIVITY: Light Activity -- you may immediately be up and about as tolerated. Driving -- you may drive when comfortable and off narcotic pain medications. Light Work -- resume when comfortable off pain medications. (If you can drive, you probably can work.) Strenuous Work/Activity -- limit lifting to 20 pounds for 3 weeks. Active Sports (running, biking, etc.) -- cautiously resume after 3 weeks. INCISIONAL CARE: ??? If you have a dressing in place, keep clean and dry for 48 hours; you may replace the gauze if it becomes soiled. ??? After 48 hours you may remove the dressing and shower. Do not submerse incision in water for 1 week. ??? If you have a Dermabond dressing (a type of skin glue), you may shower immediately. ??? Sutures will absorb and need not be removed. ??? If present, leave the steri-strips (white paper tapes) in place until they fall off. ??? If present, leave Dermabond glue in place until it wears/flakes off. ??? Expect a variable amount of swelling/black and blue discoloration that may involve the penis/scrotum or labia. ??? Some numbness around the incision is common. ??? A lump/ridge under the incision is normal and will gradually resolve. DISCOMFORT: Local anesthetic placed at surgery should provide relief for 4-8 hours. Begin taking pain pills before discomfort is severe. Take the pain medication with some food, when possible, to minimize side effects. Intermittent use of ice packs to the hernia repair site may help during the first 48 hours. Expect gradual improvement. RETURN APPOINTMENT: Schedule a follow-up visit 1-3 weeks post-op (you may do this any time after surgery is scheduled). Office CONTACT US IF THE FOLLOWING DEVELOPS: 1. A fever that is above 101?? 2. If there is a large amount of drainage, bleeding, or swelling. 3. Severe pain that is not relieved by your prescription. 4. Drainage that is thick, cloudy, yellow, green or white. 5. Any other questions not answered by ???Frequently Asked Questions?? sheet. documented in this encounter Medications at Time of Discharge Medication Sig Dispensed Refills Start Date End Date Cholecalciferol (VITAMIN D3 Take 5,000 Units 0 PO) by mouth daily GLIPIZIDE XL PO Take 5 mg by mouth 0 daily (with breakfast) Sertraline HCl (ZOLOFT PO) Take 50 mg by 0 mouth daily Ascorbic Acid (VITAMIN C 0 09/15/2016 PO) aspirin 81 MG tablet Take 81 mg by 0 0 06/08/2017 mouth daily Ibuprofen (ADVIL PO) Take 400 mg by 0 04/14/2016 mouth 3 times daily oxyCODONE (ROXICODONE) 5 MG Take 1 tablet (5 20 tablet 0 03/17/2016 immediate release mg) by mouth every tabletIndications: 3 hours as needed Lymphadenopathy, inguinal for pain or other (Moderate to Severe) documented as of this encounter Progress Notes Jono Lancaster MD - 03/24/2016 7:16 AM CDT Quick Note: No notes recorded by provider Jono Lancaster MD - 03/20/2016 12:10 PM CDT Quick Note: Will discuss result at follow-up visit Jono Lancaster MD - 03/18/2016 3:29 PM CDT Quick Note: Patient was notified of these results.negative for malignancy, additional testing in progress Jono Lancaster MD 03/18/2016 3:29 PM documented in this encounter Nursing Notes Marcella Cavazos, RN - 03/14/2016 4:35 PM CDT Pt had troubles voiding and emptying bladder - Notified Dr Lancaster about bladder scan and attempts toempty bladder. Pt up to void x 2 and walked in halls. On second attempt pt able to empty bladder to 28cc shown on bladder scan. Pt and family informed about making sure he tries again tonight to empty bladder before bed and if he has any troubles he will need to go to ER to get his bladder emptied. Itwas stressed to family and patient that if bladder is over extended and if he is unable to empty bladder that he could cause permanent damage. documented in this encounter Miscellaneous Notes Op Note - Jono Lancaster MD - 03/14/2016 1:54 PM CDT PREOPERATIVE DIAGNOSIS: Bilateral inguinal lymphadenopathy. POSTOPERATIVE DIAGNOSIS: Bilateral inguinal lymphadenopathy. PROCEDURE: Right inguinal excisional lymph node biopsy. SURGEON: Jono Lancaster MD DISPLAY ARTIST: Willie Griffin PA-C BLOOD LOSS: Minimal. INDICATION: Tish Fuller is a 55-year-old male who has developed bilateral inguinal adenopathy. We are asked to perform excisional biopsy for pathologic study and culture. This procedure, its risks,benefits, complications, convalescence, postop limitations, bleeding, infection, nerve and vascular i njury and swelling, seroma formation and infection were all reviewed with him and his significant other. He seems to understand the proposed procedure, all their questions have been answered and they would like to proceed with surgery. DESCRIPTION OF PROCEDURE: The patient was brought to the operating room, placed supine on the table and after induction of anesthetic, the right groin was shaved, prepped and draped in a sterile manner. A pause was performed. An incision was made in the inguinal crease parallel to it and extended downto the palpable node. This was then gradually freed up from the surrounding connective tissue. Once the excision was complete, the node was divided into multiple pieces. Two-thirds were sent fresh to pathology for processing. The remaining 1/3 was divided into 4 pieces and sent for aerobic tissue culture, anaerobic tissue culture, fungal culture and TB culture. The operative field was carefully checked for hemostasis and closed with 3-0 Vicryl for the subcutaneous tissues and deep dermis followed by4-0 subcuticular Vicryl for skin. Steri-Strips and dressings were applied and he was returned to therecovery room in excellent condition with all sponge and needle counts correct, having tolerated the procedure well. JONO LANCASTER MD MT: [id number] Name: TISH FULLER Account: [id number] : 1960 Procedure Date: 03/14/2016 Document: [id number] cc: Breanne Hortencia MINER Brief Op Note - Jono Lancaster MD - 03/14/2016 1:45 PM CDT General Surgery Brief Operative Note Pre-operative diagnosis: right inguinal lymph adenopathy Post-operative diagnosis: same Procedure: excisional node Biopsy right groin Surgeon: Jono Lancaster MD Truck Leasing Manager(s): Willie Griffin PA-C Anesthesia: General Estimated blood loss: 2 cc's Drains placed: None Complications: None Findings: Path pending Specimens: ID Type Source Tests Collected by Time Destination 1 : right inguinal lymph node Other (specify in comments) Lymph Node, Inguinal, Right AFB STAIN NON BLOOD, ANAEROBIC BACTERIAL CULTURE, FUNGUS CULTURE, TISSUE CULTURE AEROBIC BACTERIAL Jono Lancaster MD 03/14/2016 1:33 PM A : right inguinal lymph node biopsy Tissue Lymph Node, Inguinal, Right SURGICAL PATHOLOGY EXAM Jono Lancaster MD 03/14/2016 1:38 PM Jono Lancaster MD documented in this encounter Plan of Treatment Scheduled Orders Name Type Priority Associated Diagnoses Order S chedule Anaerobic bacterial Microbiology Routine ROUTINE for 1 culture Occurrences sta rting 03/14/2016 Tissue Culture Microbiology Routine ROUTINE for 1 Aerobic Bacterial Occurrence s starting 03/14/2016 documented as of this encounter Procedures Procedure Name Priority Date/Time Associated Comments Diagnosis GLUCOSE BY METER Routine 03/14/2016 2:03 PM Lymphadenopathy, R esults for this CDT inguinal procedure are i n the results section. LEUKEMIA LYMPHOMA Routine 03/14/2016 1:38 PM Resu lts for this EVALUATION NON CSF CDT procedure are in the results section. CHROMOSOME ANALYSIS, Routine 03/14/2016 1:38 PM R esults for this MALIGNANT TISSUE CDT procedure a re in the results section. SURGICAL PATHOLOGY Routine 03/14/2016 1:38 PM Res ults for this EXAM CDT procedure are i n the results section. TISSUE CULTURE Routine 03/14/2016 1:33 PM Lymphadenopathy, Res ults for this AEROBIC BACTERIAL CDT inguinal procedure are in the results section. FUNGUS CULTURE Routine 03/14/2016 1:33 PM Lymphadenopathy, Res ults for this CDT inguinal procedure are i n the results section. ANAEROBIC BACTERIAL Routine 03/14/2016 1:33 PM Lymphadenopathy , Results for this CULTURE ROUTINE CDT inguinal procedure ar e in the results section. AFB STAIN NON BLOOD Routine 03/14/2016 1:33 PM Lymphadenopathy , Results for this CDT inguinal procedure are i n the results section. AFB CULTURE AND Routine 03/14/2016 1:33 PM Lymphadenopathy, Re sults for this STAIN NON BLOOD CDT inguinal procedure ar e in the results section. LYMPHADENECTOMY, 03/14/2016 1:02 PM right lymph node INGUINAL CDT adenopathy Special Needs 5' 10/190 lb per office not e Wears surgical boots. Has vision problems and has difficulty reading some form s. Recent history of low BP and tachycardia Blood transfusion on 03/11 and Iron infusion on 03/13 per pt. GLUCOSE BY METER Routine 03/14/2016 12:52 PM CDT Results for this procedure are in the resu lts section. LAB RESULT - HIM SCAN 03/12/2016 12:00 AM CDT EKG CARDIAC - HIM SCAN 02/29/2016 12:00 AM CDT documented in this encounter Results (ABNORMAL) Glucose by meter (03/14/2016 2:03 PM CDT) P athologist Signature Glucose 134 (H) 70 - 99 POINT OF CARE mg/dL TEST, GLUCOSE Specimen Anatomical Collection Method Collection Time Receive d Time (Source) Location / / Volume Laterality 03/14/2016 2:03 PM 6 2:21 CDT PM CDT Jono Lancaster MD LAB - BEAKER POCT Performing Organization Address City/State/ZIP Code Phon e Number [facility] POINT OF CARE TEST, GLUCOSE POINT OF CARE TEST, GLUCOSE Chromosome malignant tissue (03/14/2016 1:38 PM CDT) Component Value Ref Test Analysis Performed At [facility] Range Method Time Signature Copath Patient Name: TISH FULLER COPATH Report MR#: [id number] Specimen #: [id number] Collected: 03/14/2016 13:38 Received: 03/14/2016 16:41 Reported: 03/19/2016 23:14 Ordering Phy(s): JONO LANCASTER TEST(S) REQUESTED: Malignant Tissue Analysis SPECIMEN DESCRIPTION: Lymph Node CLINICAL COMMENTS: Lymph node adenopathy A portion of a lymph node was received and processed by the [facility] on 03-14-16. However, as there reportedly was no m orphologic or immunophenotypic evidence of malignancy in this specimen, chromosomal analysis was cancelled by Dr. Ela Liu, per discussion with Dr. Marko Mims, on 03-19-16. BILLING COMMENTS: Credited all but processing fee on 03/19/20 16. Electronically Signed Out By: Ela Liu M.D., [facility] CPT Codes: A: 44345-IDMS, 30535-ASNP, 25166-VPQDCO, 66592-KDMO <CR>, 88 280-CHADKT <CR> TESTING LAB LOCATION: [facility] [address], [facility] [address] [place] [phone] COLLECTION SITE: Client: ??[facility] Location: ??[facility] (R) Specimen Anatomical Collection Method Collection Time Receive d Time (Source) Location / / Volume Laterality 03/14/2016 1:38 PM 6 4:41 CDT PM CDT Jono Lancaster MD LAB - BODY FLUIDS ORDERABLES Performing Organization Address City/State/ZIP Code Phon e Number [facility] Leukemia lymphoma evaluation (03/14/2016 1:38 PM CDT) Component Value Ref Test Analysis Performed At [facility] gist Range Method Time Signature Angela Patient Name: TISH FULLER Report MR#: [id number] Specimen #: [id number] Collected: 03/14/2016 13:38 Received: 03/14/2016 16:09 Reported: 03/17/2016 13:54 Ordering Phy(s): JONO LANCASTER SPECIMEN(S): Lymph node, right inguinal INTERPRETATION: Lymph node, right inguinal: ? Polytypic B cells ? No aberrant immunophenotype on T cells ? See comment COMMENT: There is no immunophenotypic evidence of non-Hodgkin lymphom a. Hodgkin lymphoma cannot be excluded by flow cytometry. T cell lympho mas cannot always be detected by this flow cytometry assay. Neoplastic cells, including large cells, may not survive specimen processing. Morphologic correlation is required. RESULTS: 48% of total events are CD45 positive and are viable by 7-AA D. A low percentage may be caused by low viability and/or a low numbe r of CD45 positive cells. Of the CD45 positive leukocytes, 56% are via ble by 7-AAD. Percentages reported below are based on the total number of CD45 positive viable leukocytes. If applicable, percentage of nica sma cells is from total viable nucleated cells. 31% polytypic B cells 63% T cells with a CD4:CD8 ratio of 5.8:1. 1% NK cells ANTIBODIES: Eight-color analyses are performed for the following markers : CD2, CD3, CD4, CD5, CD7, CD8, CD10, CD14, CD19, CD20, CD45, CD56, and kappa and lambda immunoglobulin light chains. Cells are gated to isola te populations (CD45 versus side scatter and forward scatter ve rsus side scatter), to exclude debris (forward scatter versus side sca tter) and to exclude cell doublets (forward scatter height versus forward scatter width and side scatter height versus side scatter width). Fo rward scatter varies with cell size. Side scatter varies with the amount of cytoplasmic granules. Intensity for CD45 usually increases a s hematolymphoid cells mature. CLINICAL HISTORY: 55 year old male lymphadenopathy I have personally reviewed all specimens and/or slides, incl uding the listed special stains, and used them with my medical judgmen t to determine the final diagnosis. Electronically signed out by: Tiffany Lawson M.D., [facility] Analyte Specific Reagents are used in many laboratory tests necessary for standard medical care and generally do not require FDA a pproval. This test was developed and its performance characteristics determined by [facility]. ??It has not been cleared or approved by the U .S. Food and Drug Administration. CPT Codes: A: 87934-LZ, 94722-DXLKWBG, 72482-68-KLLI06(12), 08601-EFNJ7 -15 TESTING LAB LOCATION: [address] [address] COLLECTION SITE: Client: ??[facility] Location: ??RHOR (R) Specimen Anatomical Collection Method Collection Time Receive d Time (Source) Location / / Volume Laterality 03/14/2016 1:38 PM 6 4:09 CDT PM CDT Jono Lancaster [facility] OR DERABLES Performing Organization Address City/State/ZIP Code Phon e Number [facility] Surgical pathology exam (03/14/2016 1:38 PM CDT) Component Value Ref Test Analysis Performed At [employer] [facility] Method Time Signature Copath Patient [facility] MR[facility] [id number] Specimen #: [id number] Collected: 03/14/2016 Received: 03/14/2016 Reported: 03/18/2016 12:49 Ordering Phy(s): JONO LANCASTER SPECIMEN(S): Lymph node, right inguinal FINAL DIAGNOSIS: Lymph node, right inguinal, excisional biopsy. - Reactive changes with focal paracortical hyperplasia. - Morphologically negative for malignancy. - Immunophenotyping/flow cytometry reported to show polytypi c B cells and no aberrant immunophenotype on T cells (see separate rose w report [id number]). Electronically signed out by: Marko J. Kappel, M.D. CLINICAL HISTORY: Right lymph node adenopathy. GROSS: Received fresh from the operating room labeled right inguin al lymph node biopsy . It consist of a 1.4 x 0.9 x 0.8 cm lymph node . ??Air-dried and fixed touch imprints are prepared and stained with H&E s tains for histologic evaluation. ??The specimen is representatively hopkins bmitted in RPMI media to flow cytometry laboratory for immunotherapy an d to cytogenetic laboratory. ??Additional air dried touch imprint s are obtained and sent to cytogenetics laboratory. ??The remainin g specimen is entirely submitted for permanent in 1 block.. (Dictated by: Crys Joshi 03/14/2016 02:42 PM) MICROSCOPIC: The lymph node shows areas of hyalinization/sclerosis. ??The re are patchy areas of mild paracortical hyperplasia with scattered pigmen dewayne macrophages consistent with a component of dermatopathic lym phadenitis. The background lymph node contains small lymphocytes, histio cytes, and scattered plasma cells. ??Immunoperoxidase staining with ly ropriate controls was performed to help better evaluate the sample. ? ?CD5, CD3, and CD20 highlight the T-cell and B-cell components which ma intain relative compartmentalization. ??The germinal center regions are positive for CD10 and negative for BCL-2. ??Cyclin D1 is negative. ?? CD68 highlights the histiocytic cell component. ??Iron staining h ighlights hemosiderin within sinusoidal and histiocytic areas and may indicate prior inflammatory changes in the harini region or lower extr emity. Clinical correlation is required. ??There is no morphologic evidence of malignancy in the sample. Case internally consulted with an additional pathologist Dr SANTOS who concurs. CPT Codes: A: 52052-KR9, 09550-LBX, 13432-AIB, 01064-WCW, 64437-JKP, 88 342-IHC, 73867-ZYG, 06132-LYP, 04906-LOMX, [facility] TESTING LAB LOCATION: [address] ??[address] COLLECTION SITE: Client: [facility] Location: RHOR (R) Specimen (Source) Anatomical Collection Method Collection Time Re ceived Time Location / / Volume Laterality Tissue specimen INGUINAL LYMPH 03/14/2016 1:38 PM (specimen) NODE STRUCTURE / CDT Unknown Comment: Not for frozen, fresh Jono Lancaster MD LAB - [facility] Performing Organization Address City/State/ZIP Code Phon e Number COPATH (ABNORMAL) Tissue Culture Aerobic Bacterial (03/14/2016 1:33 PM CDT) Component Value Ref Test Analysis Performed At [facility] [facility] [employer] [facility] Method Time Signature Specimen Tissue Lymph node [place] Description Right INGUINAL OF [place] SPECIMEN 1 [facility] Culture Micro On day 5, isolated in broth only: Propionibacterium species Susceptibility INFECTIOUS testing of Propionibacterium species is not done from thi s source. Our DISEASE antibiogram indicates that Propionibacterum species is hopkins sceptible to DIAGNOSTIC penicillin and cefotaxime and most are susceptible to clindamycin. Lora Edwards M.D., [employer] (A) Micro Report FINAL 03/23/2016 INFECTIOUS Status DISEASE DIAGNOSTIC LABORATORY Specimen Anatomical Collection Method Collection Time Receive d Time (Source) Location / / Volume Laterality 03/14/2016 1:33 PM 6 2:07 CDT PM CDT Jono Lancaster MD LAB - MICRO GENERAL ORDERABL ES Performing Organization Address City/[facility]/ZIP Code Phon e Number INFECTIOUS DISEASES [address] [place] [address] DIAGNOSTIC LABORATORY, [phone] [place] [address] INFECTIOUS DISEASE [address] [place], [place] [id number] [place] [address] DIAGNOSTIC LABORATORY (ABNORMAL) Anaerobic bacterial culture (03/14/2016 1:33 PM CDT) Component Value Ref Test Analysis Performed At [employer] [facility] [employer] [facility] Method Time Signature Specimen Tissue Lymph node [place] O F Description Right INGUINAL [place] MEDICAL SPECIMEN 1 [facility] Special Received in [facility] anaerobic tubes. [facility] Culture Micro On day 2, isolated in broth only: Staphylococcus epidermidis This isolate is [facility] presumed to be clindamycin resistant based on detection o f inducible [place] MEDICAL clindamycin resistance. Nakul thromycin and clindamycin are resistant, therefore, [facility] they are not recommended for use. BANK not isolated or reported on routine culture (A) Micro Report FINAL 03/21/2016 INFECTIOUS Status DISEASE DIAGNOSTIC LABORATORY Organism: On day 2, isolated in broth only: Staphylococcus epidermidis This isolate is INFECTIOUS presumed to be clindamycin resistant based on detection o f inducible DISEASE clindamycin resistance. Nakul thromycin and clindamycin are resistant, therefore, DIAGNOSTIC they are not recommended for use. LABORATORY Specimen Anatomical Collection Method Collection Time Receive d Time (Source) Location / / Volume Laterality 03/14/2016 1:33 PM 2:07 CDT PM CDT Organism Antibiotic Method Susceptibility On day 2, isolated in broth only: Vancomycin 2 Susceptible ug/mL staphylococcus epidermidis this isolate is presumed to be clindamycin resistant based on detection of inducible clindamycin resistance. erythromycin and clindamycin On day 2, isolated in broth only: Tetracycline <=1.0 Susceptible ug/mL staphylococcus epidermidis this isolate is presumed to be clindamycin resistant based on detection of inducible clindamycin resistance. erythromycin and clindamycin On day 2, isolated in broth only: Penicillin >2.0 Resistant ug/mL staphylococcus epidermidis this isolate is presumed to be clindamycin resistant based on detection of inducible clindamycin resistance. erythromycin and clindamycin On day 2, isolated in broth only: Oxacillin <=0.25 Susceptible ug/mL staphylococcus epidermidis this isolate is presumed to be clindamycin resistant based on detection of inducible clindamycin resistance. erythromycin and clindamycin On day 2, isolated in broth only: Levofloxacin >8.0 Resistant ug/mL staphylococcus epidermidis this isolate is presumed to be clindamycin resistant based on detection of inducible clindamycin resistance. erythromycin and clindamycin On day 2, isolated in broth only: Gentamicin <=0.5 Susceptible ug/mL staphylococcus epidermidis this isolate is presumed to be clindamycin resistant based on detection of inducible clindamycin resistance. erythromycin and clindamycin On day 2, isolated in broth only: Erythromycin >8.0 Resistant ug/mL staphylococcus epidermidis this isolate is presumed to be clindamycin resistant based on detection of inducible clindamycin resistance. erythromycin and clindamycin On day 2, isolated in broth only: Clindamycin >8.0 Resistant ug/mL staphylococcus epidermidis this isolate is presumed to be clindamycin resistant based on detection of inducible clindamycin resistance. erythromycin and clindamycin On day 2, isolated in broth only: Ciprofloxacin >8.0 Resistant ug/mL staphylococcus epidermidis this isolate is presumed to be clindamycin resistant based on detection of inducible clindamycin resistance. erythromycin and clindamycin Jono Lancaster MD LAB - MICRO GENERAL ORDERABL ES Performing Organization Address City/State/ZIP Code Phon e Number [address] [address] [facility] INFECTIOUS DISEASE [address] [place] [address], [facility] DIAGNOSTIC LABORATORY AFB Culture Non Blood (03/14/2016 1:33 PM CDT) [facility] [employer] Method Time Signature Specimen Lymph node [facility] Culture Micro Culture negative for acid fa st bacilli Assayed at [employer] [address] [facility] Micro Report FINAL [place] Status 05/09/2016 [facility] Specimen Anatomical Collection Method Collection Time Receive d Time (Source) Location / / Volume Laterality 03/14/2016 1:33 PM 6 2:04 CDT PM CDT Jono Lancaster MD LAB - MICRO GENERAL ORDERABL ES Performing Organization Address City/State/ZIP Code Phon e Number [place] [address] [place], [place] [address] [place] [address] [address] [place], [place] [address] [phone] Fungus Culture, non-blood (03/14/2016 1:33 PM CDT) [employer] Method Time Signature Specimen Tissue Lymph [facility] EAST SPECIMEN 1 BANK Culture Micro Culture INFECTIOUS negative DISEASE after 4 DIAGNOSTIC weeks LABORATORY Micro Report FINAL INFECTIOUS Status 04/11/2016 DISEASE DIAGNOSTIC LABORATORY Specimen (Source) Anatomical Collection Method Collection Time Re ceived Time Location / / Volume Laterality Specimen from INGUINAL LYMPH 03/14/2016 1:33 unspecified body NODE STRUCTURE / PM CDT site (specimen) Unknown Jono Lancaster MD LAB - MICRO GENERAL ORDERABL ES Performing Organization Address City/State/ZIP Code Phon e Number INFECTIOUS DISEASES [address] [place] [address] DIAGNOSTIC LABORATORY, [address] [address], [facility] INFECTIOUS DISEASE [address] [place] [address], [facility] DIAGNOSTIC LABORATORY AFB Stain Non Blood (03/14/2016 1:33 PM CDT) [facility] [employer] Method Time Signature Specimen Lymph node [facility] AFB Stain Negative for acid fast bacte vickie Assayed at [employer] [address] [facility] Micro Report FINAL [place] Status 03/17/2016 [facility] Specimen (Source) Anatomical Collection Method Collection Time Re ceived Time Location / / Volume Laterality Specimen from INGUINAL LYMPH 03/14/2016 1:33 unspecified body NODE STRUCTURE / PM CDT site (specimen) Unknown Jono Lancaster MD LAB - MICRO GENERAL ORDERABL ES Performing Organization Address City/[facility]/ZIP Code Phon e Number M [facility] [address] [place], [place] [address] [facility] [address] [place], [place] [address] [phone] Glucose by meter (03/14/2016 12:52 PM CDT) P athologist Signature Glucose 90 70 - 99 POINT OF CARE mg/dL TEST, GLUCOSE Specimen Anatomical Collection Method Collection Time Receive d Time (Source) Location / / Volume Laterality 03/14/2016 12:52 03/14/2016 PM CDT 12:56 PM CDT Jono Lancaster MD LAB - [facility] POCT Performing Organization Address City/[facility]/ZIP [facility] Phon e Number [facility] POINT OF CARE TEST, GLUCOSE POINT OF CARE TEST, GLUCOSE LAB RESULT - HIM SCAN (03/12/2016 12:00 AM CDT) Specimen (Source) Anatomical Location Collection Method / Collectio n Time Received Time / Laterality Volume 03/12/2016 Narrative This result has an attachment that is no t available. Provider Outside NON-BEAKER LAB TESTING EKG CARDIAC - HIM SCAN (02/29/2016 12:00 AM CDT) Specimen (Source) Anatomical Location Collection Method / Collectio n Time Received Time / Laterality Volume 02/29/2016 Narrative This result has an attachment that is no t available. Provider Outside ECG ORDERABLES documented in this encounter Visit Diagnoses Not on filedocumented in this encounter Administered Medications Inactive Administered Medications - up to 3 most recent administrations Medication Order MAR Action Action Date Dose Rate Site bupivacaine 0.25 % - Given 03/14/2016 1:48 PM 16 mLs Operative EPINEPHrine 1:200,000 CDT Sit e/Surgical Site (PF) injection PRN, Starting on Thu03/14/16 at 1348, Intra-procedure documented in this encounter Active and Recently Administered Medications Times are shown in CDT. Scheduled Medication Order 03/12/2016 03/13/2016 03/14/2016 levofloxacin (LEVAQUIN) intermittent infusion 500 mg (COMPLETED) 1312 (Given - Provider: Michaelle Melendrez APRN CRNA) Routine, 500 mg, Intravenous, PRE-OP/PRE -PROCEDURE, Starting on Thu03/14/16 at 1235, For 1 dose, Administer at a rate of no greater than 100mL/hr, Indications: Perioperative Pharmacoprophylaxis, Pre-procedure Continuous Medication Order 03/12/2016 03/13/2016 03/14/2016 lactated ringers infusion (CANCELED) 1312 (New Bag - Provider: Michaelle Melendrez APRN BATTERY CHARGER TESTER)1346 (Anesthesia Volume Adjustment - Provider: Michaelle Melendrez APRN CRNA) at 25 mL/hr, Intravenous, CONTINUOUS, IF patient NOT on dialysis., Pre- procedure, Starting Thu03/14/16 at 1300, Until Thu03/14/16 at 1355 PRN Medication Order 03/12/2016 03/13/2016 03/14/2016 bupivacaine 0.25 % - EPINEPHrine 1:200,000 (PF) injection (CANCE LED) 1348 (Given - Provider: Jono Lancaster MD) PRN, Starting Thu03/14/16 at 1348, Intra-procedure documented in this encounter Care Teams Repair Welder Relationship Specialty Start Date End Date December PCP - General Physician Truck Leasing Manager 03/07/16 05/20/[address] [place] [address] documented as of this encounter
--- OUTSIDE RECORDS SUMMARY | 2022-07-31 10:08 | XMS_ITS | Encounter Summary ---
:1960 Author Organization [facility] Address [address] [place] [address] Care Team Providers Name Role Phone DoctorWendy MD Primary Care Provider Unavailable December Primary Care Provider Encounter Details Date Type Department Care Team Description 03/04/2016 External Order [facility] Damien Lancaster MD Results [facility] [address] [place] [address] [facility] [address] [place] [address] Social History Tobacco Use Types Packs/Day Years Used Date Smoking Tobacco: Never Alcohol Use Standard Drinks/Week Comments No 0 (1 standard drink = 0.6 oz pure alcoho l) Sex Assigned at Date Recorded Not on file documented as of this encounter Plan of Treatment Not on filedocumented as of this encounter Procedures Procedure Name Priority Date/Time Associated Diagnosis Comme nts HIM LAB SCAN Routine 03/04/2016 documented in this encounter Results - HIM Lab Scan (03/04/2016) Specimen (Source) Anatomical Location Collection Method / Collectio n Time Received Time / Laterality Volume 03/04/2016 Narrative This result has an attachment that is no t available. Patient Reported LAB - BLOOD ORDERABLES documented in this encounter Visit Diagnoses Not on filedocumented in this encounter Care Teams Tow Bar Driver Relationship Specialty Start Date End Date Wendy Wagoner MD PCP - General 11/12/01 03/06/16December PCP - General Physician Motor Teacher 03/07/16 05/20/[address] [place] [address] documented as of this encounter
--- OUTSIDE RECORDS SUMMARY | 2022-07-31 10:08 | XMS_ITS | Encounter Summary ---
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 - Closed Specialty Diagnoses / Procedures Referred By Contact Refer red To Contact Diagnoses 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 Type 2 diabetes mellitus with diabetic neuropathy (H) Melanie Desai MD [address] [place] [address] Referral ID Status Reason Start Date Expiration Date Visits Requ ested Visits Authorized [id number] Closed 03/01/2016 03/01/2017 1 1 Encounter Details Date Type Department Care Team Description [facility] sinus of Valsalva without rupture; Heart Clinic MD Leonila Type 2 diabetes mellitus with diabetic n europathy (H) [place] [address] [place] [phone] Social History Tobacco Use Types Packs/Day Years Used Date Smoking Tobacco: Never Tobacco Cessation: Counseling Given: No Alcohol Use Standard Drinks/Week Comments No 0 (1 standard drink = 0.6 oz pure alcoho l) Sex Assigned at Date Recorded Not on file documented as of this encounter Last Filed Vital Signs Vital Sign Reading Time Taken Comments Blood Pressure 90/56 03/17/2016 10:13 AM right arm, l arge cuff CDT Pulse 92 03/17/2016 10:13 AM regular CDT Temperature - - Respiratory Rate - - Oxygen Saturation - - Inhaled Oxygen - - Concentration Weight 85.7 kg (189 lb) 03/17/2016 10:13 AM CDT Height 177.8 cm (5' 10) 03/17/2016 10:13 AM CDT Body Mass Index 27.12 03/17/2016 10:13 AM CDT documented in this encounter Progress Notes Melanie Desai MD - 03/17/2016 11:13 AM CDT March 17, 2016December [place] [address] RE: Tish Dubois : 1960 Dear Ms. Burnett: I again had the pleasure of seeing your patient, Tish Gifford, at [facility] for evaluation of a sinus of Valsalva aneurysm. This patient has a history of adult-onset diabetes mellitus documented in 06/2015. He has numerous end-organ damage because of this including a right Charcot joint, macular degeneration, but no significant nephropathy to date. An echocardiogram was performed on the patient at [facility] from 09/03/2015 and showed normal left ventricular chamber size, mild left ventricular hypertrophy, ejection fraction of 57% and regional wall motion abnormalities with hypokinesis of both the anterior and inferolateral lara. There is moderate sinus of Valsalva dil atation at 47 mm. The patient was told to undergo a CT coronary angiogram. This was not performed because the patient was too tachycardic and the patient went on to have surgery on his right foot without difficulty. He has never had a known myocardial infarction. He denies chest discomfort. He has been diagnosed with obstructive sleep apnea and started using CPAP in 2003 but discontinued this from 2009 until approximately December of this year. He has been tested at the [facility] and is going to receive his results today. Since I saw him, he has lost 31 pounds and his anemia has grown worse. The patient received a blood transfusion last week for a hemoglobin in the 7.9 range.He has bilateral lymph node growth in the groin and a biopsy was performed. He has received iron transfusions. He continues to wear bilateral special boots. His right foot has done well after surgery but now he is having difficulty with edema on his left lower extremity. He has low vitamin D levels which are treated. He is a nonsmoker. He has not been drinking alcohol at all for 3 years. He has no family history of premature atherosclerosis. PHYSICAL EXAMINATION: VITAL SIGNS: Current blood pressure is 90/56 on the right arm. Pulse is 92 and regular, weight is 189 pounds compared to 219 pounds when I saw him in January. BMI is 27. CHEST: Clear to auscultation without wheezes, rales or rhonchi. CARDIAC: Regular rate and rhythm, normal S1 and S2 without gallop or murmur. No heave, rub or thrill. No JVD or HJR. Pulses are intact to the upper extremities without bruits. I do not feel pulses to his lower extremities because of his bilateral boots. ABDOMEN: Benign without organomegaly. EXTREMITIES: Not examined because of his boots. ASSESSMENT: 1. Tish Dubois is a pleasant 55-year-old male who neglected himself until more recently. He developed a Charcot joint on his right foot and underwent surgery for this. Echocardiogram prior to that surgery at the [facility] indicated sinus of Valsalva aneurysm and regional wall motion abnormalities of the left ventricle. A stress test or a CT coronary angiogram should be performed to better understand his anatomy. The patient is asymptomatic and has numerous issues with significant weight loss and anemia. We are going to wait before we move to a nuclear stress test or a CT coronary angiogram. We stopped his furosemide when I last saw him. We cannot use a beta esperanza to slow his heart rate down to perform a CT coronary angiogram. I do not think he is having enough symptoms where I would take him for an invasive angiogram. Instead we will continue to monitor until he is more stable. It is my intention to see him again in 6 months with an echocardiogram to look at his left ventricular function and his aorta. 2. CT coronary angiogram is delayed as mentioned above. 3. The patient or his will call for any determination of why he has lost so much weight and is anemic. 4. The patient will evaluate his sleep apnea and whether he should continue with his CPAP machine. It is my pleasure to assist in the care of Tish Dubois. I will see him in 6 months with an echocardiogram and we will see if we can proceed with stress testing or CT coronary angiogram at that time. I am fairly sure this patient is likely to have coronary artery disease, but he is not having symptoms and we can wait until his evaluation of his other conditions is completed. Thank you for allowingme to help care for Tish Dubois. Sincerely, MD MELANIE De La Cruz MD, [facility] [place]: bertha Name: TISH DUBOIS Account: [id number] : 1960 Service Date: 03/17/2016 Document: [id number] Melanie Desai MD - 03/17/2016 11:04 AM CDT HPI and Plan: See dictation:[id number] Orders Placed This Encounter Procedures ??? Follow-Up with Public Health Dentist ??? Echocardiogram Orders Placed This Encounter Medications ??? SIMVASTATIN PO Sig: Take 20 mg by mouth Medications Discontinued During This Encounter Medication Reason ??? oxyCODONE (ROXICODONE) 5 MG immediate release tablet Therapy completed Encounter Diagnoses Name Primary? 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 Type 2 diabetes mellitus with diabetic neuropathy (H) ??? Family history of ischemic heart disease CURRENT MEDICATIONS: Current Outpatient Prescriptions Medication Sig Dispense Refill ??? SIMVASTATIN PO Take 20 mg by mouth ??? Ibuprofen (ADVIL PO) Take 400 mg by mouth 3 times daily ??? Sertraline HCl (ZOLOFT PO) Take 50 mg by mouth daily ??? Ascorbic Acid (VITAMIN C PO) ??? Cholecalciferol (VITAMIN D3 PO) Take 2,000 Units by mouth ??? aspirin 81 MG tablet Take by mouth daily ??? GLIPIZIDE XL PO Take 2.5 mg by mouth daily (with breakfast) ALLERGIES Allergies Allergen Reactions ??? Amoxicillin Hives PAST MEDICAL HISTORY: Past Medical History Diagnosis Date ??? Diabetes mellitus (H) ??? History of blood transfusion ??? Sleep apnea CPAP ??? Numbness and tingling Numbness in feet ??? Anemia PAST SURGICAL HISTORY: Past Surgical History Procedure Laterality Date ??? Orthopedic surgery Right bone shaving FAMILY HISTORY: Family History [...] Drug Use: No ??? Sexual Activity: Not on file Other Topics Concern ??? Caffeine Concern No ??? Special Diet Yes diabetic diet ??? Exercise No Social History Narrative Review of Systems: Skin: Negative Eyes: Positive for glasses macular edema ENT: Negative Respiratory: Positive for sleep apnea;CPAP Cardiovascular: Negative Gastroenterology: Genitourinary: Negative Musculoskeletal: Negative Neurologic: Positive for numbness or tingling of feet Psychiatric: Positive for excessive stress;anxiety;depression Heme/Lymph/Imm: Negative Endocrine: Positive for diabetes Physical Exam: Vitals: BP 90/56 mmHg Pulse 92 Ht 1.778 m (5' 10) Wt 85.73 kg (189 lb) BMI 27.12 kg/m2 Constitutional: cooperative, alert and oriented, well [...] [facility] [address] [place] [address] documented in this encounter Plan of Treatment Scheduled Referrals Name Type Priority Associated Diagnoses Order S chedule Follow-Up with Referral Routine Aneurysm of aortic Expecte d: 09/13/2016 Public Health Dentist sinus of Valsalva (Approxima te), without rupture Expires: documented as of this encounter Results Echocardiogram (09/10/2016 10:21 AM STAINED GLASS WINDOW DESIGNER) Anatomical Region Laterality Modality Echocardiography Specimen (Source) Anatomical Collection Method Collection Time Re ceived Time Location / / Volume Laterality 09/10/2016 9:59 AM STAINED GLASS WINDOW DESIGNER Narrative 09/10/2016 11:34 AM STAINED GLASS WINDOW DESIGNER Interpretation Summary [facility] [address] [place] [address] Name: TISH DUBOIS : 1960 Study Date: 09/10/2016 09:59 AM Age: 56 yrs Gender: Male Patient Location: [facility] Reason For Study: , Congenital aneurysm of [...] Adalid Seymour MD - [id number] Interpretation Summary [facility] [address] [place] [id number] Name: TISH DUBOIS : 1960 Study Date: 09/10/2016 09:59 AM Age: 56 yrs Gender: Male Patient Location: [facility] Reason For Study: , Congenital aneurysm of [...] aortic sinus of Valsalva wit hout rupture Type 2 diabetes mellitus with diabetic n europathy (H) Type II or unspecified type diabetes gilberto litus with neurological manifestations, not stated as uncontrolled Aneurysm of aortic sinus of Valsalva wit hout rupture documented in this encounter Care Teams Syrup Mixer Relationship Specialty Start Date End Date December PCP - General Physician Counterintelligence Analyst 03/07/16 05/20/17 [place] [address] [place] [address] documented as of this encounter
--- OUTSIDE RECORDS SUMMARY | 2022-07-31 10:08 | XMS_ITS | Encounter Summary ---
:1960 Author Organization [facility] Address [address] [place] [address] Care Team Providers Name Role Phone HortenciaDecember Primary Care Provider Reason for Visit Reason Onset Date Comments Anemia 03/12/2016 Encounter Details Date Type Department Care Team Description 03/12/2016 Telephone [facility] Surgery Dorothy Li, [facility] [place] KRISTOF[address] [place] [address] [place] [address] [phone] Social History Tobacco Use Types Packs/Day Years Used Date Smoking Tobacco: Never Alcohol Use Standard Drinks/Week Comments No 0 (1 standard drink = 0.6 oz pure alcoho l) Sex Assigned at Date Recorded Not on file documented as of this encounter Miscellaneous Notes Telephone Encounter - Dorothy Li PA-C - 03/12/2016 11:57 AM CDT [facility] Phone Call Planned Procedure Date: Surgeon: Dr. Lancaster Procedure: Lymph Node Biopsy Concerns: Ongoing anemia with Hgb of 8.4, asymptomatic. Discussion: Pt had Hgb of 7.6 earlier this week and received 1 unit PRBCs. Now Hgb 8.4, asymptomatic. Also has plans for iron infusion tomorrow thru Hematology office. Pt has had extensive GI workup revealing no bleeding source and anemia is concerning for lymphoma, necessitating planned lymph node biopsy as diagnostic tissue needed. Discussed with surgeon and updated. OK to proceed with plans for surgery on 03/14. No further transfusion needed. Very low EBL expected with planned surgery. Dorothy Li PA-C documented in this encounter Plan of Treatment Not on filedocumented as of this encounter Visit Diagnoses Not on filedocumented in this encounter Care Teams Clinical Data Associate Relationship Specialty Start Date End Date December PCP - General Physician Salvage Inspector 03/07/16 05/20/17 [place] [address] [place] [id number] documented as of this encounter
--- OUTSIDE RECORDS SUMMARY | 2022-07-31 10:08 | XMS_ITS | Encounter Summary ---
:1960 Author Organization [facility] Address [address] [place] [address] Care Team Providers Name Role Phone Brendondecember Primary Care Provider Reason for Visit Auth/Cert Specialty Diagnoses / Procedures Referred By Contact Refer red To Contact Surgery Diagnoses adenopathy Rh Periop Services Procedures DISSECT LYMPH NODE INGUINAL [address] [place], [place] [address] Phone: Fax: Referral ID Status Reason Start Date Expiration Date Visits Requ ested Visits Authorized [id number] 1 1 Encounter Details Date Type Department Care Team Description 03/14/[address] [facility] Jono Lancaster Lymphadenopathy, [place] PreOP/PostOP inguinal (Primary [address] [place], [place] [phone] [place], [place] [phone] [id number] Social History Tobacco Use Types Packs/Day Years Used Date Smoking Tobacco: Never Alcohol Use Standard Drinks/Week Comments No 0 (1 standard drink = 0.6 oz pure alcoho l) Sex Assigned at Date Recorded Not on file documented as of this encounter Last Filed Vital Signs Vital Sign Reading Time Taken Comments Blood Pressure 118/80 03/14/2016 4:34 PM CDT Pulse - - Temperature 36.1 ??C (97 ??F) 03/14/2016 4:34 PM CDT Respiratory Rate 16 03/14/2016 4:34 PM CDT Oxygen Saturation 100% 03/14/2016 4:34 PM CDT Inhaled Oxygen Concentration - - Weight - - Height - - Body Mass Index - - documented in this encounter Discharge Instructions Discharge InstructionsDasha Parham RN - 03/14/2016 2:58 PM CDT HOME CARE FOLLOWING MINOR SURGERY Sean Da Silva, Rogelio Hansen, Maureen Lancaster, RMeliton Suarez???Luiza Garrison RESULTS: If a biopsy of tissue [...] You may slowly transition to use of rmvy-uzg-qliqduy medications for pain relief when you are [...] Walk around frequently. You may consider an jmmj-ajy-yuewdgo stool-softener. Your Pharmacist can assist you with [...] to discuss with the nurse or physician electrician station assistant. # There is a surgeon AUTOMOTIVE WORKER FOREMAN on weekday evenings and over the weekend [...] WATER). HOME CARE FOLLOWING HERNIA REPAIR Maureen Lowry, Sean Payne, Swetha Mcarthur, Maureen Lancaster, Rogelio Tong & Marycarmen DIET: No restrictions. Increased fluid [...] documented in this encounter Nursing Notes Marcella Cavazos RN - 03/14/2016 4:35 PM CDT Pt [...] lymph node biopsy. SURGEON: Jono Lancaster MD OUTBOARD MOTOR MECHANIC: Willie Griffin PA-C BLOOD LOSS: Minimal. INDICATION: [...] MD MT: [id number] Name: TISH FULLER Account: [id number] : 1960 Procedure Date: 03/14/2016 Document: [id number] cc: December Hortencia MINER Brief Op Note - Jono Lancaster MD - 03/14/2016 1:45 PM CDT General Surgery Brief Operative Note Pre-operative diagnosis: right inguinal lymph adenopathy Post-operative diagnosis: same Procedure: excisional node Biopsy right groin Surgeon: Jono Lancaster MD Field Staff(s): Willie Griffin PA-C Anesthesia: General Estimated blood [...] Glucose by meter (03/14/2016 2:03 PM CDT) athologist Signature Glucose 134 (H) 70 - [...] Component Value Ref Test Analysis Performed At [facility] gist Range Method Time Signature Copath Patient Name: TISH FULLER COREY Report MR#: [id number] Specimen #: [id number] Collected: 03/14/2016 13:38 Received: 03/14/2016 16:41 Reported: [...] Electronically Signed Out By: Ela Liu M.D., [facility] CPT Codes: A: 18512-TFBE, 17632-NUAY, 92133-UGNJDC, 58146-HRVK <CR>, 88 280-CHADKT <CR> TESTING LAB LOCATION: [facility] 15[address], [address] [phone] COLLECTION SITE: Client: [facility] Location: ??RHOR (R) Specimen Anatomical Collection Method Collection Time Receive d Time (Source) Location / / Volume Laterality 03/14/2016 1:38 PM 6 4:41 CDT PM CDT Jono Lancaster MD LAB - BODY FLUIDS ORDERABLES Performing Organization Address City/State/ZIP Code Phon e Number [facility] Leukemia lymphoma evaluation (03/14/2016 1:38 PM CDT) Component Value Ref Test Analysis Performed At [facility] Range Method Time Signature Copath Patient Name: TISH FULLER BILLYATH Report MR#: [id number] Specimen #: [id number] Collected: 03/14/2016 13:38 Received: 03/14/2016 16:09 Reported: [...] Electronically signed out by: Tiffany Lawson M.D., [facility] Analyte Specific Reagents are used in many laboratory tests necessary for standard medical care and generally do not require FDA a pproval. This test was developed and its performance characteristics determined by [facility], [facility]. ??It has not been cleared or approved by the U .S. Food and Drug Administration. CPT Codes: A: 92506-DZ, 66162-LWPZRMV, 99364-31-FUAP63(12), 39368-WDVH8 -15 TESTING LAB LOCATION: [place] [address] [facility] [address] [place] [phone] COLLECTION SITE: Client: [facility] Location: ??RHOR (R) Specimen Anatomical Collection Method Collection Time Receive d Time (Source) Location / / Volume Laterality 03/14/2016 1:38 PM 6 4:09 CDT PM CDT Jono Lancaster MD LAB - [place] SPECIAL DIAG OR DERABLES Performing Organization Address City/State/ZIP Code Phon e Number [place] Surgical pathology exam (03/14/2016 1:38 PM CDT) Component Value Ref Test Analysis Performed At [facility] gist Range Method Time Signature Copath Patient Name: [facility]ULL[facility] Report MR#: [id number] Specimen #: [id number] Collected: 03/14/2016 Received: 03/14/2016 Reported: 03/18/2016 12:49 [...] IF16- 2205). Electronically signed out by: Marko Mims M.D. CLINICAL HISTORY: Right lymph node adenopathy. [...] Dr SANTOS who concurs. CPT Codes: A: 64131-IW6, 99193-WMQ, 54228-IIL, 14316-UVA, 12460-CYH, 88 342-IHC, 87454-URU, 20506-KLI, 74750-UXFN, [facility] TESTING LAB LOCATION: [address] ??[phone] COLLECTION SITE: Client: [facility] Location: RHOR (R) Specimen (Source) Anatomical Collection Method Collection Time Re ceived Time Location / / Volume Laterality Tissue specimen INGUINAL LYMPH 03/14/2016 1:38 PM (specimen) NODE STRUCTURE / CDT Unknown Comment: Not for frozen, fresh Jono Lancaster MD [facility] Performing Organization Address City/State/ZIP Code Phon e Number [place] (ABNORMAL) Tissue Culture Aerobic Bacterial (03/14/2016 1:33 PM CDT) Component Value Ref Test Analysis Performed At [facility] Range Method Time Signature Specimen Tissue Lymph node [facility] Description Right INGUINAL OF [place] SPECIMEN 1 [facility] Culture Micro On day 5, isolated in broth only: Propionibacterium species Susceptibility INFECTIOUS testing of Propionibacterium species is not done from thi s source. Our DISEASE antibiogram indicates that Propionibacterum species is hopkins sceptible to DIAGNOSTIC penicillin and cefotaxime and most are susceptible to clindamycin. Lora Edwards M.D., [facility] (A) Micro Report FINAL 03/23/2016 INFECTIOUS Status DISEASE DIAGNOSTIC LABORATORY Specimen Anatomical Collection Method Collection Time Receive d Time (Source) Location / / Volume Laterality 03/14/2016 1:33 PM 6 2:07 CDT PM CDT Jono Lancaster MD LAB - MICRO GENERAL ORDERABL ES Performing Organization Address City/State/ZIP Code Phon e Number INFECTIOUS DISEASES [address] [place] [address] DIAGNOSTIC LABORATORY, [address] [address] INFECTIOUS DISEASE [address] [place], [place] [address] DIAGNOSTIC LABORATORY (ABNORMAL) Anaerobic bacterial culture (03/14/2016 1:33 PM CDT) Component Value Ref Test Analysis Performed At [facility] Range Method Time Signature Specimen Tissue Lymph node CRANBERRY O F Description Right INGUINAL PR MEDICAL SPECIMEN 1 [facility] Special Received in [facility] anaerobic tubes. [facility] Culture Micro On day 2, isolated in broth only: Staphylococcus epidermidis This isolate is [facility] presumed to be clindamycin resistant based on detection o f inducible [facility] clindamycin resistance. Nakul thromycin and clindamycin are resistant, therefore, [facility] they are not recommended for use. [facility] not isolated or reported on routine culture [...] 1:33 PM 6 2:07 CDT PM CDT Organism Antibiotic Method [...] Organization Address City/State/ZIP Code Phon e Number [address] INFECTIOUS DISEASE [address] [place] [address] DIAGNOSTIC LABORATORY AFB Culture Non Blood (03/14/2016 1:33 PM CDT) [facility] gist Method Time Signature Specimen Lymph node [facility] Description RIGHT [facility] Culture Micro Culture negative for acid fa st bacilli Assayed at [employer] [address] [facility] Micro Report FINAL [place] Status 05/09/2016 [facility] Specimen Anatomical Collection Method Collection Time Receive d Time (Source) Location / / Volume Laterality 03/14/2016 1:33 PM 6 2:04 CDT PM CDT Jono Lancaster MD LAB - MICRO GENERAL ORDERABL ES Performing Organization Address City/State/ZIP Code Phon e Number [facility] [address] [place], [place] [address] [place] [address] [address] [place], [place] [address] [phone] Fungus Culture, non-blood (03/14/2016 1:33 PM CDT) [facility] [employer] Method Time Signature Specimen Tissue Lymph [facility] node Right [facility] SPECIMEN 1 BANK Culture Micro Culture [...] Code Phon e Number INFECTIOUS DISEASES [address] [place] [address] DIAGNOSTIC LABORATORY, [phone] [place] [address] [facility] INFECTIOUS DISEASE [address] [place] [address], [facility] DIAGNOSTIC LABORATORY AFB Stain Non Blood (03/14/2016 1:33 PM CDT) [facility] [employer] Method Time Signature Specimen Lymph node [facility] AFB Stain Negative for acid fast bacte vickie Assayed at [employer] [address] [facility] Micro Report FINAL [facility] Status 03/17/2016 [facility] Specimen (Source) Anatomical Collection Method Collection Time Re ceived Time Location / / Volume Laterality Specimen from INGUINAL LYMPH 03/14/2016 1:33 unspecified body NODE STRUCTURE / PM CDT site (specimen) Unknown Jono Lancaster MD LAB - MICRO GENERAL ORDERABL ES Performing Organization Address City/State/ZIP Code Phon e Number [facility] [address] [place], [place] [address] [facility] [address] [phone] Glucose by meter (03/14/2016 12:52 PM CDT) [...] documented in this encounter Visit Diagnoses Diagnosis Lymphadenopathy, inguinal - Primary documented in this encounter Active and Recently [...] (New Bag - Provider: Michaelle Melendrez APRN CRNA)1346 (Anesthesia Volume Adjustment - Provider: Michaelle Melendrez [...] Intra-procedure documented in this encounter Care Teams Maintenance Scheduler Relationship Specialty Start Date End Date December PCP - General Physician Field Staff 03/07/16 05/20/17 [place] [address] [place], [place] [address] documented as of this encounter
--- OUTSIDE RECORDS SUMMARY | 2022-07-31 10:08 | XMS_ITS | Encounter Summary ---
:1960 Author Organization [facility] Address [address] [place] [address]. [place] [address] Care Team Providers Name Role Phone Jeanethdecember Primary Care Provider Reason for Visit Reason Onset Date Comments Previsit 03/12/2016 Encounter Details Date Type Department Care Team Description 03/12/2016 PRE VISIT [facility] Heart Prasanna Sargent MD Previsit Clinic [address] [address] [place] [address] [address] [place] [address] [phone] Social History Tobacco Use Types Packs/Day Years Used Date Smoking Tobacco: Never Alcohol Use Standard Drinks/Week Comments No 0 (1 standard drink = 0.6 oz pure alcoho l) Sex Assigned at Date Recorded Not on file documented as of this encounter Plan of Treatment Not on filedocumented as of this encounter Visit Diagnoses Not on filedocumented in this encounter Care Teams Arbitrator Relationship Specialty Start Date End Date December PCP - General Physician Paraffin Machine Operator 03/07/16 05/20/17 [facility] [address] [id number] documented as of this encounter
--- OUTSIDE RECORDS SUMMARY | 2022-07-31 10:08 | XMS_ITS | Encounter Summary ---
:1960 Author Organization [facility] Address [address] [place] [address] Care Team Providers Name Role Phone HortenciaDecember Primary Care Provider Reason for Visit Reason Comments Consult discuss lymph node BX in [place] in area Encounter Details Date Type Department Care Team Description 03/10/2016 Office Visit [facility] Damien Lancaster Inguin al lymphadenopathy Surgery Clinic (Primary Dx) [place] [address] [place] [address] [facility] [address] [place] [phone] Social History Tobacco Use Types Packs/Day Years Used Date Smoking Tobacco: Never Tobacco Cessation: Counseling Given: Yes Alcohol Use Standard Drinks/Week Comments No 0 (1 standard drink = 0.6 oz pure alcoho l) Sex Assigned at Date Recorded Not on file documented as of this encounter Last Filed Vital Signs Vital Sign Reading Time Taken Comments Blood Pressure 116/68 03/10/2016 3:09 PM CDT Pulse 103 03/10/2016 3:09 PM CDT Temperature - - Respiratory Rate - - Oxygen Saturation 98% 03/10/2016 3:09 PM CDT Inhaled Oxygen Concentration - - Weight 86.2 kg (190 lb) 03/10/2016 3:09 PM CDT pt repor dewayne Height 177.8 cm (5' 10) 03/10/2016 3:09 PM CDT pt repo rted Body Mass Index 27.26 03/10/2016 3:09 PM CDT documented in this encounter Progress Notes Damien Lancaster MD - 03/10/2016 3:50 PM CDT HPI: Geo presents today for a lymphadenopathy on his groins bilaterally for the past 1 week. These were noted on physical exam and imaging (for possible DVT). He denies trauma at to the site. He has had no drainage from the site in the past. He has no history of infection. It is not painful. It's size is stable. He has had a recent diagnosis of diabetes and has developed retinopathy, fluid retention, Charcot joint in his feet and did have an ulcer on the right foot but not on the left. He has had no fevers. Noanalysis at home is ill. He has no exposure to cats. He has also had progressive anemia and is scheduled for transfusion tomorrow and iron infusion laterin the week at his heme/onc clinic. He reports that he has had colonoscopy and endoscopy and complete evaluation for his anemia. He is here with his PE: BP 116/68 mmHg Pulse 103 Ht 5' 10 (1.778 m) Wt 190 lb (86.183 kg) BMI 27.26 kg/m2 SpO2 98% General appearance: well-nourished, no apparent distress Lungs: respirations unlabored Neurologic: nonfocal, grossly intact times four extremities, alert and oriented times three Psychiatric: Mood and affect are appropriate Lymph: There is bilateral inguinal adenopathy, equal left and right. I cannot palpate any supraclavicular or axillary adenopathy although there are some small palpable nodes in both axilla MSK: There are orthopedic boots on both feet Imaging: Bilateral inguinal adenopathy measuring up to about 2 cm in size. There is also a lesser degree of adenopathy involving the internal iliac chains bilaterally. I do not see any significant periaortic adenopathy, the spleen may be slightly enlarged. Impression: Bilateral inguinal adenopathy, progressive anemia, new diabetes Plan: We will schedule excision at his convenience.Discussed incision, scar, fluid collections, numbness, nerve and vascular injury. He will have a scheduled blood transfusion tomorrow at the [facility] and have a follow-up exam and his primary care office the next day at which time, he will have preoperative clearance exam performed. Damien Lancaster MD Please route or send letter to: Primary Care Provider (PCP), Referring Provider (Adria Denis) and Include Progress Note HPI ROS Physical Exam Guille Worrell CMA - 03/10/2016 3:20 PM CDT HPI ROS (Review of Systems): Positive for weight loss, anemia, diabetes, DM controlled with Diet and DM controlled with Oral Medication. Physical Exam documented in this encounter Plan of Treatment Not on filedocumented as of this encounter Visit Diagnoses Diagnosis Inguinal lymphadenopathy - Primary Enlargement of lymph nodes documented in this encounter Care Teams Roustabout Supervisor Relationship Specialty Start Date End Date December PCP - General Physician Stucco Laborer 03/07/16 05/20/17 [place] [address] [address] [address] documented as of this encounter
--- OUTSIDE RECORDS SUMMARY | 2022-07-31 10:08 | XMS_ITS | Encounter Summary ---
:1960 Author Organization [facility] Address [facility] [place] [address] Care Team Providers Name Role Phone Doctor, None MD Primary Care Provider Unavailable Encounter Details Date Type Department Care Team Description 10/03/2015 Hospital Encounter [facility] Wound Kaleigh Weinberg MD Clinic [place] [address] [facility] [address] [facility] [address] [place] [address] [place] [address] [phone] Social History Tobacco Use Types Packs/Day Years Used Date Smoking Tobacco: Never Assessed Sex Assigned at Date Recorded Not on file documented as of this encounter Medications at Time of Discharge Medication Sig Dispensed Refills Start Date End Date GLIPIZIDE XL PO Take 5 mg by mouth 0 daily (with breakfast) ferrous fumarate 65 mg, Take 1 tablet by 0 01/31/2016 wainwright. FE,-Vitamin C 125 mouth daily mg (VITRON C) 65-125 MG TABS FUROSEMIDE PO Take 20 mg by mouth 0 METFORMIN HCL PO Take 500 mg by mouth 0 03/11/2016 2 times daily (with meals) documented as of this encounter Progress Notes Kaleigh Alvarado MD - 10/03/2015 11:42 AM [facility] DATE OF SERVICE: 10/03/2015 Mr. Geo Dubois returns today for treatment of the ulcer on the right plantar foot. He was firstseen for this 3 weeks ago and has been treating this with Iodosorb gel. He has no new complaints. His is here with him today and notes that the wound is getting smaller. The patient had no fever, chills or other new complaints. PHYSICAL EXAMINATION: VITAL SIGNS: The patient's vitals reveal blood pressure 125/86, pulse 100, respirations 16 and temperature 96.8. EXTREMITIES: Examining the right foot the ulcer on the plantar surface measures 0.7 x 0.7 x 0.5 cm. I did explore this with a small curet and the tunnel of 1.5 previously is really now just the depth of the wound to 0.5 cm. There is no sign of purulence or infection. IMPRESSION: Improving ulcer in a Charcot foot and the patient currently has an appointment to see Dr. Zapien later this week. Apparently at that time, he is going to make a decision on whether to operate. The patient will follow up with us on an as-needed basis per Dr. Zapien. KALEIGH ALVARADO MD MT: graciela Name: GEO DUBOIS Account: [id number] : 1960 Visit Date: 10/03/2015 Document: [id number] cc: Felix Zapien MD NESE TUTOR documented in this encounter Plan of Treatment Not on filedocumented as of this encounter Visit Diagnoses Not on filedocumented in this encounter Care Teams Mail Processing Associate Relationship Specialty Start Date End Date Doctor, MD Wendy PCP - General 11/12/01 03/06/16 documented as of this encounter
--- OUTSIDE RECORDS SUMMARY | 2022-07-31 10:08 | XMS_ITS | Encounter Summary ---
:1960 Author Organization [facility] Address [address] [place] [address]. [place] [address] Care Team Providers Name Role Phone HortenciaDecember Primary Care Provider Reason for Visit Reason Onset Date Comments Previsit 03/14/2016 Encounter Details Date Type Department Care Team Description 03/14/2016 PRE VISIT [facility] Prasanna Sargent MD Previsit [address] [address] [place] [address] [facility] [address] [place] [address] [phone] Social History Tobacco Use Types Packs/Day Years Used Date Smoking Tobacco: Never Alcohol Use Standard Drinks/Week Comments No 0 (1 standard drink = 0.6 oz pure alcoho l) Sex Assigned at Date Recorded Not on file documented as of this encounter Plan of Treatment Not on filedocumented as of this encounter Visit Diagnoses Not on filedocumented in this encounter Care Teams Ceo & Board Director Relationship Specialty Start Date End Date December PCP - General Physician Covering And Lining Supervisor 03/07/16 05/20/17 [facility] [address] [place] [address] [address] documented as of this encounter
--- OUTSIDE RECORDS SUMMARY | 2022-07-31 10:08 | XMS_ITS | Encounter Summary ---
:1960 Author Organization [place] Address [address] [place] [address] Care Team Providers Name Role Phone Doctor, None MD Primary Care Provider Unavailable Encounter Details Date Type Department Care Team Description 09/12/2015 Hospital Encounter [facility] Kaleigh Weinberg MD [facility] [address] [facility] [address] [facility] [address] [place] [address] [place] [address] [phone] Social History Tobacco Use Types Packs/Day Years Used Date Smoking Tobacco: Never Assessed Sex Assigned at Date Recorded Not on file documented as of this encounter Medications at Time of Discharge Medication Sig Dispensed Refills Start Date End Date GLIPIZIDE XL PO Take 5 mg by mouth 0 daily (with breakfast) ferrous fumarate 65 mg, Take 1 tablet by 0 01/31/2016 [place]. FE,-Vitamin C 125 mouth daily mg (VITRON C) 65-125 MG TABS FUROSEMIDE PO Take 20 mg by mouth 0 METFORMIN HCL PO Take 500 mg by mouth 0 03/11/2016 2 times daily (with meals) documented as of this encounter Progress Notes Kaleigh Alvarado MD - 09/12/2015 11:06 AM [facility] DATE OF SERVICE: 09/12/2015 PRESENTING COMPLAINT: Mr. Geo Dubois is a 55-year-old gentleman who had been generally healthy according to his history, but in June was diagnosed with diabetes. I suspect he has had this for quite a bit longer as he had developed a Charcot deformity of his right and left foot. At any rate, heis seeing Dr. Zapien for treatment of this and appropriate orthotics have been ordered. He is sent to the [facility] to take care of a plantar ulcer over the center of the midfoot on the right side. PHYSICAL EXAMINATION: VITAL SIGNS: The patient is generally healthy-appearing and in no distress. He is 6 feet 10 inches tall, weighs 210 pounds. VITAL SIGNS: Temperature of 97.7, blood pressure 125/90, pulse of 101 and respirations 16. EXTREMITIES: The exam is otherwise limited to his right foot. He does have a Charcot deformity of the right foot and an ulcer on the plantar surface measuring 1.6 x 1.4 x 0.2 cm. There is a tunnel thattracts distally at 11:00, 1.5 cm. There is slough in this wound and it should be debrided. PROCEDURE NOTE: After informed consent and topical anesthetic of 4% Xylocaine, the wound is debrided, first taking the callus surrounding the ulcer and then a curet is used to curet out the base. With curetting the base, it became apparent that was this 1.5 cm tunnel distally. The slough is debrided from this tunnel. It probes to bone, but I do not feel bare bone, so I think there is still tissue covering the bone. The patient did have an x-ray previously and no mention made of evidence of bony erosion. IMPRESSION: Newly diagnosed diabetic with plantar ulcer and a Charcot foot deformity that is going to be taken care of by Dr. Zapien. At this point, we have to try to get the ulcer to heal. We are going to use Iodosorb and the patient's helper will apply this daily and he will continue nonweightbearing. He has been advised to keep weight off this foot. 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 He will return to the [facility] in 3 weeks' time. KALEIGH ALVARADO MD MT: [email or web address] Name: GEO DUBOIS MRN: [id number] Account: [id number] : 1960 Visit Date: 09/12/2015 Document: [id number] cc: Felix Zapien MD [facility] FURNACE OPERATOR documented in this encounter Plan of Treatment Not on filedocumented as of this encounter Visit Diagnoses Not on filedocumented in this encounter Care Teams Advanced Manager Relationship Specialty Start Date End Date Doctor, Wendy, PCP - General 11/12/01 03/06/16 documented as of this encounter
--- OUTSIDE RECORDS SUMMARY | 2022-07-31 10:08 | XMS_ITS | Encounter Summary ---
:1960 Author Organization [place] Address On license of [facility] [place] [address] Care Team Providers Name Role Phone Wendy Wagoner MD Primary Care Provider Unavailable Reason for Visit Reason Comments *-*INCOMING RECORDS*-* [place] note from [facility] Encounter Details Date Type Department Care Team Description 01/28/2016 Documentation Only [facility], *-*I [facility] [place] Keen MD RECORDS*-* (OV note [address] from [facility]) [facility] [address] [place] [address] [place] [phone] [address] Social History Tobacco Use Types Packs/Day Years Used Date Smoking Tobacco: Never Assessed Sex Assigned at Date Recorded Not on file documented as of this encounter Progress Notes Laine Valadez RN - 01/28/2016 10:55 AM CDT Received OV note from [facility]. Patient has OV with Dr. Sargent on 01/31/2016 in [facility] a new patient. Sent note to scan, put copy in triage box for chart prep. documented in this encounter Plan of Treatment Not on filedocumented as of this encounter Visit Diagnoses Not on filedocumented in this encounter Care Teams Tele Rn Relationship Specialty Start Date End Date Wendy Wagoner MD PCP - General 11/12/01 03/06/16 documented as of this encounter
--- OUTSIDE RECORDS SUMMARY | 2022-07-31 10:10 | XMS_ITS ---
:1960 Author Care Team Providers Name Role Phone Reinier Machado Primary Care Provider Unavailable Allergies Code Code System Name Reaction Severity Status Onset 723 RxNorm Amoxicillin ? ? Active ? Medications Name Status Start Date Stop Date ? ? Accu-Chek Guide test strips Completed ? 06/29 USE TO TEST ONCE DAILY. DX CODE: E11.9 atorvastatin 20 mg tablet Active ? Not av ailable TAKE 1 TABLET BY MOUTH DAILY AT BEDTIME. carvedilol 12.5 mg tablet Completed ? 2021 TAKE 1 TABLET BY MOUTH TWICE A DAY carvedilol 25 mg tablet Active ? Not avai lable TAKE 1 TABLET BY MOUTH TWICE A DAY WITH FOOD carvedilol 3.125 mg tablet Completed ? 07/23 TAKE 2 TABLETS (6.25 MG TOTAL) BY MOUTH 2 (TWO) TIMES A DAY WIT H MEALS. Flowflex COVID-19 Antigen Home Test kit Completed ? 07/23/2022 REFER TO SUPERVISOR [employer]ATCH[employer] INSTRUCTIONS INCLUDED IN PACKAGING glipizide ER 10 mg tablet, extended release 24 hr Active ? Not available TAKE 1 TABLET (10 MG TOTAL) BY MOUTH DAILY WITH BREAKFAST. glipizide ER 2.5 mg tablet, extended release 24 hr Completed ? 07/23/2022 TAKE 1 TABLET BY MOUTH EVERY DAY glipizide ER 5 mg tablet, extended release 24 hr Completed ? 07/23/2022 TAKE 1 TABLET BY MOUTH EVERY DAY hydralazine 10 mg tablet Active ? Not fela ilable TAKE 2.5 TABLETS (25 MG TOTAL) BY MOUTH 2 (TWO) TIMES A DAY. hydrochlorothiazide 12.5 mg capsule Completed ? 07/23/2022 TAKE 1 CAPSULE BY MOUTH DAILY hydrochlorothiazide 25 mg tablet Completed ? 07/23/2022 TAKE 1 TABLET BY MOUTH EVERY DAY hydrochlorothiazide 50 mg tablet Active ? Not available TAKE 1 TABLET BY MOUTH DAILY losartan 100 mg tablet Active ? Not avail able TAKE 1 TABLET BY MOUTH DAILY losartan 25 mg tablet Completed ? 07/23/2022 TAKE 1 TABLET BY MOUTH DAILY. losartan 50 mg tablet Completed ? 07/23/2022 TAKE 1 TABLET BY MOUTH EVERY DAY minoxidil 2.5 mg tablet Completed ? 07/23/20 TAKE 1 TABLET BY MOUTH EVERY DAY Problems None recorded. Procedures Date Name Performed by ? ? Colonoscopy Information not avai lable 07/23/2022 CT, Abdomen + Pelvis, W/o Contrast [facility] Radiology Department [address] [place] [address] (Work Place) 07/23/2022 US, Renal [facility] Radiology Department [address] [place] [address] (Work Place) Results Lab Results Date Name Specimen Result Interpretation Description Value Range Status Address ? 07/23/2022 Urinalysis, ? Color-Status Yellow ? ? [facility]: [address], [place] ? ? ? Clarity-Status Clear ? ? [facility]: [address] ? ? ? Glucose-Status 1000 ? ? [facility]: [address] ? ? ? pH-Status 5.5 ? ? [facility]: [address], [place] ? ? ? Nitrates-Status negative ? ? [facility]: [address], [place] ? ? ? Blood-Status Negative ? ? [facility]: [address], [place] ? ? ? Leuko-Status Negative ? ? [facility]: [address], [place] 07/23/2022 Urinalysis, ? No observation ? ? ? Dipstick recorded. Past Encounters 07/23/2022 Blood in Urine; Lower Urinary Tract Symp toms Due to Benign Prostatic Hypertrophy Reinier Machado MD: [address], [place] [address], Ph. Social History Tobacco Smoking Status Never Smoker Vaccine List None recorded. Plan of Care Reminders Provider Appointments None recorded. ? ? Lab None recorded. ? ? Referral None recorded. ? ? Procedures None recorded. ? ? Surgeries None recorded. ? ? Imaging None recorded. ? ? Vitals Height Weight BMI 5 ft 10 in 155 lbs 22.2 kg/m2
--- OUTSIDE RECORDS SUMMARY | 2022-07-31 10:10 | XMS_ITS | Encounter Summary ---
:1960 Author Reason for Visit Blood in Urine Assessment and Plan 1. Blood in urine 1. H/O gross hematuria - UA is normal today - check CT scan (stone tech) and Renal U /S (unable to perform CT Urogram due to CKD) - recommended Cystoscopy to assess bladd er (patient declined) - check CxBladder - will need Cystoscopy if CxBladder shows high risk of bladder cancer ? urinalysis, dipstick ? CT, abdomen + pelvis, w/o contrast ? US, renal 2. Lower urinary tract symptoms due to benign prostatic hypertrophy 2. BPH / Incomplete bladder emptying - elevated PVR (156 mL) - minimal urinary symptoms - discussed trying Flomax - patient woul d like to observe for now - recommend annual PSA and DIONE - check Bladder scan at Follow-up Discussion Note: None recorded.Patient educational handouts: No information available. Plan of Care Reminders Provider Appointments None recorded. ? ? Lab Urinalysis, Dipstick 07/23/2022 [facility] Referral None recorded. ? ? Procedures None recorded. ? ? Surgeries None recorded. ? ? Imaging CT, Abdomen + Pelvis, W/o 07/23/2022 [facility] Contrast Radiology Depart ment ? US, Renal 07/23/2022 [facility] Radiology Depart ment Medications Name Start Date ? ? atorvastatin 20 mg tablet ? TAKE 1 TABLET BY MOUTH DAILY AT BEDTIME. carvedilol 25 mg tablet ? TAKE 1 TABLET BY MOUTH TWICE A DAY WITH FOOD glipizide ER 10 mg tablet, extended release 24 hr ? TAKE 1 TABLET (10 MG TOTAL) BY MOUTH DAILY WITH BREAK FAST. hydralazine 10 mg tablet ? TAKE 2.5 TABLETS (25 MG TOTAL) BY MOUTH 2 (TWO) TIMES A DAY. hydrochlorothiazide 50 mg tablet ? TAKE 1 TABLET BY MOUTH DAILY losartan 100 mg tablet ? TAKE 1 TABLET BY MOUTH DAILY Medications Administered None recorded. Vitals Height Weight BMI 5 ft 10 in 155 lbs 22.2 kg/m2 Results Lab Results Date Name Specimen Result [...] [address], [place] Allergies Code Code System Name Reaction Severity Onset 723 RxNorm Amoxicillin ? ? ? Problems None recorded. Procedures Date Name Performed by ? ? Colonoscopy Information not avai lable 07/23/2022 CT, Abdomen + Pelvis, W/o Contrast [facility] Radiology Department [address] [place] [address] (Work Place) 07/23/2022 US, Renal [facility] Radiology Department [address] [place] [address] (Work Place) Vaccine List None recorded. Social History Tobacco Smoking Status Never Smoker What was the date of your most recent tobacco screening? What is your level of alcohol consumption? Occasional Do you or have you ever used any other forms of tobacco or n icotine? N What is your level of caffeine consumption? Occasional Do you use any illicit or recreational drugs? N Family History Relation Problem Onset Age of Age Notes Mother Family history of diabetes (No Information) N/A (No Notes) mellitus Brother Family history of diabetes (No Information) N/A (No Notes) mellitus Functional Status Unknown. Past Encounters 07/23/2022 Blood in Urine; Lower Urinary Tract Symp toms Due to Benign Prostatic Hypertrophy Reinier Machado MD: [address], [place] [address], Ph. History of Present Illness Note: <div>62 yo male with history of HTN, DM (type 2), CKD (stage 3), and hyperlipidemia - presents for evaluation of gross hematuria. No Family Hx of prostate cancer. No Tobacco use. He passed 2 blood clots about 3 months ago. Follow-up urinalysis revealed microscopic hematuria. He denies abdominalor flank pain. He voids every 2-6 hours during the day and 1x/night. He denies hesitancy, slow stream, urgency, or dysuria. He also reports trouble obtaining and maintaining erection - no penile pain or curvature.</div><div>- UA - no blood - no LE</div><div>- PVR = 156 mL</di v><div> </div> Review of Systems ? Comprehensive General Adult ROS Reported By: Patient Constitutional: Constitutional: no fever, no chills Eyes: Eyes: no dry eyes, no vision change, no irritation Endocrine: Endocrine: no fatigue, no in creased thirst Cardiovascular: Cardiovascular: no chest dixie n, no palpitations Integumentary: Skin: no rashes, no change i n skin color Respiratory: Respiratory: no wheezing, no cough, no shortness of breath Gastrointestinal: Gastrointestinal: no abdomin al pain, no nausea, no vomiting, no constipation, no GERD Musculoskeletal: Musculoskeletal: no neck dixie n, no back pain Neurologic: Neurologic: no tremor, no di zziness, no numbness, no headaches Genitourinary: Genitourinary: no incontinen ce, no difficulty urinating ENMT: Ears: no ear pain. Mouth/Thr oat: no sore throat Allergic/Immunologic: Allergy/Immunologic: no itch ing, no hives Hematologic/Lymphatic: Hematologic/Lymphatic no swo llen glands, no excessive bleeding Psychiatric: Psych: no hallucinations, (n ormal) sleep disturbances: mismatch of sleep / wake tiff edule with lifestyle needs Physical Exam ? Urology Male Reported By: Patient Constitutional: General Appearance: healthy- appearing, overweight. Level of Distress: no acute distress Abdomen: Inspection and Palpation: so ft, no tenderness, no masses, no CVA tenderness Male : Penis: no discharge, no lesi ons, uncircumcised. Scrotum: no cysts, no lesions, no edema, no tender ness. Testes: normal testes, no swelling Rectal: Anus, Perineum, Rectum: norm al tone, no hemorrhoids, no lesions, no fissures, no masses. Prostat e: non-tender, smooth / no nodules, enlarged; 40 gm - no nodule Skin: General Appearance of extrem ities: no edema. Inspection and palpation: normal temperatur e, no rash, no lesions
--- NOTE | 2022-07-31 11:00 | CRLHL7_ITS ---
For Patients: As a result of the Century Cures Act, medical imaging exams and procedure reports are released immediately into your electronic medical record. You may view this report before your referring provider. If you have questions, please contact your health care provider. INDICATION: Chronic kidney disease, hypertension TECHNIQUE: Grayscale, color Doppler and power Doppler evaluation of the kidneys performed. COMPARISON: CT 07/31/2022, ultrasound 04/12/2020 FINDINGS: BILATERAL RENAL ARTERY DUPLEX ULTRASOUND ABDOMINAL AORTA: Peak systolic velocity = 57 cm/s. This is considered artifactually low and therefore the renal artery ratios cannot be relied upon. No aortic aneurysm. Mild atherosclerotic disease. RIGHT KIDNEY: 10.1 cm in length. There is no hydronephrosis. Peak systolic velocity = 52-70 cm/second. At the origin, the PSV is 157 cm/second. Renal artery to aortic peak systolic velocity ratio = indeterminate. Resistive indices: 0.7 Renal vein = patent LEFT KIDNEY: 12.3 cm in length. There is no hydronephrosis. Peak systolic velocity = 49-68 cm/second. At the origin, the PSV is 170 cm/second. Renal artery to aortic peak systolic velocity ratio = indeterminate. Resistive indices: 0.7-0.8 Renal vein = patent IMPRESSION: Falsely low mid aortic peak systolic velocity which renders the renal artery ratios indeterminate. The velocity measurement at the origin of the renal arteries is considered more risk control representative of the true aortic peak systolic velocity given the history of hypertension. The velocities are comparable regarding the renal arteries themselves proximal, mid and distal, compared to the prior ultrasound evaluation. The renal resistive indices are mildly elevated. No hydronephrosis. Dictated by Damien Wise MD @ 07/31/2022 12:25:43 PM (Electronically Signed)
== END 2022-07-31 09:51 | disposition home or self-care (01) ==
LOC: CT 09:52
PROVIDERS: PCP Family Medicine; Visit Provider Urology
DX: R31.9 Hematuria, unspecified (principal); I12.9 Hypertensive chronic kidney disease with stage 1 through stage 4 chronic kidney disease, or unspecified chronic kidney disease; N18.9 Chronic kidney disease, unspecified
CPT/HCPCS: 74176; 76775; 93975